=== PATIENT | female | born 1935 | race Caucasian/White ===

== ENCOUNTER 2020-10-04 18:19 | Inpatient (IN) ==
--- NOTE | 2020-10-04 18:51 | Emergency Department Note ---
Impression & Plan Acute pyelonephritis, Flank Pain, Acute UTI (urinary tract infection), T12 compression fracture, Fracture of left pelvis ED Provider Note INFORMANT: Patient ED PROVIDER(S): Gonzalez Bolanos MD CHIEF COMPLAINT: Flank pain PLAN: Disposition: Admitted Condition: Good Outpatient prescription management: none Referral: None MEDICAL DECISION MAKING: Patient presented because of urinary symptoms and flank pain. She was concerned about a kidney infection. She does have CVA tenderness. She did not have any fever. She did have some tenderness in the pelvis. She had been able to ambula te after the fall but has noted the increasing weakness causing her more difficulty. A urinalysis was concerning for infection. Her CBC revealed a leukocytosis as well. Her chemistry panel was unremarkable. The patient was treated with IV Rocephin. She received fentanyl prehospital which helped with her pain. The patient had a Dilaudid order written. CT imaging also revealed a compression fracture at T12 and L4. The patient's son noted the L4 was there previously. She also has a fracture of the left pelvis. Further management in the hospital is going to be necessary. [facility] The patient will be admitted for further management. Triage Nursing notes reviewed and agree them. Vital Signs: reviewed and remarkable for no significant abnormalities Differential diagnosis: Renal colic, UTI, appendicitis, diverticulitis, mesenteric ischemia, aortic pathology, infections, inflammatory bowel disease, PUD, biliary pathology, as well as other pathologies. Diagnostics interpreted by me: ECG: none Cardiac Monitoring: Cardiac monitoring ordered by me: The patient was placed on continuous cardiac monitoring and observed. It revealed a normal sinus rhythm at 74 beats per minute without ectopy or evidence of dysrhythmia. Imaging studies: CT scans of the abdomen and pelvis revealed findings noted above. I refer you to the EMR for further details. HPI: The patient is a 84 year old female who presents to the Emergency Room with complaints of right flank abdominal pain. This started over the last few days and is worsening. The patient also notes the following associated symptoms, dysuria, weakness, inability to walk. The patient has been given Zofran and fentanyl by EMS successfully for relieving factors. Current pain is rated as 4/10. The patient has a history of UTI and is concerned for the same. Incidentally she did fall a week ago but denies any injury. She was able to get up and walk around. She was bearing weight. It seems since the urinary symptoms started that she became more weak and has not been able to walk. Pt denies LOC, headache, fevers, chills, diaphoresis, visual changes, neck pain, chest pain, breathing difficulties, nausea, vomiting, midline or left-sided back pain, melena, hematochezia, numbness, lymphadenopathy, rash, or other complaints. ROS: See above HPI for pertinent positives & negatives. A total of 10 systems reviewed and were otherwise negative. PAST MEDICAL HISTORY:See Below , UTI PAST SURGICAL HISTORY:See Below, pacemaker FAMILY HISTORY:See Below SOCIAL HISTORY:See Below, retired HOME MEDICATIONS:See Below ALLERGIES:See Below VITALS:See Below PHYSICAL EXAMINATION: GENERAL: Awake, alert, well-appearing, in no distress HENT: Normocephalic, atraumatic. Oropharynx unremarkable. EYES: Normal conjunctiva. Sclera non-icteric. NECK: Inspection normal. Non-tender. Supple. No nuchal rigidity. FROM. No masses. RESPIRATORY: Clear to auscultation. No wheezes. No rales. Normal respiratory effort. CARDIAC: Normal rate. Normal rhythm. No murmurs. No rubs. Extremities warm and well perfused. Pulses equal. No JVD. GI: Soft, non-distended. No tenderness to palpation. No rebound or guarding. No masses. RECTAL: Deferred. MUSCULOSKELETAL: Atraumatic. Chest examination reveals no tenderness. The back is symmetrical on inspection without obvious abnormality. There is no CVA tenderness to palpation. No joint edema. LOWER EXTREMITIES: Calves are equal size bilaterally and non-tender. No edema. No discoloration. NEURO: Normal sensorium. No sensory or motor deficits noted. SKIN: No rash or jaundice noted. Gonzalez Bolanos MD Past Med/Surg History Social History Smoking Status: Former smoker Feels Safe at Home: Yes Allergies Allergies Allergy/AdvReac Type Severity Reaction Status Date / Time clindamycin [From Cleocin] Allergy Unknown Unverified 10/04/20 20:31 doxycycline Allergy Unknown Unverified 10/04/20 20:30 meperidine [From Demerol] Allergy Unknown Unverified 10/04/20 20:29 morphine Allergy Unknown Unverified 10/04/20 20:30 Home Meds Home Medications Medication Instructions Recorded Confirmed aspirin [Aspir-81] 81 mg PO DAILY 10/04/20 10/04/20 atorvastatin 20 mg PO HS 10/04/20 10/04/20 carvedilol 12.5 mg PO HS 10/04/20 10/04/20 cholecalciferol (vitamin D3) 25 mcg PO QAM 10/04/20 10/04/20 hydrocodone-acetaminophen [Ione] 1 tab PO Q6H PRN 10/04/20 10/04/20 levothyroxine 88 mcg PO DAILY 10/04/20 10/04/20 pioglitazone 30 mg PO QAM 10/04/20 10/04/20 prednisone 0 mg PO .DAILY/UD 10/04/20 10/04/20 spironolactone 25 mg PO QAM 10/04/20 10/04/20 Results & Data (ED) Vital Signs Vital Signs - 24 hr 10/04/20 18:44 10/04/20 22:00 Temperature 36.6 C Temperature Source Oral Pulse Rate 60 Pulse Rate [Right Finger] 60 74 Pulse Rhythm Regular Pulse Rhythm [Right Finger] Regular Pulse Strength Normal Pulse Strength [Right Finger] Normal Respiratory Rate 16 18 Respiratory Effort / Characteristics Non-Labored Spontaneous Non-Labored Respiratory Depth Normal Blood Pressure [Right Arm] 140/60 129/54 L Blood Pressure Mean [Right Arm] 86 79 Pulse Oximetry 90 92 Oxygen Delivery Method Room Air Room Air Sepsis Recent Fever Within 48 Hours No Sepsis New/Unexplained Change in Mental Status No Sepsis Action Taken by Nursing No Action Required Laboratory Data Result diagrams: 10/04/20 18:25 10/04/20 18:25 Lab Results 10/04/20 10/04/20 10/04/20 Range/Units 18:25 18:25 18:55 WBC 15.06 H (4.8-10.8) K/uL RBC 4.23 L (4.7-6.1) M/uL Hgb 12.5 L (14.0-18.0) g/dL Hct 36.6 L (42-52) % MCV 86.5 (80-100) fL MCH 29.6 (25-34) pg MCHC 34.2 (32-36) g/dL RDW Std Deviation 51.2 H (36.4-46.3) fL RDW Coeff of Joie 16.1 H (11.5-14.5) % Plt Count 279 (130-400) K/uL MPV 9.1 (7.4-10.4) fL Immature Gran % (Auto) 0.5 % Neut % (Auto) 93.2 % Lymph % (Auto) 4.4 % [place] % (Auto) 1.9 % Eos % (Auto) 0.0 % Baso % (Auto) 0.0 % Neut # (Auto) 14.02 H (1.4-6.5) K/uL Lymph # (Auto) 0.67 L (1.2-3.4) K/uL [place] # (Auto) 0.29 (0.11-0.59) K/uL Eos # (Auto) 0.00 (0-0.5) K/uL Baso # (Auto) 0.00 (0-0.2) K/uL Immature Gran # (Auto) 0.08 H (0.00-0.02) K/uL Sodium 133 L (136-145) mmol/L Potassium 4.5 (3.5-5.1) mmol/L Chloride 101 (98-107) mmol/L Carbon Dioxide 29 (21-32) mmol/L Anion Gap 3.0 (3-11) BUN 27 H (7-18) mg/dl Creatinine 0.80 (0.6-1.4) mg/dl Est Cr Clr Drug Dosing Not Reportable Est GFR ( Amer) 94.4 ml/min Est GFR (Non-Af Amer) 81.5 ml/min BUN/Creatinine Ratio 33.3 H (10-20) Glucose 209 H (70-99) mg/dl Calcium 8.5 (8.5-10.1) mg/dl Total Bilirubin 1.3 H (0.2-1) mg/dl AST 17 (15-37) U/L ALT 13 (12-78) U/L Alkaline Phosphatase 126 H (45-117) U/L Total Protein 6.6 (6.4-8.2) gm/dl Albumin 2.9 L (3.4-5.0) gm/dl Globulin 3.7 (2.5-4.0) gm/dl Albumin/Globulin Ratio 0.8 L (0.9-2) Lipase 184 (73-393) U/L Urine Color Dark Yellow Urine Appearance Cloudy A (Clear) Urine pH 5.5 (4.5-7.5) Ur Specific [place] 1.026 (1.000-1.030) Urine Protein Negative (Negative) Urine Glucose (UA) 1+ H (Negative) Urine Ketones Trace H (Negative) Urine Blood 3+ H (Negative) Urine Nitrite Negative (Negative) Urine Bilirubin 1+ H (Negative) Urine Urobilinogen Positive H (Negative) Ur Leukocyte Esterase 2+ H (Negative) Urine WBC (Auto) >30 H (0-5) /hpf Urine RBC (Auto) 10-30 H (0-4) /hpf U Hyaline Cast (Auto) 0 (0-5) /lpf U Epithel Cells (Auto) 20-30 H (0-5) /lpf Urine Bacteria (Auto) 4+ H (Negative) COVID-19 Eval Order SARS-CoV-2 (PCR) (Negative) 10/04/20 10/04/20 Range/Units 19:38 19:38 WBC (4.8-10.8) K/uL RBC (4.7-6.1) M/uL Hgb (14.0-18.0) g/dL Hct (42-52) % MCV (80-100) fL MCH (25-34) pg MCHC (32-36) g/dL RDW Std Deviation (36.4-46.3) fL RDW Coeff of Joie (11.5-14.5) % Plt Count (130-400) K/uL MPV (7.4-10.4) fL Immature Gran % (Auto) % Neut % (Auto) % Lymph % (Auto) % [place] % (Auto) % Eos % (Auto) % Baso % (Auto) % Neut # (Auto) (1.4-6.5) K/uL Lymph # (Auto) (1.2-3.4) K/uL [place] # (Auto) (0.11-0.59) K/uL Eos # (Auto) (0-0.5) K/uL Baso # (Auto) (0-0.2) K/uL Immature Gran # (Auto) (0.00-0.02) K/uL Sodium (136-145) mmol/L Potassium (3.5-5.1) mmol/L Chloride (98-107) mmol/L Carbon Dioxide (21-32) mmol/L Anion Gap (3-11) BUN (7-18) mg/dl Creatinine (0.6-1.4) mg/dl Est Cr Clr Drug Dosing Est GFR ( Amer) ml/min Est GFR (Non-Af Amer) ml/min BUN/Creatinine Ratio (10-20) Glucose (70-99) mg/dl Calcium (8.5-10.1) mg/dl Total Bilirubin (0.2-1) mg/dl AST (15-37) U/L ALT (12-78) U/L Alkaline Phosphatase (45-117) U/L Total Protein (6.4-8.2) gm/dl Albumin (3.4-5.0) gm/dl Globulin (2.5-4.0) gm/dl Albumin/Globulin Ratio (0.9-2) Lipase (73-393) U/L Urine Color Urine Appearance (Clear) Urine pH (4.5-7.5) Ur Specific [place] (1.000-1.030) Urine Protein (Negative) Urine Glucose (UA) (Negative) Urine Ketones (Negative) Urine Blood (Negative) Urine Nitrite (Negative) Urine Bilirubin (Negative) Urine Urobilinogen (Negative) Ur Leukocyte Esterase (Negative) Urine WBC (Auto) (0-5) /hpf Urine RBC (Auto) (0-4) /hpf U Hyaline Cast (Auto) (0-5) /lpf U Epithel Cells (Auto) (0-5) /lpf Urine Bacteria (Auto) (Negative) COVID-19 Eval Order Covid19 at [facility] SARS-CoV-2 (PCR) NEGATIVE (Negative) Administered Medications Discontinued Medications Ceftriaxone Sodium (Rocephin) 1,000 mg in 50 mls @ 100 mls/hr IV NOW STA Stop: 10/04/20 20:06 Last Infusion: 10/04/20 20:30 Dose: 0 mls/hr Documented by: [id number] Admin: 10/04/20 19:54 Dose: 100 mls/hr Documented by: [id number] Imaging Data Radiologist's Impression: Abdomen/Pelvis CT 10/04/20 18:43 CT SCAN OF THE ABDOMEN AND PELVIS WITHOUT IV CONTRAST CLINICAL HISTORY: Right flank pain. COMPARISON STUDY: No priors. TECHNIQUE: CT scan of the abdomen and pelvis is performed from the lung bases to the proximal femora. Images are reviewed in the axial, sagittal, and coronal planes. IV contrast was not administered for this examination note that the examination is performed in significantly suboptimal fashion without IV contrast. There is also significant motion artifact. A dose lowering technique was utilized adhering to the principles of ALARA. CT DOSE: 236.11 mGy.cm FINDINGS: Lung bases: A cardiac pacemaker is partially visualized in the left chest wall. The heart is enlarged and without pericardial effusion. The coronary arteries are densely calcified. There are small left and trace right pleural effusions with left basilar consolidation. There is a moderate to large hiatal hernia. Liver: The unenhanced liver is normal in size, contour, and attenuation. There is no intrahepatic biliary ductal dilatation. Gallbladder: The gallbladder is not well visualized and may be surgically absent. Spleen: Normal in size and attenuation. Pancreas: The unenhanced pancreas is atrophic and grossly unremarkable. Adrenal glands: Unremarkable. Kidneys: The unenhanced kidneys are atrophic and without hydronephrosis. There are no renal calculi identified. There is no evidence of contour deforming renal mass lesion. Abdominal vasculature: There is advanced atherosclerotic calcification and mild ectasia of the abdominal aorta. Bowel: There is mild to moderate colonic diverticulosis without CT evidence of acute diverticulitis. Moderate fecal retention is seen throughout the colon. There is no bowel obstruction. The appendix is not identified and reported surgically absent. Peritoneum: There is no intraperitoneal free air or abdominal ascites. Lymphadenopathy: None. Pelvic viscera: A vaginal pessary device is in place. The bladder is decompressed around a Jeff catheter and cannot be evaluated. Foci of intraluminal gas are likely related to instrumentation. The uterus is surgically absent. No adnexal lesion is seen. Skeletal structures: The skeletal structures are osteopenic. 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 There are healed right pubic ring fractures. There is chronic posttraumatic deformity of the sacrum with an insufficiency fracture of the right sacral ala. There is an acute appearing fracture of the left sacral ala, best seen on image #224. There is a severe compression deformity of T12 with fragments retropulsed by up to 6 mm. There is a moderate to severe compr ession deformity of L4. There are chronic left-sided rib fractures. No lytic or blastic lesions are seen. Soft tissues: The patient is cachectic. There is mild body wall edema. IMPRESSION: 1. There are no acute infectious or inflammatory findings in the abdomen or pelvis. 2. There is an acute appearing fracture of the left sacral ala. 3. There are moderate to severe compression deformities of T12 and L4. These are age indeterminant but likely chronic. Correlate for point tenderness. 4. Numerous additional chronic fractures as above. 5. There are small left and trace right pleural effusions with left basilar consolidation. This likely represents atelectasis. Correlate clinically for evidence of a superimposed infectious/inflammatory pneumonitis. 6. Cardiomegaly and cardiac pacemaker. 8. Moderate to large hiatal hernia. 9. Colonic diverticulosis without CT evidence of acute diverticulitis. 10. Moderate constipation. 11. 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 12. Additional findings as above. ACT 112: Negative or not required by law. Electronically signed by: Juanjo Mercado M.D. 10/04/2020 7:54 PM Discharge Plan Visit Data Chief Complaint: Flank Pain Stated Complaint: rt FLANK PAIN/KIDNEY INFECTION ED Provider: Gonzalez Bolanos Discharge Problem: Acute pyelonephritis, Flank Pain, Acute UTI (urinary tract infection), T12 compression fracture, Fracture of left pelvis Forms Stand Alone Forms: My [facility] [employer] Prescriptions Prescriptions: No Action atorvastatin 20 mg Tablet 20 mg PO HS RF: 0 carvedilol 12.5 mg Tablet 12.5 mg PO HS RF: 0 levothyroxine 88 mcg Tablet 88 mcg PO DAILY RF: 0 pioglitazone 30 mg Tablet 30 mg PO QAM RF: 0 spironolactone 25 mg Tablet 25 mg PO QAM RF: 0 cholecalciferol (vitamin D3) 25 mcg (1,000 unit) Capsule 25 mcg PO QAM RF: 0 hydrocodone-acetaminophen [Ione] 5-325 mg Tablet 1 tab PO Q6H PRN (Reason: Pain) RF: 0 prednisone 10 mg Tablet 0 mg PO .DAILY/UD RF: 0 aspirin [Aspir-81] 81 mg Tablet,Delayed Release (Dr/Ec) 81 mg PO DAILY RF: 0
[2020-10-04 18:52] LABS: Immature Granulocytes # (auto) 0.08 K/uL (0.00-0.02); Immature Granulocytes % (auto) 0.5 %; Lymphocytes # (auto) 0.67 K/uL (1.2-3.4); Lymphocytes % (auto) 4.4 %; Mean Corpuscular Hemoglobin 29.6 pg (25-34); Mean Corpuscular Hgb Conc 34.2 g/dL (32-36); Mean Corpuscular Volume 86.5 fL (80-100); Mean Platelet Volume 9.1 fL (7.4-10.4); Monocytes # (auto) 0.29 K/uL (0.11-0.59); Monocytes % (auto) 1.9 %; Neutrophils # (auto) 14.02 K/uL (1.4-6.5); Neutrophils % (auto) 93.2 %; Platelet Count 279 K/uL (130-400); RDW Coefficient of Variation 16.1 % (11.5-14.5); RDW Standard Deviation 51.2 fL (36.4-46.3); White Blood Count 15.06 K/uL (4.8-10.8)
[2020-10-04] MEDS ORDERED: HYDROmorphone INJ 0.5 MG/0.5 ML SYR IV PRN (18:58)
[2020-10-04 19:08] LABS: Albumin Level 2.9 gm/dl (3.4-5.0); BUN Creatinine Ratio 33.3 (10-20); Calcium 8.5 mg/dl (8.5-10.1); Potassium 4.5 mmol/L (3.5-5.1)
[2020-10-04 19:10] LABS: Albumin Globulin Ratio 0.8 (0.9-2); Bilirubin,Total 1.3 mg/dl (0.2-1); Globulin 3.7 gm/dl (2.5-4.0); Total Protein 6.6 gm/dl (6.4-8.2)
[2020-10-04 19:28] LABS: Appearance Urine Cloudy (Clear); Bacteria Urine Automated 4+ (Negative); Blood Urine 3+ (Negative); Color Urine Dark Yellow; Epithelial Cell Urine Auto 20-30 /lpf (0-5); Glucose Urine UA 1+ (Negative); Ketones Urine Trace (Negative); Leukocyte Esterase Urine 2+ (Negative); Nitrite Urine Negative (Negative); Protein Urine Negative (Negative); Specific Gravity Urine 1.026 (1.000-1.030); Urobilinogen Urine Positive (Negative); WBC Urine Automated >30 /hpf (0-5); pH Urine 5.5 (4.5-7.5)
[2020-10-04 19:35] LABS: Bilirubin Urine 1+ (Negative)
[2020-10-04] MEDS ORDERED: cefTRIAXone SODIUM 1,000 MG/50 ML BAG IV STA (19:37)
--- NOTE | 2020-10-04 19:55 | CT Scan Report ---
CT SCAN OF THE ABDOMEN AND PELVIS WITHOUT IV CONTRAST CLINICAL HISTORY: Right flank pain. COMPARISON STUDY: No priors. TECHNIQUE: CT scan of the abdomen and pelvis is performed from the lung bases to the proximal femora. Images are reviewed in the axial, sagittal, and coronal planes. IV contrast was not administered for this examination note that the examination is performed in significantly suboptimal fashion without IV contrast. There is also significant motion artifact. A dose lowering technique was utilized adheri ng to the principles of ALARA. CT DOSE: 236.11 mGy.cm FINDINGS: Lung bases: A cardiac pacemaker is partially visualized in the left chest wall. The heart is enlarged and without pericardial effusion. The coronary arteries are densely calcified. There are small left and trace right pleural effusions with left basilar consolidation. There is a moderate to large hiata l hernia. Liver: The unenhanced liver is normal in size, contour, and attenuation. There is no intrahepatic anand iary ductal dilatation. Gallbladder: The gallbladder is not well visualized and may be surgically absent. Spleen: Normal in size and attenuation. Pancreas: The unenhanced pancreas is atrophic and grossly unremarkable. Adrenal glands: Unremarkable. Kidneys: The unenhanced kidneys are atrophic and without hydronephrosis. There are no renal calculi i dentified. There is no evidence of contour deforming renal mass lesion. Abdominal vasculature: There is advanced atherosclerotic calcification and mild ectasia of the abdomi nal aorta. Bowel: There is mild to moderate colonic diverticulosis without CT evidence of acute diverticulitis. Moderate fecal retention is seen throughout the colon. There is no bowel obstruction. The appendix is not identified and reported surgically absent. Peritoneum: There is no intraperitoneal free air or abdominal ascites. Lymphadenopathy: None. Pelvic viscera: A vaginal pessary device is in place. The bladder is decompressed around a Jeff cath eter and cannot be evaluated. Foci of intraluminal gas are likely related to instrumentation. The [place] marylu is surgically absent. No adnexal lesion is seen. Skeletal structures: The skeletal structures are osteopenic. 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 There is chronic posttraumatic deformity of both hips with bilateral intertro chanteric and intramedullary nails in the proximal femora. There are healed right pubic ring fracture s. There is chronic posttraumatic deformity of the sacrum with an insufficiency fracture of the right sacral ala. There is an acute appearing fracture of the left sacral ala, best seen on image #224. Th ere is a severe compression deformity of T12 with fragments retropulsed by up to 6 mm. There is a mod erate to severe compression deformity of L4. There are chronic left-sided rib fractures. No lytic or blastic lesions are seen. Soft tissues: The patient is cachectic. There is mild body wall edema. IMPRESSION: 1. There are no acute infectious or inflammatory findings in the abdomen or pelvis. 2. There is an acute appearing fracture of the left sacral ala. 3. There are moderate to severe compression deformities of T12 and L4. These are age indeterminant bu t likely chronic. Correlate for point tenderness. 4. Numerous additional chronic fractures as above. 5. There are small left and trace right pleural effusions with left basilar consolidation. This likel y represents atelectasis. Correlate clinically for evidence of a superimposed infectious/inflammatory pneumonitis. 6. Cardiomegaly and cardiac pacemaker. 8. Moderate to large hiatal hernia. 9. Colonic diverticulosis without CT evidence of acute diverticulitis. 10. Moderate constipation. 11. 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 12. Additional findings as above. ACT 112: Negative or not required by law. Electronically signed by: Juanjo Mercado M.D. 10/04/2020 7:54 PM
[2020-10-04 19:57] LABS: Cast Urine Automated 0 /lpf (0-5)
[2020-10-04] MEDS ORDERED: POLYETHYLENE (MIRALAX) 17 GM PACK PO PRN (23:46)
[2020-10-04] MEDS ORDERED: ONDANSETRON INJ 2 MG/ML 2 ML VIAL IV PRN (23:46)
[2020-10-04] MEDS ORDERED: ACETAMINOPHEN 325 MG TAB PO PRN (23:46)
[2020-10-05] MEDS ORDERED: GLUCOSE 10 TABS/TUBE PO PRN (00:30)
[2020-10-05] MEDS ORDERED: GLUCAGON FOR INJ 1 MG VIAL IM PRN (00:30)
[2020-10-05] MEDS ORDERED: GLUCOSE 40% GEL 15 GM TUBE PO PRN (00:30)
[2020-10-05] MEDS ORDERED: DEXTROSE 50% 50 ML SYRINGE IV PRN (00:30)
[2020-10-05] MEDS ORDERED: CARBOHYDRATES FOR HYPOGLYCEMIA PO PRN (00:30)
[2020-10-05] MEDS: LEVOTHYROXINE SODIUM 88 MCG TABLET PO SCH (05:28)
[2020-10-05] MEDS: HYDROCODONE/ACETAMOPHEN 5/325MG TAB PO PRN ×2 (05:30→15:02)
[2020-10-05 05:40] LABS: Eosinophils # (auto) 0.02 K/uL (0-0.5); Eosinophils % (auto) 0.1 %; Immature Granulocytes # (auto) 0.14 K/uL (0.00-0.02); Immature Granulocytes % (auto) 0.9 %; Lymphocytes # (auto) 0.48 K/uL (1.2-3.4); Lymphocytes % (auto) 3.2 %; Mean Corpuscular Volume 85.3 fL (80-100); Mean Platelet Volume 8.8 fL (7.4-10.4); Monocytes # (auto) 1.13 K/uL (0.11-0.59); Monocytes % (auto) 7.6 %; Neutrophils # (auto) 13.12 K/uL (1.4-6.5); Neutrophils % (auto) 88.2 %; Platelet Count 262 K/uL (130-400); RDW Coefficient of Variation 16.3 % (11.5-14.5); RDW Standard Deviation 50.5 fL (36.4-46.3); White Blood Count 14.89 K/uL (4.8-10.8)
[2020-10-05 06:08] LABS: BUN Creatinine Ratio 35.2 (10-20); Calcium 8.4 mg/dl (8.5-10.1); Magnesium 2.2 mg/dl (1.8-2.4); Potassium 4.8 mmol/L (3.5-5.1)
[2020-10-05 06:31] LABS: Estimated Average Glucose 137 mg/dl; Hemoglobin A1C 6.4 % (4.5-5.6)
[2020-10-05] MEDS: ASPIRIN 81 MG ECTAB PO SCH (08:50)
[2020-10-05] MEDS: SPIRONOLACTONE 25 MG TAB PO SCH (08:51)
[2020-10-05] MEDS: CHOLECALCIFEROL 1,000 UNITS 25 MCG TAB PO SCH (08:51)
[2020-10-05] MEDS: INSULIN ASPART 100 UNITS/ML 3 ML PEN SC SCH ×4 (08:56→21:27)
--- NOTE | 2020-10-05 09:23 | Hospitalist Progress Note ---
Date of Service October 05, 2020 Assessment & Plan (1) Flank Pain: (2) Acute pyelonephritis: (3) Acute UTI (urinary tract infection): (4) T12 compression fracture: (5) Fracture of left pelvis: Supportive care until Dr Berger returns on Wednesday, Continue Abx Labs Checked ROS-No Headache, No Visual Changes, No Nausea, No Vomiting, No Fever, No Chills, No Neck Pain or Stiffness, No Chest Pain, No Palpitations, No SOB, No CASTELLANOS, No Cough, No Sputum, No Wheezing, No Abdominal Pain, No Diarrhea, No Hematemesis, No Hemoptysis, No Unexpected Weight Loss, No Flank pain, No Melena, No Hematochezia, No Frequency, No Urgency, No Burning, No Hematuria, No Rashes, No Diaphoresis. Appetite is Normal, Sore Back and Hip Physical Exam Gen-AAO x 3, NAD, Afebrile, Thin Head-NCAT, EOMI, PERRLA, Anicteric Sclera, No Posterior Pharyngeal Erythema Neck-Supple, No JVD, No Thyromegaly, No Masses, No LAD, No Bruits Lungs-Clear to Auscultation Bilaterally, No Rales, No Rhonchi, No Wheezing, No Crepitus Chest-No S4, +S1, +S2, No S3, No Murmurs, No Rubs, No Gallops, No Ectopy Abdomen-Soft, Bowel Sounds Present, Non Tender, Non Distended, No Hepatomegaly, No Splenomegaly, No Palpable Masses, No Rebound, No Rigidity, No Guarding Musculoskeletal-Full Range of Motion Bilaterally, No CVAT Extremities-No Cyanosis, No Clubbing, No Edema Nuero-Cranial Nerves II-XII grossly intact, Motor WNL, DTRs WNL, Strength WNL, Non Focal Psych-Normal Mood Admission and Anticipated Discharge Date Admission Date: October 04, 2020 Results & Data Results & Data ([facility]) Vital Signs (Past 12 Hours) Vital Signs Temp Pulse Resp BP BP Pulse Ox 10/05/20 07:44 36.4 C L 60 16 99/62 L 92 10/04/20 23:47 36.5 C 60 16 124/65 92 10/04/20 22:00 74 18 129/54 L 92
--- NOTE | 2020-10-05 11:28 | History and Physical Report ---
DATE OF ADMISSION: 10/04/2020 CHIEF COMPLAINT: Fall, ambulatory dysfunction. HISTORY OF PRESENT ILLNESS: This is an 84-year-old female with past medical history significant for type 2 diabetes, hyperlipidemia, hypothyroidism, CAD, dilated cardiomyopathy, chronic systolic CHF, status post AICD, vitamin D deficiency, B12 deficiency, senile osteoporosis, osteoarthrosis involving shoulder region, iron deficiency anemia, history of hip fracture, who lives with her daughter, ambulates with a walker, comes with a fall and ambulatory dysfunction. Son is in the room helping with the history. The patient had a fall on 09/17/2020 when she was trying to open the door, she fell backward. She was able to case picker herself and when the daughter came in, she was sitting in a chair. At that time, she did not complain of any pain, but on 09/24/2020 was the last time she walked. She complained of back pain and the PCP advised to come to the hospital. The patient in the ER was found to have elevated white count, UTI, and CAT scan is showing chronic healed pelvic fracture and T12 and L4 moderate to severe compression deformities, age indeterminate and acute sacral ala fracture.The patient is currently resting comfortably. Complains of back pain. No cough, no fever, no chills, no chest pain, no shortness of breath. No nausea, no vomiting, no abdominal pain. Son says that they noticed some blood in the stool today in the diaper. Normal bladder movements. Denies any burning micturition. He has no headache, no blurred vision, no earache, no runny nose, no sore throat. Appetite is okay. She is currently hungry. She eats regular food and swallows okay. ALLERGIES: CLINDAMYCIN, DOXYCYCLINE, MEPERIDINE, MORPHINE. PAST MEDICAL HISTORY: As mentioned above. PAST SURGICAL HISTORY: Status post ICD, appendectomy, cholecystectomy, right hip fracture fixation, left hip fracture fixation, sigmoidoscopy, total hysterectomy. MEDICATIONS: Aspirin 81 mg p.o. daily, atorvastatin 20 mg p.o. at bedtime, Coreg 12.5 mg p.o. hs or b.i.d.?, vitamin D 25 mcg p.o. a.m., Reeds 1 tablet p.o. q. 6 hours p.r.n., levothyroxine 88 mcg p.o. daily, pioglitazone 30 mg p.o. a.m., spironolactone 25 mg p.o. a.m. FAMILY HISTORY: Significant for father had MN at age 51, emphysema, was a drivers license examiner; mother had MN, diabetes; brother has diabetes; son has esophageal cancer; brother had neck cancer. SOCIAL HISTORY: Lives with her daughter. Former smoker, quit in 2011, smoked half pack a day for 50 years. No alcohol use, no drug use. REVIEW OF SYSTEMS: As per HPI. Rest of the review of systems negative. PHYSICAL EXAMINATION: GENERAL: The patient is old and frail, not in acute distress. VITAL SIGNS: Temperature 36.6, pulse 74, respiratory rate 18, blood pressure 129/54, oxygen 92% on room air. HEENT: Pupils equal, round, reactive to light. Oral mucosa moist. NECK: No JVD. No neck masses. CARDIOVASCULAR: S1, S2 heard, regular rate and rhythm, no murmur, no gallop. RESPIRATORY SYSTEM: Normal AP diameter. No accessory muscle use. No wheezing, no crackles. ABDOMEN: Soft, bowel sounds present, nontender. No distention. CENTRAL NERVOUS SYSTEM: Alert and oriented. Speech is clear, no facial droop. Moves extremities. EXTREMITIES: No edema, no erythema. LABORATORY DATA: WBC 15, hemoglobin 12.5, hematocrit 36.6, platelets 279. Sodium 133, potassium 4.5, chloride 101, bicarbonate 29, BUN 27, creatinine 0.8, serum glucose 209, calcium 8.5, total bilirubin 1.3, AST 17, ALT 13, alkaline phosphatase 126, lipase 184. Urinalysis positive for +3 blood and leukocyte esterase positive, +4 bacteria. SARS-CoV-2 PCR negative. IMAGING: CT of abdomen and pelvis is showing no acute infectious or inflammatory findings in the abdomen or pelvis, acute appearing fracture of the left sacral ala, [id number] compression deformities of T12 and L4, age indeterminate, [id number] hiatal hernia, colonic diverticulosis, moderate constipation, avascular necrosis of the proximal femur. ASSESSMENT AND PLAN: This is an 84-year-old female who presents with fall and ambulatory dysfunction and found to have urinary tract infection. 1. Fall and ambulatory dysfunction: Fell on 09/17/2020 and not ambulating since 09/24/2020. CAT scan is showing T12 and L4 [id number] compression deformities, age indeterminate and also acute appearing fracture of the left sacral ala. Will continue pain control, PT/OT, ortho consult in a.m. for further recommendation. Monitor in the medical floor. Social service to help with discharge planning. 2. Urinary tract infection, possibly contributing to fall. Started on Rocephin. Follow the cultures. 3. History of chronic systolic congestive heart failure: Ejection fraction of 20%, status post automatic implantable cardioverter defibrillator. Continue her home Coreg, spironolactone. Monitor for any volume overload. 4. History of coronary artery disease, continue beta nila, aspirin, and statin. 5. History of hypothyroidism: Continue Synthroid. 6. History of diabetes: Hold pioglitazone. Placed on insulin sliding scale. Follow the blood sugars. Follow HbA1c levels. 7. History of iron deficiency anemia: Hemoglobin is stable at 12.5. 8. Question of GI bleed: Son says he noticed some blood in the stool today. We will follow the labs and also follow stool for Hemoccult. If any concern, consult GI. 9. HTN on coreq qhs vs bid. Need to conform with pharmacy.Will monitor. 9. Deep venous thrombosis prophylaxis: Sequential compression devices. DISPOSITION: Closely monitor in the medical floor. PT and OT. Social service to help with discharge planning. Level 1 full code as per my discussion with the patient. MTDD
[2020-10-05] MEDS: HYDROmorphone INJ 0.5 MG/0.5 ML SYR IV PRN ×2 (12:43→19:30)
[2020-10-05] MEDS: cefTRIAXone SODIUM 1,000 MG in DEXTROSE 5% 50 ML IV SCH (19:30)
[2020-10-05] MEDS: ATORVASTATIN 20 MG TAB PO SCH (20:17)
[2020-10-05] MEDS: carvediloL 12.5 MG TAB PO SCH (20:17)
[2020-10-06] MEDS: HYDROmorphone INJ 0.5 MG/0.5 ML SYR IV PRN ×2 (04:44→12:12)
[2020-10-06] MEDS: LEVOTHYROXINE SODIUM 88 MCG TABLET PO SCH (04:46)
[2020-10-06 06:23] LABS: Mean Corpuscular Hemoglobin 28.9 pg (25-34); Mean Corpuscular Hgb Conc 33.6 g/dL (32-36); Mean Corpuscular Volume 86.1 fL (80-100); Mean Platelet Volume 8.9 fL (7.4-10.4); Platelet Count 250 K/uL (130-400); RDW Coefficient of Variation 16.5 % (11.5-14.5); RDW Standard Deviation 51.8 fL (36.4-46.3); White Blood Count 12.06 K/uL (4.8-10.8)
[2020-10-06 06:58] LABS: BUN Creatinine Ratio 35.6 (10-20); Calcium 8.8 mg/dl (8.5-10.1); Potassium 4.2 mmol/L (3.5-5.1)
[2020-10-06] MEDS: HYDROCODONE/ACETAMOPHEN 5/325MG TAB PO PRN ×2 (09:03→20:16)
[2020-10-06] MEDS: INSULIN ASPART 100 UNITS/ML 3 ML PEN SC SCH ×4 (09:11→21:24)
[2020-10-06] MEDS: SPIRONOLACTONE 25 MG TAB PO SCH (09:12)
[2020-10-06] MEDS: ASPIRIN 81 MG ECTAB PO SCH (09:12)
[2020-10-06] MEDS: CHOLECALCIFEROL 1,000 UNITS 25 MCG TAB PO SCH (09:12)
--- NOTE | 2020-10-06 09:35 | Hospitalist Progress Note ---
Date of Service October 06, 2020 Assessment & Plan (1) Flank Pain: (2) Acute pyelonephritis: (3) Acute UTI (urinary tract infection): (4) T12 compression fracture: (5) Fracture of left pelvis: Supportive care until Dr Berger returns on Wednesday, Continue Abx Labs Checked ROS-No Headache, No Visual Changes, No Nausea, No Vomiting, No Fever, No Chills, No Neck Pain or Stiffness, No Chest Pain, No Palpitations, No SOB, No CASTELLANOS, No Cough, No Sputum, No Wheezing, No Abdominal Pain, No Diarrhea, No Hematemesis, No Hemoptysis, No Unexpected Weight Loss, No Flank pain, No Melena, No Hematochezia, No Frequency, No Urgency, No Burning, No Hematuria, No Rashes, No Diaphoresis. Appetite is Normal, Sore Back and Hip Physical Exam Gen-AAO x 3, NAD, Afebrile, Thin Head-NCAT, EOMI, PERRLA, Anicteric Sclera, No Posterior Pharyngeal Erythema Neck-Supple, No JVD, No Thyromegaly, No Masses, No LAD, No Bruits Lungs-Clear to Auscultation Bilaterally, No Rales, No Rhonchi, No Wheezing, No Crepitus Chest-No S4, +S1, +S2, No S3, No Murmurs, No Rubs, No Gallops, No Ectopy Abdomen-Soft, Bowel Sounds Present, Non Tender, Non Distended, No Hepatomegaly, No Splenomegaly, No Palpable Masses, No Rebound, No Rigidity, No Guarding Musculoskeletal-Full Range of Motion Bilaterally, No CVAT Extremities-No Cyanosis, No Clubbing, No Edema Nuero-Cranial Nerves II-XII grossly intact, Motor WNL, DTRs WNL, Strength WNL, Non Focal Psych-Normal Mood Admission and Anticipated Discharge Date Admission Date: October 04, 2020 Results & Data Results & Data ([facility]) Vital Signs (Past 12 Hours) Vital Signs Temp Pulse Pulse Resp BP BP Pulse Ox 10/06/20 07:50 36.5 C 65 13 126/70 94 10/05/20 22:12 36.5 C 60 14 105/65 91
[2020-10-06] MEDS: cefTRIAXone SODIUM 1,000 MG in DEXTROSE 5% 50 ML IV SCH (20:05)
[2020-10-06] MEDS: carvediloL 12.5 MG TAB PO SCH (20:14)
[2020-10-06] MEDS: ATORVASTATIN 20 MG TAB PO SCH (20:14)
[2020-10-07] MEDS: LEVOTHYROXINE SODIUM 88 MCG TABLET PO SCH (06:09)
--- NOTE | 2020-10-07 07:30 | Hospitalist Progress Note ---
Date of Service October 07, 2020 Assessment & Plan (1) Flank Pain: (2) Acute pyelonephritis: (3) Acute UTI (urinary tract infection): (4) T12 compression fracture: (5) Fracture of left pelvis: Supportive care until Dr Berger returns on Wednesday, Continue Abx Labs Checked ROS-No Headache, No Visual Changes, No Nausea, No Vomiting, No Fever, No Chills, No Neck Pain or Stiffness, No Chest Pain, No Palpitations, No SOB, No CASTELLANOS, No Cough, No Sputum, No Wheezing, No Abdominal Pain, No Diarrhea, No Hematemesis, No Hemoptysis, No Unexpected Weight Loss, No Flank pain, No Melena, No Hematochezia, No Frequency, No Urgency, No Burning, No Hematuria, No Rashes, No Diaphoresis. Appetite is Normal, Sore Back and Hip Physical Exam Gen-AAO x 3, NAD, Afebrile, Thin Head-NCAT, EOMI, PERRLA, Anicteric Sclera, No Posterior Pharyngeal Erythema Neck-Supple, No JVD, No Thyromegaly, No Masses, No LAD, No Bruits Lungs-Clear to Auscultation Bilaterally, No Rales, No Rhonchi, No Wheezing, No Crepitus Chest-No S4, +S1, +S2, No S3, No Murmurs, No Rubs, No Gallops, No Ectopy Abdomen-Soft, Bowel Sounds Present, Non Tender, Non Distended, No Hepatomegaly, No Splenomegaly, No Palpable Masses, No Rebound, No Rigidity, No Guarding Musculoskeletal-Full Range of Motion Bilaterally, No CVAT Extremities-No Cyanosis, No Clubbing, No Edema Nuero-Cranial Nerves II-XII grossly intact, Motor WNL, DTRs WNL, Strength WNL, Non Focal Psych-Normal Mood Admission and Anticipated Discharge Date Admission Date: October 04, 2020 Results & Data Results & Data ([facility]) Vital Signs (Past 12 Hours) Vital Signs Temp Pulse Pulse Resp BP Pulse Ox 10/06/20 22:59 36.3 C L 60 18 97/60 L 94 10/06/20 20:00 70 115/70
[2020-10-07] MEDS: SPIRONOLACTONE 25 MG TAB PO SCH (08:28)
[2020-10-07] MEDS: ASPIRIN 81 MG ECTAB PO SCH (08:28)
[2020-10-07] MEDS: CHOLECALCIFEROL 1,000 UNITS 25 MCG TAB PO SCH (08:29)
[2020-10-07] MEDS: INSULIN ASPART 100 UNITS/ML 3 ML PEN SC SCH ×4 (08:53→21:10)
[2020-10-07] MEDS: HYDROCODONE/ACETAMOPHEN 5/325MG TAB PO PRN ×2 (08:53→21:25)
[2020-10-07] MEDS: HYDROmorphone INJ 0.5 MG/0.5 ML SYR IV PRN (12:37)
[2020-10-07] MEDS: cefTRIAXone SODIUM 1,000 MG in DEXTROSE 5% 50 ML IV SCH (20:37)
[2020-10-07] MEDS: ATORVASTATIN 20 MG TAB PO SCH (20:42)
[2020-10-07] MEDS: carvediloL 12.5 MG TAB PO SCH (20:42)
[2020-10-08 06:01] LABS: Hematocrit (blood only) 36.5 % (37-47); Hemoglobin 12.3 g/dL (12.0-16.0); Mean Corpuscular Hemoglobin 28.9 pg (25-34); Mean Corpuscular Hgb Conc 33.7 g/dL (32-36); Mean Corpuscular Volume 85.7 fL (80-100); Mean Platelet Volume 8.9 fL (7.4-10.4); Platelet Count 251 K/uL (130-400); RDW Coefficient of Variation 16.3 % (11.5-14.5); RDW Standard Deviation 50.8 fL (36.4-46.3); Red Blood Count 4.26 M/uL (4.2-5.4)
[2020-10-08] MEDS: LEVOTHYROXINE SODIUM 88 MCG TABLET PO SCH (06:22)
[2020-10-08 06:41] LABS: BUN Creatinine Ratio 27.7 (10-20); Calcium 8.5 mg/dl (8.5-10.1); Creatinine Clr Calc Pharmacy 52.2 ml/min; Est GFR (African American) 104.4 ml/min; Est GFR (Non-African American) 90.1 ml/min; Potassium 4.1 mmol/L (3.5-5.1)
[2020-10-08] MEDS: HYDROCODONE/ACETAMOPHEN 5/325MG TAB PO PRN ×2 (07:35→18:49)
[2020-10-08] MEDS: SPIRONOLACTONE 25 MG TAB PO SCH (09:28)
[2020-10-08] MEDS: ASPIRIN 81 MG ECTAB PO SCH (09:28)
[2020-10-08] MEDS: CHOLECALCIFEROL 1,000 UNITS 25 MCG TAB PO SCH (09:28)
[2020-10-08] MEDS: INSULIN ASPART 100 UNITS/ML 3 ML PEN SC SCH ×4 (09:32→21:00)
[2020-10-08] MEDS: HYDROmorphone INJ 0.5 MG/0.5 ML SYR IV PRN (10:37)
--- NOTE | 2020-10-08 10:55 | Hospitalist Progress Note ---
Date of Service October 08, 2020 Assessment & Plan (1) Borderline type 2 diabetes mellitus: (2) Cardiac defibrillator in place: (3) Bradyarrhythmia: (4) Fracture of right hip: (5) Intertrochanteric fracture of right hip: Dr Berger to see today, Continue Abx Labs Checked ROS-No Headache, No Visual Changes, No Nausea, No Vomiting, No Fever, No Chills, No Neck Pain or Stiffness, No Chest Pain, No Palpitations, No SOB, No CASTELLANOS, No Cough, No Sputum, No Wheezing, No Abdominal Pain, No Diarrhea, No Hematemesis, No Hemoptysis, No Unexpected Weight Loss, No Flank pain, No Melena, No Hematochezia, No Frequency, No Urgency, No Burning, No Hematuria, No Rashes, No Diaphoresis. Appetite is Normal, Sore Back and Hip Physical Exam Gen-AAO x 3, NAD, Afebrile, Thin Head-NCAT, EOMI, PERRLA, Anicteric Sclera, No Posterior Pharyngeal Erythema Neck-Supple, No JVD, No Thyromegaly, No Masses, No LAD, No Bruits Lungs-Clear to Auscultation Bilaterally, No Rales, No Rhonchi, No Wheezing, No Crepitus Chest-No S4, +S1, +S2, No S3, No Murmurs, No Rubs, No Gallops, No Ectopy Abdomen-Soft, Bowel Sounds Present, Non Tender, Non Distended, No Hepatomegaly, No Splenomegaly, No Palpable Masses, No Rebound, No Rigidity, No Guarding Musculoskeletal-Full Range of Motion Bilaterally, No CVAT Extremities-No Cyanosis, No Clubbing, No Edema Nuero-Cranial Nerves II-XII grossly intact, Motor WNL, DTRs WNL, Strength WNL, Non Focal Psych-Normal Mood Admission and Anticipated Discharge Date Admission Date: October 04, 2020 Results & Data Results & Data ([facility]) Vital Signs (Past 12 Hours) Vital Signs Temp Pulse Resp BP Pulse Ox 10/08/20 07:07 36.3 C L 61 18 105/62 94
--- NOTE | 2020-10-08 13:50 | CT Scan Report ---
CT OF THE LUMBAR SPINE CLINICAL HISTORY: Back pain. COMPARISON STUDY: CT of the abdomen and pelvis October 04, 2020. TECHNIQUE: Helical axial images of the lumbar spine were obtained. Sagittal and coronal reconstruct ions were viewed. Automated exposure control was utilized for the study. A dose lowering technique was utilized adhering to the principles of ALARA. FINDINGS: Artificial Glass Eye Maker tomograms partially visualizes a left subclavian pacer/AICD and bilateral femoral int ernal fixation hardware. A hiatal hernia is noted. There is elevation of the left hemidiaphragm. Thes e findings are better depicted on abdominal CT of September 26, 2020. For purposes of numbering on this exa m, the L5-S1 disc space is assigned to axial image 298 of 338. There is a severe T12 compression frac ture with 6 mm of retropulsion which results in moderate central canal stenosis. This fracture is age indeterminate. There is a severe L4 compression fracture with 3 mm of retropulsion at the level of t he superior endplate. No additional lumbar spine fractures are noted. There is moderate multilevel fa cet arthrosis and mild multilevel degenerative disc disease within the lumbar spine. A subacute to ch ronic fracture of the right aspect of S1 is noted. Additional sacral fractures are depicted on the CT of the abdomen and pelvis. IMPRESSION: 1. Severe T12 compression fracture with 6 mm of retropulsion which results in moderate narrowing of t he central canal. This fracture is age indeterminate. 2. Age indeterminate severe L4 compression fracture with minimal retropulsion. 3. Several subacute to chronic sacral fractures. ACT 112: Negative or not required by law. Electronically signed by: Favio Bourne M.D. 10/08/2020 1:48 PM
--- NOTE | 2020-10-08 14:43 | Orthopedic Consultation ---
Date of Consultation October 08, 2020 Assessment & Plan (1) T12 compression fracture: I did have the opportunity to review her CAT scan. It demonstrates essentially vertebra Freddy of T12 with well over 50% collapse of the L4 vertebral body. These are age-indeterminate. There is severe multilevel spinal stenosis at multiple levels of lumbar spine. There is evidence of insufficiency fractures of the sacrum. At length discussion with this patient and her daughter. I do not recommend any surgical invention in light of her health history and severe osteoporosis. She would be palliative at best. I have ordered a TLSO brace that she could try when out of bed for transfers and sitting in a chair. Patient understands and agrees with this plan. Present on Admission?: Yes History of Present Illness Reason for Consultation: Back pain with bilateral leg weakness Attending Physician: Cyrus Hinojosa, DO History of Present Illness This is a very pleasant 84-year-old female presents with back pain and bilateral leg weakness. She describes a fall in her home in early September. Since that time when she would begin standing and ambulating her legs would get weak and she would collapse. This was consistent with significant back pain at the time. She denies any loss of bowel bladder control. Denies any clear radicular complaints or neurogenic claudication. She denies any numbness and tingling lower extremities. During her discussion at this time her daughter is in the room. She denies any back pain while in bed. Denies any pain in her legs. Allergies Allergy/AdvReac Type Severity Reaction Status Date / Time clindamycin Allergy Intermediate hives/nause Verified 10/08/20 08:57 a doxycycline Allergy Intermediate hives/nause Verified 10/08/20 08:57 a meperidine AdvReac Intermediate confusion Verified 10/08/20 08:57 morphine AdvReac Intermediate tachycardia Verified 10/08/20 08:57 Home Medications Medication Instructions Recorded Confirmed Type ATORVASTATIN (LIPITOR) 20 mg PO DAILY #0 tab 05/21/14 History CARVEDILOL (COREG) 12.5 mg PO BID #0 tab 05/21/14 History CLOPIDOGREL BISULFATE (PLAVIX) 75 mg PO DAILY #0 tab 05/21/14 History LEVOTHYROXINE SODIUM (SYNTHROID) 88 mcg PO DAILY #0 tab 05/21/14 History LISINOPRIL (PRINIVIL) 5 mg PO DAILY #0 tab 05/21/14 History PIOGLITAZONE HCL (ACTOS) 30 mg PO DAILY #0 tab 05/21/14 History Aspirin 325 mg PO BID #60 05/26/14 Rx Ferrous Gluconate 324 mg PO BIDM #60 tab 05/26/14 Rx Tramadol HCl 50 mg PO Q8H PRN #15 05/26/14 Rx aspirin [Aspir-81] 81 mg PO DAILY 10/04/20 10/04/20 History atorvastatin 20 mg PO HS 10/04/20 10/04/20 History carvedilol 12.5 mg PO HS 10/04/20 10/04/20 History cholecalciferol (vitamin D3) 25 mcg PO QAM 10/04/20 10/04/20 History hydrocodone-acetaminophen [[place]] 1 tab PO Q6H PRN 10/04/20 10/04/20 History levothyroxine 88 mcg PO DAILY 10/04/20 10/04/20 History pioglitazone 30 mg PO QAM 10/04/20 10/04/20 History prednisone 0 mg PO .DAILY/UD 10/04/20 10/04/20 History spironolactone 25 mg PO QAM 10/04/20 10/04/20 History Patient History Social History (System 10/08/20 @ 08:57 by Alma Bills) Smoking Status: Former smoker Hx Alcohol Use: No Hx Substance Use: No Preferred Language: Chilean Communication Ability: Effective Wharf Labourer Required: No Beliefs That Will Affect Care: None Current Living Situation: Family Current Living Situation Comment: Pt lives with daughter Feels Safe at Home: Yes Safety Concerns: Feels Safe At This Time Assistive Devices: None Physical Exam Physical Exam: On physical exam she is alert and oriented. She is full sensation to touch lower extremities with reasonable strength plantar flexion dorsiflexion bilaterally. Results & Data ([facility]) Vital Signs (Past 12 Hours) Vital Signs Temp Pulse Resp BP Pulse Ox 10/08/20 07:07 36.3 C L 61 18 105/62 94
[2020-10-08] MEDS ORDERED: SODIUM CHLORIDE 0.9% 1000ML 1,000 ML IV ONE (17:05)
[2020-10-08] MEDS: cefTRIAXone SODIUM 1,000 MG in DEXTROSE 5% 50 ML IV SCH (21:50)
[2020-10-08] MEDS: carvediloL 12.5 MG TAB PO SCH (21:58)
[2020-10-08] MEDS: ATORVASTATIN 20 MG TAB PO SCH (21:58)
[2020-10-09] MEDS: LEVOTHYROXINE SODIUM 88 MCG TABLET PO SCH (04:30)
[2020-10-09] MEDS: HYDROCODONE/ACETAMOPHEN 5/325MG TAB PO PRN ×2 (04:30→13:56)
[2020-10-09] MEDS: HYDROmorphone INJ 0.5 MG/0.5 ML SYR IV PRN (07:46)
[2020-10-09] MEDS ORDERED: MAGNESIUM HYDROXIDE SUSP 30 ML UDC PO PRN (08:57)
[2020-10-09] MEDS: CHOLECALCIFEROL 1,000 UNITS 25 MCG TAB PO SCH (09:07)
[2020-10-09] MEDS: ASPIRIN 81 MG ECTAB PO SCH (09:07)
[2020-10-09] MEDS: SPIRONOLACTONE 25 MG TAB PO SCH (09:08)
[2020-10-09] MEDS: INSULIN ASPART 100 UNITS/ML 3 ML PEN SC SCH ×4 (09:09→20:57)
[2020-10-09] MEDS: POLYETHYLENE (MIRALAX) 17 GM PACK PO SCH (10:28)
[2020-10-09] MEDS: ATORVASTATIN 20 MG TAB PO SCH (19:31)
[2020-10-09] MEDS: carvediloL 12.5 MG TAB PO SCH (19:31)
--- NOTE | 2020-10-09 19:39 | Hospitalist Progress Note ---
Date of Service October 09, 2020 Assessment & Plan (1) Borderline type 2 diabetes mellitus: (2) Cardiac defibrillator in place: (3) Bradyarrhythmia: (4) Fracture of right hip: (5) Intertrochanteric fracture of right hip: Dr Berger saw the patient and no surgery needed, Brace ordered, SNF on DC, Off Abx, Na low, Push nutrition Labs Checked ROS-No Headache, No Visual Changes, No Nausea, No Vomiting, No Fever, No Chills, No Neck Pain or Stiffness, No Chest Pain, No Palpitations, No SOB, No CASTELLANOS, No Cough, No Sputum, No Wheezing, No Abdominal Pain, No Diarrhea, No Hematemesis, No Hemoptysis, No Unexpected Weight Loss, No Flank pain, No Melena, No Hematochezia, No Frequency, No Urgency, No Burning, No Hematuria, No Rashes, No Diaphoresis. Appetite is Normal, Sore Back and Hip Physical Exam Gen-AAO x 3, NAD, Afebrile, Thin Head-NCAT, EOMI, PERRLA, Anicteric Sclera, No Posterior Pharyngeal Erythema Neck-Supple, No JVD, No Thyromegaly, No Masses, No LAD, No Bruits Lungs-Clear to Auscultation Bilaterally, No Rales, No Rhonchi, No Wheezing, No Crepitus Chest-No S4, +S1, +S2, No S3, No Murmurs, No Rubs, No Gallops, No Ectopy Abdomen-Soft, Bowel Sounds Present, Non Tender, Non Distended, No Hepatomegaly, No Splenomegaly, No Palpable Masses, No Rebound, No Rigidity, No Guarding Musculoskeletal-Full Range of Motion Bilaterally, No CVAT Extremities-No Cyanosis, No Clubbing, No Edema Nuero-Cranial Nerves II-XII grossly intact, Motor WNL, DTRs WNL, Strength WNL, Non Focal Psych-Normal Mood Admission and Anticipated Discharge Date Admission Date: October 04, 2020 Results & Data Results & Data ([facility]) Vital Signs (Past 12 Hours) Vital Signs Temp Pulse Resp BP Pulse Ox 10/09/20 15:51 36.6 C 66 17 123/67 91 10/09/20 08:15 36.8 C 60 16 116/62 95
[2020-10-10] MEDS: HYDROCODONE/ACETAMOPHEN 5/325MG TAB PO PRN ×3 (02:22→17:17)
[2020-10-10] MEDS: HYDROmorphone INJ 0.5 MG/0.5 ML SYR IV PRN ×2 (06:04→10:48)
[2020-10-10] MEDS: LEVOTHYROXINE SODIUM 88 MCG TABLET PO SCH (06:04)
[2020-10-10 06:36] LABS: Hemoglobin 11.7 g/dL (12.0-16.0); Mean Corpuscular Hemoglobin 29.4 pg (25-34); Mean Corpuscular Hgb Conc 33.4 g/dL (32-36); Mean Corpuscular Volume 87.9 fL (80-100); Mean Platelet Volume 8.7 fL (7.4-10.4); Platelet Count 230 K/uL (130-400); RDW Coefficient of Variation 16.5 % (11.5-14.5); RDW Standard Deviation 53.7 fL (36.4-46.3); Red Blood Count 3.98 M/uL (4.2-5.4); White Blood Count 9.54 K/uL (4.8-10.8)
[2020-10-10 07:04] LABS: BUN Creatinine Ratio 18.4 (10-20); Calcium 8.3 mg/dl (8.5-10.1); Creatinine Clr Calc Pharmacy 50.1 ml/min; Est GFR (Non-African American) 88.8 ml/min; Potassium 4.2 mmol/L (3.5-5.1)
--- NOTE | 2020-10-10 08:30 | Pain Management Consultation ---
Date of Consultation October 10, 2020 Assessment & Plan (1) Sacral insufficiency fracture: (2) T12 compression fracture: (3) Compression fracture of L4 vertebra: (4) Ambulatory dysfunction: * Patient with recent fall with what appears to be subacute sacral insufficiency fractures and age-indeterminate severe T12 and L4 compression fractures with ambulatory dysfunction and reported right greater than left lower extremity weakness. Will recommend OT evaluation in an attempt to determine her ambulatory status as the patient desires to ambulate. * TLSO brace per orthopedics will be initiated * Patient indicates that she is tolerating hydrocodone with efficacy. It does not appear that she needs an extended release opiate at this time, but would consider Butrans should the need arise. Would recommend she continue with hydrocodone for as needed breakthrough pain and prior to any anticipated activities. * Consideration of further diagnostic evaluation with lumbar MRI to determine her potential candidacy for interventional treatment would be considered with persisting pain complaint and/or onset of any radicular component to her symptoms. Thank you for allowing us to participate in the care of Mrs. Jackson. History of Present Illness Reason for Consultation: Axial low back pain Requesting Physician: Abbe Alvarado MD Attending Physician: Cyrus Hinojosa DO History of Present Illness Mrs. Jackson is an 84-year-old white female who was admitted due to ambulatory dysfunction and axial low back pain status post a recent fall. The patient has past medical history significant for type 2 diabetes mellitus, CAD, dilated cardiomyopathy, chronic systolic CHF, status post AICD, and history of hip fractures status post ORIF procedures. The patient was reportedly in her home and fell backwards when she was attempting to answer the door on 09/17/2020. She landed onto her buttock per her report. She had minimal pain at that time but developed some progressive difficulties with ambulation due to reported right lower extremity weakness and increased low back pain in the sacral region. Imaging has revealed sacral insufficiency fractures and compression fracture of T12 and L4 vertebral body which are age-indeterminate. Patient has been evaluated by Dr. Berger who deferred any surgical intervention. A TLSO brace has been ordered but not initiated at this time. Patient reports that her pain is 0/10 while supine. Her pain escalates with movement and remains 100% axial in the sacral region. Minimal radiation to the right gluteal area. She denies a radiating component into the lower extremities. Patient indicates that she is tolerating hydrocodone without notable side effects. She feels that it is efficacious at diminishing her pain. She reports difficulty with ambulation due to the right lower extremity weakness which she reports is a new complaint since the time of her fall. The patient denies bowel or bladder incontinence or saddle anesthesias. She denies abdominal pain, nausea or vomiting. Patient has no further constitutional complaints. Plan of care discussed with Dr. Madison Cruz. Allergies Allergy/AdvReac Type Severity Reaction Status Date / Time clindamycin Allergy Intermediate hives/nause Verified 10/08/20 08:57 a doxycycline Allergy Intermediate hives/nause Verified 10/08/20 08:57 a meperidine AdvReac Intermediate confusion Verified 10/08/20 08:57 morphine AdvReac Intermediate tachycardia Verified 10/08/20 08:57 Home Medications Medication Instructions Recorded Confirmed Type ATORVASTATIN (LIPITOR) 20 mg PO DAILY #0 tab 05/21/14 History CARVEDILOL (COREG) 12.5 mg PO BID #0 tab 05/21/14 History CLOPIDOGREL BISULFATE (PLAVIX) 75 mg PO DAILY #0 tab 05/21/14 History LEVOTHYROXINE SODIUM (SYNTHROID) 88 mcg PO DAILY #0 tab 05/21/14 History LISINOPRIL (PRINIVIL) 5 mg PO DAILY #0 tab 05/21/14 History PIOGLITAZONE HCL (ACTOS) 30 mg PO DAILY #0 tab 05/21/14 History Aspirin 325 mg PO BID #60 05/26/14 Rx Ferrous Gluconate 324 mg PO BIDM #60 tab 05/26/14 Rx Tramadol HCl 50 mg PO Q8H PRN #15 05/26/14 Rx aspirin [Aspir-81] 81 mg PO DAILY 10/04/20 10/04/20 History atorvastatin 20 mg PO HS 10/04/20 10/04/20 History carvedilol 12.5 mg PO HS 10/04/20 10/04/20 History cholecalciferol (vitamin D3) 25 mcg PO QAM 10/04/20 10/04/20 History hydrocodone-acetaminophen [Culdesac] 1 tab PO Q6H PRN 10/04/20 10/04/20 History levothyroxine 88 mcg PO DAILY 10/04/20 10/04/20 History pioglitazone 30 mg PO QAM 10/04/20 10/04/20 History prednisone 0 mg PO .DAILY/UD 10/04/20 10/04/20 History spironolactone 25 mg PO QAM 10/04/20 10/04/20 History Patient History Medical History (Updated 10/10/20 @ 08:43 by Charles Villanueva PA-C) Ambulatory dysfunction Compression fracture of L4 vertebra Sacral insufficiency fracture Social History (System 10/08/20 @ 08:57 by Alma Bills) Smoking Status: Former smoker Hx Alcohol Use: No Hx Substance Use: No Preferred Language: German Communication Ability: Effective Topographical Surveyor Required: No Beliefs That Will Affect Care: None Current Living Situation: Family Current Living Situation Comment: Pt lives with daughter Feels Safe at Home: Yes Safety Concerns: Feels Safe At This Time Assistive Devices: Walker Physical Exam Physical Exam: General: Patient sitting quietly in exam room in no acute distress. Speech and thought process appropriate. Mood and affect appropriate. Cognition intact. Patient was alert and oriented to time person and place. Patient is thin and frail in physical appearance. Head: Normocephalic and atraumatic. ENT: No evidence of nasal or oral mucosal lesions. Mucous membranes are moist. Eyes: Pupils equal round reactive to light. Neck: Supple without adenopathy and full range of motion. Chest: Nontender to palpation of the costosternal junction. AICD implanted in the left anterior chest wall. Abdomen: Soft and nondistended. No organomegaly. Bowel sounds active. Back/spine: Patient was able to logroll towards her left side without increased pain complaints with assistance. Patient is nontender over the midline of the thoracolumbar spine to palpation or percussion. Patient is minimally tender over the sacral region to direct outpatient. Minimally tender over the right SI joint to provocative testing. Nontender in the paravertebral, quadratus lumborum or gluteal musculature. Lower extremities: SLR negative. Limited range of motion of the hips bilaterally. Patient nontender to greater trochanter. Sensation intact d istally. No evidence of edema. Well-healed surgical incision over the lateral hips bilaterally. Strength testing 4/5 with hip flexion/extension bilaterally. Dorsi and plantar flexion 4+/5 bilaterally. Neurologic: Cranial nerves grossly intact. Ambulatory function not witnessed. Results (Pain Clinic) Diagnostic Review CT: enhanced and reports reviewed CT Findings: [facility], [id number] CT Scan Report Patient: AIDA JACKSON Date: 10/04/20#: [id number]: [id number] RDAcct ID:[id number]: Date: 5City Zip: [place] [id number]: 84Location: 3WSex: FRoom/Bed: [id number] Phy: Cyrus Hinojosa DODiagnosis: FALLPri Phy: Vitaly Rios MDService Date: 10/04/20Fam Phy:Interpreting Phy: Juanjo Mercado MDAdmit Phy: Hardy Sarabia MD Ordering Phy: Gonzalez Bolanos MD cc: ~ CT SCAN OF THE ABDOMEN AND PELVIS WITHOUT IV CONTRAST CLINICAL HISTORY: Right flank pain. COMPARISON STUDY: No priors. TECHNIQUE: CT scan of the abdomen and pelvis is performed from the lung bases to the proximal femora. Images are reviewed in the axial, sagittal, and coronal planes. IV contrast was not administered for this examination note that the examination is performed in significantly suboptimal fashion without IV contrast. There is also significant motion artifact. A dose lowering technique was utilized adhering to the principles of ALARA. CT DOSE: 236.11 mGy.cm FINDINGS: Lung bases: A cardiac pacemaker is partially visualized in the left chest wall. The heart is enlarged and without pericardial effusion. The coronary arteries are densely calcified. There are small left and trace right pleural effusions with left basilar consolidation. There is a moderate to large hiatal hernia. Liver: The unenhanced liver is normal in size, contour, and attenuation. There is no intrahepatic biliary ductal dilatation. Gallbladder: The gallbladder is not well visualized and may be surgically absent. Spleen: Normal in size and attenuation. Pancreas: The unenhanced pancreas is atrophic and grossly unremarkable. Adrenal glands: Unremarkable. Kidneys: The unenhanced kidneys are atrophic and without hydronephrosis. There are no renal calculi identified. There is no evidence of contour deforming renal mass lesion. Abdominal vasculature: There is advanced atherosclerotic calcification and mild ectasia of the abdominal aorta. Bowel: There is mild to moderate colonic diverticulosis without CT evidence of acute diverticulitis. Moderate fecal retention is seen throughout the colon. There is no bowel obstruction. The appendix is not identified and reported surgically absent. Peritoneum: There is no intraperitoneal free air or abdominal ascites. Lymphadenopathy: None. Pelvic viscera: A vaginal pessary device is in place. The bladder is decompressed around a Jeff catheter and cannot be evaluated. Foci of intraluminal gas are likely related to instrumentation. The uterus is surgically absent. No adnexal lesion is seen. Skeletal structures: The skeletal structures are osteopenic. 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 There are healed right pubic ring fractures. There is chronic posttraumatic deformity of the sacrum with an insufficiency fracture of the right sacral ala. There is an acute appearing fracture of the left sacral ala, best seen on image #224. There is a severe compression deformity of T12 with fragments retropulsed by up to 6 mm. There is a moderate to severe compression deformity of L4. There are chronic left-sided rib fractures. No lytic or blastic lesions are seen. Soft tissues: The patient is cachectic. There is mild body wall edema. IMPRESSION: 1. There are no acute infectious or inflammatory findings in the abdomen or pelvis. 2. There is an acute appearing fracture of the left sacral ala. 3. There are moderate to severe compression deformities of T12 and L4. These are age indeterminant but likely chronic. Correlate for point tenderness. 4. Numerous additional chronic fractures as above. 5. There are small left and trace right pleural effusions with left basilar consolidation. This likely represents atelectasis. Correlate clinically for evidence of a superimposed infectious/inflammatory pneumonitis. 6. Cardiomegaly and cardiac pacemaker. 8. Moderate to large hiatal hernia. 9. Colonic diverticulosis without CT evidence of acute diverticulitis. 10. Moderate constipation. 11. 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 12. Additional findings as above. ACT 112: Negative or not required by law. Electronically signed by: Juanjo Mercado M.D. 10/04/2020 7:54 PM Dictated: 10/04/201942Transcribed: 10/04/201942 [facility], [id number] CT Scan Report Patient: AIDA JACKSON Date: 10/04/20MR#: [id number]: [id number] RDAcct ID:[id number]: [facility]: [facility] Zip: [place], [place] [address]Xtr: 85Location: 3WSex: FRoom/Bed: [address] Phy: Cyrus Hinojosa DODiagnosis: FALLPri Phy: Vitaly Rios MDService Date: 10/08/20Fa Phy:Interpreting Phy: Favio Bourne MDAdmit Phy: Hardy Sarabia MD Ordering Phy: Osito Berger D.O. cc: ~ CT OF THE LUMBAR SPINE CLINICAL HISTORY: Back pain. COMPARISON STUDY: CT of the abdomen and pelvis October 04, 2020. TECHNIQUE: Helical axial images of the lumbar spine were obtained. Sagittal and coronal reconstructions were viewed. Automated exposure control was utilized for the study. A dose lowering technique was utilized adhering to the principles of ALARA. FINDINGS: Shovel Loader Operator tomograms partially visualizes a left subclavian pacer/AICD and bilateral femoral internal fixation hardware. A hiatal hernia is noted. There is elevation of the left hemidiaphragm. These findings are better depicted on abdominal CT of September 26, 2020. For purposes of numbering on this exam, the L5-S1 disc space is assigned to axial image 298 of 338. There is a severe T12 compression fracture with 6 mm of retropulsion which results in moderate central canal stenosis. This fracture is age indeterminate. There is a severe L4 compression fracture with 3 mm of retropulsion at the level of the superior endplate. No additional lumbar spine fractures are noted. There is moderate multilevel facet arthrosis and mild multilevel degenerative disc disease within the lumbar spine. A subacute to chronic fracture of the right aspect of S1 is noted. Additional sacral fractures are depicted on the CT of the abdomen and pelvis. IMPRESSION: 1. Severe T12 compression fracture with 6 mm of retropulsion which results in moderate narrowing of the central canal. This fracture is age indeterminate. 2. Age indeterminate severe L4 compression fracture with minimal retropulsion. 3. Several subacute to chronic sacral fractures. ACT 112: Negative or not required by law. Electronically signed by: Favio Bourne M.D. 10/08/2020 1:48 PM Dictated: 10/08/20 1342Transcribed: 10/08/20 1342
[2020-10-10] MEDS: ASPIRIN 81 MG ECTAB PO SCH (08:39)
[2020-10-10] MEDS: SPIRONOLACTONE 25 MG TAB PO SCH (08:39)
[2020-10-10] MEDS: CHOLECALCIFEROL 1,000 UNITS 25 MCG TAB PO SCH (08:40)
[2020-10-10] MEDS: POLYETHYLENE (MIRALAX) 17 GM PACK PO SCH (08:40)
[2020-10-10] MEDS: INSULIN ASPART 100 UNITS/ML 3 ML PEN SC SCH ×3 (08:45→18:16)
--- NOTE | 2020-10-10 11:31 | Discharge Summary ---
Date of Service October 10, 2020 Admission HPI Per Admitting Provider 84-year-old female with past medical history significant for type 2 diabetes, hyperlipidemia, hypothyroidism, CAD, dilated cardiomyopathy, chronic systolic CHF, status post AICD, vitamin D deficiency, B12 deficiency, senile osteoporosis, osteoarthrosis involving shoulder region, iron deficiency anemia, history of hip fracture, who lives with her daughter, ambulates with a walker, comes with a fall and ambulatory dysfunction. Son is in the room helping with the history. The patient had a fall on 09/17/2020 when she was trying to open the door, she fell backward. 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 At that time, she did not complain of any pain, but on 09/24/2020 was the last time she walked. She complained of back pain and the PCP advised to come to the hospital. The patient in the ER was found to have elevated white count, UTI, and CAT scan is showing chronic healed pelvic fracture and T12 and L4 moderate to severe compression deformities, age indeterminate and acute sacral ala fracture.The patient is currently resting comfortably. Complains of back pain. No cough, no fever, no chills, no chest pain, no shortness of breath. No nausea, no vomiting, no abdominal pain. Son says that they noticed some blood in the stool today in the diaper. Normal bladder movements. Denies any burning micturition. He has no headache, no blurred vision, no earache, no runny nose, no sore throat. Appetite is okay. She is currently hungry. She eats regular food and swallows okay. Admission Exam Per Admitting Provider GENERAL: The patient is old and frail, not in acute distress. VITAL SIGNS: Temperature 36.6, pulse 74, respiratory rate 18, blood pressure 129/54, oxygen 92% on room air. HEENT: Pupils equal, round, reactive to light. Oral mucosa moist. NECK: No JVD. No neck masses. CARDIOVASCULAR: S1, S2 heard, regular rate and rhythm, no murmur, no gallop. RESPIRATORY SYSTEM: Normal AP diameter. No accessory muscle use. No wheezing, no crackles. ABDOMEN: Soft, bowel sounds present, nontender. No distention. CENTRAL NERVOUS SYSTEM: Alert and oriented. Speech is clear, no facial droop. Moves extremities. EXTREMITIES: No edema, no erythema. Principal Diagnosis (1) Borderline type 2 diabetes mellitus: (2) Cardiac defibrillator in place: (3) Bradyarrhythmia: (4) Fracture of right hip: (5) Intertrochanteric fracture of right hip: (6) Moderate to severe protein calorie malnutrition (7) Sacral ala Fracture (8) Pelvic fracture. Discharge Exam See below Discharge Data Allergies Allergy/AdvReac Type Severity Reaction Status Date / Time clindamycin Allergy Intermediate hives/nause Verified 10/08/20 08:57 a doxycycline Allergy Intermediate hives/nause Verified 10/08/20 08:57 a meperidine AdvReac Intermediate confusion Verified 10/08/20 08:57 morphine AdvReac Intermediate tachycardia Verified 10/08/20 08:57 Consultations 10/04/20 20:01 ED Decision to Admit Stat 10/05/20 08:00 Consult Orthopedic Surgery Routine 10/09/20 08:56 Consult Pain Management Routine Ordered Studies 10/04/20 18:43 CT abd pelvis wo con Stat 10/08/20 07:44 CT lumbar spine wo con Routine Current Diagnoses Other specified cardiac arrhythmias (10/04/20) Pathological fracture, other site, initial encounter for fracture (10/04/20) Acute pyelonephritis (10/04/20) Urinary tract infection, site not specified (10/04/20) Unspecified abdominal pain (10/04/20) Difficulty in walking, not elsewhere classified (10/04/20) Prediabetes (10/04/20) Wedge compression fracture of T11-T12 vertebra, initial encounter for closed fracture (10/04/20) Wedge compression fracture of fourth lumbar vertebra, initial encounter for closed fracture (10/04/20) Fracture of unspecified parts of lumbosacral spine and pelvis, initial encounter for closed fracture (10/04/20) Fracture of unspecified part of neck of right femur, initial encounter for closed fracture (10/04/20) Displaced intertrochanteric fracture of right femur, initial encounter for closed fracture (10/04/20) Presence of automatic (implantable) cardiac defibrillator (10/04/20) Allergies clindamycin Allergy (Intermediate, Verified 10/08/20 08:57) hives/nausea doxycycline Allergy (Intermediate, Verified 10/08/20 08:57) hives/nausea meperidine Adverse Reaction (Intermediate, Verified 10/08/20 08:57) confusion morphine Adverse Reaction (Intermediate, Verified 10/08/20 08:57) tachycardia Height/Weight/Isolation Height 5 ft Weight 37.8 kg Chemistry 10/10/20 05:52 Sodium 135 L Potassium 4.2 Chloride 100 Carbon Dioxide 30 Anion Gap 5.0 BUN 9 Creatinine 0.49 L Glucose 78 I certify that this patient is under my care and that I, or a physicians orthotic assistant working with me, had a face to-face encounter that meets the home health [id number] encounter requirements with this patient. The encounter with the patient was in whole, or in part, for the following medical condition, which is the primary reason for home health care (list medical condition): I certify that, based on my findings, the following services are medically necessary home health services: My clinical findings support the need for the above services because: PT Assessment for Endurance / Balance / Strength PT Eval for Safety and Mobility PT Eval for Safety, Gait Training, Assistive Devices PT Gait and Balance Training, Strengthening and Safety Skilled Nsg Assessment Further, I certify that my clinical findings support that this patient is homebound (i.e. absences from home require considerable and taxing effort and are for medical reasons or tenriism services or infrequently or of short duration when for other reasons) because: Assistance of 1 Person for Ambulation/Activities Transportation Assistance/Unable to Leave Home Unassisted Certification for Home Health Services: Based on the above findings, I certify that this patient is confined to the home and needs intermittent chcf care, physical therapy and/or speech therapy or continues to need occupational therapy. The patient is under my care, and I have initiated the establishment of the plan of care. This patient will be followed by a physician who will periodically review the plan of care. Hospital Course (1) Borderline type 2 diabetes mellitus: (2) Cardiac defibrillator in place: (3) Bradyarrhythmia: (4) Fracture of right hip: (5) Intertrochanteric fracture of right hip: Dr Berger saw the patient and no surgery needed, Brace ordered, D/W Daughter and she wants Home c C today Push nutrition Labs Checked ROS-No Headache, No Visual Changes, No Nausea, No Vomiting, No Fever, No Chills, No Neck Pain or Stiffness, No Chest Pain, No Palpitations, No SOB, No CASTELLANOS, No Cough, No Sputum, No Wheezing, No Abdominal Pain, No Diarrhea, No Hematemesis, No Hemoptysis, No Unexpected Weight Loss, No Flank pain, No Melena, No Hematochezia, No Frequency, No Urgency, No Burning, No Hematuria, No Rashes, No Diaphoresis. Appetite is Normal, Sore Back and Hip Physical Exam Gen-AAO x 3, NAD, Afebrile, Thin Head-NCAT, EOMI, PERRLA, Anicteric Sclera, No Posterior Pharyngeal Erythema Neck-Supple, No JVD, No Thyromegaly, No Masses, No LAD, No Bruits Lungs-Clear to Auscultation Bilaterally, No Rales, No Rhonchi, No Wheezing, No Crepitus Chest-No S4, +S1, +S2, No S3, No Murmurs, No Rubs, No Gallops, No Ectopy Abdomen-Soft, Bowel Sounds Present, Non Tender, Non Distended, No Hepatomegaly, No Splenomegaly, No Palpable Masses, No Rebound, No Rigidity, No Guarding Musculoskeletal-Full Range of Motion Bilaterally, No CVAT Extremities-No Cyanosis, No Clubbing, No Edema Nuero-Cranial Nerves II-XII grossly intact, Motor WNL, DTRs WNL, Strength WNL, Non Focal Psych-Normal Mood Total Time Total Time Spent Total Time Spent (In Minutes): 45 mins Discharge Plan Discharge Items Patient Disposition: Home - Home Health Services Reason For Visit: FALL Discharge Diagnosis: (1) Borderline type 2 diabetes mellitus: (2) Cardiac defibrillator in place: (3) Bradyarrhythmia: (4) Fracture of right hip: (5) Intertrochanteric fracture of right hip: (6) Moderate to severe protein calorie malnutrition (7) Sacral ala Fracture (8) Pelvic fracture. Condition on Discharge: Fair Health Concerns: Declining condition sec to malnutrition Activity: Per Instructions section Activity Comment: As tolerated Lifting: None Bathing: No limitations Exercise/Sports: None Driving/Machine Use: none Weightbearing: Full weightbearing Non-emergency contact: Primary Care Provider and Specialist Call non-emergency contact if: you have any medication questions and your symptoms worsen Follow-up/Referrals: Vitaly Rios MD [Primary Care Provider] - (Date & Time 10/15/2020 2:20 PM Provider Camila Maddox PA-C Department Family Medicine [facility] ) Diet: Carb Consistent or DM2 Addtl Attending Provider Instructions: None Pending Studies at Discharge: No Stand-Alone Forms: My [facility], Opioid Pain Management, Smoking Cessation Medications and DC Order Prescriptions: New polyethylene glycol 3350 [Miralax] 17 gram Powder In Packet 17 g PO DAILY PRN (Reason: constipation) Qty: 30 RF: 0 hydrocodone-acetaminophen 5-325 mg Tablet 1 tab PO Q6H PRN (Reason: pain) Qty: 60 RF: 0 Continued ATORVASTATIN (LIPITOR) 20 MG tablet 20 mg PO DAILY Qty: 0 RF: 0 CARVEDILOL (COREG) 12.5 MG tablet 12.5 mg PO BID Qty: 0 RF: 0 CLOPIDOGREL BISULFATE (PLAVIX) 75 MG tablet 75 mg PO DAILY Qty: 0 RF: 0 LEVOTHYROXINE SODIUM (SYNTHROID) 88 MCG tablet 88 mcg PO DAILY Qty: 0 RF: 0 LISINOPRIL (PRINIVIL) 5 MG tablet 5 mg PO DAILY Qty: 0 RF: 0 PIOGLITAZONE HCL (ACTOS) 30 MG tablet 30 mg PO DAILY Qty: 0 RF: 0 Aspirin 325 MG ENTERIC COATED TAB 325 mg PO BID Qty: 60 RF: 0 Ferrous Gluconate 324 MG tablet 324 mg PO BIDM Qty: 60 RF: 0 Tramadol HCl 50 MG tablet 50 mg PO Q8H PRN (Reason: Pain) Qty: 15 RF: 0 atorvastatin 20 mg Tablet 20 mg PO HS RF: 0 carvedilol 12.5 mg Tablet 12.5 mg PO HS RF: 0 levothyroxine 88 mcg Tablet 88 mcg PO DAILY RF: 0 pioglitazone 30 mg Tablet 30 mg PO QAM RF: 0 spironolactone 25 mg Tablet 25 mg PO QAM RF: 0 cholecalciferol (vitamin D3) 25 mcg (1,000 unit) Capsule 25 mcg PO QAM RF: 0 aspirin [Aspir-81] 81 mg Tablet,Delayed Release (Dr/Ec) 81 mg PO DAILY RF: 0 Discontinued hydrocodone-acetaminophen [[place]] 5-325 mg Tablet 1 tab PO Q6H PRN (Reason: Pain) RF: 0 No Action prednisone 10 mg Tablet 0 mg PO .DAILY/UD RF: 0 Discharge Orders: Discharge Order (Routine); Ordered 10/10/20 Ordered By: Cyrus Carlson/Other Patient Handouts: High Blood Sugar (Hyperglycemia), Managing Type 2 Diabetes, A1C Admission Data Admit Date/Time: 10/04/20 22:19 Attending Provider: Cyrus Hinojosa Admit Provider: Hardy Sarabia Primary Care Provider: Vitaly Rios Other Providers: Hardy Sarabia ; [facility] ; Cyrus Hinojosa ; Madison Cruz
[2020-10-10 18:03] LABS: Creatinine Clr Calc Pharmacy 30.7 ml/min; Est GFR (African American) 77.9 ml/min; Est GFR (Non-African American) 67.2 ml/min
[2020-10-10 18:04] LABS: Hematocrit (blood only) 36.6 % (37-47); Hemoglobin 12.5 g/dL (12.0-16.0); Red Blood Count 4.23 M/uL (4.2-5.4)
[2020-10-10 18:05] LABS: Creatinine Clr Calc Pharmacy 37.8 ml/min; Est GFR (African American) 93.8 ml/min
[2020-10-10 18:06] LABS: Hematocrit (blood only) 37.7 % (37-47); Hemoglobin 12.8 g/dL (12.0-16.0); Red Blood Count 4.42 M/uL (4.2-5.4)
[2020-10-10 18:07] LABS: Creatinine Clr Calc Pharmacy 41.6 ml/min; Est GFR (African American) 96.9 ml/min; Est GFR (Non-African American) 83.6 ml/min; Hemoglobin 12.5 g/dL (12.0-16.0); Red Blood Count 4.32 M/uL (4.2-5.4)
[2020-10-10 18:08] LABS: Hematocrit (blood only) 37.2 % (37-47)
== END 2020-10-10 18:19 | disposition home health service (06) | DRG 542 ==
LOC: ED 18:19 → 3W 22:19 → SUATTDRO 22:19 → MERGE 22:19 → 3W 23:11

== ENCOUNTER 2021-05-08 09:01 | Inpatient (IN) ==
--- NOTE | 2021-05-08 09:30 | XRay Report ---
XR chest 1V portable CLINICAL HISTORY: weakness, hypoxia, cough COMPARISON STUDY: Chest radiograph May 21, 2014. FINDINGS: Lung volumes are diminished. Left subclavian pacer/AICD is in place. Cardiomegaly is unchan ged. No pneumothorax or pleural effusion is noted. Left lower lung airspace opacity is noted. Interst itial thickening is greater within the left lung. There are suspected mild right upper lung airspace opacity is well. IMPRESSION: 1. Left lower lung and right upper lung opacities with interstitial thickening, greater within the le ft lung. The findings favor an infectious process although pulmonary edema could appear similar. Radi ographic follow up is recommended. 2. Stable cardiomegaly. ACT 112: Negative or not required by law. Electronically signed by: Favio Bourne M.D. 05/08/2021 9:28 AM
[2021-05-08 09:42] LABS: Basophils # (auto) 0.01 K/uL (0-0.2); Basophils % (auto) 0.1 %; Eosinophils # (auto) 0.12 K/uL (0-0.5); Eosinophils % (auto) 1.5 %; Hematocrit (blood only) 43.2 % (37-47); Hemoglobin 14.6 g/dL (12.0-16.0); Immature Granulocytes # (auto) 0.07 K/uL (0.00-0.02); Immature Granulocytes % (auto) 0.9 %; Lymphocytes % (auto) 9.9 %; Mean Corpuscular Hemoglobin 30.4 pg (25-34); Mean Corpuscular Hgb Conc 33.8 g/dL (32-36); Mean Corpuscular Volume 89.8 fL (80-100); Mean Platelet Volume 9.3 fL (7.4-10.4); Monocytes # (auto) 0.75 K/uL (0.11-0.59); Monocytes % (auto) 9.3 %; Neutrophils % (auto) 78.3 %; Platelet Count 240 K/uL (130-400); RDW Coefficient of Variation 14.5 % (11.5-14.5); RDW Standard Deviation 47.4 fL (36.4-46.3); Red Blood Count 4.81 M/uL (4.2-5.4); White Blood Count 8.05 K/uL (4.8-10.8)
--- NOTE | 2021-05-08 09:44 | Emergency Department Note ---
Impression & Plan 2019 novel coronavirus-infected pneumonia (NCIP), Hypoxia, Weakness ED Provider Note Provider: Bill Negrete MD DATE OF SERVICE: 05/08/2021 CHIEF COMPLAINT: Cough, weakness, decreased appetite HISTORY OF PRESENT ILLNESS: Patient is a 85-year-old female history of type 2 diabetes, hypothyroidism, CAD, cardiomyopathy with CHF, and osteoporosis presented today via ambulance from her home. EMS called initially for an unresponsive person but she is awake and alert upon their arrival. Patient states for 2 to 3 days she is at least had some cough and decreased appetite. She denies any pain. Denies specifically chest pain, headache, or abdominal pain. Denies nausea or vomiting. Reports she has been feeling much more fatigued than normal. Patient endorses a bit of a cough with some yellow sputum. Patient denies use of oxygen normally but states she is a former smoker. Reports sick contact with son at home. She is not vaccinated for Covid or influenza. REVIEW OF SYSTEMS: A total of 10 review of systems was obtained and negative except as stated above in the HPI. PAST MEDICAL HISTORY: As noted above MEDICATIONS: Reviewed home medications does not include oxygen or anticoa gulation SOCIAL HISTORY: Former smoker, lives at home PHYSICAL EXAM: GENERAL: alert and oriented in no acute distress on stretcher quite thin in appearance Head: normocephalic and atraumatic EYES: No injection, discharge or icterus. NECK: Trachea midline. Supple. ENT: Mucous membranes pink and moist. Pharynx without erythema or exudate. LUNGS: Airway patent. No retractions. Breath sounds coarse with mild tachypnea HEART: Regular rate and rhythm. No chest wall tenderness with left chest wall AICD very prominent due to lack of subcutaneous fat. ABDOMEN: Soft and non-tender, without guarding or rebound. SKIN: Acyanotic, warm, dry, without rashes EXTREMITIES: Without swelling, tenderness or deformity NEUROLOGICAL: No focal deficits. No aphasia. No facial droop or slurred speech. EK bpm normal sinus rhythm with PVC or PAC. Some baseline artifact is noted. Some lateral T wave inversions noted. QTc 446. Left axis. CONTINUOUS CARDIAC MONITORING: was ordered and showed a heart rate of 70s to 90sbpm in normal sinus rhythm occasional PVCs Patient's laboratory studies and imaging reviewed. Differential includes Infection, dehydration, metabolic abnormality, hypo/hyperglycemia, electrolyte disturbance, anemia, hypoxia, cardiac sources, intracerebral event, toxicologic, neurologic, as well as other pathologies. IMPRESSION/MEDICAL DECISION MAKING: Patient is at home with several days of cough decreased appetite and weakness on vaccinated for flu and Covid. Patient with some oxygen requirement here upon arrival. Patient denies any pain. No significant leukocytosis or anemia on blood work. Chest x-ray questions left lower lung and right upper lung opacities questioning infectious versus pulmonary edema. Given the positive Covid test that returns likely viral inflammation. She does not grossly appear fluid overloaded on exam. Not a active chest pain and EKG does not show acute ischemic changes nor suspicion for ACS. Troponin was completed however it was not significantly elevated. Lactate and cultures were sent as well as Covid testing. Again some mild oxygen supplementation here. Daughter later arrives and confirms the patient been sick for about 3 days. CRP with some elevation consistent with inflammatory state from positive Covid test. Negative procalcitonin and no significant leukocytosis and lower suspicion for bacterial infection. VBG not abnormal. Troponin detectable but not abnormal. Given a dose of steroids given hypoxic Covid state. Discuss further care at the hospital. The patient states she would not like intubation but be agreeable with high flow oxygen including CPAP/BiPAP. Patient and daughter made aware of the Covid findings with this and discussed things will likely worsen before they get better. Hospitalist team con tacted. DIAGNOSIS: Covid pneumonia, hypoxia, weakness DISPOSITION: Hospitalist will evaluate Patient was agreeable with this plan. Past Med/Surg History Medical History Ambulatory dysfunction Borderline type 2 diabetes mellitus Cardiac defibrillator in place Chronic systolic heart failure CKD (chronic kidney disease) stage 3, GFR 30-59 ml/min Compression fracture of L4 vertebra Dyslipidemia Former tobacco use Hypothyroidism Intertrochanteric fracture of right hip Ischemic cardiomyopathy (05/21/14) Recurrent UTI Sacral insufficiency fracture Surgical History History of appendectomy History of cholecystectomy History of hysterectomy History of implantable cardioverter-defibrillator (ICD) placement Status post-operative repair of closed fracture of right hip Family History Mother Diabetes Myocardial infarction Brother Diabetes Father Myocardial infarction Social History Smoking Status: Unknown if ever smoked Second Hand Exposure: No; Do You Dip or Chew Tobacco: No; Tobacco Cessation Education Requested by Patient: No Hx Alcohol Use: No Hx Substance Use: No Preferred Language: Citizen Of [place] Communication Ability: Effective Lining Stamper Required: No Beliefs That Will Affect Care: None Current Living Situation: Family Current Living Situation Comment: LIVES WITH DAUGHTER WHO IS CAREGIVER Other Information That Helps Us Care for You: No Feels Safe at Home: Yes Safety Concerns: Feels Safe At This Time Assistive Devices: Walker Allergies Allergies Allergy/AdvReac Type Severity Reaction Status Date / Time clindamycin Allergy Intermediate hives/nause Verified 05/08/21 10:17 a doxycycline Allergy Intermediate hives/nause Verified 05/08/21 10:17 a meperidine AdvReac Intermediate confusion Verified 05/08/21 10:17 morphine AdvReac Intermediate tachycardia Verified 05/08/21 10:17 Home Meds Home Medications Medication Instructions Recorded Confirmed aspirin 81 mg tablet,delayed 81 mg PO DAILY 10/04/20 05/08/21 release atorvastatin 20 mg tablet 20 mg PO HS 10/04/20 05/08/21 carvedilol 12.5 mg tablet 12.5 mg PO BID 10/04/20 05/08/21 cholecalciferol (vitamin D3) 25 25 mcg PO QAM 10/04/20 05/08/21 mcg (1,000 unit) capsule levothyroxine 88 mcg tablet 100 mcg PO DAILY 10/04/20 05/08/21 docusate sodium 100 mg capsule 100 mg PO DAILY 05/08/21 05/08/21 (Colace) ferrous sulfate 325 mg (65 mg 325 mg PO QAM 05/08/21 05/08/21 iron) tablet gabapentin 300 mg PO HS 05/08/21 05/08/21 ibuprofen 200 mg tablet 200 mg PO Q6H PRN 05/08/21 05/08/21 spironolactone 25 mg tablet 25 mg PO DAILY 05/08/21 05/08/21 Previous Rx's Medication Instructions Recorded hydrocodone 5 mg-acetaminophen 325 1 tab PO Q6H PRN #60 tab 10/10/20 mg tablet Results & Data (ED) Vital Signs Vital Signs - 24 hr 05/08/21 09:34 05/08/21 09:41 05/08/21 10:57 Pulse Rate 80 Pulse Rate [Apical] 70 Pulse Rhythm Regular Pulse Strength Normal Respiratory Rate 28 H 21 Respiratory Effort / Characteristics Non-Labored Spontaneous Respiratory Depth Normal Respiratory Pattern Regular Blood Pressure 121/73 Blood Pressure [Left Arm] 122/71 Blood Pressure Mean 89 Blood Pressure Mean [Left Arm] 88 Blood Pressure Position Sitting Pulse Oximetry 89 L 89 L 93 Oxygen Delivery Method Room Air Room Air Nasal Cannula Oxygen Flow Rate 1.5 Sepsis Recent Fever Within 48 Hours No Sepsis New/Unexplained Change in Mental Status N/A Sepsis Action Taken by Nursing No Action Required Laboratory Data Result diagrams: 05/08/21 09:30 05/08/21 09:30 Lab Results 05/08/21 05/08/21 05/08/21 Range/Units 09:30 09: 09:30 WBC 8.05 (4.8-10.8) K/uL RBC 4.81 (4.2-5.4) M/uL Hgb 14.6 (12.0-16.0) g/dL Hct 43.2 (37-47) % MCV 89.8 (80-100) fL MCH 30.4 (25-34) pg MCHC 33.8 (32-36) g/dL RDW Std Deviation 47.4 H (36.4-46.3) fL RDW Coeff of Joie 14.5 (11.5-14.5) % Plt Count 240 (130-400) K/uL MPV 9.3 (7.4-10.4) fL Immature Gran % (Auto) 0.9 % Neut % (Auto) 78.3 % Lymph % (Auto) 9.9 % [place] % (Auto) 9.3 % Eos % (Auto) 1.5 % Baso % (Auto) 0.1 % Neut # (Auto) 6.30 (1.4-6.5) K/uL Lymph # (Auto) 0.80 L (1.2-3.4) K/uL [place] # (Auto) 0.75 H (0.11-0.59) K/uL Eos # (Auto) 0.12 (0-0.5) K/uL Baso # (Auto) 0.01 (0-0.2) K/uL Immature Gran # (Auto) 0.07 H (0.00-0.02) K/uL VBG pH (7.36-7.41) VBG pCO2 (38-50) mmHg VBG pO2 mmHg VBG HCO3 mmol/L VBG O2 Saturation % VBG Base Excess mEq/L Barometric Pressure mm/Hg Sodium 136 (136-145) mmol/L Potassium 3.8 (3.5-5.1) mmol/L Chloride 103 (98-107) mmol/L Carbon Dioxide 28 (21-32) mmol/L Anion Gap 5.0 (3-11) BUN 16 (7-18) mg/dl Creatinine 0.70 (0.6-1.2) mg/dl Est Cr Clr Drug Dosing 33.2 ml/min Est GFR ( Amer) 90.9 ml/min Est GFR (Non-Af Amer) 78.5 ml/min BUN/Creatinine Ratio 23.1 H (10-20) Glucose 101 H (70-99) mg/dl Lactate (0.4-2.0) mmol/L Calcium 9.4 (8.5-10.1) mg/dl Total Bilirubin 1.7 H (0.2-1) mg/dl AST 22 (15-37) U/L ALT 18 (12-78) Alkaline Phosphatase 61 D (45-117) U/L Troponin I 0.036 (0-0.045) ng/ml C-Reactive Protein 5.20 H (0-0.29) mg/dl Total Protein 8.0 (6.4-8.2) gm/dl Albumin 3.2 L (3.4-5.0) gm/dl Globulin 4.8 H (2.5-4.0) gm/dl Albumin/Globulin Ratio 0.7 L (0.9-2) Procalcitonin < 0.05 (0-0.5) ng/ml TSH 2.040 (0.300-4.500) uIu/ml SARS-CoV-2 (PCR) (Negative) Influenza Type A (PCR) (Neg) Influenza Type B (PCR) (Neg) RSV (RT-PCR) (Neg) 05/08/21 05/08/21 05/08/21 Range/Units 09:30 09:48 09:48 WBC (4.8-10.8) K/uL RBC (4.2-5.4) M/uL Hgb (12.0-16.0) g/dL Hct (37-47) % MCV (80-100) fL MCH (25-34) pg MCHC (32-36) g/dL RDW Std Deviation (36.4-46.3) fL RDW Coeff of Joie (11.5-14.5) % Plt Count (130-400) K/uL MPV (7.4-10.4) fL Immature Gran % (Auto) % Neut % (Auto) % Lymph % (Auto) % [place] % (Auto) % Eos % (Auto) % Baso % (Auto) % Neut # (Auto) (1.4-6.5) K/uL Lymph # (Auto) (1.2-3.4) K/uL [place] # (Auto) (0.11-0.59) K/uL Eos # (Auto) (0-0.5) K/uL Baso # (Auto) (0-0.2) K/uL Immature Gran # (Auto) (0.00-0.02) K/uL VBG pH 7.41 (7.36-7.41) VBG pCO2 46 (38-50) mmHg VBG pO2 21 mmHg VBG HCO3 29 mmol/L VBG O2 Saturation < 60.0 % VBG Base Excess 3.3 mEq/L Barometric Pressure 729.9 mm/Hg Sodium (136-145) mmol/L Potassium (3.5-5.1) mmol/L Chloride (98-107) mmol/L Carbon Dioxide (21-32) mmol/L Anion Gap (3-11) BUN (7-18) mg/dl Creatinine (0.6-1.2) mg/dl Est Cr Clr Drug Dosing ml/min Est GFR ( Amer) ml/min Est GFR (Non-Af Amer) ml/min BUN/Creatinine Ratio (10-20) Glucose (70-99) mg/dl Lactate 1.1 (0.4-2.0) mmol/L Calcium (8.5-10.1) mg/dl Total Bilirubin (0.2-1) mg/dl AST (15-37) U/L ALT (12-78) Alkaline Phosphatase (45-117) U/L Troponin I (0-0.045) ng/ml C-Reactive Protein (0-0.29) mg/dl Total Protein (6.4-8.2) gm/dl Albumin (3.4-5.0) gm/dl Globulin (2.5-4.0) gm/dl Albumin/Globulin Ratio (0.9-2) Procalcitonin (0-0.5) ng/ml TSH (0.300-4.500) uIu/ml SARS-CoV-2 (PCR) POSITIVE A* (Negative) Influenza Type A (PCR) Negative (Neg) Influenza Type B (PCR) Negative (Neg) RSV (RT-PCR) Negative (Neg) Administered Medications Aspirin (Aspirin 81 Mg Ectab) 81 mg PO DAILY [facility] Stop: 06/07/21 11:44 Last Admin: 05/08/21 12:38 Dose: 81 mg Documented by: [id number] Docusate Sodium (Docusate Sodium 100 Mg Cap) 100 mg PO DAILY [facility] Stop: 06/07/21 11:44 Last Admin: 05/08/21 12:38 Dose: 100 mg Documented by: [id number] Remdesivir 200 mg/ Sodium (Chloride) 250 mls @ 125 mls/hr IV ONE STA; Protocol Stop: 05/08/21 13:49 Last Admin: 05/08/21 12:38 Dose: 125 mls/hr Documented by: [id number] Non-Formulary Medication (Ferrous Sulfate) 325 mg PO QAM [facility] Stop: 06/07/21 11:44 Last Admin: 05/08/21 12:50 Dose: Not Given Documented by: [id number] Spironolactone (Spironolactone 25 Mg Tab) 25 mg PO DAILY [facility] Stop: 06/07/21 11:44 Last Admin: 05/08/21 12:38 Dose: 25 mg Documented by: [id number] Discontinued Medications Dexamethasone Sodium Phosphate (DexamethasonePf 10 Mg/Ml Vial) 6 mg IV NOW ONE Stop: 05/08/21 10:40 Last Admin: 05/08/21 11:17 Dose: 6 mg Documented by: [id number] Imaging Data Radiologist's Impression: Chest X-Ray 05/08/21 09:14 XR chest 1V portable CLINICAL HISTORY: weakness, hypoxia, cough COMPARISON STUDY: Chest radiograph May 21, 2014. FINDINGS: Lung volumes are diminished. Left subclavian pacer/AICD is in place. Cardiomegaly is unchanged. No pneumothorax or pleural effusion is noted. Left lower lung airspace opacity is noted. Interstitial thickening is greater within the left lung. There are suspected mild right upper lung airspace opacity is well. IMPRESSION: 1. Left lower lung and right upper lung opacities with interstitial thickening, greater within the left lung. The findings favor an infectious process although pulmonary edema could appear similar. Radiographic follow up is recommended. 2. Stable cardiomegaly. ACT 112: Negative or not required by law. Electronically signed by: Favio Bourne M.D. 05/08/2021 9:28 AM Discharge Plan Visit Data Chief Complaint: Illness Stated Complaint: COUGH ED Provider: iBll Negrete Discharge Problem: 2019 novel coronavirus-infected pneumonia (NCIP), Hypoxia, Weakness Patient Disposition: Being Evaluated by Hospitalist
[2021-05-08 10:03] LABS: Base Excess VBG 3.3 mEq/L; HCO3 VBG 29 mmol/L; Oxygen Saturation VBG < 60.0 %; PCO2 VBG 46 mmHg (38-50); PO2 VBG 21 mmHg; pH VBG 7.41 (7.36-7.41)
[2021-05-08 10:07] LABS: Albumin Globulin Ratio 0.7 (0.9-2); Albumin Level 3.2 gm/dl (3.4-5.0); BUN Creatinine Ratio 23.1 (10-20); Bilirubin,Total 1.7 mg/dl (0.2-1); Calcium 9.4 mg/dl (8.5-10.1); Creatinine Clr Calc Pharmacy 33.2 ml/min; Est GFR (African American) 90.9 ml/min; Est GFR (Non-African American) 78.5 ml/min; Globulin 4.8 gm/dl (2.5-4.0); Potassium 3.8 mmol/L (3.5-5.1)
[2021-05-08 10:23] LABS: C Reactive Protein 5.2 mg/dl (0-0.29); Thyroid Stimulating Hormone 2.04 uIu/ml (0.300-4.500); Troponin I 0.036 ng/ml (0-0.045)
[2021-05-08 10:26] LABS: Influenza A virus by PCR Negative (Neg); Influenza B virus by PCR Negative (Neg); RSV by PCR Negative (Neg)
[2021-05-08 10:34] LABS: SARS CoV2 RNA(COVID-19) InHosp POSITIVE (Negative)
[2021-05-08] MEDS ORDERED: dexAMETHasone**PF** 10 MG/ML VIAL IV ONE (10:39)
[2021-05-08] MEDS ORDERED: ONDANSETRON INJ 2 MG/ML 2 ML VIAL IV PRN (11:34)
[2021-05-08] MEDS ORDERED: HYDROCODONE/ACETAMOPHEN 5/325MG TAB PO PRN (11:34)
[2021-05-08] MEDS ORDERED: DOCUSATE SODIUM 100 MG CAP PO SCH (11:45)
[2021-05-08] MEDS ORDERED: ASPIRIN 81 MG ECTAB PO SCH (11:45)
[2021-05-08] MEDS ORDERED: NON-FORMULARY MEDICATION (Ferrous Sulfate 325 mg (65 mg iron) tablet) PO SCH (11:45)
[2021-05-08] MEDS ORDERED: SPIRONOLACTONE 25 MG TAB PO SCH (11:45)
[2021-05-08] MEDS ORDERED: REMDESIVIR 200 MG in SODIUM CHLORIDE 0.9% 210 ML IV STA (11:50)
--- NOTE | 2021-05-08 11:50 | History & Physical Report ---
Date of Service May 08, 2021 Assessment & Plan (1) 2019 novel coronavirus-infected pneumonia (NCIP): Plan: Spoke with pt and her daughter about the diagnosis of COVID-19 pneumonia with hypoxia and anticipated clinical course. Discussed the use of both dexametha sone and remdesivir, specifically the use of remdesivir under the EUA. They are agreeable to both treatments and to the use of oxygen. However, they do not want aggressive measures including no intubation, no CPR, and no BiPAP/CPAP. - Admit for additional treatment and monitoring - Continue oxygen therapy - Dexamethasone and remdesivir per protocol - Incentive spirometry, flutter valve (2) Hypoxia: Plan: Due to #1 (3) Borderline type 2 diabetes mellitus: Plan: Will need to monitor glucose on the dexamethasone. Last A1c in December was 5.9 - not currently on diabetic medication outpatient - Accuchecks - Diabetic diet - Pharm consult for glycemic management (4) Ischemic cardiomyopathy: (5) CKD (chronic kidney disease) stage 3, GFR 30-59 ml/min: Plan: - Daily labs - baseline creatinine appears to be 0.7-0.8 as outpatient (6) Hypothyroidism: Plan: - Continue levothyroxine (7) Dyslipidemia: Plan: Pt seen and reviewed with attending physician, Dr. Ji. Plan of care discussed and as outlined above. Code Status: DNR/DNI Kavin Hatch PA-C History of Present Illness Chief Complaint: Weakness, cough Primary Care Provider: Fabby Brantley MD This is an 85 y/o female with a PMH of DM2, CKD3, hypothyroidism, dyslipidemia, chronic systolic HF, anemic, recurrent UTI, ischemic cardiomyopathy s/p ICD placement, prior hip fracture, and prior pacemaker placement who presented to the ED today via EMS with weakness and cough. History obtained from both patient and her daughter at the bedside. Pt apparently started with cough and fatigue. Cough has been intermittently productive of white to yellow sputum but no hemoptysis. Pt has been short of breath with minimal exertion but not at rest. No documented fevers but daughter reports pt felt warm to her this morning. Denies chills or sweats. Has been sleeping more than usual. Appetite is poor but no N/V/D. Has noted foul odor to her urine but no dysuria, hematuria, urinary frequency. Rhinorrhea but ongoing issue. Denies ST or loss of taste. 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 Exposed to a family member with COVID two weeks ago. Pt is not vaccinated for COVID. Allergies Allergy/AdvReac Type Severity Reaction Status Date / Time clindamycin Allergy Intermediate hives/nause Verified 05/08/21 10:17 a doxycycline Allergy Intermediate hives/nause Verified 05/08/21 10:17 a meperidine AdvReac Intermediate confusion Verified 05/08/21 10:17 morphine AdvReac Intermediate tachycardia Verified 05/08/21 10:17 Home Medications Medication Instructions Recorded Confirmed Type aspirin 81 mg tablet,delayed 81 mg PO DAILY 10/04/20 05/08/21 History release atorvastatin 20 mg tablet 20 mg PO HS 10/04/20 05/08/21 History carvedilol 12.5 mg tablet 12.5 mg PO BID 10/04/20 05/08/21 History cholecalciferol (vitamin D3) 25 25 mcg PO QAM 10/04/20 05/08/21 History mcg (1,000 unit) capsule levothyroxine 88 mcg tablet 100 mcg PO DAILY 10/04/20 05/08/21 History hydrocodone 5 mg-acetaminophen 325 1 tab PO Q6H PRN #60 tab 10/10/20 05/08/21 Rx mg tablet docusate sodium 100 mg capsule 100 mg PO DAILY 05/08/21 05/08/21 History (Colace) ferrous sulfate 325 mg (65 mg 325 mg PO QAM 05/08/21 05/08/21 History iron) tablet gabapentin 300 mg PO HS 05/08/21 05/08/21 History ibuprofen 200 mg tablet 200 mg PO Q6H PRN 05/08/21 05/08/21 History spironolactone 25 mg tablet 25 mg PO DAILY 05/08/21 05/08/21 History Past Med/Surg History Medical History Ambulatory dysfunction Borderline type 2 diabetes mellitus Cardiac defibrillator in place Chronic systolic heart failure CKD (chronic kidney disease) stage 3, GFR 30-59 ml/min Compression fracture of L4 vertebra Dyslipidemia Former tobacco use Hypothyroidism Intertrochanteric fracture of right hip Ischemic cardiomyopathy (05/21/14) Recurrent UTI Sacral insufficiency fracture Surgical History History of appendectomy History of cholecystectomy History of hysterectomy History of implantable cardioverter-defibrillator (ICD) placement Status post-operative repair of closed fracture of right hip Family History Mother Diabetes Myocardial infarction Brother Diabetes Father Myocardial infarction Social History Smoking Status: Unknown if ever smoked Second Hand Exposure: No; Do You Dip or Chew Tobacco: No; Tobacco Cessation Education Requested by Patient: No Hx Alcohol Use: No Hx Substance Use: No Preferred Language: [place] Communication Ability: Effective Business Education Instructor Required: No Beliefs That Will Affect Care: None Current Living Situation: Family Current Living Situation Comment: LIVES WITH DAUGHTER WHO IS CAREGIVER Other Information That Helps Us Care for You: No Feels Safe at Home: Yes Safety Concerns: Feels Safe At This Time Assistive Devices: Oxygen - Continuous Review of Systems Review of Systems: All systems reviewed & are unremarkable except as noted in HPI & below Constitutional: as per Subjective / HPI, + fatigue and + anorexia Eyes: no diplopia and no worsening vision Ear, Nose, Mouth, Throat: + nasal discharge; no nasal congestion and no sore throat Respiratory: + cough, + dyspnea on exertion and + sputum production; no hemoptysis Cardiovascular: no chest pain, no palpitations, no lightheadedness, no syncope and no edema Gastrointestinal: no abdominal pain, no nausea, no vomiting, no diarrhea/loose stools and no blood in stools Genitourinary: as per Subjective / HPI Musculoskeletal: no back pain, no neck pain and no joint pain Integumentary: no rash and no yellowing of the skin Neurologic: + generalized weakness; no dizziness and no headache(s) Psychiatric: no depression and no anxiety Physical Exam Constitutional: + cachectic; no acute distress Eyes: PERRL, conjunctivae normal, anicteric sclerae ENMT: external ear and nose normal, oropharynx normal Neck: trachea midline Respiratory: no respiratory distress and no labored breathing Auscultation: + diminished lung sounds (with coarseness throughout); no rhonchi and no wheezes Cardiovascular: Rate/Rhythm: regular rate and regular rhythm Vessels: dorsalis pedis pulses present and radial pulses present Extremities: no calf tenderness and no pedal edema Gastrointestinal (Abdomen): Inspection/Auscultation: normal bowel sounds; abdomen not distended Percussion/Palpation: abdomen soft; abdomen nontender Musculoskeletal: Head/Neck/Chest: normocephalic, head atraumatic and neck supple Skin: thin fragile skin with a few areas of eccymosis on her arms Neurologic: moves all extremities; no focal motor deficits Psychiatric: A+Ox3, euthymic affect Results & Data Results & Data ([facility]) Vital Signs (Past 12 Hours) Vital Signs Pulse Pulse Resp BP BP Pulse Ox 05/08/21 10:57 70 21 122/71 93 05/08/21 09:41 89 L 05/08/21 09:34 80 28 H 121/73 89 L Laboratory Results Laboratory Results - last 24 hr 05/08/21 05/08/21 05/08/21 09:30 09:30 09:30 WBC 8.05 RBC 4.81 Hgb 14.6 Hct 43.2 MCV 89.8 MCH 30.4 MCHC 33.8 RDW Std Deviation 47.4 H RDW Coeff of Joie 14.5 Plt Count 240 MPV 9.3 Immature Gran % (Auto) 0.9 Neut % (Auto) 78.3 Lymph % (Auto) 9.9 [place] % (Auto) 9.3 Eos % (Auto) 1.5 Baso % (Auto) 0.1 Neut # (Auto) 6.30 Lymph # (Auto) 0.80 L [place] # (Auto) 0.75 H Eos # (Auto) 0.12 Baso # (Auto) 0.01 Immature Gran # (Auto) 0.07 H VBG pH VBG pCO2 VBG pO2 VBG HCO3 VBG O2 Saturation VBG Base Excess Barometric Pressure Sodium 136 Potassium 3.8 Chloride 103 Carbon Dioxide 28 Anion Gap 5.0 BUN 16 Creatinine 0.70 Est Cr Clr Drug Dosing 33.2 Est GFR ( Amer) 90.9 Est GFR (Non-Af Amer) 78.5 BUN/Creatinine Ratio 23.1 H Glucose 101 H Lactate Calcium 9.4 Total Bilirubin 1.7 H AST 22 ALT 18 Alkaline Phosphatase 61 D Troponin I 0.036 C-Reactive Protein 5.20 H Total Protein 8.0 Albumin 3.2 L Globulin 4.8 H Albumin/Globulin Ratio 0.7 L Procalcitonin < 0.05 TSH 2.040 SARS-CoV-2 (PCR) Influenza Type A (PCR) Influenza Type B (PCR) RSV (RT-PCR) 05/08/21 05/08/21 05/08/21 09:30 09:48 09:48 WBC RBC Hgb Hct MCV MCH MCHC RDW Std Deviation RDW Coeff of Joie Plt Count MPV Immature Gran % (Auto) Neut % (Auto) Lymph % (Auto) [place] % (Auto) Eos % (Auto) Baso % (Auto) Neut # (Auto) Lymph # (Auto) [place] # (Auto) Eos # (Auto) Baso # (Auto) Immature Gran # (Auto) VBG pH 7.41 VBG pCO2 46 VBG pO2 21 VBG HCO3 29 VBG O2 Saturation < 60.0 VBG Base Excess 3.3 Barometric Pressure 729.9 Sodium Potassium Chloride Carbon Dioxide Anion Gap BUN Creatinine Est Cr Clr Drug Dosing Est GFR ( Amer) Est GFR (Non-Af Amer) BUN/Creatinine Ratio Glucose Lactate 1.1 Calcium Total Bilirubin AST ALT Alkaline Phosphatase Troponin I C-Reactive Protein Total Protein Albumin Globulin Albumin/Globulin Ratio Procalcitonin TSH SARS-CoV-2 (PCR) POSITIVE A* Influenza Type A (PCR) Negative Influenza Type B (PCR) Negative RSV (RT-PCR) Negative Diagnostic Findings Chest X-ray 05/08/21 - IMPRESSION:1. Left lower lung and right upper lung opacities with interstitial thickening, greater within the left lung. The findings favor an infectious process although pulmonary edema could appear similar. Radiographic follow up is recommended. 2. Stable cardiomegaly. Medications Administered Discontinued Medications Dexamethasone Sodium Phosphate (DexamethasonePf 10 Mg/Ml Vial) 6 mg IV NOW ONE Stop: 05/08/21 10:40 Last Admin: 05/08/21 11:17 Dose: 6 mg Documented by: [id number] Code Status & VTE Plan VTE Prophylaxis Plan VTE Prophylaxis will be ordered: Yes Supervising Physician Co-Signing Physician Notes Patient was seen and examined. Agree with Caitlin SIMMS exam assessment. 85 y/o female with a PMH of DM2, CKD3, hypothyroidism, dyslipidemia, chronic systolic HF, anemic, recurrent UTI, ischemic cardiomyopathy s/p ICD placement, prior hip fracture, and prior pacemaker placement presented to the ED with weakness and cough. Cough has been intermittently productive of white to yellow sputum but no hemoptysis. She complained of shortness of breath with minimal exertion. Tested positive for COVID-19 after exposed to a family member with Covid 19 about 2 weeks ago. Patient is unvaccinated. Chest x-ray showed Left lower lung and right upper lung opacities with interstitial thickening, greater within the left lung. Started on IV Decadron and remdesivir. Will monitor LFT while on remdesivir. Continue oxygen supplement and incentive spirometry. With we will continue staff to help patient prone. will continue monitor closely in PCU. MD Garrison
[2021-05-08] MEDS ORDERED: PHARMACY GLYCEMIC MGMT CONSULT PRN (15:23)
[2021-05-08] MEDS ORDERED: GLUCOSE 40% GEL 15 GM TUBE PO PRN (15:23)
[2021-05-08] MEDS ORDERED: CARBOHYDRATES FOR HYPOGLYCEMIA PO PRN (15:23)
[2021-05-08] MEDS ORDERED: DEXTROSE 50% 50 ML SYRINGE IV PRN (15:23)
[2021-05-08] MEDS ORDERED: GLUCAGON FOR INJ 1 MG VIAL SQ PRN (15:23)
[2021-05-08] MEDS ORDERED: ACETAMINOPHEN 325 MG TAB PO PRN (15:23)
[2021-05-08] MEDS ORDERED: GLUCOSE 10 TABS/TUBE PO PRN (15:23)
[2021-05-08] MEDS: ALBUTEROL HFA 8 GM INHALER INH SCH ×3 (17:18→19:56)
[2021-05-08] MEDS: BENZONATATE 100 MG CAPSULE PO SCH ×2 (17:46→20:10)
[2021-05-08] MEDS: INSULIN ASPART PER UNIT SC SCH ×2 (17:47→22:01)
--- NOTE | 2021-05-08 18:22 | Electrocardiogram Report ---
Test Reason : Blood Pressure : / mmHG Vent. Rate : 081 BPM Atrial Rate : 079 BPM P-R Int : 000 ms QRS Dur : 072 ms QT Int : 384 ms P-R-T Axes : 000 -69 074 degrees QTc Int : 446 ms Poor data quality, interpretation may be adversely affected Probably sinus rhythm Left axis deviation Inferior infarct (cited on or before 21-MAY-2014) Anteroseptal infarct (cited on or before 21-MAY-2014) Abnormal ECG Confirmed by Frank Fernandez ([id number]) on 05/08/2021 6:21:47 PM Referred By: Confirmed By:Oneal Fernandez
[2021-05-08] MEDS: ATORVASTATIN 20 MG TAB PO SCH (20:10)
[2021-05-08] MEDS: guaiFENesin 600 MG TABCR PO SCH (20:10)
[2021-05-08] MEDS: GABAPENTIN 300 MG CAP PO SCH (20:10)
[2021-05-08] MEDS: carvediloL 12.5 MG TAB PO SCH (20:10)
[2021-05-09] MEDS: LEVOTHYROXINE SODIUM 100 MCG TABLET PO SCH (06:38)
[2021-05-09] MEDS: ALBUTEROL HFA 8 GM INHALER INH SCH (08:23)
[2021-05-09 08:27] LABS: Hematocrit (blood only) 42.1 % (37-47); Hemoglobin 14.1 g/dL (12.0-16.0); Mean Corpuscular Hemoglobin 30.4 pg (25-34); Mean Corpuscular Hgb Conc 33.5 g/dL (32-36); Mean Corpuscular Volume 90.7 fL (80-100); Mean Platelet Volume 9.3 fL (7.4-10.4); Platelet Count 273 K/uL (130-400); RDW Coefficient of Variation 14.7 % (11.5-14.5); RDW Standard Deviation 48.9 fL (36.4-46.3); Red Blood Count 4.64 M/uL (4.2-5.4); White Blood Count 8.43 K/uL (4.8-10.8)
[2021-05-09] MEDS: dexAMETHasone 6 MG in SYRINGE 0 ML IV SCH (08:28)
[2021-05-09] MEDS: FERROUS SULFATE 325 MG TAB PO SCH (08:30)
[2021-05-09] MEDS: ASPIRIN 81 MG ECTAB PO SCH (08:30)
[2021-05-09] MEDS: SPIRONOLACTONE 25 MG TAB PO SCH (08:30)
[2021-05-09] MEDS: carvediloL 12.5 MG TAB PO SCH ×2 (08:30→20:52)
[2021-05-09] MEDS: guaiFENesin 600 MG TABCR PO SCH ×2 (08:31→20:53)
[2021-05-09] MEDS: BENZONATATE 100 MG CAPSULE PO SCH ×3 (08:31→20:52)
[2021-05-09] MEDS: DOCUSATE SODIUM 100 MG CAP PO SCH (08:31)
[2021-05-09] MEDS: CHOLECALCIFEROL 1,000 UNITS 25 MCG TAB PO SCH (08:31)
[2021-05-09 08:33] LABS: Estimated Average Glucose 146 mg/dl; Hemoglobin A1C 6.7 % (4.5-5.6)
[2021-05-09] MEDS ORDERED: ENOXAPARIN INJ 40 MG/0.4 ML SYR SQ SCH (09:00)
[2021-05-09] MEDS ORDERED: ALBUTEROL HFA 8 GM INHALER INH PRN (09:06)
[2021-05-09] MEDS: INSULIN ASPART PER UNIT SC SCH ×4 (09:07→21:00)
[2021-05-09 09:09] LABS: Albumin Level 2.9 gm/dl (3.4-5.0); BUN Creatinine Ratio 34.1 (10-20); Calcium 9.5 mg/dl (8.5-10.1); Creatinine Clr Calc Pharmacy 27.3 ml/min; Est GFR (African American) 79.8 ml/min; Est GFR (Non-African American) 68.8 ml/min
[2021-05-09 09:14] LABS: Albumin Globulin Ratio 0.6 (0.9-2); Bilirubin,Total 1.5 mg/dl (0.2-1); Globulin 4.7 gm/dl (2.5-4.0); Total Protein 7.6 gm/dl (6.4-8.2)
[2021-05-09] MEDS: SODIUM CHLORIDE 0.9% 10ML FLUSH IV SCH (11:10)
[2021-05-09] MEDS: REMDESIVIR 100 MG in SODIUM CHLORIDE 0.9% 230 ML IV SCH (11:11)
--- NOTE | 2021-05-09 11:55 | Pharmacy Report ---
Pharmacy Glycemic Short Note 2 - Date of Service May 09, 2021 - Glycemic Short BSG Results (Last 24 hours): 05/08/21 05/08/21 05/09/21 16:47 21:11 07:49 Glucose 131 H POC Glucose 144 H 151 H 05/09/21 05/09/21 07:58 11:43 Glucose POC Glucose 127 H 139 H OUTPATIENT ANTIDIABETIC REGIMEN: * N/a * HbA1c = 6.7% (05/09/21) ASSESSMENT: * 85 yo F admitted yesterday secondary to COVID. Pharmacy has been consulted to assist with inpatient glycemic management. Patient does not have a history of diabetes. * Patient is currently ordered a T2DM diet and is tolerating. She is receiving remdesivir and 6 mg of IV dexamethasone for COVID. * Admission serum BSG was 101 mg/dL yesterday. Following 6 mg of IV dexamethasone, dinner BSG was 144 mg/dL followed by 151 mg/dL at bedtime. 1 unit of Novolog was given for HS BSG. * Fasting BSG was 127 mg/dL this AM. Will hold off on NPH dosing for now as steroids do not seem to be effect postprandials yet. Will monitor for 24 more hours to see if steroid-induced postprandial hyperglycemia develops requiring NPH dosing. If not, will likely sign off tomorrow. PLAN FOR INPATIENT GLYCEMIC CONTROL: * Basal insulin * None * Bolus insulin * NovoLog per scale ACHS or Q6hrs while NPO * Goal Range: Low 110 mg/dL - High 140 mg/dL * Correction Factor: 30 mg/dL/unit * Nutritional / Prandial insulin per carb ratio of 1 unit per 10 grams CHO consumed PLAN FOR DISCHARGE: * HbA1c of 6.7% does indicate T2DM. * Recommend continuing lifestyle management as an outpatient.
[2021-05-09 14:13] LABS: Appearance Urine Turbid (Clear); Bacteria Urine Automated 4+ (Negative); Blood Urine 1+ (Negative); Color Urine Dark Yellow; Glucose Urine UA Negative (Negative); Ketones Urine 1+ (Negative); Leukocyte Esterase Urine 2+ (Negative); Nitrite Urine Negative (Negative); Specific Gravity Urine 1.028 (1.000-1.030); Urobilinogen Urine Negative (Negative); WBC Urine Automated >30 /hpf (0-5)
[2021-05-09 14:14] LABS: Bilirubin Urine 1+ (Negative); Protein Urine 3+ (Negative)
[2021-05-09] MEDS: ATORVASTATIN 20 MG TAB PO SCH (20:52)
[2021-05-09] MEDS: GABAPENTIN 300 MG CAP PO SCH (20:53)
--- NOTE | 2021-05-10 01:16 | Hospitalist Progress Note ---
Date of Service May 09, 2021 Assessment & Plan (1) 2019 novel coronavirus-infected pneumonia (NCIP): (2) Hypoxia: Plan: Present on admission with weakness and cough associated with hypoxia Tested positive for COVID-19 Patient did not get vaccinated for COVID-19. Chest x-ray showed left lower lung and right upper lung opacities with interstitial thickening, greater within the left lung. Continue dexamethasone 6 mg IV and remdesivir daily We will monitor liver enzymes while on remdesivir Continue monitor inflammatory marker such as ESR and CRP Continue incentive spirometry and flutter valve Continue oxygen supplement No aggressive measures including no intubation, no CPR, and no BiPAP/CPAP as per daughter (3) Borderline type 2 diabetes mellitus: Plan: Most recent hemoglobin A1c 6.7 on 05/09/2021 Continue monitor blood sugar while on Decadron , Somewhat poor glycemic management (4) Ischemic cardiomyopathy: (5) CKD (chronic kidney disease) stage 3, GFR 30-59 ml/min: Plan: Creatinine stable (6) Hypothyroidism: Plan: - Continue levothyroxine (7) Dyslipidemia: Plan: Code Status: DNR/DNI Admission and Anticipated Discharge Date Admission Date: May 08, 2021 Subjective Patient was seen and examined for follow-up of shortness of breath due to COVID- 19 Lying in bed with no acute distress eating her dinner She said that she feels fine Nurse said that she does not like to keep the oxygen on denies any chest pain, palpitation, dizziness, and shortness of breath. Review of Systems Review of Systems: All systems reviewed & are unremarkable except as noted in Subjective Physical Exam Physical Exam: General- No acute distress, cachectic Head- atraumatic Eyes- PERRL, EOMI, ENT- oropharynx clear Neck- supple, no JVD Lungs- +diminished BS Heart- regular rhythm; no murmur Abdomen- normal bowel sounds, soft, nontender Extremities- no calf tenderness Neuro- alert, oriented, PERRL, EOMI; no facial palsy; no dysarthria Skin- warm & dry. Results & Data Results & Data ([facility]) Vital Signs (Past 12 Hours) Vital Signs Temp Pulse Resp BP Pulse Ox Pulse Ox 05/09/21 22:55 36.8 C 75 17 106/58 L 90 05/09/21 16:26 36.6 C 70 17 125/66 91 05/09/21 16:00 95 05/09/21 14:20 90
[2021-05-10] MEDS: LEVOTHYROXINE SODIUM 100 MCG TABLET PO SCH (06:38)
[2021-05-10 08:13] LABS: Hematocrit (blood only) 42.1 % (37-47); Hemoglobin 14.2 g/dL (12.0-16.0); Mean Corpuscular Hemoglobin 30.2 pg (25-34); Mean Corpuscular Hgb Conc 33.7 g/dL (32-36); Mean Corpuscular Volume 89.6 fL (80-100); Mean Platelet Volume 9.6 fL (7.4-10.4); Platelet Count 285 K/uL (130-400); RDW Coefficient of Variation 14.5 % (11.5-14.5); RDW Standard Deviation 47.9 fL (36.4-46.3); White Blood Count 12.33 K/uL (4.8-10.8)
[2021-05-10] MEDS: dexAMETHasone 6 MG in SYRINGE 0 ML IV SCH (08:55)
[2021-05-10] MEDS: BENZONATATE 100 MG CAPSULE PO SCH ×3 (08:59→20:45)
[2021-05-10] MEDS: ASPIRIN 81 MG ECTAB PO SCH (08:59)
[2021-05-10] MEDS: FERROUS SULFATE 325 MG TAB PO SCH (08:59)
[2021-05-10] MEDS: guaiFENesin 600 MG TABCR PO SCH ×2 (08:59→20:45)
[2021-05-10] MEDS: CHOLECALCIFEROL 1,000 UNITS 25 MCG TAB PO SCH (08:59)
[2021-05-10] MEDS: SPIRONOLACTONE 25 MG TAB PO SCH (08:59)
[2021-05-10] MEDS: carvediloL 12.5 MG TAB PO SCH ×2 (08:59→20:45)
[2021-05-10] MEDS: ENOXAPARIN INJ 30 MG/0.3 ML SYR SQ SCH (09:00)
[2021-05-10] MEDS: DOCUSATE SODIUM 100 MG CAP PO SCH (09:00)
[2021-05-10 09:07] LABS: BUN Creatinine Ratio 46.6 (10-20); Calcium 9.3 mg/dl (8.5-10.1); Creatinine Clr Calc Pharmacy 30.4 ml/min; Est GFR (African American) 90.9 ml/min; Est GFR (Non-African American) 78.5 ml/min; Potassium 3.6 mmol/L (3.5-5.1)
[2021-05-10 09:10] LABS: Albumin Globulin Ratio 0.7 (0.9-2); Bilirubin,Total 1.5 mg/dl (0.2-1); C Reactive Protein 3.39 mg/dl (0-0.29); Globulin 4.5 gm/dl (2.5-4.0); Total Protein 7.5 gm/dl (6.4-8.2)
[2021-05-10] MEDS: INSULIN ASPART PER UNIT SC SCH ×4 (09:46→21:36)
[2021-05-10] MEDS: cefTRIAXone SODIUM 1,000 MG in DEXTROSE 5% 50 ML IV SCH (11:44)
[2021-05-10] MEDS: REMDESIVIR 100 MG in SODIUM CHLORIDE 0.9% 230 ML IV SCH (12:44)
[2021-05-10] MEDS: SODIUM CHLORIDE 0.9% 10ML FLUSH IV SCH (12:45)
[2021-05-10] MEDS: ATORVASTATIN 20 MG TAB PO SCH (20:44)
[2021-05-10] MEDS: GABAPENTIN 300 MG CAP PO SCH (20:45)
--- NOTE | 2021-05-10 22:19 | Hospitalist Progress Note ---
Date of Service May 10, 2021 Assessment & Plan (1) 2019 novel coronavirus-infected pneumonia (NCIP): (2) Hypoxia: Plan: Present on admission with weakness and cough associated with hypoxia Tested positive for COVID-19 Patient did not get vaccinated for COVID-19. Chest x-ray showed left lower lung and right upper lung opacities with interstitial thickening, greater within the left lung. Continue dexamethasone 6 mg IV and remdesivir daily We will monitor liver enzymes while on remdesivir Continue monitor inflammatory marker such as ESR and CRP Continue incentive spirometry and flutter valve Continue oxygen supplement No aggressive measures including no intubation, no CPR, and no BiPAP/CPAP as per daughter Will consider to give lasix 20mg IV x1, but BP is running a little low (3) Borderline type 2 diabetes mellitus: Plan: Most recent hemoglobin A1c 6.7 on 05/09/2021 Continue monitor blood sugar while on Decadron Pharmacy on board for glycemic control management (4) Ischemic cardiomyopathy: (5) CKD (chronic kidney disease) stage 3, GFR 30-59 ml/min: Plan: Creatinine stable (6) Hypothyroidism: Plan: - Continue levothyroxine (7) Dyslipidemia: Plan: Code Status: DNR/DNI Admission and Anticipated Discharge Date Admission Date: May 08, 2021 Subjective Patient was seen and examined for follow-up of shortness of breath due to COVID- 19 Lying in bed with no acute distress eating her dinner She said that she feels fine denies any chest pain, palpitation, dizziness, and shortness of breath. Review of Systems Review of Systems: All systems reviewed & are unremarkable except as noted in Subjective Physical Exam Physical Exam: General- No acute distress, cachectic Head- atraumatic Eyes- PERRL, EOMI, ENT- oropharynx clear Neck- supple, no JVD Lungs- +diminished BS Heart- regular rhythm; no murmur Abdomen- normal bowel sounds, soft, nontender Extremities- no calf tenderness Neuro- alert, oriented, PERRL, EOMI; no facial palsy; no dysarthria Skin- warm & dry. Results & Data Results & Data ([facility]) Vital Signs (Past 12 Hours) Vital Signs Temp Pulse Resp BP Pulse Ox Pulse Ox 05/10/21 16:00 93 05/10/21 15:34 36.4 C L 76 17 116/53 L 91
[2021-05-11 09:00] LABS: BUN Creatinine Ratio 40.2 (10-20); Calcium 9.5 mg/dl (8.5-10.1); Creatinine Clr Calc Pharmacy 28.4 ml/min; Est GFR (African American) 83.7 ml/min; Est GFR (Non-African American) 72.2 ml/min; Potassium 3.7 mmol/L (3.5-5.1)
[2021-05-11 09:13] LABS: Albumin Globulin Ratio 0.7 (0.9-2); Bilirubin,Total 0.9 mg/dl (0.2-1); Globulin 4.3 gm/dl (2.5-4.0); Hematocrit (blood only) 42.2 % (37-47); Hemoglobin 14.3 g/dL (12.0-16.0); Mean Corpuscular Hgb Conc 33.9 g/dL (32-36); Mean Corpuscular Volume 88.7 fL (80-100); Mean Platelet Volume 9.9 fL (7.4-10.4); Platelet Count 255 K/uL (130-400); RDW Coefficient of Variation 14.7 % (11.5-14.5); RDW Standard Deviation 47.3 fL (36.4-46.3); Red Blood Count 4.76 M/uL (4.2-5.4); Total Protein 7.3 gm/dl (6.4-8.2); White Blood Count 8.74 K/uL (4.8-10.8)
[2021-05-11] MEDS: INSULIN ASPART PER UNIT SC SCH ×4 (10:11→22:37)
[2021-05-11] MEDS: CHOLECALCIFEROL 1,000 UNITS 25 MCG TAB PO SCH (10:53)
[2021-05-11] MEDS: ASPIRIN 81 MG ECTAB PO SCH (10:53)
[2021-05-11] MEDS: carvediloL 12.5 MG TAB PO SCH ×2 (10:53→22:08)
[2021-05-11] MEDS: LEVOTHYROXINE SODIUM 100 MCG TABLET PO SCH (10:53)
[2021-05-11] MEDS: BENZONATATE 100 MG CAPSULE PO SCH ×3 (10:53→22:09)
[2021-05-11] MEDS: SODIUM CHLORIDE 0.9% 10ML FLUSH IV SCH (10:54)
[2021-05-11] MEDS: ENOXAPARIN INJ 30 MG/0.3 ML SYR SQ SCH (10:54)
[2021-05-11] MEDS: FERROUS SULFATE 325 MG TAB PO SCH (10:54)
[2021-05-11] MEDS: dexAMETHasone 6 MG in SYRINGE 0 ML IV SCH (10:54)
[2021-05-11] MEDS: guaiFENesin 600 MG TABCR PO SCH ×2 (10:54→22:08)
[2021-05-11] MEDS: DOCUSATE SODIUM 100 MG CAP PO SCH (10:54)
[2021-05-11] MEDS: SPIRONOLACTONE 25 MG TAB PO SCH (10:54)
[2021-05-11] MEDS: cefTRIAXone SODIUM 1,000 MG in DEXTROSE 5% 50 ML IV SCH (11:24)
[2021-05-11] MEDS: REMDESIVIR 100 MG in SODIUM CHLORIDE 0.9% 230 ML IV SCH (13:32)
--- NOTE | 2021-05-11 14:51 | Pharmacy Report ---
Pharmacy Glycemic Short Note 2 - Date of Service May 11, 2021 - Glycemic Short BSG Results (Last 24 hours): 05/10/21 05/10/21 05/11/21 16:50 19:58 07:14 Glucose 97 POC Glucose 129 H 161 H 05/11/21 05/11/21 08:05 11:51 Glucose POC Glucose 95 142 H OUTPATIENT ANTIDIABETIC REGIMEN: * N/a * HbA1c = 6.7% (05/09/21) ASSESSMENT: 05/11/21: * Gabriela received 2 units of novolog yesterday with excellent glycemic control (131, 105, 129, 161 mg/dL) * She remains on dexamethasone 6 mg IV q24 hours. Based on nursing documentation, she is consuming no carbohydrates with meals. This is likely why glycemic control has been so good even on high dose IV steroids. Background: * 85 yo F admitted yesterday secondary to COVID. Pharmacy has been consulted to assist with inpatient glycemic management. Patient does not have a history of diabetes. * Patient is currently ordered a T2DM diet and is tolerating. She is receiving remdesivir and 6 mg of IV dexamethasone for COVID. * Admission serum BSG was 101 mg/dL yesterday. Following 6 mg of IV dexamethasone, dinner BSG was 144 mg/dL followed by 151 mg/dL at bedtime. 1 unit of Novolog was given for HS BSG. * Fasting BSG was 127 mg/dL this AM. Will hold off on NPH dosing for now as steroids do not seem to be effect postprandials yet. Will monitor for 24 more hours to see if steroid-induced postprandial hyperglycemia develops requiring NPH dosing. If not, will likely sign off tomorrow. PLAN FOR INPATIENT GLYCEMIC CONTROL: * Basal insulin * None * Bolus insulin * NovoLog per scale ACHS or Q6hrs while NPO * Goal Range: Low 110 mg/dL - High 140 mg/dL * Correction Factor: 30 mg/dL/unit * Nutritional / Prandial insulin per carb ratio of 1 unit per 8 grams CHO consumed PLAN FOR DISCHARGE: * HbA1c of 6.7% does indicate T2DM. * Recommend continuing lifestyle management as an outpatient.
--- NOTE | 2021-05-11 19:00 | Hospitalist Progress Note ---
Date of Service May 11, 2021 Assessment & Plan (1) 2019 novel coronavirus-infected pneumonia (NCIP): (2) Hypoxia: Plan: Present on admission with weakness and cough associated with hypoxia Tested positive for COVID-19 Patient did not get vaccinated for COVID-19. Chest x-ray showed left lower lung and right upper lung opacities with interstitial thickening, greater within the left lung. Continue dexamethasone 6 mg IV and remdesivir daily We will monitor liver enzymes while on remdesivir Continue monitor inflammatory marker such as ESR and CRP Continue incentive spirometry and flutter valve Continue oxygen supplement No aggressive measures including no intubation, no CPR, and no BiPAP/CPAP as per daughter Will consider to give lasix 20mg IV x1 (3) Borderline type 2 diabetes mellitus: Plan: Most recent hemoglobin A1c 6.7 on 05/09/2021 Continue monitor blood sugar while on Decadron Pharmacy on board for glycemic control management (4) Ischemic cardiomyopathy: (5) CKD (chronic kidney disease) stage 3, GFR 30-59 ml/min: Plan: Creatinine stable (6) Hypothyroidism: Plan: - Continue levothyroxine (7) Dyslipidemia: Plan: Code Status: DNR/DNI Admission and Anticipated Discharge Date Admission Date: May 08, 2021 Subjective Patient was seen and examined for follow-up of shortness of breath due to COVID- 19 Lying in bed with no acute distress eating her dinner She said that she feels fine denies any chest pain, palpitation, dizziness, and shortness of breath. Review of Systems Review of Systems: All systems reviewed & are unremarkable except as noted in Subjective Physical Exam Physical Exam: General- No acute distress, cachectic Head- atraumatic Eyes- PERRL, EOMI, ENT- oropharynx clear Neck- supple, no JVD Lungs- +diminished BS Heart- regular rhythm; no murmur Abdomen- normal bowel sounds, soft, nontender Extremities- no calf tenderness Neuro- alert, oriented, PERRL, EOMI; no facial palsy; no dysarthria Skin- warm & dry. Results & Data Results & Data ([facility]) Vital Signs (Past 12 Hours) Vital Signs Temp Pulse Resp BP Pulse Ox Pulse Ox 05/11/21 16:57 36.4 C L 108/65 4 L 05/11/21 16:00 89 L 05/11/21 08:00 36.8 C 78 16 115/56 L 90 90
[2021-05-11] MEDS: ATORVASTATIN 20 MG TAB PO SCH (22:08)
[2021-05-11] MEDS: GABAPENTIN 300 MG CAP PO SCH (22:08)
[2021-05-12] MEDS ORDERED: FUROSEMIDE INJ 20 MG/2 ML VIAL IV ONE (00:47)
[2021-05-12] MEDS: LEVOTHYROXINE SODIUM 100 MCG TABLET PO SCH (05:38)
[2021-05-12 07:23] LABS: Albumin Level 2.8 gm/dl (3.4-5.0); BUN Creatinine Ratio 30.4 (10-20); Calcium 9.4 mg/dl (8.5-10.1); Creatinine Clr Calc Pharmacy 24.5 ml/min; Est GFR (African American) 69.9 ml/min; Est GFR (Non-African American) 60.3 ml/min; Potassium 4.1 mmol/L (3.5-5.1)
[2021-05-12 07:25] LABS: Albumin Globulin Ratio 0.6 (0.9-2); Bilirubin,Total 0.8 mg/dl (0.2-1); C Reactive Protein 7.37 mg/dl (0-0.29); Globulin 4.7 gm/dl (2.5-4.0); Total Protein 7.5 gm/dl (6.4-8.2)
[2021-05-12] MEDS: ASPIRIN 81 MG ECTAB PO SCH (08:34)
[2021-05-12] MEDS: carvediloL 12.5 MG TAB PO SCH ×2 (08:35→20:01)
[2021-05-12] MEDS: BENZONATATE 100 MG CAPSULE PO SCH ×3 (08:35→21:41)
[2021-05-12] MEDS: CHOLECALCIFEROL 1,000 UNITS 25 MCG TAB PO SCH (08:36)
[2021-05-12] MEDS: DOCUSATE SODIUM 100 MG CAP PO SCH (08:36)
[2021-05-12] MEDS: dexAMETHasone 6 MG in SYRINGE 0 ML IV SCH (08:36)
[2021-05-12] MEDS: ENOXAPARIN INJ 30 MG/0.3 ML SYR SQ SCH (08:37)
[2021-05-12] MEDS: FERROUS SULFATE 325 MG TAB PO SCH (08:37)
[2021-05-12] MEDS: SPIRONOLACTONE 25 MG TAB PO SCH (08:38)
[2021-05-12] MEDS: guaiFENesin 600 MG TABCR PO SCH ×2 (08:38→20:01)
[2021-05-12] MEDS: cefTRIAXone SODIUM 1,000 MG in DEXTROSE 5% 50 ML IV SCH (08:46)
[2021-05-12] MEDS: INSULIN ASPART PER UNIT SC SCH ×4 (08:54→21:41)
[2021-05-12] MEDS: REMDESIVIR 100 MG in SODIUM CHLORIDE 0.9% 230 ML IV SCH (11:52)
[2021-05-12] MEDS: SODIUM CHLORIDE 0.9% 10ML FLUSH IV SCH (11:52)
--- NOTE | 2021-05-12 15:11 | Hospitalist Progress Note ---
Date of Service May 12, 2021 Assessment & Plan (1) 2019 novel coronavirus-infected pneumonia (NCIP): (2) Hypoxia: Plan: Present on admission with weakness and cough associated with hypoxia Tested positive for COVID-19 Patient did not get vaccinated for COVID-19. Chest x-ray showed left lower lung and right upper lung opacities with interstitial thickening, greater within the left lung. Continue dexamethasone 6 mg IV and remdesivir daily We will monitor liver enzymes while on remdesivir-remdesivir course is done on 05/12/2021 Continue monitor inflammatory marker such as ESR and CRP Continue incentive spirometry and flutter valve Continue oxygen supplement No aggressive measures including no intubation, no CPR, and no BiPAP/CPAP as per daughter Received 1 dose of furosemide of 20 mg yesterday Clinically much better today and saturating normally on room air Advised to ambulate more in the room with assistance and if possible to a stable O2 saturation test tomorrow before discharge (3) Borderline type 2 diabetes mellitus: Plan: Most recent hemoglobin A1c 6.7 on 05/09/2021 Continue monitor blood sugar while on Decadron Pharmacy on board for glycemic control management Continue with nonpharmacologic management of diabetes (4) Ischemic cardiomyopathy: Plan: No acute issue (5) CKD (chronic kidney disease) stage 3, GFR 30-59 ml/min: Plan: Creatinine stable (6) Hypothyroidism: Plan: - Continue levothyroxine (7) Dyslipidemia: Plan: Code Status: DNR/DNI Admission and Anticipated Discharge Date Admission Date: May 08, 2021 Subjective 05/12/2021 The patient was seen and examined in telemetry unit and in the Covid room She has been feeling much better but remains generally weak and lethargic She has been saturating on room air at times and requires up to 2 L another time Review of Systems Review of Systems: All systems reviewed and are unremarkable except as noted below Respiratory: No shortness of breath at rest Neurologic: Generally weak Physical Exam Physical Exam: Lying in bed comfortably Constitutional: + ill appearing and + thin Eyes: PERRL, conjunctivae normal, anicteric sclerae ENMT: external ear and nose normal, oropharynx normal Neck: trachea midline, no thyromegaly Respiratory: no respiratory distress Auscultation: + diminished lung sounds and + crackles (Minimal crackles at the bases) Cardiovascular: Rate/Rhythm: regular rate and regular rhythm; not tachycardic Heart Sounds: normal S1 and normal S2; no murmur Extremities: no edema Gastrointestinal (Abdomen): Inspection/Auscultation: abdomen not distended Percussion/Palpation: abdomen soft; abdomen nontender Musculoskeletal: No acute arthritis in any joint Neurologic: Alert, awake and oriented x3. Generally very weak and lethargic Lymphatic: no cervical or axillary lymphadenopathy Results & Data Results & Data ([facility]) Vital Signs (Past 12 Hours) Vital Signs Temp Pulse Resp BP Pulse Ox Pulse Ox 05/12/21 12:18 36.4 C L 76 20 105/60 94 05/12/21 11:25 92 05/12/21 07:51 36.4 C L 73 18 93/53 L 94 05/12/21 05:39 90 Laboratory Results BMP 05/12/21 06:31 Sodium 136 Potassium 4.1 Chloride 102 Carbon Dioxide 28 BUN 26 H Creatinine 0.87 Glucose 148 H Calcium 9.4 Liver Function 05/12/21 Range/Units 06:31 Total Bilirubin 0.8 (0.2-1) mg/dl AST 18 (15-37) U/L ALT 14 (12-78) Alkaline Phosphatase 60 (45-117) U/L Albumin 2.8 L (3.4-5.0) gm/dl Medications Administered Current Inpatient Medications Acetaminophen (Acetaminophen 325 Mg Tab) 650 mg PO Q4H PRN PRN Reason: Moderate Pain Stop: 06/07/21 15:22 Hydrocodone Bitart/Acetaminophen (Hydrocodone/Acetamophen 5/325mg Tab) 1 tab PO Q6H PRN PRN Reason: pain Stop: 05/22/21 11:33 Albuterol (Albuterol Hfa 8 Gm Inhaler) 2 puffs INH QIDR PRN PRN Reason: Sleep Stop: 06/07/21 15:44 Aspirin (Aspirin 81 Mg Ectab) 81 mg PO DAILY SUN Stop: 06/08/21 08:59 Last Admin: 05/12/21 08:34 Dose: 81 mg Documented by: Atorvastatin Calcium (Atorvastatin 20 Mg Tab) 20 mg PO HS SUN Stop: 06/07/21 20:59 Last Admin: 05/11/21 22:08 Dose: 20 mg Documented by: Benzonatate (Benzonatate 100 Mg Capsule) 100 mg PO TID SUN Stop: 06/07/21 15:59 Last Admin: 05/12/21 12:48 Dose: 100 mg Documented by: Carvedilol (Carvedilol 12.5 Mg Tab) 12.5 mg PO BID SUN Stop: 06/07/21 20:59 Last Admin: 05/12/21 08:35 Dose: Not Given Documented by: Dextrose (Dextrose 50% 50 Ml Syringe) 25 - 50 ml IV UD PRN; Protocol PRN Reason: Hypoglycemia Protocol Stop: 06/07/21 15:22 Docusate Sodium (Docusate Sodium 100 Mg Cap) 100 mg PO DAILY SUN Stop: 06/08/21 08:59 Last Admin: 05/12/21 08:36 Dose: 100 mg Documented by: Enoxaparin Sodium (Enoxaparin Inj 30 Mg/0.3 Ml Syr) 30 mg SQ QAM SUN Stop: 06/09/21 08:59 Last Admin: 05/12/21 08:37 Dose: 30 mg Documented by: Ferrous Sulfate (Ferrous Sulfate 325 Mg Tab) 325 mg PO DAILY SUN Stop: 06/08/21 08:59 Last Admin: 05/12/21 08:37 Dose: 325 mg Documented by: Gabapentin (Gabapentin 300 Mg Cap) 300 mg PO HS SUN Stop: 06/07/21 20:59 Last Admin: 05/11/21 22:08 Dose: 300 mg Documented by: Glucagon (Glucagon For Inj 1 Mg Vial) 1 mg SQ UD PRN; Protocol PRN Reason: Hypoglycemia Protocol Stop: 06/07/21 15:22 Glucose (Glucose 10 Tabs/Tube) 4 - 8 tabs PO UD PRN; Protocol PRN Reason: Hypoglycemia Protocol Stop: 06/07/21 15:22 Glucose (Glucose 40% Gel 15 Gm Tube) 15 - 30 gm PO UD PRN; Protocol PRN Reason: Hypoglycemia Protocol Stop: 06/07/21 15:22 Guaifenesin (Guaifenesin 600 Mg Tabcr) 1,200 mg PO Q12 SUN Stop: 06/07/21 20:59 Last Admin: 05/12/21 08:38 Dose: 1,200 mg Documented by: Dexamethasone 6 mg/ Syringe 1.5 mls @ 1 mls/min IV DAILY SUN Stop: 05/19/21 08:59 Last Admin: 05/12/21 08:36 Dose: 1 mls/min Documented by: Ceftriaxone Sodium 1,000 mg/ (Dextrose) 50 mls @ 100 mls/hr IV Q24H [facility]; Protocol Stop: 05/20/21 08:29 Last Infusion: 05/12/21 09:51 Dose: Infused Documented by: Insulin Aspart (Insulin Aspart Per Unit) 0 units SC ACHS [facility]; Protocol Stop: 06/07/21 16:29 Last Admin: 05/12/21 12:48 Dose: 2 units Documented by: Levothyroxine Sodium (Levothyroxine Sodium 100 Mcg Tablet) 100 mcg PO DAILYBB [facility] Stop: 06/08/21 06:29 Last Admin: 05/12/21 05:38 Dose: 100 mcg Documented by: Miscellaneous (Carbohydrates For Hypoglycemia ) 15 - 30 gm PO UD PRN PRN Reason: Hypoglycemia Protocol Stop: 06/07/21 15:22 Miscellaneous Information (Pharmacy Glycemic Mgmt Consult) 1 ea N/A UD PRN; Protocol PRN Reason: Consult Stop: 06/07/21 15:22 Ondansetron HCl (Ondansetron Inj 2 Mg/Ml 2 Ml Vial) 4 mg IV Q4H PRN PRN Reason: Nausea And Vomiting Stop: 06/07/21 11:33 Spironolactone (Spironolactone 25 Mg Tab) 25 mg PO DAILY [facility] Stop: 06/08/21 08:59 Last Admin: 05/12/21 08:38 Dose: 25 mg Documented by: Vitamin D (Cholecalciferol 1,000 Units 25 Mcg Tab) 1,000 units PO QAM [facility] Stop: 06/08/21 08:59 Last Admin: 05/12/21 08:36 Dose: 1,000 units Documented by:
[2021-05-12] MEDS: ATORVASTATIN 20 MG TAB PO SCH (20:01)
[2021-05-12] MEDS: GABAPENTIN 300 MG CAP PO SCH (21:41)
[2021-05-13] MEDS: LEVOTHYROXINE SODIUM 100 MCG TABLET PO SCH (05:34)
[2021-05-13 08:11] LABS: Creatinine Clr Calc Pharmacy 27.3 ml/min; Est GFR (African American) 79.8 ml/min; Est GFR (Non-African American) 68.8 ml/min
[2021-05-13] MEDS: INSULIN ASPART PER UNIT SC SCH ×4 (08:30→20:48)
[2021-05-13] MEDS: FERROUS SULFATE 325 MG TAB PO SCH (08:32)
[2021-05-13] MEDS: dexAMETHasone 6 MG in SYRINGE 0 ML IV SCH (08:32)
[2021-05-13] MEDS: CHOLECALCIFEROL 1,000 UNITS 25 MCG TAB PO SCH (08:32)
[2021-05-13] MEDS: DOCUSATE SODIUM 100 MG CAP PO SCH (08:32)
[2021-05-13] MEDS: guaiFENesin 600 MG TABCR PO SCH ×2 (08:33→20:38)
[2021-05-13] MEDS: carvediloL 12.5 MG TAB PO SCH ×2 (08:33→20:38)
[2021-05-13] MEDS: SPIRONOLACTONE 25 MG TAB PO SCH (08:33)
[2021-05-13] MEDS: ASPIRIN 81 MG ECTAB PO SCH (08:33)
[2021-05-13] MEDS: ENOXAPARIN INJ 30 MG/0.3 ML SYR SQ SCH (08:34)
[2021-05-13] MEDS: BENZONATATE 100 MG CAPSULE PO SCH ×3 (08:38→20:48)
[2021-05-13] MEDS: cefTRIAXone SODIUM 1,000 MG in DEXTROSE 5% 50 ML IV SCH (10:29)
--- NOTE | 2021-05-13 14:17 | Hospitalist Progress Note ---
Date of Service May 13, 2021 Assessment & Plan (1) 2019 novel coronavirus-infected pneumonia (NCIP): (2) Hypoxia: Plan: Present on admission with weakness and cough associated with hypoxia Tested positive for COVID-19 Patient did not get vaccinated for COVID-19. Chest x-ray showed left lower lung and right upper lung opacities with interstitial thickening, greater within the left lung. Continue dexamethasone 6 mg IV and remdesivir daily We will monitor liver enzymes while on remdesivir-remdesivir course is done on 05/12/2021 Continue monitor inflammatory marker such as ESR and CRP Continue incentive spirometry and flutter valve Continue oxygen supplement No aggressive measures including no intubation, no CPR, and no BiPAP/CPAP as per daughter Received 1 dose of furosemide of 20 mg yesterday Clinically much better today and saturating normally on room air Advised to ambulate more in the room with assistance and if possible to a stable O2 saturation test tomorrow before discharge She could not finish the 2 steps O2 saturation test PT and OT have been requested-she may need placement (3) Borderline type 2 diabetes mellitus: Plan: Most recent hemoglobin A1c 6.7 on 05/09/2021 Continue monitor blood sugar while on Decadron Pharmacy on board for glycemic control management Continue with nonpharmacologic management of diabetes (4) Ischemic cardiomyopathy: Plan: No acute issue No signs and/or symptoms of fluid overload (5) CKD (chronic kidney disease) stage 3, GFR 30-59 ml/min: Plan: Creatinine stable (6) Hypothyroidism: Plan: - Continue levothyroxine (7) Dyslipidemia: Plan: Code Status: DNR/DNI Admission and Anticipated Discharge Date Admission Date: May 08, 2021 Subjective 05/12/2021 The patient was seen and examined in telemetry unit and in the Covid room She has been feeling much better but remains generally weak and lethargic She has been saturating on room air at times and requires up to 2 L another time 05/13/2021 The patient was seen and examined in telemetry unit and in the Covid room She has been feeling much better and denies any respiratory symptoms at rest She requires about 2 L oxygen to maintain saturation Remains generally weak and lethargic and could not finish the 2 step O2 saturation test today Review of Systems Review of Systems: All systems reviewed and are unremarkable except as noted below Respiratory: Mild shortness of breath at rest Physical Exam Physical Exam: Lying in bed comfortably Constitutional: + thin; not ill appearing Eyes: PERRL, conjunctivae normal, anicteric sclerae ENMT: external ear and nose normal, oropharynx normal Neck: trachea midline, no thyromegaly Respiratory: no respiratory distress Auscultation: + diminished lung sounds and + crackles (Minimal crackles at the bases) Cardiovascular: Rate/Rhythm: regular rate and regular rhythm; not tachycardic Heart Sounds: normal S1 and normal S2; no murmur Extremities: no edema Gastrointestinal (Abdomen): Inspection/Auscultation: abdomen not distended Percussion/Palpation: abdomen soft; abdomen nontender Musculoskeletal: No acute arthritis in any joint Neurologic: Alert, awake and oriented x3. Generally weak and lethargic Lymphatic: no cervical or axillary lymphadenopathy Results & Data Results & Data ([facility]) Vital Signs (Past 12 Hours) Vital Signs Temp Pulse Resp BP Pulse Ox 05/13/21 06:52 36.4 C L 60 17 113/66 95 Laboratory Results [facility] 05/13/21 07:12 Creatinine 0.78 Medications Administered Current Inpatient Medications Acetaminophen (Acetaminophen 325 Mg Tab) 650 mg PO Q4H PRN PRN Reason: Moderate Pain Stop: 06/07/21 15:22 Hydrocodone Bitart/Acetaminophen (Hydrocodone/Acetamophen 5/325mg Tab) 1 tab PO Q6H PRN PRN Reason: pain Stop: 05/22/21 11:33 Albuterol (Albuterol Hfa 8 Gm Inhaler) 2 puffs INH QIDR PRN PRN Reason: Sleep Stop: 06/07/21 15:44 Aspirin (Aspirin 81 Mg Ectab) 81 mg PO DAILY SUN Stop: 06/08/21 08:59 Last Admin: 05/13/21 08:33 Dose: 81 mg Documented by: Atorvastatin Calcium (Atorvastatin 20 Mg Tab) 20 mg PO HS SUN Stop: 06/07/21 20:59 Last Admin: 05/12/21 20:01 Dose: 20 mg Documented by: Benzonatate (Benzonatate 100 Mg Capsule) 100 mg PO TID SUN Stop: 06/07/21 15:59 Last Admin: 05/13/21 12:23 Dose: 100 mg Documented by: Carvedilol (Carvedilol 12.5 Mg Tab) 12.5 mg PO BID SUN Stop: 06/07/21 20:59 Last Admin: 05/13/21 08:33 Dose: 12.5 mg Documented by: Dextrose (Dextrose 50% 50 Ml Syringe) 25 - 50 ml IV UD PRN; Protocol PRN Reason: Hypoglycemia Protocol Stop: 06/07/21 15:22 Docusate Sodium (Docusate Sodium 100 Mg Cap) 100 mg PO DAILY SUN Stop: 06/08/21 08:59 Last Admin: 05/13/21 08:32 Dose: 100 mg Documented by: Enoxaparin Sodium (Enoxaparin Inj 30 Mg/0.3 Ml Syr) 30 mg SQ QAM SUN Stop: 06/09/21 08:59 Last Admin: 05/13/21 08:34 Dose: 30 mg Documented by: Ferrous Sulfate (Ferrous Sulfate 325 Mg Tab) 325 mg PO DAILY SUN Stop: 06/08/21 08:59 Last Admin: 05/13/21 08:32 Dose: 325 mg Documented by: Gabapentin (Gabapentin 300 Mg Cap) 300 mg PO HS SUN Stop: 06/07/21 20:59 Last Admin: 05/12/21 21:41 Dose: 300 mg Documented by: Glucagon (Glucagon For Inj 1 Mg Vial) 1 mg SQ UD PRN; Protocol PRN Reason: Hypoglycemia Protocol Stop: 06/07/21 15:22 Glucose (Glucose 10 Tabs/Tube) 4 - 8 tabs PO UD PRN; Protocol PRN Reason: Hypoglycemia Protocol Stop: 06/07/21 15:22 Glucose (Glucose 40% Gel 15 Gm Tube) 15 - 30 gm PO UD PRN; Protocol PRN Reason: Hypoglycemia Protocol Stop: 06/07/21 15:22 Guaifenesin (Guaifenesin 600 Mg Tabcr) 1,200 mg PO Q12 SUN Stop: 06/07/21 20:59 Last Admin: 05/13/21 08:33 Dose: 1,200 mg Documented by: Dexamethasone 6 mg/ Syringe 1.5 mls @ 1 mls/min IV DAILY SUN Stop: 05/19/21 08:59 Last Admin: 05/13/21 08:32 Dose: 1 mls/min Documented by: Ceftriaxone Sodium 1,000 mg/ (Dextrose) 50 mls @ 100 mls/hr IV Q24H [facility]; Protocol Stop: 05/20/21 08:29 Last Infusion: 05/13/21 10:59 Dose: Infused Documented by: Insulin Aspart (Insulin Aspart Per Unit) 0 units SC ACHS [facility]; Protocol Stop: 06/07/21 16:29 Last Admin: 05/13/21 12:34 Dose: 3 units Documented by: Levothyroxine Sodium (Levothyroxine Sodium 100 Mcg Tablet) 100 mcg PO DAILYBB [facility] Stop: 06/08/21 06:29 Last Admin: 05/13/21 05:34 Dose: 100 mcg Documented by: Miscellaneous (Carbohydrates For Hypoglycemia ) 15 - 30 gm PO UD PRN PRN Reason: Hypoglycemia Protocol Stop: 06/07/21 15:22 Miscellaneous Information (Pharmacy Glycemic Mgmt Consult) 1 ea N/A UD PRN; Protocol PRN Reason: Consult Stop: 06/07/21 15:22 Ondansetron HCl (Ondansetron Inj 2 Mg/Ml 2 Ml Vial) 4 mg IV Q4H PRN PRN Reason: Nausea And Vomiting Stop: 06/07/21 11:33 Spironolactone (Spironolactone 25 Mg Tab) 25 mg PO DAILY [facility] Stop: 06/08/21 08:59 Last Admin: 05/13/21 08:33 Dose: 25 mg Documented by: Vitamin D (Cholecalciferol 1,000 Units 25 Mcg Tab) 1,000 units [place] Stop: 06/08/21 08:59 Last Admin: 05/13/21 08:32 Dose: 1,000 units Documented by:
[2021-05-13] MEDS: GABAPENTIN 300 MG CAP PO SCH (20:38)
[2021-05-13] MEDS: ATORVASTATIN 20 MG TAB PO SCH (20:38)
[2021-05-14] MEDS: LEVOTHYROXINE SODIUM 100 MCG TABLET PO SCH (05:57)
[2021-05-14] MEDS ORDERED: NovoLIN-N (NPH) PER UNIT CHARGE SQ ONE (08:15)
[2021-05-14] MEDS: carvediloL 12.5 MG TAB PO SCH (08:42)
[2021-05-14] MEDS: BENZONATATE 100 MG CAPSULE PO SCH ×2 (08:42→12:56)
[2021-05-14] MEDS: INSULIN ASPART PER UNIT SC SCH ×2 (08:42→12:56)
[2021-05-14] MEDS: dexAMETHasone 6 MG in SYRINGE 0 ML IV SCH (08:42)
[2021-05-14] MEDS: SPIRONOLACTONE 25 MG TAB PO SCH (08:43)
[2021-05-14] MEDS: ENOXAPARIN INJ 30 MG/0.3 ML SYR SQ SCH (08:43)
[2021-05-14] MEDS: DOCUSATE SODIUM 100 MG CAP PO SCH (08:43)
[2021-05-14] MEDS: ASPIRIN 81 MG ECTAB PO SCH (08:43)
[2021-05-14] MEDS: CHOLECALCIFEROL 1,000 UNITS 25 MCG TAB PO SCH (08:43)
[2021-05-14] MEDS: FERROUS SULFATE 325 MG TAB PO SCH (08:43)
[2021-05-14] MEDS: guaiFENesin 600 MG TABCR PO SCH (08:43)
[2021-05-14] MEDS: cefTRIAXone SODIUM 1,000 MG in DEXTROSE 5% 50 ML IV SCH (09:42)
--- NOTE | 2021-05-14 11:33 | Pharmacy Report ---
Pharmacy Glycemic Short Note 2 - Date of Service May 14, 2021 - Glycemic Short BSG Results (Last 24 hours): 05/13/21 05/13/21 05/13/21 16:49 16:49 20:11 POC Glucose 323 H* 307 H* 257 H 05/14/21 07:43 POC Glucose 115 H OUTPATIENT ANTIDIABETIC REGIMEN: * N/a * HbA1c = 6.7% (05/09/21) ASSESSMENT: 05/14/21: * Gabriela has required increased insulin needs over the past 48+ hours * She has developed post prandial BSG elevations - possibly due to increase oral intake with continued use of dexamethasone IV (day 7) * She required 13 units of correctional insulin yesterday in addition to carb coverage. Will add a conservative dose of NPH to cover steroid induced hyperglycemia - may need to loosen carb coverage with NPH on board 05/11/21: * Gabriela received 2 units of novolog yesterday with excellent glycemic control (131, 105, 129, 161 mg/dL) * She remains on dexamethasone 6 mg IV q24 hours. Based on nursing documentation, she is consuming no carbohydrates with meals. This is likely why glycemic control has been so good even on high dose IV steroids. Background: * 85 yo F admitted yesterday secondary to COVID. Pharmacy has been consulted to assist with inpatient glycemic management. Patient does not have a history of diabetes. * Patient is currently ordered a T2DM diet and is tolerating. She is receiving remdesivir and 6 mg of IV dexamethasone for COVID. * Admission serum BSG was 101 mg/dL yesterday. Following 6 mg of IV dexamethasone, dinner BSG was 144 mg/dL followed by 151 mg/dL at bedtime. 1 unit of Novolog was given for HS BSG. * Fasting BSG was 127 mg/dL this AM. Will hold off on NPH dosing for now as steroids do not seem to be effect postprandials yet. Will monitor for 24 more hours to see if steroid-induced postprandial hyperglycemia develops requiring NPH dosing. If not, will likely sign off tomorrow. PLAN FOR INPATIENT GLYCEMIC CONTROL: * Basal insulin - add NPH * NPH 10 units SQ this morning * Bolus insulin * NovoLog per scale ACHS or Q6hrs while NPO * Goal Range: Low 110 mg/dL - High 140 mg/dL * Correction Factor: 30 mg/dL/unit * Nutritional / Prandial insulin per carb ratio of 1 unit per 6 grams CHO consumed PLAN FOR DISCHARGE: * HbA1c of 6.7% does indicate T2DM. * Recommend continuing lifestyle management as an outpatient.
--- NOTE | 2021-05-14 14:10 | Hospitalist Progress Note ---
Date of Service May 14, 2021 Assessment & Plan (1) 2019 novel coronavirus-infected pneumonia (NCIP): Plan: Spoke with pt and her daughter about the diagnosis of COVID-19 pneumonia with hypoxia and anticipated clinical course. Discussed the use of both dexamethaso ne and remdesivir, specifically the use of remdesivir under the EUA. They are agreeable to both treatments and to the use of oxygen. However, they do not want aggressive measures including no intubation, no CPR, and no BiPAP/CPAP. - Admit for additional treatment and monitoring - Continue oxygen therapy - Dexamethasone and remdesivir per protocol - Incentive spirometry, flutter valve -Clinically much better -Finish the course of remdesivir and continue with dexamethasone -She has been saturating normally on room air -2 step O2 saturation test completed and she does not require any oxygen -She was recommended to go to short-term rehab facility but the daughter declined and the patient will be going home this afternoon (2) Hypoxia: Plan: Due to #1 (3) Borderline type 2 diabetes mellitus: Plan: Will need to monitor glucose on the dexamethasone. Last A1c in December was 5.9 - not currently on diabetic medication outpatient - Accuchecks - Diabetic diet - Pharm consult for glycemic management (4) Ischemic cardiomyopathy: Plan: No acute symptom (5) CKD (chronic kidney disease) stage 3, GFR 30-59 ml/min: Plan: - Daily labs - baseline creatinine appears to be 0.7-0.8 as outpatient (6) Hypothyroidism: Plan: - Continue levothyroxine (7) Dyslipidemia: Plan: Pt seen and reviewed with attending physician, Dr. Ji. Plan of care discussed and as outlined above. Code Status: DNR/DNI She will be discharged home this afternoon Admission and Anticipated Discharge Date Admission Date: May 08, 2021 Subjective 05/12/2021 The patient was seen and examined in telemetry unit and in the Covid room She has been feeling much better but remains generally weak and lethargic She has been saturating on room air at times and requires up to 2 L another time 05/13/2021 The patient was seen and examined in telemetry unit and in the Covid room She has been feeling much better and denies any respiratory symptoms at rest She requires about 2 L oxygen to maintain saturation Remains generally weak and lethargic and could not finish the 2 step O2 saturation test today 05/14/2021 The patient was seen and examined in telemetry unit and in the Covid room She has been feeling much better and she has been saturating with room air She wants to go home and denies any significant symptoms Review of Systems Review of Systems: All systems reviewed and are unremarkable except as noted Respiratory: No respiratory distress at rest Neurologic: Generally very weak Physical Exam Physical Exam: Lying in bed comfortably Constitutional: + thin; not ill appearing Eyes: PERRL, conjunctivae normal, anicteric sclerae ENMT: external ear and nose normal, oropharynx normal Neck: trachea midline, no thyromegaly Respiratory: no respiratory distress Auscultation: + diminished lung sounds and + crackles (Minimal crackles at the bases) Cardiovascular: Rate/Rhythm: regular rate and regular rhythm; not tachycardic Heart Sounds: normal S1 and normal S2; no murmur Extremities: no edema Gastrointestinal (Abdomen): Inspection/Auscultation: abdomen not distended Percussion/Palpation: abdomen soft; abdomen nontender Musculoskeletal: No acute arthritis in any joint Neurologic: Alert, awake and oriented x3. She is generally weak but no focal neuro deficit Lymphatic: no cervical or axillary lymphadenopathy Results & Data Results & Data ([facility]) Vital Signs (Past 12 Hours) Vital Signs Temp Pulse Pulse Pulse Pulse Resp Resp 05/14/21 13:48 05/14/21 13:26 72 62 63 18 05/14/21 11:29 36.6 C 68 18 05/14/21 07:44 36.5 C 61 18 05/14/21 07:24 Resp Resp BP Pulse Ox Pulse Ox Pulse Ox Pulse Ox 05/14/21 13:48 92 05/14/21 13:26 18 16 91 93 05/14/21 11:29 124/76 91 05/14/21 07:44 107/56 L 91 05/14/21 07:24 92 Pulse Ox 05/14/21 13:48 05/14/21 13:26 93 05/14/21 11:29 05/14/21 07:44 05/14/21 07:24 Medications Administered Current Inpatient Medications Acetaminophen (Acetaminophen 325 Mg Tab) 650 mg PO Q4H PRN PRN Reason: Moderate Pain Stop: 06/07/21 15:22 Hydrocodone Bitart/Acetaminophen (Hydrocodone/Acetamophen 5/325mg Tab) 1 tab PO Q6H PRN PRN Reason: pain Stop: 05/22/21 11:33 Albuterol (Albuterol Hfa 8 Gm Inhaler) 2 puffs INH QIDR PRN PRN Reason: Sleep Stop: 06/07/21 15:44 Aspirin (Aspirin 81 Mg Ectab) 81 mg PO DAILY SUN Stop: 06/08/21 08:59 Last Admin: 05/14/21 08:43 Dose: 81 mg Documented by: Atorvastatin Calcium (Atorvastatin 20 Mg Tab) 20 mg PO HS SUN Stop: 06/07/21 20:59 Last Admin: 05/13/21 20:38 Dose: 20 mg Documented by: Benzonatate (Benzonatate 100 Mg Capsule) 100 mg PO TID SUN Stop: 06/07/21 15:59 Last Admin: 05/14/21 12:56 Dose: 100 mg Documented by: Carvedilol (Carvedilol 12.5 Mg Tab) 12.5 mg PO BID SUN Stop: 06/07/21 20:59 Last Admin: 05/14/21 08:42 Dose: 12.5 mg Documented by: Dextrose (Dextrose 50% 50 Ml Syringe) 25 - 50 ml IV UD PRN; Protocol PRN Reason: Hypoglycemia Protocol Stop: 06/07/21 15:22 Docusate Sodium (Docusate Sodium 100 Mg Cap) 100 mg PO DAILY SUN Stop: 06/08/21 08:59 Last Admin: 05/14/21 08:43 Dose: 100 mg Documented by: Enoxaparin Sodium (Enoxaparin Inj 30 Mg/0.3 Ml Syr) 30 mg SQ QAM SUN Stop: 06/09/21 08:59 Last Admin: 05/14/21 08:43 Dose: 30 mg Documented by: Ferrous Sulfate (Ferrous Sulfate 325 Mg Tab) 325 mg PO DAILY SUN Stop: 06/08/21 08:59 Last Admin: 05/14/21 08:43 Dose: 325 mg Documented by: Gabapentin (Gabapentin 300 Mg Cap) 300 mg PO HS [facility] Stop: 06/07/21 20:59 Last Admin: 05/13/21 20:38 Dose: 300 mg Documented by: Glucagon (Glucagon For Inj 1 Mg Vial) 1 mg SQ UD PRN; Protocol PRN Reason: Hypoglycemia Protocol Stop: 06/07/21 15:22 Glucose (Glucose 10 Tabs/Tube) 4 - 8 tabs PO UD PRN; Protocol PRN Reason: Hypoglycemia Protocol Stop: 06/07/21 15:22 Glucose (Glucose 40% Gel 15 Gm Tube) 15 - 30 gm PO UD PRN; Protocol PRN Reason: Hypoglycemia Protocol Stop: 06/07/21 15:22 Guaifenesin (Guaifenesin 600 Mg Tabcr) 1,200 mg PO Q12 [facility] Stop: 06/07/21 20:59 Last Admin: 05/14/21 08:43 Dose: 1,200 mg Documented by: Dexamethasone 6 mg/ Syringe 1.5 mls @ 1 mls/min IV DAILY [facility] Stop: 05/19/21 08:59 Last Admin: 05/14/21 08:42 Dose: 1 mls/min Documented by: Ceftriaxone Sodium 1,000 mg/ (Dextrose) 50 mls @ 100 mls/hr IV Q24H [facility]; Protocol Stop: 05/20/21 08:29 Last Infusion: 05/14/21 10:15 Dose: Infused Documented by: Insulin Aspart (Insulin Aspart Per Unit) 0 units SC ACHS [facility]; Protocol Stop: 06/07/21 16:29 Last Admin: 05/14/21 12:56 Dose: 5 units Documented by: Levothyroxine Sodium (Levothyroxine Sodium 100 Mcg Tablet) 100 mcg PO DAILYBB [facility] Stop: 06/08/21 06:29 Last Admin: 05/14/21 05:57 Dose: 100 mcg Documented by: Miscellaneous (Carbohydrates For Hypoglycemia ) 15 - 30 gm PO UD PRN PRN Reason: Hypoglycemia Protocol Stop: 06/07/21 15:22 Miscellaneous Information (Pharmacy Glycemic Mgmt Consult) 1 ea N/A UD PRN; Protocol PRN Reason: Consult Stop: 06/07/21 15:22 Ondansetron HCl (Ondansetron Inj 2 Mg/Ml 2 Ml Vial) 4 mg IV Q4H PRN PRN Reason: Nausea And Vomiting Stop: 06/07/21 11:33 Spironolactone (Spironolactone 25 Mg Tab) 25 mg PO DAILY [facility] Stop: 06/08/21 08:59 Last Admin: 05/14/21 08:43 Dose: 25 mg Documented by: Vitamin D (Cholecalciferol 1,000 Units 25 Mcg Tab) 1,000 units PO QAM [facility] Stop: 06/08/21 08:59 Last Admin: 05/14/21 08:43 Dose: 1,000 units Documented by:
[2021-05-14 15:55] VITALS: BP 108/62; PULSE 69; TEMP 97.7
[2021-05-14 16:00] VITALS: O2SAT 93
--- NOTE | 2021-05-15 07:53 | Discharge Summary ---
Date of Service May 15, 2021 Admission HPI Per Admitting Provider This is an 85 y/o female with a PMH of DM2, CKD3, hypothyroidism, dyslipidemia, chronic systolic HF, anemic, recurrent UTI, ischemic cardiomyopathy s/p ICD placement, prior hip fracture, and prior pacemaker placement who presented to the ED today via EMS with weakness and cough. History obtained from both patient and her daughter at the bedside. Pt apparently started with cough and fatigue. Cough has been intermittently productive of white to yellow sputum but no hemoptysis. Pt has been short of breath with minimal exertion but not at rest. No documented fevers but daughter reports pt felt warm to her this morning. Denies chills or sweats. Has been sleeping more than usual. Appetite is poor but no N/V/D. Has noted foul odor to her urine but no dysuria, hematuria, urinary frequency. Rhinorrhea but ongoing issue. Denies ST or loss of taste. 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 Exposed to a family member with COVID two weeks ago. Pt is not vaccinated for COVID. Admission Exam Per Admitting Provider Constitutional: + cachectic; no acute distress Eyes: PERRL, conjunctivae normal, anicteric sclerae ENMT: external ear and nose normal, oropharynx normal Neck: trachea midline Respiratory: no respiratory distress and no labored breathing Auscultation: + diminished lung sounds (with coarseness throughout); no rhonchi and no wheezes Cardiovascular: Rate/Rhythm: regular rate and regular rhythm Vessels: dorsalis pedis pulses present and radial pulses present Extremities: no calf tenderness and no pedal edema Gastrointestinal (Abdomen): Inspection/Auscultation: normal bowel sounds; abdomen not distended Percussion/Palpation: abdomen soft; abdomen nontender Musculoskeletal: Head/Neck/Chest: normocephalic, head atraumatic and neck supple Skin: thin fragile skin with a few areas of eccymosis on her arms Neurologic: moves all extremities; no focal motor deficits Psychiatric: A+Ox3, euthymic affect Principal Diagnosis Pneumonia due to COVID-19 virus, ischemic cardiomyopathy, chronic kidney disease, borderline diabetes mellitus, hypothyroidism,UTI Discharge Exam Lying in bed comfortably Constitutional + thin; not ill appearing Eyes PERRL, conjunctivae normal, anicteric sclerae ENMT external ear and nose normal, oropharynx normal Neck trachea midline, no thyromegaly Respiratory no respiratory distress Auscultation: + diminished lung sounds and + crackles (Minimal crackles at the bases) Cardiovascular Rate/Rhythm: regular rate and regular rhythm; not tachycardic Heart Sounds: normal S1 and normal S2; no murmur Extremities: no edema Gastrointestinal (Abdomen) Inspection/Auscultation: abdomen not distended Percussion/Palpation: abdomen soft; abdomen nontender Lymphatic no cervical or axillary lymphadenopathy Discharge Data Allergies Allergy/AdvReac Type Severity Reaction Status Date / Time clindamycin Allergy Intermediate hives/nause Verified 05/08/21 10:17 a doxycycline Allergy Intermediate hives/nause Verified 05/08/21 10:17 a meperidine AdvReac Intermediate confusion Verified 05/08/21 10:17 morphine AdvReac Intermediate tachycardia Verified 05/08/21 10:17 Consultations 05/08/21 11:10 ED Decision to Admit Stat Hospital Course (1) 2018 novel coronavirus-infected pneumonia (NCIP): Spoke with pt and her daughter about the diagnosis of COVID-19 pneumonia with hypoxia and anticipated clinical course. Discussed the use of both dexamethasone and remdesivir, specifically the use of remdesivir under the EUA. They are agreeable to both treatments and to the use of oxygen. However, they do not want aggressive measures including no intubation, no CPR, and no BiPAP/CPAP. - Admit for additional treatment and monitoring - Continue oxygen therapy - Dexamethasone and remdesivir per protocol - Incentive spirometry, flutter valve -Clinically much better -Finish the course of remdesivir and continue with dexamethasone -She has been saturating normally on room air -2 step O2 saturation test completed and she does not require any oxygen -She was recommended to go to short-term rehab facility but the daughter declined and the patient will be going home this afternoon (2) Hypoxia: Due to #1 (3) Borderline type 2 diabetes mellitus: Will need to monitor glucose on the dexamethasone. Last A1c in December was 5.9 - not currently on diabetic medication outpatient - Accuchecks - Diabetic diet - Pharm consult for glycemic management (4) Ischemic cardiomyopathy: No acute symptom (5) CKD (chronic kidney disease) stage 3, GFR 30-59 ml/min: - Daily labs - baseline creatinine appears to be 0.7-0.8 as outpatient (6) Hypothyroidism: - Continue levothyroxine (7) Dyslipidemia: Pt seen and reviewed with attending physician, Dr. Ji. Plan of care discussed and as outlined above. Code Status: DNR/DNI She will be discharged home this afternoon Total Time Total Time Spent Total Time Spent (In Minutes): 40 minutes Discharge Plan Discharge Items Patient Disposition: Home - Home Health Services Reason For Visit: COVID-19 PNA Discharge Diagnosis: Pneumonia due to COVID-19 virus, ischemic cardiomyopathy, chronic kidney disease, borderline diabetes mellitus, hypothyroidism,UTI Condition on Discharge: Fair Activity: Resume your previous activity Non-emergency contact: Primary Care Provider Call non-emergency contact if: you have any medication questions and your symptoms worsen Follow-up/Referrals: Agustin Jackson DO [[employer]] - (Date & Time 05/22/2021 9:30 AM Provider Agustin Jackson DO Department Cardiology [facility] ) Fabby Brantley MD [Primary Care Provider] - (Date & Time 05/21/2021 11:20 AM Provider Fabby Brantley MD Department Family Medicine [facility] ) Diet: Heart Healthy Addtl Attending Provider Instructions: Please take precautions to avoid fall Please maintain home isolation for COVID-19 until 19 May as per guidelines below: Please keep appointments with your healthcare providers; Finish the course of steroid Home Isolation COVID-19 Instructions The following information about Home Isolation is from the CDC Website: https://www.cdc.gov/coronavirus/2019-ncov/hcp/rqzjtpvh-wspyrkv-pucfyn.html Stay home except to get medical care People who are mildly ill with COVID-19 are able to isolate at home during their illness. You should restrict activities outside your home, except for getting medical care. Do not go to work, school, or public areas. Avoid using public transportation, ride-sharing, or taxis. Separate yourself from other people and animals in your home People: As much as possible, you should stay in a specific room and away from other people in your home. Also, you should use a separate bathroom, if available. Animals: You should restrict contact with pets and other animals while you are sick with COVID-19, just like you would around other people. Although there have not been reports of pets or other animals becoming sick with COVID-19, it is still recommended that people sick with COVID-19 limit contact with animals until more information is known about the virus. When possible, have another member of your household care for your animals while you are sick. If you are sick with COVID-19, avoid contact with your pet, including petting, snuggling, being kissed or licked, and sharing food. If you must care for your pet or be around animals while you are sick, wash your hands before and after you interact with pets and wear a face mask. Call ahead before visiting your doctor If you have a medical appointment, call the healthcare provider and tell them that you have or may have COVID-19. This will help the healthcare providers office take steps to keep other people from getting infected or exposed. Wear a face mask You should wear a face mask when you are around other people (e.g., sharing a room or vehicle) or pets and before you enter a healthcare providers office. If you are not able to wear a face mask (for example, because it causes trouble breathing), then people who live with you should not stay in the same room with you, or they should wear a face mask if they enter your room. Cover your coughs and sneezes Cover your mouth and nose with a tissue when you cough or sneeze. Throw used tissues in a lined trash can. Immediately wash your hands with soap and water for at least 20 seconds or, if soap and water are not available, clean your hands with an alcohol-based hand furnace repair mechanic that contains at least 60% alcohol. Clean your hands often Wash your hands often with soap and water for at least 20 seconds, especially after blowing your nose, coughing, or sneezing; going to the bathroom; and before eating or preparing food. If soap and water are not readily available, use an alcohol-based hand furnace repair mechanic with at least 60% alcohol, covering all surfaces of your hands and rubbing them together until they feel dry. Soap and water are the best option if hands are visibly dirty. Avoid touching your eyes, nose, and mouth with unwashed hands. Avoid sharing personal household items You should not share dishes, drinking glasses, cups, eating utensils, towels, or bedding with other people or pets in your home. After using these items, they should be washed thoroughly with soap and water. Clean all high-touch surfaces everyday High touch surfaces include counters, tabletops, doorknobs, bathroom fixtures, toilets, phones, keyboards, tablets, and bedside tables. Also, clean any surfaces that may have blood, stool, or body fluids on them. Use a household cleaning spray or wipe, according to the label instructions. Labels contain instructions for safe and effective use of the cleaning product including precautions you should take when applying the product, such as wearing gloves and making sure you have good ventilation during use of the product. Monitor your symptoms Seek prompt medical attention if your illness is worsening (e.g., difficulty breathing).Beforeseeking care, call your healthcare provider and tell them that you have, or are being evaluated for, COVID-19. Put on a face mask before you enter the facility. These steps will help the healthcare providers office to keep other people in the office or waiting room from getting infected or exposed. Ask your healthcare provider to call the local or state health department. Persons who are placed under active monitoring or facilitated self- monitoring should follow instructions provided by their local health department or occupational health professionals, as appropriate. When working with your local health department check their available hours. If you have a medical emergency and need to call 911, notify the dispatch personnel that you have, or are being evaluated for COVID-19. If possible, put on a face mask before emergency medical services arrive. Discontinuing home isolation Patients with confirmed COVID-19 should remain under home isolation precautions until the risk of secondary transmission to others is thought to be low. The decision to discontinue home isolation precautions should be made on a [id number] basis, in consultation with healthcare providers and state and local health departments. Pending Studies at Discharge: No Stand-Alone Forms: My [employer], Smoking Cessation Medications and DC Order Prescriptions: New guaifenesin [Mucinex] 600 mg Tablet Extended Release 12hr 600 mg PO Q12 Qty: 30 RF: 0 cephalexin 500 mg capsule 500 mg PO BID 7 Days Qty: 14 RF: 0 dexamethasone 6 mg tablet 6 mg PO DAILY Qty: 4 RF: 0 Continued atorvastatin 20 mg Tablet 20 mg PO HS RF: 0 carvedilol 12.5 mg Tablet 12.5 mg PO BID RF: 0 levothyroxine 88 mcg Tablet 100 mcg PO DAILY RF: 0 cholecalciferol (vitamin D3) 25 mcg (1,000 unit) Capsule 25 mcg PO QAM RF: 0 aspirin 81 mg Tablet,Delayed Release (Dr/Ec) 81 mg PO DAILY RF: 0 hydrocodone-acetaminophen 5-325 mg Tablet 1 tab PO Q6H PRN (Reason: pain) Qty: 60 RF: 0 ferrous sulfate 325 mg (65 mg iron) tablet 325 mg PO QAM RF: 0 docusate sodium [Colace] 100 mg Capsule 100 mg PO DAILY RF: 0 spironolactone 25 mg tablet 25 mg PO DAILY RF: 0 gabapentin 300 mg 300 mg PO HS RF: 0 Discontinued ibuprofen 200 mg Tablet 200 mg PO Q6H PRN (Reason: Pain) RF: 0 Discharge Orders: Discharge Order (Routine); Ordered 05/14/21 Ordered By: eBtty Carlson/Other Patient Handouts: Type 2 Diabetes Admission Data Admit Date/Time: 05/08/21 11:20 Attending Provider: Betty Mari Admit Provider: Venkat Ji Primary Care Provider: Fabby Brantley Other Providers: Venkat Ji ; Mac Gonzalez [facility]
== END 2021-05-14 17:50 | disposition home health service (06) | DRG 177 ==
LOC: ED 09:01 → SUATTDRO 11:20 → EDINP 11:20 → 2S 14:32

== ENCOUNTER 2022-10-14 18:52 | Inpatient (IN) ==
--- NOTE | 2022-10-14 19:30 | Emergency Department Note ---
Impression & Plan Fracture of lateral condyle of femur, Acute knee pain ED Provider Note NAME: AIDA JACKSON AGE: 86 SEX: F : 1935 ARRIVES VIA: Walk-In INFORMANT: Patient, ED PROVIDER(S): Josh Negron MD CHIEF COMPLAINT: Leg pain MEDICAL DECISION MAKING: Patient presents due to concern for leg pain. Patient did have p.o. [place] given, Tylenol, lidocaine patch and ice. The patient did have x-rays completed of the hip pelvis as well as the knee. Was concerned about the possibility of a lateral condyle fracture. The patient was unable to be ambulatory. Patient's baseline ambulation status is fairly poor but she does do some walking and cannot do this. CT of the knee was ordered. Does show the patient does have lateral condyle fracture. I did speak with the on-call orthopedist Dr. Garner stated that it does not seem that can be fixed she can be nonweightbearing placed in a knee immobilizer and follow-up in 1 to 2 weeks for follow-up and repeat x-rays. Given the patient's nonweightbearing status and inability to go home at this time blood work was obtained and I did speak the on-call hospitalist service Dr. Sarabia. Patient's blood work with a normal white count mild anemia hemoglobin 11.5 with a normal platelet count. Kidney function is unremarkable with prerenal azotemia mild hyponatremia 134 hypocalcemia at 8.4 negative COVID. The patient was admitted to the medicine service. Definitive Fracture Care note: Dx: Right lateral condyle femur fracture Plan: Immobilization, rest, ice, elevation, analgesia, orthopedic follow up in 3-5 days. Prior /Outside records reviewed: none Differential diagnosis: Fracture, subluxation, dislocation, contusion, ligamentous injury, neurovascular, compartment syndrome, rhabdomyolysis, as well as other pathologies. Diagnostics, as interpreted by me: ECG: none Cardiac monitoring: An order was placed for continuous cardiac monitoring. The monitor shows a rate of 77 with sinus rhythm rhythm. Patient was placed on pulse oximetry Medical decision rules: none Imaging studies: See below I informally reviewed the patient's hip and pelvis x-rays which did not show any obvious fracture dislocation with exception of possible lateral condyle. I informally reviewed the patient's knee x-ray which showed possible fracture of the right lateral condyle. HPI: Patient presents due to concern for leg pain. The patient had some discomfort several days ago but seem to worsen just in the last 24 hours. The patient's son was present at the bedside states that she was sitting out doors last evening around the fire and had blankets on her and she seemed to worsening discomfort and mobility. No reported falls trauma or overuse. The patient does use a wheelchair but will ambulate 10 to 15 feet or so for small tasks. The patient was unable to do any walking today. Patient did take an oxycodone Tylenol and did have improvement in symptoms. Patient does have chronic cough former smoker. PAST MEDICAL HISTORY: See Below PAST SURGICAL HISTORY: See Below SOCIAL HISTORY: See Below HOME MEDICATIONS: See Below ALLERGIES: See Below VITALS: See Below PHYSICAL EXAMINATION: GENERAL: NAD, non-toxic. EYE EXAM: Normal conjunctiva. PERRL, no anisocoria and EOM's grossly intact w/o pain. NECK: Supple, no nuchal rigidity, no adenopathy, non-tender. No signs of meningismus. FROM of the neck with good chin to chest and neck extension. No stridor. LUNGS: Scant wheezes noted. No tachypnea. Normal chest wall mechanics. HEART: NSR, no MRG. ABDOMEN: Abdomen soft, non-tender, no masses, no rebound or guarding. BACK: No CVA TTP. SKIN: No rashes and no bruising. UPPER EXTREMITIES: Upper extremities are grossly normal. LOWER EXTREMITIES: Pain and associated effusion to the right knee with more pain over the lateral aspect. No overlying redness or crepitus. No pain distally no calf pain. Patient has no pain over the right hip. Decreased range of motion at the right knee. No pain in the left lower extremity. NEURO EXAM: A&O x3, cranial nerves II-XII grossly intact, normal speech, moves all 4 extremities. Past Med/Surg History Medical History Ambulatory dysfunction Borderline type 2 diabetes mellitus CAD (coronary artery disease) [facility] in 2014 s/p LAD stent Cardiac defibrillator in place Chronic pain Chronic systolic heart failure CKD (chronic kidney disease) stage 3, GFR 30-59 ml/min Compression fracture of L4 vertebra Dyslipidemia Former tobacco use Hypothyroidism Intertrochanteric fracture of right hip Ischemic cardiomyopathy (05/21/14) Recurrent UTI Sacral insufficiency fracture Surgical History History of appendectomy History of cholecystectomy History of hysterectomy History of implantable cardioverter-defibrillator (ICD) placement Status post-operative repair of closed fracture of right hip Family History Mother Diabetes Myocardial infarction Brother Diabetes Father Myocardial infarction Social History Smoking Status: Former smoker Second Hand Exposure: No; Do You Dip or Chew Tobacco: No; Hx Alcohol Use: No Hx Substance Use: No Preferred Language: Hungarian Communication Ability: Effective Jockey Agent Required: No Beliefs That Will Affect Care: None Current Living Situation: Alone Current Living Situation Comment: LIVES WITH DAUGHTER WHO IS CAREGIVER Other Information That Helps Us Care for You: No Feels Safe at Home: Yes Safety Concerns: Feels Safe At This Time Assistive Devices: Cane, Walker and Wheelchair Allergies Allergies Allergy/AdvReac Type Severity Reaction Status Date / Time clindamycin Allergy Intermediate hives/nause Verified 10/14/22 21:34 a doxycycline Allergy Intermediate hives/nause Verified 10/14/22 21:34 a meperidine AdvReac Intermediate confusion Verified 10/14/22 21:34 morphine AdvReac Intermediate tachycardia Verified 10/14/22 21:34 Home Meds Home Medications Medication Instructions Recorded Confirmed aspirin 81 mg tablet,delayed 81 mg PO DAILY 10/04/20 10/14/22 release atorvastatin 20 mg tablet 20 mg PO HS 10/04/20 10/14/22 carvedilol 12.5 mg tablet 12.5 mg PO BID 10/04/20 10/14/22 cholecalciferol (vitamin D3) 25 25 mcg PO QAM 10/04/20 10/14/22 mcg (1,000 unit) capsule ferrous sulfate 325 mg (65 mg 325 mg PO QAM 05/08/21 10/14/22 iron) tablet spironolactone 25 mg tablet 25 mg PO DAILY 05/08/21 10/14/22 gabapentin 300 mg capsule 300 mg PO BID 10/14/22 10/14/22 guaifenesin 600 mg tablet, 600 mg PO Q12 PRN Congestion 10/14/22 10/14/22 extended release 12 hr (Mucinex) hydrocodone 5 mg-acetaminophen 325 1 tab PO DAILY PRN pain,severe 10/14/22 10/14/22 mg tablet levothyroxine 125 mcg tablet 125 mcg PO DAILYBB 10/14/22 10/14/22 Results & Data (ED) Vital Signs Vital Signs - 24 hr 10/14/22 19:01 10/14/22 18:53 10/14/22 19:43 Temperature 36.8 C Temperature Source Temporal Artery Scan Pulse Rate 79 Pulse Rate from SpO2 Sensor Respiratory Rate 18 16 Respiratory Depth Normal Blood Pressure 100/55 L 134/110 H Blood Pressure Mean 70 116 Pulse Oximetry 94 99 Oxygen Delivery Method Room Air Room Air Sepsis Recent Fever Within 48 Hours No Sepsis New/Unexplained Change in Mental Status No Sepsis Action Taken by Nursing No Action Required 10/14/22 19:43 10/14/22 19:50 10/14/22 20:00 Temperature Temperature Source Pulse Rate 87 76 Pulse Rate from SpO2 Sensor 84 72 Respiratory Rate 14 8 L Respiratory Depth Blood Pressure 117/74 Blood Pressure Mean 97 Pulse Oximetry 94 95 Oxygen Delivery Method Sepsis Recent Fever Within 48 Hours Sepsis New/Unexplained Change in Mental Status Sepsis Action Taken by Nursing 10/14/22 20:00 10/14/22 20:10 10/14/22 20:20 Temperature Temperature Source Pulse Rate 83 84 84 Pulse Rate from SpO2 Sensor 80 81 76 Respiratory Rate 19 19 17 Respiratory Depth Blood Pressure Blood Pressure Mean Pulse Oximetry 99 96 96 Oxygen Delivery Method Sepsis Recent Fever Within 48 Hours Sepsis New/Unexplained Change in Mental Status Sepsis Action Taken by Nursing 10/14/22 20:30 10/14/22 20:31 10/14/22 20:31 Temperature Temperature Source Pulse Rate 87 79 Pulse Rate from SpO2 Sensor 84 79 Respiratory Rate 16 16 Respiratory Depth Blood Pressure 132/68 Blood Pressure Mean 91 Pulse Oximetry 99 98 Oxygen Delivery Method Sepsis Recent Fever Within 48 Hours Sepsis New/Unexplained Change in Mental Status Sepsis Action Taken by Nursing 10/14/22 20:40 10/14/22 20:50 10/14/22 21:00 Temperature Temperature Source Pulse Rate 86 76 Pulse Rate from SpO2 Sensor 84 76 Respiratory Rate 24 12 Respiratory Depth Blood Pressure 128/73 Blood Pressure Mean 93 Pulse Oximetry 94 97 Oxygen Delivery Method Sepsis Recent Fever Within 48 Hours Sepsis New/Unexplained Change in Mental Status Sepsis Action Taken by Nursing 10/14/22 21:00 10/14/22 21:16 10/14/22 21:20 Temperature Temperature Source Pulse Rate 79 68 Pulse Rate from SpO2 Sensor 76 68 Respiratory Rate 14 18 15 Respiratory Depth Blood Pressure Blood Pressure Mean Pulse Oximetry 97 97 Oxygen Delivery Method Sepsis Recent Fever Within 48 Hours Sepsis New/Unexplained Change in Mental Status Sepsis Action Taken by Nursing 10/14/22 21:30 10/14/22 21:30 10/14/22 21:40 Temperature Temperature Source Pulse Rate 71 80 Pulse Rate from SpO2 Sensor 72 75 Respiratory Rate 18 19 Respiratory Depth Blood Pressure 123/65 Blood Pressure Mean 88 Pulse Oximetry 95 97 Oxygen Delivery Method Sepsis Recent Fever Within 48 Hours Sepsis New/Unexplained Change in Mental Status Sepsis Action Taken by Nursing 10/14/22 21:50 10/14/22 22:05 10/14/22 22:10 Temperature Temperature Source Pulse Rate 72 74 67 Pulse Rate from SpO2 Sensor 70 67 Respiratory Rate 22 16 Respiratory Depth Blood Pressure Blood Pressure Mean Pulse Oximetry 85 L 96 Oxygen Delivery Method Sepsis Recent Fever Within 48 Hours Sepsis New/Unexplained Change in Mental Status Sepsis Action Taken by Nursing 10/14/22 22:20 10/14/22 22:30 10/14/22 22:30 Temperature Temperature Source Pulse Rate 71 76 Pulse Rate from SpO2 Sensor 62 73 Respiratory Rate 8 L 13 Respiratory Depth Blood Pressure 117/61 Blood Pressure Mean 70 Pulse Oximetry 95 95 Oxygen Delivery Method Sepsis Recent Fever Within 48 Hours Sepsis New/Unexplained Change in Mental Status Sepsis Action Taken by Nursing 10/14/22 22:40 10/14/22 22:50 10/14/22 23:00 Temperature Temperature Source Pulse Rate 81 79 72 Pulse Rate from SpO2 Sensor 81 75 72 Respiratory Rate 8 L 16 13 Respiratory Depth Blood Pressure Blood Pressure Mean Pulse Oximetry 93 90 98 Oxygen Delivery Method Sepsis Recent Fever Within 48 Hours Sepsis New/Unexplained Change in Mental Status Sepsis Action Taken by Nursing 10/14/22 23:01 10/14/22 23:01 10/14/22 23:10 Temperature Temperature Source Pulse Rate 67 75 Pulse Rate from SpO2 Sensor 69 73 Respiratory Rate 15 17 Respiratory Depth Blood Pressure 122/63 Blood Pressure Mean 72 Pulse Oximetry 92 93 Oxygen Delivery Method Sepsis Recent Fever Within 48 Hours Sepsis New/Unexplained Change in Mental Status Sepsis Action Taken by Nursing 10/14/22 23:20 10/14/22 23:30 10/14/22 23:31 Temperature Temperature Source Pulse Rate 77 81 Pulse Rate from SpO2 Sensor 72 74 Respiratory Rate 17 18 Respiratory Depth Blood Pressure 89/61 L Blood Pressure Mean 69 Pulse Oximetry 95 96 Oxygen Delivery Method Sepsis Recent Fever Within 48 Hours Sepsis New/Unexplained Change in Mental Status Sepsis Action Taken by Nursing 10/14/22 23:31 10/14/22 23:40 10/14/22 23:50 Temperature Temperature Source Pulse Rate 82 78 70 Pulse Rate from SpO2 Sensor 77 72 73 Respiratory Rate 20 20 16 Respiratory Depth Blood Pressure Blood Pressure Mean Pulse Oximetry 95 86 L 88 L Oxygen Delivery Method Sepsis Recent Fever Within 48 Hours Sepsis New/Unexplained Change in Mental Status Sepsis Action Taken by Nursing 10/15/22 00:00 10/15/22 00:00 10/15/22 00:10 Temperature Temperature Source Pulse Rate 73 67 Pulse Rate from SpO2 Sensor 70 69 Respiratory Rate 13 16 Respiratory Depth Blood Pressure 117/89 Blood Pressure Mean 100 Pulse Oximetry 96 95 Oxygen Delivery Method Sepsis Recent Fever Within 48 Hours Sepsis New/Unexplained Change in Mental Status Sepsis Action Taken by Nursing 10/15/22 01:10 Temperature Temperature Source Pulse Rate 77 Pulse Rate from SpO2 Sensor Respiratory Rate 22 Respiratory Depth Blood Pressure Blood Pressure Mean Pulse Oximetry 96 Oxygen Delivery Method Room Air Sepsis Recent Fever Within 48 Hours Sepsis New/Unexplained Change in Mental Status Sepsis Action Taken by [place] Medications Current Medication List: was personally reviewed by me Laboratory Data Attestation: I reviewed the patient's lab results. 10/14/22 23:00 10/14/22 23:00 Lab Results 10/14/22 10/14/22 10/14/22 Range/Units 23:00 23:00 23:16 WBC 9.77 (4.8-10.8) K/ul RBC 3.40 L (4.20-5.40) M/uL Hgb 11.5 L (12.0-16.0) g/dl Hct 34.7 L (37.0-47.0) % MCV 102.1 H (80.0-100.0) fL MCH 33.8 (25.0-34.0) pg MCHC 33.1 (32.0-36.0) g/dL RDW Std Deviation 53.1 H (36.4-46.3) fL RDW Coeff of Joie 14.1 (11.5-14.5) % Plt Count 202 (130-400) K/uL MPV 9.3 L (9.4-12.4) fL Immature Gran % (Auto) 1.0 % Neut % (Auto) 83.2 % Lymph % (Auto) 7.1 % [place] % (Auto) 8.3 % Eos % (Auto) 0.1 % Baso % (Auto) 0.3 % Neut # (Auto) 8.13 H (1.40-6.50) K/uL Lymph # (Auto) 0.69 L (1.2-3.4) K/uL [place] # (Auto) 0.81 H (0.11-0.59) K/uL Eos # (Auto) 0.01 (0-0.50) K/uL Baso # (Auto) 0.03 (0-0.2) K/uL Immature Gran # (Auto) 0.10 (0.01-0.20) K/uL Sodium 134 L (136-145) mmol/L Potassium 4.7 (3.5-5.1) mmol/L Chloride 101 (98-107) mmol/L Carbon Dioxide 30 (21-32) mmol/L Anion Gap 3 (3-11) BUN 17 (6-23) mg/dl Creatinine 0.65 (0.6-1.2) mg/dl Est Cr Clr Drug Dosing 38.5 ml/min Est GFR ( Amer) 92.5 ml/min Est GFR (Non-Af Amer) 79.8 ml/min BUN/Creatinine Ratio 26.2 H (10-20) Glucose 141 H (70-99(Fasting)) mg/dl Calcium 8.4 L (8.6-10.3) mg/dl SARS-CoV-2, RNA, NAAT NEGATIVE (NEGATIVE) Administered Medications Acetaminophen (Acetaminophen 325 Mg Tab) 650 mg PO Q4H PRN PRN Reason: pain/fever Stop: 11/14/22 02:42 Last Admin: 10/15/22 13:21 Dose: 650 mg Documented By: CS Aspirin (Aspirin 81 Mg Ectab) 81 mg PO DAILY [facility] Stop: 11/14/22 08:59 Last Admin: 10/15/22 08:54 Dose: 81 mg Documented By: CS Carvedilol (Carvedilol 12.5 Mg Tab) 12.5 mg PO BID [facility] Stop: 11/14/22 08:59 Last Admin: 10/15/22 08:54 Dose: 12.5 mg Documented By: MARCIA Ferrous Sulfate (Ferrous Sulfate 325 Mg Tab) 325 mg PO QAM [facility] Stop: 11/14/22 08:59 Last Admin: 10/15/22 08:53 Dose: 325 mg Documented By: MARCIA Gabapentin (Gabapentin 300 Mg Cap) 300 mg PO BID [facility] Stop: 11/14/22 08:59 Last Admin: 10/15/22 08:54 Dose: 300 mg Documented By: MARCIA Heparin Sodium (Porcine) (Heparin Sod 5,000 Unit/0.5 Ml Vial) 5,000 units SQ Q8 [facility] Stop: 11/14/22 05:59 Last Admin: 10/15/22 14:46 Dose: 5,000 units Documented By: Admin: 10/15/22 06:01 Dose: 5,000 units Documented By: ZIGGY Levothyroxine Sodium (Levothyroxine Sodium 125 Mcg Tablet) 125 mcg PO DAILYBB [facility] Stop: 11/14/22 06:29 Last Admin: 10/15/22 06:01 Dose: 125 mcg Documented By: ZIGGY Miscellaneous (Remove Lidoderm Patch) 1 each N/A DAILY@2100 [facility] Stop: 11/13/22 20:59 Last Admin: 10/14/22 22:32 Dose: 1 each Documented By: JENNIFFER Spironolactone (Spironolactone 25 Mg Tab) 25 mg PO DAILY [facility] Stop: 11/14/22 08:59 Last Admin: 10/15/22 08:53 Dose: 25 mg Documented By: MARCIA Vitamin D (Cholecalciferol 1,000 Units 25 Mcg Tab) 1,000 units PO QAM [facility] Stop: 11/14/22 08:59 Last Admin: 10/15/22 08:56 Dose: 1,000 units Documented By: MARCIA Discontinued Medications Acetaminophen (Acetaminophen 500 Mg Tab) 500 mg PO NOW STA Stop: 10/14/22 19:47 Last Admin: 10/14/22 20:16 Dose: 500 mg Documented By: JENNIFFER Hydrocodone Bitart/Acetaminophen (Hydrocodone/Acetamophen 5/325mg Tab) 0.5 tab PO NOW STA Stop: 10/14/22 19:47 Last Admin: 10/14/22 20:15 Dose: 0.5 tab Documented By: JENNIFFER Magnesium Sulfate/Dextrose (Magnesium Sulfate / D5w) 1 gm in 100 mls @ 50 mls/hr IV ONE ONE Stop: 10/15/22 13:38 Last Infusion: 10/15/22 14:44 Dose: 0 mls/hr Documented By: Admin: 10/15/22 12:41 Dose: 50 mls/hr Documented By: MARCIA Lidocaine (Lidocaine 5% 1 Patch) 1 patch TD NOW STA Stop: 10/14/22 19:47 Last Admin: 10/14/22 20:16 Dose: 1 patch Documented By: JENNIFFER Morphine Sulfate (Morphine Sulfate 2 Mg/Ml Carp) 2 mg IV NOW STA Stop: 10/15/22 01:25 Last Admin: 10/15/22 01:51 Dose: 2 mg Documented By: [facility] Imaging Data Radiologist's Impression: Femur X-Ray 10/14/22 19:05 SINGLE VIEW PELVIS; 3 VIEWS RIGHT FEMUR CLINICAL HISTORY: Fall. Right hip pain. FINDINGS: An AP view of the pelvis with AP, frog-leg, and lateral views of the right femur are obtained. Comparison is made to study dated 08/27/2014. The skeletal structures are osteopenic. There is chronic posttraumatic deformity of the proximal femora. Intertrochanteric and intramedullary nails are present within both femurs. The orthopedic hardware appears intact. No acute fracture seen involving the hips or bony pelvis. There is acute fracture of the distal right femoral metaphysis. Lipohemarthrosis is noted at the knee joint. The proximal right femur appears intact. [id number] arthritic change and joint space narrowing is seen in the hips. There is degenerative sclerosis of the sacroiliac joints. Lumbosacral spondylosis is partially imaged. The overlying soft tissues are within normal limits. Phleboliths are seen in the pelvis. There is atherosclerotic calcification of the femoral arteries. IMPRESSION: 1. There is no radiographic evidence of acute fracture involving the hips or bony pelvis. 2. Acute fracture of the distal right femoral metaphysis with associated lipohemarthrosis. 3. The proximal right femur appears intact. 4. Chronic posttraumatic deformity and postsurgical change is noted in both proximal femora. Electronically signed by: Juanjo Mercado M.D. 10/14/2022 10:58 PM Pelvis X-Ray 10/14/22 19:05 SINGLE VIEW PELVIS; 3 VIEWS RIGHT FEMUR CLINICAL HISTORY: Fall. Right hip pain. FINDINGS: An AP view of the pelvis with AP, frog-leg, and lateral views of the right femur are obtained. Comparison is made to study dated 08/27/2014. The skeletal structures are osteopenic. There is chronic posttraumatic deformity of the proximal femora. Intertrochanteric and intramedullary nails are present within both femurs. The orthopedic hardware appears intact. No acute fracture seen involving the hips or bony pelvis. There is acute fracture of the distal right femoral metaphysis. Lipohemarthrosis is noted at the knee joint. The proximal right femur appears intact. Bgyp-du-aaxaxbvs arthritic change and joint space narrowing is seen in the hips. There is degenerative sclerosis of the sacroiliac joints. Lumbosacral spondylosis is partially imaged. The overlying soft tissues are within normal limits. Phleboliths are seen in the pelvis. There is atherosclerotic calcification of the femoral arteries. IMPRESSION: 1. There is no radiographic evidence of acute fracture involving the hips or bony pelvis. 2. Acute fracture of the distal right femoral metaphysis with associated lipohemarthrosis. 3. The proximal right femur appears intact. 4. Chronic posttraumatic deformity and postsurgical change is noted in both proximal femora. Electronically signed by: Juanjo Mercado M.D. 10/14/2022 10:[address] 10/14/22 21:42 Exam(s): CT RIGHT KNEE Without Contrast EXAM: CT Right Lower Extremity Without Intravenous Contrast, Knee CLINICAL HISTORY: Reason for exam: pain, unable to ambulate, effusionlateral condyle?. TECHNIQUE: Axial computed tomography images of the right knee without intravenous contrast. CTDI is 15.57 mGy and DLP is 396.08 mGy-cm. Automated exposure control was utilized for the study. A dose lowering technique was utilized adhering to the principles of ALARA. COMPARISON: No relevant prior studies available. FINDINGS: Bones/joints: Lipohemarthrosis secondary to a nondisplaced vertical lateral femoral condyle fracture extending to the intercondylar notch. Partially visualized intramedullary anabelle within the distal femur with stabilizing transverse screw without evidence of hardware complications. Severe osteopenia. No dislocation. Soft tissues: Unremarkable. IMPRESSION: Lipohemarthrosis secondary to a nondisplaced vertical lateral femoral condyle fracture extending to the intercondylar notch. Electronically signed by: Joesph Oliver M.D. 10/14/22 22:22 PM Discharge Plan Visit Data Chief Complaint: Leg Injury/Pain Stated Complaint: PAIN IN R LEG, CANT STAND ON IT ED Provider: Josh Negron Discharge Problem: Fracture of lateral condyle of femur, Acute knee pain Patient Disposition: Admitted As Inpatient Discharge Instructions Interventions: ED Discharge Assessment Last Done: 10/15/22 02:05 Fracture of lateral condyle of femur Qualifiers: Encounter type: initial encounter Fracture type: closed Fracture alignment: nondisplaced Laterality: right Qualified Code(s): S72.424A - Nondisplaced fracture of lateral condyle of right femur, initial encounter for closed fracture Acute knee pain Qualifiers: Laterality: right Qualified Code(s): M25.561 - Pain in right knee
[2022-10-14] MEDS ORDERED: HYDROCODONE/ACETAMOPHEN 5/325MG TAB PO STA (19:46)
[2022-10-14] MEDS ORDERED: LIDOCAINE 5% 1 PATCH TD STA (19:46)
[2022-10-14] MEDS ORDERED: ACETAMINOPHEN 500 MG TAB PO STA (19:46)
--- NOTE | 2022-10-14 22:23 | CT Scan Report ---
Exam(s): CT RIGHT KNEE Without Contrast EXAM: CT Right Lower Extremity Without Intravenous Contrast, Knee CLINICAL HISTORY: Reason for exam: pain, unable to ambulate, effusionlateral condyle?. TECHNIQUE: Axial computed tomography images of the right knee without intravenous contrast. CTDI is 15.57 mGy and DLP is 396.08 mGy-cm. Automated exposure control was utilized for the study. A dose lowering technique was utilized adhering to the principles of ALARA. COMPARISON: No relevant prior studies available. FINDINGS: Bones/joints: Lipohemarthrosis secondary to a nondisplaced vertical lateral femoral condyle fracture extending to the intercondylar notch. Partially visualized intramedullary anabelle within the distal femur with stabilizing transverse screw without evidence of hardware complications. Severe osteopenia. No dislocation. Soft tissues: Unremarkable. IMPRESSION: Lipohemarthrosis secondary to a nondisplaced vertical lateral femoral condyle fracture extending to the intercondylar notch. Electronically signed by: Joesph Oliver M.D. 10/14/22 22:22 PM
--- NOTE | 2022-10-14 23:01 | XRay Report ---
SINGLE VIEW PELVIS; 3 VIEWS RIGHT FEMUR CLINICAL HISTORY: Fall. Right hip pain. FINDINGS: An AP view of the pelvis with AP, frog-leg, and lateral views of the right femur are obtain ed. Comparison is made to study dated 08/27/2014. The skeletal structures are osteopenic. There is chr onic posttraumatic deformity of the proximal femora. Intertrochanteric and intramedullary nails are p resent within both femurs. The orthopedic hardware appears intact. No acute fracture seen involving t he hips or bony pelvis. There is acute fracture of the distal right femoral metaphysis. Lipohemarthro sis is noted at the knee joint. The proximal right femur appears intact. Urhg-xo-palgsdfc arthritic c hange and joint space narrowing is seen in the hips. There is degenerative sclerosis of the sacroilia c joints. Lumbosacral spondylosis is partially imaged. The overlying soft tissues are within normal l imits. Phleboliths are seen in the pelvis. There is atherosclerotic calcification of the femoral abril susy. IMPRESSION: 1. There is no radiographic evidence of acute fracture involving the hips or bony pelvis. 2. Acute fracture of the distal right femoral metaphysis with associated lipohemarthrosis. 3. The proximal right femur appears intact. 4. Chronic posttraumatic deformity and postsurgical change is noted in both proximal femora. Electronically signed by: Juanjo Mercado M.D. 10/14/2022 10:58 PM
[2022-10-14 23:28] LABS: Basophils # (auto) 0.03 K/uL (0-0.2); Basophils % (auto) 0.3 %; Eosinophils # (auto) 0.01 K/uL (0-0.50); Eosinophils % (auto) 0.1 %; Hematocrit (blood only) 34.7 % (37.0-47.0); Hemoglobin 11.5 g/dl (12.0-16.0); Lymphocytes # (auto) 0.69 K/uL (1.2-3.4); Lymphocytes % (auto) 7.1 %; Mean Corpuscular Hemoglobin 33.8 pg (25.0-34.0); Mean Corpuscular Hgb Conc 33.1 g/dL (32.0-36.0); Mean Corpuscular Volume 102.1 fL (80.0-100.0); Mean Platelet Volume 9.3 fL (9.4-12.4); Monocytes # (auto) 0.81 K/uL (0.11-0.59); Monocytes % (auto) 8.3 %; Neutrophils # (auto) 8.13 K/uL (1.40-6.50); Neutrophils % (auto) 83.2 %; Platelet Count 202 K/uL (130-400); RDW Coefficient of Variation 14.1 % (11.5-14.5); RDW Standard Deviation 53.1 fL (36.4-46.3); White Blood Count 9.77 K/ul (4.8-10.8)
--- NOTE | 2022-10-14 23:29 | XRay Report ---
RIGHT KNEE 3 VIEWS CLINICAL HISTORY: Right knee injury. FINDINGS: AP, crosstable lateral, and sunrise portable views of the right knee are obtained. No prior studies are available for comparison at the time of dictation. The skeletal structures are osteopeni c. There is a mildly angulated fracture seen involving the lateral aspect of the distal femoral metap hysis. Overlying soft tissue edema is noted. There is associated lipohemarthrosis. No additional acut e fracture is seen. An intramedullary nail is present in the femoral shaft. There is mild degenerativ e joint space narrowing in the knee. Advanced atherosclerotic calcification is noted in the femoral a nd popliteal arteries. IMPRESSION: Distal femoral metaphyseal fracture with associated lipohemarthrosis. Electronically signed by: Juanjo Mercado M.D. 10/14/2022 11:27 PM
[2022-10-14 23:32] LABS: BUN Creatinine Ratio 26.2 (10-20); Calcium 8.4 mg/dl (8.6-10.3); Creatinine Clr Calc Pharmacy 38.5 ml/min; Est GFR (African American) 92.5 ml/min; Est GFR (Non-African American) 79.8 ml/min; Potassium 4.7 mmol/L (3.5-5.1)
[2022-10-15] MEDS ORDERED: MoRPHine SULFATE 2 MG/ML CARP IV STA (01:24)
--- NOTE | 2022-10-15 02:32 | History and Physical Report ---
DATE OF ADMISSION: 10/14/2022. CHIEF COMPLAINT: Right distal femur fracture. HISTORY OF PRESENT ILLNESS: An 86-year-old female with past medical history significant for hyperlipidemia, hypothyroidism, prediabetes, CAD, ischemic dilated cardiomyopathy, status post AICD, chronic systolic CHF, B12 deficiency, vitamin D deficiency, severe protein calorie malnutrition, vesicovaginal fistula, osteoporosis, osteoarthrosis, chronic back pain, iron deficiency anemia, history of hip fracture, history of recurrent UTIs, who comes because of pain in the right leg and found to have distal right femur fracture. The patient lives alone. She says she ambulates with a walker. Seems to be a poor historian, but able to answer simple questions. She says the family lives close by, but she lives alone. She states that she still drives the car and does her own food. She says she did not fall, but she was having pain in the right leg. Denies any chest pain, no shortness of breath, no cough, no fever. Says appetite is okay, eating and drinking okay. No abdominal pain. Normal bowel and bladder movements. Denies any headache. No blurred visions, no sore throat, no cough. Currently, resting comfortably and hemodynamically stable. Tried to call the family, but not able to reach them. As per the ER, the patient was sitting outdoors last evening in the fire and blankets on her, seemed to have worsening discomfort and mobility. As per the son, per ER reported no falls or trauma or overuse. The patient does seem to be using wheelchair, but can ambulate 10-15 feet for small tasks and she was unable to be walking today, seems the reason she was brought in here. ALLERGIES: CLINDAMYCIN, DOXYCYCLINE, MEPERIDINE, MORPHINE. PAST MEDICAL HISTORY: As mentioned above. PAST SURGICAL HISTORY: Pacemaker defibrillation placement, appendectomy, cholecystectomy, left hip replacement surgery, right hip fracture repair, sigmoidoscopy, total hysterectomy. MEDICATIONS: The patient is on aspirin 81 mg p.o. daily, atorvastatin 20 mg p.o. at bedtime, Coreg 12.5 mg p.o. b.i.d., vitamin D 25 mcg p.o. a.m., ferrous sulfate 325 mg p.o. a.m., gabapentin 300 mg p.o. b.i.d., Mucinex 600 mg p.o. b.i.d. p.r.n., hydrocodone/acetaminophen 1 tablet p.o. daily p.r.n., levothyroxine 125 mcg p.o. daily, spironolactone 25 mg p.o. daily. FAMILY HISTORY: Significant for brother had neck cancer and colon cancer; son has esophageal cancer; brother has diabetes; mother has diabetes, heart disorder; father has emphysema, [place]. SOCIAL HISTORY: Currently , lives alone. Quit smoking in 2011, smoked half pack a day for 50 years. No alcohol use. No drug use. REVIEW OF SYSTEMS: As per HPI. Rest of the review of systems is negative. PHYSICAL EXAMINATION: GENERAL: The patient is old and frail, oriented to name and place, not in acute distress. VITAL SIGNS: Temperature 36.8, pulse 77, respiratory rate 22, blood pressure 117/89, oxygen 96% on room air. HEENT: Pupils equal, round and reactive to light. Oral mucosa moist. NECK: No neck masses. CARDIOVASCULAR: S1 and S2 heard. Regular rate and rhythm. No murmur, no gallop. RESPIRATORY SYSTEM: Normal AP diameter. No accessory muscle use. No wheezing, no crackles. ABDOMEN: Soft, bowel sounds present, nontender, no distention. CENTRAL NERVOUS SYSTEM: Alert and oriented to name and place. No facial droop. Speech is okay. Obeys simple commands. EXTREMITIES: Right lower extremity is on immobilizer. No obvious edema or erythema seen. LABORATORY DATA: WBC 9.7, hemoglobin 11.5, hematocrit 34.7, platelets 202. Sodium 134, potassium 4.7, chloride 101, bicarbonate 30, BUN 17, creatinine 0.6, serum glucose 141, calcium 8.4. SARS-CoV-2 rapid test negative. IMAGING DATA: Right knee CT, Lipohemarthrosis secondary to a nondisplaced vertical lateral femoral condyle fracture extending to the intercondylar notch. Knee x-ray, right side distal femoral metaphyseal fracture with associated lipohemarthrosis. Pelvis x-ray, no radiographic evidence of acute fracture involving the hips or bony pelvis, acute fracture of the distal right femoral metaphysis with associated lipohemarthrosis. The proximal right femur appears intact. Chronic posttraumatic deformity and postsurgical changes noted in both the proximal femora. Right Femur x-ray: 1. There is no radiographic evidence of acute fracture involving the hips or bony pelvis. 2. Acute fracture of the distal right femoral metaphysis with associated lipohemarthrosis. 3. The proximal right femur appears intact. 4. Chronic posttraumatic deformity and postsurgical change is noted in both proximal femora. ASSESSMENT AND PLAN: This is an 86-year-old female who presents with some difficulty in ambulation and found to have right distal femoral fracture. 1. Ambulatory dysfunction, right distal femoral fracture: No fall as per the patient, Status post immobilizer in the ER. Consult orthopedics. PT, OT. The patient lives alone. Says the family lives close by. Seems at baseline ambulatory status that is not that great, mostly wheelchair, seems walks 10-15 steps with walker. Could not reach family. Monitor in the hospital. 2. History of chronic systolic congestive heart failure: EF 20% to 25% as per the echo done in May 2020. Continue her Coreg and spironolactone. Monitor for any volume overload. 3. History of coronary artery disease: On aspirin, statin, and beta nila. 4. Hypothyroidism: On Synthroid. 5. Status post automatic implantable cardioverter-defibrillator. 6. Prediabetes: Follow the blood sugars. 7. History of chronic kidney disease stage III: Currently creatinine of 0.6, will follow the labs. 8. Hyperlipidemia: On statin. 9. Deep venous thrombosis prophylaxis: Heparin subcutaneously. DISPOSITION: Closely monitor in the medical floor. Social service to help with discharge planning. The patient may need placement. CODE STATUS: Full code for now, but the patient is a poor historian. We may need to confirm the code status once we are able to reach the family in the morning. Job ID: [id number] [facility]
[2022-10-15] MEDS ORDERED: POLYETHYLENE (MIRALAX) 17 GM PACK PO PRN (02:43)
[2022-10-15] MEDS ORDERED: oxyCODONE HCL IR 5 MG TAB (IMMEDIATE RELEASE) PO PRN (02:43)
[2022-10-15] MEDS ORDERED: guaiFENesin 600 MG TABCR PO PRN (02:43)
[2022-10-15] MEDS: LEVOTHYROXINE SODIUM 125 MCG TABLET PO SCH (06:01)
[2022-10-15] MEDS: HEPARIN SOD 5,000 UNIT/0.5 ML VIAL SQ SCH ×3 (06:01→20:44)
[2022-10-15 08:10] LABS: Basophils # (auto) 0.05 K/uL (0-0.2); Basophils % (auto) 0.6 %; Eosinophils # (auto) 0.01 K/uL (0-0.50); Eosinophils % (auto) 0.1 %; Hematocrit (blood only) 37.1 % (37.0-47.0); Hemoglobin 12.6 g/dl (12.0-16.0); Immature Granulocytes # (auto) 0.13 K/uL (0.01-0.20); Immature Granulocytes % (auto) 1.5 %; Lymphocytes # (auto) 0.79 K/uL (1.2-3.4); Lymphocytes % (auto) 9.3 %; Mean Corpuscular Hemoglobin 33.2 pg (25.0-34.0); Mean Corpuscular Volume 97.9 fL (80.0-100.0); Mean Platelet Volume 8.9 fL (9.4-12.4); Monocytes # (auto) 0.92 K/uL (0.11-0.59); Monocytes % (auto) 10.8 %; Neutrophils # (auto) 6.62 K/uL (1.40-6.50); Neutrophils % (auto) 77.7 %; Platelet Count 218 K/uL (130-400); RDW Coefficient of Variation 13.7 % (11.5-14.5); RDW Standard Deviation 49.6 fL (36.4-46.3); Red Blood Count 3.79 M/uL (4.20-5.40); White Blood Count 8.52 K/ul (4.8-10.8)
--- NOTE | 2022-10-15 08:22 | Communication Note ---
Date of Service: October 15, 2022 Patient was seen and H and P was done on 10/15/22.Thanks
[2022-10-15] MEDS: FERROUS SULFATE 325 MG TAB PO SCH (08:53)
[2022-10-15] MEDS: SPIRONOLACTONE 25 MG TAB PO SCH (08:53)
[2022-10-15] MEDS: carvediloL 12.5 MG TAB PO SCH ×2 (08:54→20:44)
[2022-10-15] MEDS: ASPIRIN 81 MG ECTAB PO SCH (08:54)
[2022-10-15] MEDS: GABAPENTIN 300 MG CAP PO SCH ×2 (08:54→20:44)
[2022-10-15] MEDS: CHOLECALCIFEROL 1,000 UNITS 25 MCG TAB PO SCH (08:56)
[2022-10-15 09:08] LABS: Calcium 8.6 mg/dl (8.6-10.3); Magnesium 1.6 mg/dl (1.7-2.4); Potassium 4.7 mmol/L (3.5-5.1)
[2022-10-15 09:14] LABS: Creatinine Clr Calc Pharmacy 40.6 ml/min; Est GFR (African American) 97.2 ml/min; Est GFR (Non-African American) 83.8 ml/min
[2022-10-15] MEDS: MAGNESIUM SULFATE / D5W 1 GM/100 ML BAG IV ONE ×2 (11:57→12:41)
[2022-10-15] MEDS ORDERED: ACETAMINOPHEN 325 MG TAB PO PRN (12:07)
[2022-10-15] MEDS: ACETAMINOPHEN 325 MG TAB PO PRN ×2 (13:21→18:43)
--- NOTE | 2022-10-15 15:19 | Hospitalist Progress Note ---
Date of Service October 15, 2022 Assessment & Plan (1) Fall: (2) Fracture of lateral condyle of femur: Plan: Patient presented from home after having her right leg jammed by her wheelchair. She was being pushed in the wheelchair and she had stuck out her right leg and her right foot got stuck on the ground. CT shows lipohemarthrosis secondary to a nondisplaced vertical lateral femoral condyle fracture extending to the intercondylar notch. Currently in immobilizer Awaiting Ortho input PT/OT when appropriate (3) Chronic systolic heart failure: Plan: No signs of fluid overload and/or CHF (4) Cardiac defibrillator in place: Plan: Denies any cardiac symptoms (5) CAD (coronary artery disease): (6) Ischemic cardiomyopathy: Plan: Remote history of [place] in 2015 s/p LAD stent EF 20 to 25% Appears euvolemic, continue home spironolactone Continue ASA, statin, beta-nila (7) Chronic pain: Plan: Typically managed with hydrocodone and gabapentin Son states that patient develops confusion with current dose of hydrocodone. Recommend reducing to half tablet daily as needed at discharge. (8) Hypothyroidism: Plan: Continue levothyroxine DVT PROPHYLAXIS SQ heparin Patient seen in collaboration with Dr. Mari. Admission and Anticipated Discharge Date Admission Date: October 15, 2022 Supervising Physician Co-Signing Physician Notes Attending addendum The patient was seen and examined in medical floor She has had a fall that that resulted with a fracture of the right lower end of the femur Denies any pain at rest and does not want to take much of narcotic pain medications Denies any other symptoms specially no chest pain, palpitation and no shortness of breath, no abdominal pain nausea and or vomiting, no cough and no phlegm and no shortness of breath On examination Lean and thin without any acute distress Hemodynamically stable with blood pressure on the lower side at 104/59 Chest-decreased breath sounds Heart S1-S2, 2/6 ESM Abdomen-benign Extremities-no significant edema but right lower extremity is colder than the left Has immobile brace on the right right knee Her admission labs, imaging studies reviewed Status post fall with right lower femoral fracture awaiting Ortho evaluation Remains free of any pain at rest and will decrease the dose of narcotic pain medications on discharge Agree with assessment and plan as outlined above by Prema Mari - Subjective Follow-up for right femoral condyle fracture. Patient seen and examined. Son at bedside, able to provide history. States that patient lives at home with his sister. Last evening, patient was being pushed in her wheelchair when she put out her right leg. Right foot got caught on the ground while wheelchair was moving and jammed her right knee. Patient remains in immobilizer. Reports pain is well controlled. Denies chest pain and shortness of breath. No abdominal pain or nausea. Physical Exam Constitutional: + thin and + frail appearing; no acute distress Respiratory: normal respiratory effort, lungs clear to auscultation Cardiovascular: Rate/Rhythm: regular rate and regular rhythm Vessels: normal peripheral pulses Extremities: + edema (+2-3 pitting edema RLE, +1-2 pitting edema LLE ) Gastrointestinal (Abdomen): Percussion/Palpation: abdomen soft; abdomen nontender Musculoskeletal: RLE in immobilizer Skin: no rashes, warm and dry Neurologic: no focal motor deficits Psychiatric: A+Ox3, euthymic affect Results & Data Results & Data Vital Signs (Past 12 Hours) Vital Signs Temp Pulse Resp BP Pulse Ox O2 Del Method 10/15/22 07:56 Room Air 10/15/22 07:15 36.4 C L 79 18 130/67 95 Room Air Laboratory Results Short CBC 10/14/22 10/15/22 Range/Units 23:00 07:55 WBC 9.77 8.52 (4.8-10.8) K/ul Hgb 11.5 L 12.6 (12.0-16.0) g/dl Hct 34.7 L 37.1 (37.0-47.0) % Plt Count 202 218 (130-400) K/uL BMP 10/14/22 10/15/22 23:00 07:55 Sodium 134 L 134 L Potassium 4.7 4.7 Chloride 101 101 Carbon Dioxide 30 30 BUN 17 14 Creatinine 0.65 0.56 L Glucose 141 H 105 H Calcium 8.4 L 8.6 Medications Administered Current Inpatient Medications Acetaminophen (Acetaminophen 325 Mg Tab) 650 mg PO Q4H PRN PRN Reason: pain/fever Stop: 11/14/22 02:42 Last Admin: 10/15/22 13:21 Dose: 650 mg Aspirin (Aspirin 81 Mg Ectab) 81 mg PO DAILY SUN Stop: 11/14/22 08:59 Last Admin: 10/15/22 08:54 Dose: 81 mg Atorvastatin Calcium (Atorvastatin 20 Mg Tab) 20 mg PO HS [facility] Stop: 11/14/22 20:59 Carvedilol (Carvedilol 12.5 Mg Tab) 12.5 mg PO BID SUN Stop: 11/14/22 08:59 Last Admin: 10/15/22 08:54 Dose: 12.5 mg Ferrous Sulfate (Ferrous Sulfate 325 Mg Tab) 325 mg PO QAM SUN Stop: 11/14/22 08:59 Last Admin: 10/15/22 08:53 Dose: 325 mg Gabapentin (Gabapentin 300 Mg Cap) 300 mg PO BID SUN Stop: 11/14/22 08:59 Last Admin: 10/15/22 08:54 Dose: 300 mg Guaifenesin (Guaifenesin 600 Mg Tabcr) 600 mg PO Q12 PRN PRN Reason: Congestion Stop: 11/14/22 02:42 Heparin Sodium (Porcine) (Heparin Sod 5,000 Unit/0.5 Ml Vial) 5,000 units SQ Q8 SUN Stop: 11/14/22 05:59 Last Admin: 10/15/22 14:46 Dose: 5,000 units Levothyroxine Sodium (Levothyroxine Sodium 125 Mcg Tablet) 125 mcg PO DAILYBB [facility] Stop: 11/14/22 06:29 Last Admin: 10/15/22 06:01 Dose: 125 mcg Miscellaneous (Remove Lidoderm Patch) 1 each N/A DAILY@2100 [facility] Stop: 11/13/22 20:59 Last Admin: 10/14/22 22:32 Dose: 1 each Oxycodone HCl (Oxycodone Hcl Ir 5 Mg Tab (Immediate Release)) 5 mg PO Q6H PRN PRN Reason: Pain Stop: 10/29/22 02:42 Polyethylene Glycol (Polyethylene (Miralax) 17 Gm Pack) 17 gm PO DAILY PRN PRN Reason: Constipation Stop: 11/14/22 02:42 Spironolactone (Spironolactone 25 Mg Tab) 25 mg PO DAILY [facility] Stop: 11/14/22 08:59 Last Admin: 10/15/22 08:53 Dose: 25 mg Vitamin D (Cholecalciferol 1,000 Units 25 Mcg Tab) 1,000 units PO QAM [facility] Stop: 11/14/22 08:59 Last Admin: 10/15/22 08:56 Dose: 1,000 units (2) Fracture of lateral condyle of femur Encounter type: initial encounter Fracture alignment: nondisplaced Fracture type: closed Laterality: right Qualified Code(s): S72.424A - Nondisplaced fracture of lateral condyle of right femur, initial encounter for closed fracture
--- NOTE | 2022-10-15 16:12 | Orthopedic Consultation ---
Date of Consultation October 15, 2022 Assessment & Plan (1) Fracture of lateral condyle of femur: x-rays reviewed by myself and Dr. Null. Patient with minimally displaced lateral condylar fracture of the distal femur with also a central nondisplaced fracture of the distal femur into the joint line. This is a nonsurgical type of fracture. Plus, with her comorbidities, this puts her at high risk for surgical problems. Plans will be to consult orthotics to see if they can fit her with a type of [place] brace locked in extension. She will need to be nonweightbearing on the right lower extremity. we can try doing PT/OT with her to see how well she is ambulating however after speaking with her daughter, she may need to be bed to chair for some time. Her daughter has been taking care of her at home and would like to have her return home to continue her care. She would like to have home health come to the house to possibly work with her mom as far as physical ice to the right knee for the next 24/48 hours off and on. continue pain management. Plan to follow-up with Dr. Null in 2 weeks. History of Present Illness Reason for Consultation: Right distal femur fracture Attending Physician: Betty Mari MD History of Present Illness An 86-year-old female with past medical history significant for hype rlipidemia, hypothyroidism, prediabetes, CAD, ischemic dilated cardiomyopathy, status post AICD, chronic systolic CHF, B12 deficiency, vitamin D deficiency, severe protein calorie malnutrition, vesicovaginal fistula, osteoporosis, osteoarthrosis, chronic back pain, iron deficiency anemia, history of hip fracture, history of recurrent UTIs, who comes because of pain in the right leg. The patient's daughter is with her right now and gives her history. Patient in August ended up having some compression fractures of the thoracic and lumbar spine. Reading through the consult these were age-indeterminate but patient was starting to have increased low back pain. Had some insufficiency fractures of the sacrum. None of this was operable per Dr. Berger. Since that time she has gone from ambulation down to bed to chair treatment. Patient's daughter states that they were trying to get her into one of their RVs. The door was narrow and they were trying to get her wheelchair in to the door. the patient apparently had her right leg outstretched in a extended position. Her foot apparently was jammed into either the doorway or of the couch of the RV and she started having pain in the right knee. She continued to have the pain in the right knee with some swelling and she was brought to the emergency room. Staff and x-rays were taken. It was found that she had a distal femur fracture that was minimally displaced. Patient was having some ambulation dysfunction and [facility] we have been asked to see her for her distal femur fracture. Allergies Allergy/AdvReac Type Severity Reaction Status Date / Time clindamycin Allergy Intermediate hives/nause Verified 10/14/22 21:34 a doxycycline Allergy Intermediate hives/nause Verified 10/14/22 21:34 a meperidine AdvReac Intermediate confusion Verified 10/14/22 21:34 morphine AdvReac Intermediate tachycardia Verified 10/14/22 21:34 Home Medications Medication Instructions Recorded Confirmed Type aspirin 81 mg tablet,delayed 81 mg PO DAILY 10/04/20 10/14/22 History release atorvastatin 20 mg tablet 20 mg PO HS 10/04/20 10/14/22 History carvedilol 12.5 mg tablet 12.5 mg PO BID 10/04/20 10/14/22 History cholecalciferol (vitamin D3) 25 25 mcg PO QAM 10/04/20 10/14/22 History mcg (1,000 unit) capsule ferrous sulfate 325 mg (65 mg 325 mg PO QAM 05/08/21 10/14/22 History iron) tablet spironolactone 25 mg tablet 25 mg PO DAILY 05/08/21 10/14/22 History gabapentin 300 mg capsule 300 mg PO BID 10/14/22 10/14/22 History guaifenesin 600 mg tablet, 600 mg PO Q12 PRN Congestion 10/14/22 10/14/22 History extended release 12 hr (Mucinex) hydrocodone 5 mg-acetaminophen 325 1 tab PO DAILY PRN pain,severe 10/14/22 10/14/22 History mg tablet levothyroxine 125 mcg tablet 125 mcg PO DAILYBB 10/14/22 10/14/22 History Patient History Medical History Ambulatory dysfunction Borderline type 2 diabetes mellitus CAD (coronary artery disease) [place] in 2015 s/p LAD stent Cardiac defibrillator in place Chronic pain Chronic systolic heart failure CKD (chronic kidney disease) stage 3, GFR 30-59 ml/min Compression fracture of L4 vertebra Dyslipidemia Former tobacco use Hypothyroidism Intertrochanteric fracture of right hip Ischemic cardiomyopathy (05/21/14) Recurrent UTI Sacral insufficiency fracture Surgical History History of appendectomy History of cholecystectomy History of hysterectomy History of implantable cardioverter-defibrillator (ICD) placement Status post-operative repair of closed fracture of right hip Family History Mother Diabetes Myocardial infarction Brother Diabetes Father Myocardial infarction Social History Smoking Status: Former smoker Second Hand Exposure: No; Do You Dip or Chew Tobacco: No; Hx Alcohol Use: No Hx Substance Use: No Preferred Language: Citizen Of [place] Communication Ability: Effective Drain Cleaner Required: No Beliefs That Will Affect Care: None Current Living Situation: Alone Current Living Situation Comment: LIVES WITH DAUGHTER WHO IS CAREGIVER Other Information That Helps Us Care for You: No Feels Safe at Home: Yes Safety Concerns: Feels Safe At This Time Assistive Devices: Cane, Walker and Wheelchair Physical Exam Physical Exam: Patient is an 86-year-old cachectic white female who is currently lying in bed asleep. She is easily arousable. Her daughter is present with her and says that she will definitely wake up. Patient does answer questions appropriately. She is oriented to person and place. No acute distress. On examination of her right lower extremity, she has an immobilizer on. This is removed. She has an Chidi bandage wrapped around the knee and she has has some noticeable swelling of the right knee at this time, she is tender on palpation. any attempts to do minimal range of motion causes her discomfort. She is able to move her ankle and toes in dorsiflexion and plantarflexion. She has some noted swelling of the dorsum of her foot and has some dependent rubor noted. Difficult to palpate her dorsalis pedis but there are sharma from where nursing states that they have used a Doppler and got strong pulses. Sensation appears to be intact. calves are soft nontender. The immobilizer that she had was a bit oversized and I trimmed it down. It was replaced and seem to fit her a little bit better. no other complaints of injuries to the upper extremities at this time. Or to the left lower extremity. Results & Data Vital Signs (Past 12 Hours) Vital Signs Temp Pulse Resp BP Pulse Ox O2 Del Method 10/15/22 15:43 36.7 C 77 16 104/59 L 97 Room Air 10/15/22 07:56 Room Air 10/15/22 07:15 36.4 C L 79 18 130/67 95 Room Air Laboratory Results Laboratory Results WBC 8.52 K/ul (4.8-10.8) 10/15/22 07:55 RBC 3.79 M/uL (4.20-5.40) L 10/15/22 07:55 Hgb 12.6 g/dl (12.0-16.0) 10/15/22 07:55 Hct 37.1 % (37.0-47.0) 10/15/22 07:55 MCV 97.9 fL (80.0-100.0) 10/15/22 07:55 MCH 33.2 pg (25.0-34.0) 10/15/22 07:55 MCHC 34.0 g/dL (32.0-36.0) 10/15/22 07:55 RDW Std Deviation 49.6 fL (36.4-46.3) H 10/15/22 07:55 RDW Coeff of Joie 13.7 % (11.5-14.5) 10/15/22 07:55 Plt Count 218 K/uL (130-400) 10/15/22 07:55 MPV 8.9 fL (9.4-12.4) L 10/15/22 07:55 Immature Gran % (Auto) 1.5 % 10/15/22 07:55 Neut % (Auto) 77.7 % 10/15/22 07:55 Lymph % (Auto) 9.3 % 10/15/22 07:55 Wolfe % (Auto) 10.8 % 10/15/22 07:55 Eos % (Auto) 0.1 % 10/15/22 07:55 Baso % (Auto) 0.6 % 10/15/22 07:55 Neut # (Auto) 6.62 K/uL (1.40-6.50) H 10/15/22 07:55 Lymph # (Auto) 0.79 K/uL (1.2-3.4) L 10/15/22 07:55 Wolfe # (Auto) 0.92 K/uL (0.11-0.59) H 10/15/22 07:55 Eos # (Auto) 0.01 K/uL (0-0.50) 10/15/22 07:55 Baso # (Auto) 0.05 K/uL (0-0.2) 10/15/22 07:55 Immature Gran # (Auto) 0.13 K/uL (0.01-0.20) 10/15/22 07:55 Sodium 134 mmol/L (136-145) L 10/15/22 07:55 Potassium 4.7 mmol/L (3.5-5.1) 10/15/22 07:55 Chloride 101 mmol/L (98-107) 10/15/22 07:55 Carbon Dioxide 30 mmol/L (21-32) 10/15/22 07:55 Anion Gap 3 (3-11) 10/15/22 07:55 BUN 14 mg/dl (6-23) 10/15/22 07:55 Creatinine 0.56 mg/dl (0.6-1.2) L 10/15/22 07:55 Est Cr Clr Drug Dosing 40.6 ml/min 10/15/22 07:55 Est GFR ( Amer) 97.2 ml/min 10/15/22 07:55 Est GFR (Non-Af Amer) 83.8 ml/min 10/15/22 07:55 BUN/Creatinine Ratio 25.0 (10-20) H 10/15/22 07:55 Glucose 105 mg/dl (70-99(Fasting)) H 10/15/22 07:55 Calcium 8.6 mg/dl (8.6-10.3) 10/15/22 07:55 Magnesium 1.6 mg/dl (1.7-2.4) L 10/15/22 07:55 SARS-CoV-2, RNA, NAAT NEGATIVE (NEGATIVE) 10/14/22 23:16 Impressions Femur X-Ray 10/14/22 19:05 SINGLE VIEW PELVIS; 3 VIEWS RIGHT FEMUR CLINICAL HISTORY: Fall. Right hip pain. FINDINGS: An AP view of the pelvis with AP, frog-leg, and lateral views of the right femur are obtained. Comparison is made to study dated 08/27/2014. The skeletal structures are osteopenic. There is chronic posttraumatic deformity of the proximal femora. Intertrochanteric and intramedullary nails are present within both femurs. The orthopedic hardware appears intact. No acute fracture seen involving the hips or bony pelvis. There is acute fracture of the distal right femoral metaphysis. Lipohemarthrosis is noted at the knee joint. The proximal right femur appears intact. Kdtl-fl-ibdhlyim arthritic change and joint space narrowing is seen in the hips. There is degenerative sclerosis of the sacroiliac joints. Lumbosacral spondylosis is partially imaged. The overlying soft tissues are within normal limits. Phleboliths are seen in the pelvis. There is atherosclerotic calcification of the femoral arteries. IMPRESSION: 1. There is no radiographic evidence of acute fracture involving the hips or bony pelvis. 2. Acute fracture of the distal right femoral metaphysis with associated lipohemarthrosis. 3. The proximal right femur appears intact. 4. Chronic posttraumatic deformity and postsurgical change is noted in both proximal femora. Electronically signed by: Juanjo Mercado M.D. 10/14/2022 10:58 PM Pelvis X-Ray 10/14/22 19:05 SINGLE VIEW PELVIS; 3 VIEWS RIGHT FEMUR CLINICAL HISTORY: Fall. Right hip pain. FINDINGS: An AP view of the pelvis with AP, frog-leg, and lateral views of the right femur are obtained. Comparison is made to study dated 08/27/2014. The skeletal structures are osteopenic. There is chronic posttraumatic deformity of the proximal femora. Intertrochanteric and intramedullary nails are present within both femurs. The orthopedic hardware appears intact. No acute fracture seen involving the hips or bony pelvis. There is acute fracture of the distal right femoral metaphysis. Lipohemarthrosis is noted at the knee joint. The proximal right femur appears intact. Ozki-cp-vczpcrrf arthritic change and joint space narrowing is seen in the hips. There is degenerative sclerosis of the sacroiliac joints. Lumbosacral spondylosis is partially imaged. The overlying soft tissues are within normal limits. Phleboliths are seen in the pelvis. There is atherosclerotic calcification of the femoral arteries. IMPRESSION: 1. There is no radiographic evidence of acute fracture involving the hips or bony pelvis. 2. Acute fracture of the distal right femoral metaphysis with associated lipohemarthrosis. 3. The proximal right femur appears intact. 4. Chronic posttraumatic deformity and postsurgical change is noted in both proximal femora. Electronically signed by: Juanjo Mercado M.D. 10/14/2022 10:58 PM Knee X-Ray 10/14/22 19:51 RIGHT KNEE 3 VIEWS CLINICAL HISTORY: Right knee injury. FINDINGS: AP, crosstable lateral, and sunrise portable views of the right knee are obtained. No prior studies are available for comparison at the time of dictation. The skeletal structures are osteopenic. There is a mildly angulated fracture seen involving the lateral aspect of the distal femoral metaphysis. Overlying soft tissue edema is noted. There is associated lipohemarthrosis. No additional acute fracture is seen. An intramedullary nail is present in the femoral shaft. There is mild degenerative joint space narrowing in the knee. Advanced atherosclerotic calcification is noted in the femoral and popliteal arteries. IMPRESSION: Distal femoral metaphyseal fracture with associated lipohemarthrosis. Electronically signed by: Juanjo Mercado M.D. 10/14/2022 11:[address] 10/14/22 21:42 Exam(s): CT RIGHT KNEE Without Contrast EXAM: CT Right Lower Extremity Without Intravenous Contrast, Knee CLINICAL HISTORY: Reason for exam: pain, unable to ambulate, effusionlateral condyle?. TECHNIQUE: Axial computed tomography images of the right knee without intravenous contrast. CTDI is 15.57 mGy and DLP is 396.08 mGy-cm. Automated exposure control was utilized for the study. A dose lowering technique was utilized adhering to the principles of ALARA. COMPARISON: No relevant prior studies available. FINDINGS: Bones/joints: Lipohemarthrosis secondary to a nondisplaced vertical lateral femoral condyle fracture extending to the intercondylar notch. Partially visualized intramedullary anabelle within the distal femur with stabilizing transverse screw without evidence of hardware complications. Severe osteopenia. No dislocation. Soft tissues: Unremarkable. IMPRESSION: Lipohemarthrosis secondary to a nondisplaced vertical lateral femoral condyle fracture extending to the intercondylar notch. Electronically signed by: Joesph Oliver M.D. 10/14/22 22:22 PM (1) Fracture of lateral condyle of femur Encounter type: initial encounter Fracture alignment: nondisplaced Fracture type: closed Laterality: right Qualified Code(s): S72.424A - Nondisplaced fracture of lateral condyle of right femur, initial encounter for closed fracture
[2022-10-15] MEDS: ATORVASTATIN 20 MG TAB PO SCH (20:44)
[2022-10-16] MEDS: ACETAMINOPHEN 325 MG TAB PO PRN ×2 (05:53→10:16)
[2022-10-16] MEDS: LEVOTHYROXINE SODIUM 125 MCG TABLET PO SCH (05:53)
[2022-10-16] MEDS: HEPARIN SOD 5,000 UNIT/0.5 ML VIAL SQ SCH ×3 (05:54→21:30)
[2022-10-16] MEDS: carvediloL 12.5 MG TAB PO SCH ×2 (08:21→21:28)
[2022-10-16] MEDS: SPIRONOLACTONE 25 MG TAB PO SCH (08:21)
[2022-10-16] MEDS: ASPIRIN 81 MG ECTAB PO SCH (08:21)
[2022-10-16] MEDS: FERROUS SULFATE 325 MG TAB PO SCH (08:21)
[2022-10-16] MEDS: CHOLECALCIFEROL 1,000 UNITS 25 MCG TAB PO SCH (08:22)
[2022-10-16] MEDS: GABAPENTIN 300 MG CAP PO SCH ×2 (08:22→21:30)
--- NOTE | 2022-10-16 14:17 | Hospitalist Progress Note ---
Date of Service October 16, 2022 Assessment & Plan (1) Fall: (2) Fracture of lateral condyle of femur: Plan: Patient presented from home after having her right leg jammed by her wheelchair. She was being pushed in the wheelchair and she had stuck out her right leg and her right foot got stuck on the ground. CT shows lipohemarthrosis secondary to a nondisplaced vertical lateral femoral condyle fracture extending to the intercondylar notch. Nonsurgical management as per Ortho Will need to be nonweightbearing with [place] brace locked in extension. Patient likely will be chair bound due to inability to use walker secondary to instability. Patient will require a wheelchair with cushion and leg security systems installer. Scheduled Tylenol for pain, continue home hydrocodone for breakthrough pain. Will reduce to half tablet due to confusion per family. (3) Chronic systolic heart failure: (4) Cardiac defibrillator in place: (5) CAD (coronary artery disease): (6) Ischemic cardiomyopathy: Plan: Appears stable, no reports of chest pain Remote history of CT in 2014 s/p LAD stent EF 20 to 25% Appears euvolemic, continue home spironolactone Continue ASA, statin, beta-nila (7) Chronic pain: Plan: Typically managed with hydrocodone and gabapentin Son states that patient develops confusion with current dose of hydrocodone. Recommend reducing to half tablet daily as needed (8) Hypothyroidism: Plan: Continue levothyroxine DVT PROPHYLAXIS SQ Heparin Patient seen in collaboration with Dr. Mari. Admission and Anticipated Discharge Date Admission Date: October 15, 2022 Supervising Physician Co-Signing Physician Notes Attending addendum The patient was seen and examined in medical floor She has been complaining of some pain in the left hip Denies any other significant symptoms Was seen by Ortho and advised for conservative management Will have a knee brace for immobilization Will need small dose of narcotics as needed to control pain She wants to go home and the family members wants her home as well On examination No apparent distress at rest Remains hemodynamically stable Her labs, medications and imaging studies reviewed Status post fall with right lower end of the femur fracture-appreciate Ortho evaluation and recommendation for conservative management Will need small dose of narcotic analgesics to control pain Agree with assessment and plan as outlined above by Prema Mari Subjective Follow-up for right femoral condyle fracture. Patient seen and examined. Reports pain is well controlled, offers no complaints. Denies chest pain and shortness of breath. No abdominal pain or nausea. Physical Exam Constitutional: + frail appearing; no acute distress Respiratory: normal respiratory effort, lungs clear to auscultation Cardiovascular: Rate/Rhythm: regular rate and regular rhythm Vessels: normal peripheral pulses Extremities: + edema (+3 pitting edema right foot/leg, +1-2 edema LLE) Gastrointestinal (Abdomen): Percussion/Palpation: abdomen soft; abdomen nontender Musculoskeletal: RLE in immobilizer, edema present with diminished pedal pulses, sensation intact Skin: no rashes, warm and dry Neurologic: no focal motor deficits Psychiatric: A+Ox3, euthymic affect Results & Data Results & Data Vital Signs (Past 12 Hours) Vital Signs Temp Pulse Resp BP Pulse Ox O2 Del Method 10/16/22 07:43 36.4 C L 73 16 104/66 97 Room Air (2) Fracture of lateral condyle of femur Encounter type: initial encounter Fracture alignment: nondisplaced Fracture type: closed Laterality: right Qualified Code(s): S72.424A - Nondisplaced fracture of lateral condyle of right femur, initial encounter for closed fracture
[2022-10-16] MEDS ORDERED: HYDROCODONE/ACETAMOPHEN 5/325MG TAB PO PRN (14:28)
[2022-10-16] MEDS: ACETAMINOPHEN 500 MG TAB PO SCH ×2 (15:06→21:29)
[2022-10-16] MEDS: ATORVASTATIN 20 MG TAB PO SCH (21:29)
[2022-10-17] MEDS ORDERED: HYDROmorphone INJ 0.5 MG/0.5 ML SYR IV STA (00:22)
[2022-10-17] MEDS: ACETAMINOPHEN 500 MG TAB PO SCH ×2 (05:38→13:53)
[2022-10-17] MEDS: LEVOTHYROXINE SODIUM 125 MCG TABLET PO SCH (05:39)
[2022-10-17] MEDS: HEPARIN SOD 5,000 UNIT/0.5 ML VIAL SQ SCH (05:39)
[2022-10-17] MEDS: carvediloL 12.5 MG TAB PO SCH (08:42)
[2022-10-17] MEDS: GABAPENTIN 300 MG CAP PO SCH (08:42)
[2022-10-17] MEDS: SPIRONOLACTONE 25 MG TAB PO SCH (08:43)
[2022-10-17] MEDS: ASPIRIN 81 MG ECTAB PO SCH (08:43)
[2022-10-17] MEDS: CHOLECALCIFEROL 1,000 UNITS 25 MCG TAB PO SCH (08:43)
[2022-10-17] MEDS: FERROUS SULFATE 325 MG TAB PO SCH (08:43)
--- NOTE | 2022-10-17 10:52 | Hospitalist Progress Note ---
Date of Service October 17, 2022 Assessment & Plan (1) Fall: (2) Fracture of lateral condyle of femur: Plan: Likely secondary to age-related osteoporosis w current pathological fracture, right femur Patient presented from home after having her right leg jammed by her wheelchair. She was being pushed in the wheelchair and she had stuck out her right leg and her right foot got stuck on the ground. CT shows lipohemarthrosis secondary to a nondisplaced vertical lateral femoral condyle fracture extending to the intercondylar notch. Nonsurgical management as per Ortho Will need to be nonweightbearing with [place] brace locked in extension. Patient likely will be chair bound due to inability to use walker secondary to instability. Patient will require a wheelchair with cushion and leg head teacher. Scheduled Tylenol for pain, continue home hydrocodone for breakthrough pain. Will reduce to half tablet due to confusion per family. Strongly advised to take precaution to avoid falls Will have home PT and OT evaluation as before (3) Chronic systolic heart failure: Plan: No signs and or symptoms of fluid overload (4) Cardiac defibrillator in place: (5) CAD (coronary artery disease): (6) Ischemic cardiomyopathy: Plan: Appears stable, no reports of chest pain Remote history of [place] in 2014 s/p LAD stent EF 20 to 25% Appears euvolemic, continue home spironolactone Continue ASA, statin, beta-nila No cardiac symptoms (7) Chronic pain: Plan: Typically managed with hydrocodone and gabapentin Son states that patient develops confusion with current dose of hydrocodone. Recommend reducing to half tablet daily as needed She is willing to try nonnarcotic pain medications and will avoid taking any narcotics if possible (8) Hypothyroidism: Plan: Continue levothyroxine DVT PROPHYLAXIS SQ Heparin Patient seen in collaboration with Dr. Mari. Admission and Anticipated Discharge Date Admission Date: October 15, 2022 Subjective Follow-up for right femoral condyle fracture. Patient seen and examined. Reports pain is well controlled, offers no complaints. Denies chest pain and shortness of breath. No abdominal pain or nausea. 10/27/2022 The patient was seen and examined in medical floor She has been stable and wants to go home Denies any pain at rest and denies any other significant symptoms She will be discharged home this afternoon Review of Systems Review of Systems: All systems reviewed and are unremarkable except as noted below Musculoskeletal: Left knee is in brace Physical Exam Physical Exam: Lying in bed comfortably Constitutional: + frail appearing; no acute distress Eyes: PERRL, conjunctivae normal, anicteric sclerae ENMT: external ear and nose normal, oropharynx normal Neck: trachea midline, no thyromegaly Respiratory: normal respiratory effort, lungs clear to auscultation Has significant kyphosis with minimal crackles at the bases Cardiovascular: Rate/Rhythm: regular rate and regular rhythm Vessels: normal peripheral pulses Extremities: + edema (+2 pitting edema right foot/leg, +1-2 edema LLE) Gastrointestinal (Abdomen): Percussion/Palpation: abdomen soft; abdomen nontender Skin: no rashes, warm and dry Neurologic: no focal motor deficits Psychiatric: A+Ox3, euthymic affect Results & Data Results & Data Vital Signs (Past 12 Hours) Vital Signs Temp Pulse Resp BP O2 Del Method 10/17/22 07:35 36.4 C L 77 18 108/71 Room Air Medications Administered Current Inpatient Medications Acetaminophen (Acetaminophen 325 Mg Tab) 650 mg PO Q4H PRN PRN Reason: pain/fever Stop: 11/14/22 02:42 Last Admin: 10/16/22 10:16 Dose: 650 mg Acetaminophen (Acetaminophen 500 Mg Tab) 500 mg PO Q8 [facility] Stop: 11/15/22 14:29 Last Admin: 10/17/22 05:38 Dose: 500 mg Hydrocodone Bitart/Acetaminophen (Hydrocodone/Acetamophen 5/325mg Tab) 0.5 tab PO DAILY PRN PRN Reason: pain,severe Stop: 10/30/22 14:27 Last Admin: 10/16/22 23:12 Dose: 0.5 tab Aspirin (Aspirin 81 Mg Ectab) 81 mg PO DAILY [facility] Stop: 11/14/22 08:59 Last Admin: 10/17/22 08:43 Dose: 81 mg Atorvastatin Calcium (Atorvastatin 20 Mg Tab) 20 mg PO HS [facility] Stop: 11/14/22 20:59 Last Admin: 10/16/22 21:29 Dose: 20 mg Carvedilol (Carvedilol 12.5 Mg Tab) 12.5 mg PO BID [facility] Stop: 11/14/22 08:59 Last Admin: 10/17/22 08:42 Dose: 12.5 mg Ferrous Sulfate (Ferrous Sulfate 325 Mg Tab) 325 mg PO QAM [facility] Stop: 11/14/22 08:59 Last Admin: 10/17/22 08:43 Dose: 325 mg Gabapentin (Gabapentin 300 Mg Cap) 300 mg PO BID [facility] Stop: 11/14/22 08:59 Last Admin: 10/17/22 08:42 Dose: 300 mg Guaifenesin (Guaifenesin 600 Mg Tabcr) 600 mg PO Q12 PRN PRN Reason: Congestion Stop: 11/14/22 02:42 Heparin Sodium (Porcine) (Heparin Sod 5,000 Unit/0.5 Ml Vial) 5,000 units SQ Q8 [facility] Stop: 11/14/22 05:59 Last Admin: 10/17/22 05:39 Dose: 5,000 units Levothyroxine Sodium (Levothyroxine Sodium 125 Mcg Tablet) 125 mcg PO DAILYBB [facility] Stop: 11/14/22 06:29 Last Admin: 10/17/22 05:39 Dose: 125 mcg Miscellaneous (Remove Lidoderm Patch) 1 each N/A DAILY@2100 [facility] Stop: 11/13/22 20:59 Last Admin: 10/16/22 21:56 Dose: 1 each Polyethylene Glycol (Polyethylene (Miralax) 17 Gm Pack) 17 gm PO DAILY PRN PRN Reason: Constipation Stop: 11/14/22 02:42 Spironolactone (Spironolactone 25 Mg Tab) 25 mg PO DAILY [facility] Stop: 11/14/22 08:59 Last Admin: 10/17/22 08:43 Dose: 25 mg Vitamin D (Cholecalciferol 1,000 Units 25 Mcg Tab) 1,000 units PO QAM [facility] Stop: 11/14/22 08:59 Last Admin: 10/17/22 08:43 Dose: 1,000 units (2) Fracture of lateral condyle of femur Encounter type: initial encounter Fracture alignment: nondisplaced Fracture type: closed Laterality: right Qualified Code(s): S72.424A - Nondisplaced fracture of lateral condyle of right femur, initial encounter for closed fracture
--- NOTE | 2022-10-19 12:25 | Discharge Summary ---
Date of Service October 17, 2022 Admission HPI Per Admitting Provider DICTATED BY: Hardy Sarabia MD DATE OF ADMISSION: 10/14/2022. CHIEF COMPLAINT: Right distal femur fracture. HISTORY OF PRESENT ILLNESS: An 86-year-old female with past medical history s ignificant for hyperlipidemia, hypothyroidism, prediabetes, CAD, ischemic dilated cardiomyopathy, status post AICD, chronic systolic CHF, B12 deficiency, vitamin D deficiency, severe protein calorie malnutrition, vesicovaginal fistula, osteoporosis, osteoarthrosis, chronic back pain, iron deficiency anemia, history of hip fracture, history of recurrent UTIs, who comes because of pain in the right leg and found to have distal right femur fracture. The patient lives alone. She says she ambulates with a walker. Seems to be a poor historian, but able to answer simple questions. She says the family lives close by, but she lives alone. She states that she still drives the car and does her own food. She says she did not fall, but she was having pain in the right leg. Denies any chest pain, no shortness of breath, no cough, no fever. Says appetite is okay, eating and drinking okay. No abdominal pain. Normal bowel and bladder movements. Denies any headache. No blurred visions, no sore throat, no cough. Currently, resting comfortably and hemodynamically stable. Tried to call the family, but not able to reach them. As per the ER, the patient was sitting outdoors last evening in the fire and blankets on her, seemed to have worsening discomfort and mobility. As per the son, per ER reported no falls or trauma or overuse. The patient does seem to be using wheelchair, but can ambulate 10-15 feet for small tasks and she was unable to be walking today, seems the reason she was brought in here. Admission Exam Per Admitting Provider GENERAL: The patient is old and frail, oriented to name and place, not in acute distress. VITAL SIGNS: Temperature 36.8, pulse 77, respiratory rate 22, blood pressure 117/89, oxygen 96% on room air. HEENT: Pupils equal, round and reactive to light. Oral mucosa moist. NECK: No neck masses. CARDIOVASCULAR: S1 and S2 heard. Regular rate and rhythm. No murmur, no gallop. RESPIRATORY SYSTEM: Normal AP diameter. No accessory muscle use. No wheezing, no crackles. ABDOMEN: Soft, bowel sounds present, nontender, no distention. CENTRAL NERVOUS SYSTEM: Alert and oriented to name and place. No facial droop. Speech is okay. Obeys simple commands. EXTREMITIES: Right lower extremity is on immobilizer. No obvious edema or erythema seen. Principal Diagnosis Status post fall with fracture of lateral condyle of right femur, ischemic cardiomyopathy, chronic compensated systolic heart failure, chronic pain Discharge Exam Lying in bed comfortably Constitutional + frail appearing; no acute distress Eyes PERRL, conjunctivae normal, anicteric sclerae ENMT external ear and nose normal, oropharynx normal Neck trachea midline, no thyromegaly Respiratory normal respiratory effort, lungs clear to auscultation Cardiovascular Rate/Rhythm: regular rate and regular rhythm Vessels: normal peripheral pulses Extremities: + edema (+2 pitting edema right foot/leg, +1-2 edema LLE) Gastrointestinal (Abdomen) Percussion/Palpation: abdomen soft; abdomen nontender Skin no rashes, warm and dry Neurologic no focal motor deficits Psychiatric A+Ox3, euthymic affect Discharge Data Allergies Allergy/AdvReac Type Severity Reaction Status Date / Time clindamycin Allergy Intermediate hives/nause Verified 10/14/22 21:34 a doxycycline Allergy Intermediate hives/nause Verified 10/14/22 21:34 a meperidine AdvReac Intermediate confusion Verified 10/14/22 21:34 morphine AdvReac Intermediate tachycardia Verified 10/14/22 21:34 Consultations 10/14/22 22:41 ED Decision to Admit Stat 10/15/22 09:53 Consult Orthopedic Surgery Routine Ordered Studies 10/14/22 21:42 CT knee RT wo con Stat Hospital Course (1) Fall: (2) Fracture of lateral condyle of femur: Likely secondary to age-related osteoporosis w current pathological fracture, right femur Patient presented from home after having her right leg jammed by her wheelchair. She was being pushed in the wheelchair and she had stuck out her right leg and her right foot got stuck on the ground. CT shows lipohemarthrosis secondary to a nondisplaced vertical lateral femoral condyle fracture extending to the intercondylar notch. Nonsurgical management as per Ortho Will need to be nonweightbearing with Anderson brace locked in extension. Patient likely will be chair bound due to inability to use walker secondary to instability. Patient will require a wheelchair with cushion and leg dietetic assistant. Scheduled Tylenol for pain, continue home hydrocodone for breakthrough pain. Will reduce to half tablet due to confusion per family. Strongly advised to take precaution to avoid falls Will have home PT and OT evaluation as before (3) Chronic systolic heart failure: No signs and or symptoms of fluid overload (4) Cardiac defibrillator in place: (5) CAD (coronary artery disease): (6) Ischemic cardiomyopathy: Appears stable, no reports of chest pain Remote history of OR in 2014 s/p LAD stent EF 20 to 25% Appears euvolemic, continue home spironolactone Continue ASA, statin, beta-nila No cardiac symptoms (7) Chronic pain: Typically managed with hydrocodone and gabapentin Son states that patient develops confusion with current dose of hydrocodone. Recommend reducing to half tablet daily as needed She is willing to try nonnarcotic pain medications and will avoid taking any narcotics if possible (8) Hypothyroidism: Continue levothyroxine DVT PROPHYLAXIS SQ Heparin Patient seen in collaboration with Dr. Mari. Total Time Total Time Spent Total Time Spent (In Minutes): 40 minutes Discharge Plan Discharge Items Patient Disposition: Home - Home Health Services Reason For Visit: LEG PAIN Discharge Diagnosis: Status post fall with fracture of lateral condyle of right femur, ischemic cardiomyopathy, chronic compensated systolic heart failure, chronic pain Condition on Discharge: Fair Activity: As commented below Non-emergency contact: Primary Care Provider Call non-emergency contact if: you have any medication questions and your symptoms worsen Follow-up/Referrals: Fabby Brantley MD [Primary Care Provider] - 10/21/22 11:20 am (Date & Time 10/21/2022 11:20 AM Provider Fabby Brantley MD Department [facility] ) Diet: Heart Healthy Diet Texture: Easy to Chew Addtl Attending Provider Instructions: Please take precautions to avoid fall Take your medications as advised and take less of narcotic pain medication to avoid confusion, constipation, weakness and dependence Please keep appointments with your healthcare providers Will need to see the orthopedic surgeon Dr. Owens in about 2 weeks Devon Rat Farmer Provider Instructions: Will need to be nonweightbearing with Leeann brace locked in extension. Patient likely will be chair bound due to inability to use walker secondary to instability. Patient will require a wheelchair with cushion and leg dietetic assistant. Pending Studies at Discharge: No Stand-Alone Forms: My [facility], Smoking Cessation Medications and DC Order Prescriptions: Continued levothyroxine 125 mcg tablet 125 mcg PO DAILYBB gabapentin 300 mg capsule 300 mg PO BID guaifenesin [Mucinex] 600 mg tablet extended release 12hr 600 mg PO Q12 PRN (Reason: Congestion) atorvastatin 20 mg Tablet 20 mg PO HS carvedilol 12.5 mg Tablet 12.5 mg PO BID cholecalciferol (vitamin D3) 25 mcg (1,000 unit) Capsule 25 mcg PO QAM aspirin 81 mg Tablet,Delayed Release (Dr/Ec) 81 mg PO DAILY ferrous sulfate 325 mg (65 mg iron) tablet 325 mg PO QAM spironolactone 25 mg tablet 25 mg PO DAILY Changed hydrocodone-acetaminophen 5-325 mg tablet 0.5 tab PO DAILY PRN (Reason: pain,severe) Qty: 1 0RF Discharge Orders: Discharge Order (Routine); Ordered 10/17/22 Ordered By: Betty Mari Admission Data Admit Date/Time: 10/15/22 01:16 Attending Provider: Betty Mari Admit Provider: Hardy Sarabia Primary Care Provider: Fabby Brantley Other Providers: Hardy Sarabia ; Osito Berger ; Giovanni Cueva ; Josey Rivera Thomas J ; Antonieta Hook ; Raghu Iyer ; Frank Ontiveros ; Noman Gates Andrew J. ; Frank Carey ; Agustin Metzger ; Walter Null ; Krish Pizarro ; Reagan Cohn ; Antonieta Mccauley ; Dejuan Hernandez ; Charles Shepard ; Lisa Cassidy ; Gonzalez Urias ; Demetris Lebron ; Prema Aguero ; Drake Paulino ; Cathryn Chawla ; Milla Underwood ; Mac Gonzalez [facility] Other Interventions: Discharge Summary Assessment (RN) Last Done: 10/17/22 13:08
--- NOTE | 2022-10-20 07:36 | Coding Query ---
The correct diagnosis is documented in discharge summary. CODING QUERY Physician's Response(s): Thank you Alisson Canseco Principal Diagnosis: "that condition established after study, to be chiefly responsible for occasioning the admission of the patient to the hospital for care." Co-Existing Principal Diagnosis: "when two or more diagnoses equally meet the criteria for principal diagnosis as determined by the circumstances of admission, diagnostic work up, and/or therapy provided, and the Alphabetic Index, Tabular List, or another coding guideline does not provide sequencing direction, any one of the diagnoses may be sequenced first." "When the physician has documented what appears to be a current diagnosis in the body of the record, but has not included the diagnosis in the final diagnostic statement, the physician should be asked whether the diagnosis should be added." (Source Coding [facility] 2 QTR90. p3-4) AMALIA
== END 2022-10-17 14:19 | disposition home health service (06) | DRG 543 ==
LOC: ED 18:52 → 3W 10-15 01:16

== ENCOUNTER 2022-10-29 10:46 | Inpatient (IN) ==
[2022-10-29] MEDS ORDERED: cefTRIAXone SODIUM 2,000 MG/70 ML BAG IV STA (11:12)
[2022-10-29] MEDS ORDERED: SODIUM CHLORIDE 0.9% 500 ML IV SCH (11:15)
--- NOTE | 2022-10-29 11:37 | XRay Report ---
SINGLE VIEW CHEST CLINICAL HISTORY: Generalized weakness. FINDINGS: An AP, portable, upright chest radiograph is compared to study dated 05/08/2021. The examin ation is degraded by portable technique and patient rotation. A 2-lead cardiac AICD is unchanged in p osition and largely obscures the left lung base. The heart is enlarged noting atherosclerotic calcifi cation of the thoracic aorta. The pulmonary vasculature is noncongested. A hiatal hernia is noted. Ch ronic interstitial thickening is similar to previous. Consolidation is suspected at the left lung bas e. The right lung appears clear. No large pleural effusion is seen on the right. This cannot be asses sed on the left. No pneumothorax is seen. The skeletal structures are osteopenic. The bony thorax is grossly intact. Advanced arthritic change is noted in the right shoulder. IMPRESSION: 1. Cardiomegaly and the ICD without radiographic evidence of congestive failure. 2. Suspect consolidation at the left lung base. This is not well assessed due to rotation and overlyi ng AICD. A repeat PA and lateral examination is recommended for further assessment. 3. The right lung appears clear. 4. Hiatal hernia. ACT 112: Negative or not required by law. Electronically signed by: Juanjo Mercado M.D. 10/29/2022 11:36 AM
--- NOTE | 2022-10-29 11:55 | Emergency Department Note ---
Impression & Plan Acute UTI, Weakness, Acute hyponatremia ED Provider Note Provider: Bill Negrete MD DATE OF SERVICE: 10/29/2022 CHIEF COMPLAINT: Weakness HISTORY OF PRESENT ILLNESS: Patient is a 86-year-old female history of CAD, CKD, known femoral fracture, CHF presenting here today via ambulance from home. Admitted here recently. Bedbound at home. More weakness at home and not as alert according to patient and daughter. Denies significant pain at this time. No trauma reported. Brace in place on right lower leg. States she does not eat or drink very much but that is not abnormal for her. Denies any again belly pain. Reportedly had outpatient blood work and a urine culture concerning for U TI as well as low sodium. Had not started antibiotics yet as they just picked them up at the pharmacy. PAST MEDICAL HISTORY: As noted above MEDICATIONS: Reviewed home medication list SOCIAL HISTORY: Resides at home with family PHYSICAL EXAM: GENERAL: alert a bit kyphotic sitting in bed. Head: normocephalic and atraumatic EYES: No injection, discharge or icterus. NECK: Trachea midline. Supple. ENT: Mucous membranes pink and moist. LUNGS: Airway patent. No retractions. Breath sounds clear HEART: Regular rate and rhythm. Left-sided AICD noted. ABDOMEN: Soft and non-tender, without guarding or rebound. SKIN: Acyanotic, warm, dry EXTREMITIES: No significant swelling of the left lower extremity. The right lower extremity has an Chidi wrap and a metal exterior immobilizer in place with some pink and reddish discoloration to the dorsum of the right foot with some purple discoloration on the pad of the left foot. 1+ edema here. NEUROLOGICAL: No focal deficits moving all extremities. No aphasia. No facial droop or slurred speech. EK bpm likely a sinus rhythm with some baseline artifact with significant left axis noted. Occasional sinus arrhythmia. No clear acute ST segment elevation or depression with a QTc of approximately 413. CONTINUOUS CARDIAC MONITORING: was ordered and showed a heart rate of 60s-70s bpm in what appears to be in normal sinus rhythm Patient's laboratory studies and imaging reviewed. Differential includes Infection, dehydration, metabolic abnormality, hypo/hyperglycemia, electrolyte disturbance, anemia, hypoxia, cardiac sources, intracerebral event, toxicologic, neurologic, as well as other pathologies. IMPRESSION/MEDICAL DECISION MAKING: Patient with weakness and lethargy with positive outpatient UA. His history of fistulization and UTIs. Given a dose ceftriaxone based on urine culture report available in the [employer] [facility] system which was reviewed. Low sodium as an outpatient as well. Started on some slight normal saline replacement at this point. Not having focal deficits and low suspicion for stroke. Does not appear septic at this time. Chest x-ray does question if there could be a possible left lung base finding but poor positioning. Blood work indicative of significant leukocytosis of 18 but no anemia. Sodium slightly worse today at 125. Stable renal function however. Troponin slightly elevated at 27 but minimal and unsure if this is a baseline. Negative COVID testing. Ceftriaxone given to cover both UTI and any possible pneumonia component but satting well on room air when oxygen turned off. Denies respiratory symptoms. Discussed with her and her daughter the need to stay for further care and evaluation. Blood pressure has been slightly low but given her history of CHF and small thin build, cautiously given a 500 mL fluid bolus. Lactate again not elevated. Hospitalist team contacted. There is some mild discoloration to the left right lower foot but without significant pain but doubt acute ischemic injury with a somewhat lower suspicion for DVT. He is currently in a brace with a distal femur fracture and will defer further evaluation to the inpatient and orthopedic teams given the need for further care given her weakness, UTI, and acute hyponatremia. DIAGNOSIS: Acute UTI, acute hyponatremia, weakness DISPOSITION: Hospitalist will evaluate Patient was agreeable with this plan. Past Med/Surg History Medical History Ambulatory dysfunction Borderline type 2 diabetes mellitus CAD (coronary artery disease) NH in 2014 s/p LAD stent Cardiac defibrillator in place Chronic pain Chronic systolic heart failure CKD (chronic kidney disease) stage 3, GFR 30-59 ml/min Compression fracture of L4 vertebra Dyslipidemia Former tobacco use Hypothyroidism Intertrochanteric fracture of right hip Ischemic cardiomyopathy (05/21/14) Recurrent UTI Sacral insufficiency fracture Surgical History History of appendectomy History of cholecystectomy History of hysterectomy History of implantable cardioverter-defibrillator (ICD) placement Status post-operative repair of closed fracture of right hip Family History Mother Diabetes Myocardial infarction Brother Diabetes Father Myocardial infarction Social History Smoking Status: Current some day smoker Tobacco Type: Cigarettes Second Hand Exposure: No; Do You Dip or Chew Tobacco: No; Hx Alcohol Use: No Hx Substance Use: No Preferred Language: Lebanese Communication Ability: Effective Push Connector Assembler Required: No Beliefs That Will Affect Care: None Current Living Situation: Alone Current Living Situation Comment: LIVES WITH DAUGHTER WHO IS CAREGIVER Feels Safe at Home: Yes Assistive Devices: Cane, Walker and Wheelchair Allergies Allergies Allergy/AdvReac Type Severity Reaction Status Date / Time clindamycin Allergy Intermediate hives/nause Verified 10/14/22 21:34 a doxycycline Allergy Intermediate hives/nause Verified 10/14/22 21:34 a meperidine AdvReac Intermediate confusion Verified 10/14/22 21:34 morphine AdvReac Intermediate tachycardia Verified 10/14/22 21:34 Home Meds Home Medications Medication Instructions Recorded Confirmed aspirin 81 mg tablet,delayed 81 mg PO DAILY 10/04/20 10/29/22 release atorvastatin 20 mg tablet 20 mg PO HS 10/04/20 10/29/22 carvedilol 12.5 mg tablet 12.5 mg PO BID 10/04/20 10/29/22 cholecalciferol (vitamin D3) 25 25 mcg PO QAM 10/04/20 10/29/22 mcg (1,000 unit) capsule ferrous sulfate 325 mg (65 mg 325 mg PO QAM 05/08/21 10/29/22 iron) tablet spironolactone 25 mg tablet 25 mg PO DAILY 05/08/21 10/29/22 gabapentin 300 mg capsule 300 mg PO BID 10/14/22 10/29/22 guaifenesin 600 mg tablet, 0 mg PO Q12 PRN Congestion 10/14/22 10/29/22 extended release 12 hr (Mucinex) levothyroxine 125 mcg tablet 125 mcg PO DAILYBB 10/14/22 10/29/22 cephalexin 500 mg capsule 500 mg PO BID 10/29/22 10/29/22 hydrocodone 5 mg-acetaminophen 325 0.5 tab PO BID PRN pain,severe 10/29/22 10/29/22 mg tablet Results & Data (ED) Vital Signs Vital Signs - 24 hr 10/29/22 11:25 10/29/22 11:10 10/29/22 11:39 Temperature 36.4 C L Temperature Source Oral Pulse Rate 65 65 64 Pulse Rate [Apical] Respiratory Rate 16 16 Blood Pressure 86/45 L Blood Pressure [Right Arm] Blood Pressure Mean 58 Blood Pressure Mean [Right Arm] Blood Pressure Position Semi-fowlers Blood Pressure Position [Right Arm] Pulse Oximetry 98 99 Oxygen Delivery Method Nasal Cannula Nasal Cannula Oxygen Flow Rate 1 1 Sepsis Recent Fever Within 48 Hours No Sepsis New/Unexplained Change in Mental Status N/A Sepsis Action Taken by Nursing No Action Required 10/29/22 12:44 10/29/22 15:01 Temperature Temperature Source Pulse Rate Pulse Rate [Apical] 64 69 Respiratory Rate 19 21 Blood Pressure Blood Pressure [Right Arm] 86/39 L 102/57 L Blood Pressure Mean Blood Pressure Mean [Right Arm] 54 72 Blood Pressure Position Blood Pressure Position [Right Arm] Semi-fowlers Pulse Oximetry 100 98 Oxygen Delivery Method Room Air Room Air Oxygen Flow Rate Sepsis Recent Fever Within 48 Hours Sepsis New/Unexplained Change in Mental Status Sepsis Action Taken by Nursing Laboratory Data 10/29/22 11:20 10/29/22 11:20 Lab Results 10/29/22 10/29/22 10/29/22 Range/Units 11:03 11:20 11:20 WBC 18.53 H (4.8-10.8) K/ul RBC 3.64 L (4.20-5.40) M/uL Hgb 12.1 (12.0-16.0) g/dl Hct 35.2 L (37.0-47.0) % MCV 96.7 (80.0-100.0) fL MCH 33.2 (25.0-34.0) pg MCHC 34.4 (32.0-36.0) g/dL RDW Std Deviation 48.4 H (36.4-46.3) fL RDW Coeff of Joie 13.7 (11.5-14.5) % Plt Count 274 (130-400) K/uL MPV 9.3 L (9.4-12.4) fL Immature Gran % (Auto) 1.0 % Neut % (Auto) 90.4 % Lymph % (Auto) 3.4 % [place] % (Auto) 4.9 % Eos % (Auto) 0.1 % Baso % (Auto) 0.2 % Neut # (Auto) 16.76 H (1.40-6.50) K/uL Lymph # (Auto) 0.63 L (1.2-3.4) K/uL [place] # (Auto) 0.91 H (0.11-0.59) K/uL Eos # (Auto) 0.01 (0-0.50) K/uL Baso # (Auto) 0.03 (0-0.2) K/uL Immature Gran # (Auto) 0.19 (0.01-0.20) K/uL Echinocytes 2+ PT 10.0 (9.0-12.0) Seconds INR 0.9 (0.9-1.1) Sodium (136-145) mmol/L Potassium (3.5-5.1) mmol/L Chloride (98-107) mmol/L Carbon Dioxide (21-32) mmol/L Anion Gap (3-11) BUN (6-23) mg/dl Creatinine (0.6-1.2) mg/dl Est Cr Clr Drug Dosing ml/min Est GFR ( Amer) ml/min Est GFR (Non-Af Amer) ml/min BUN/Creatinine Ratio (10-20) Glucose (70-99(Fasting)) mg/dl Osmolality 269 L (280-300) mOsm/kg Lactate (0.4-2.0) mmol/L Calcium (8.6-10.3) mg/dl Magnesium (1.7-2.4) mg/dl Total Bilirubin (0.2-1.0) mg/dl AST (13-39) U/L ALT (7-52) U/L Alkaline Phosphatase (34-104) U/L Troponin I High Sens (0-14) pg/ml Total Protein (6.0-8.3) gm/dl Albumin (3.4-5.0) gm/dl Globulin (2.5-4.0) gm/dl Albumin/Globulin Ratio (0.9-2) TSH (0.300-4.500) uIu/ml Free T4 (0.61-1.60) ng/dl SARS-CoV-2, RNA, NAAT (NEGATIVE) 10/29/22 10/29/22 10/29/22 Range/Units 11:20 11:20 11:20 WBC (4.8-10.8) K/ul RBC (4.20-5.40) M/uL Hgb (12.0-16.0) g/dl Hct (37.0-47.0) % MCV (80.0-100.0) fL MCH (25.0-34.0) pg MCHC (32.0-36.0) g/dL RDW Std Deviation (36.4-46.3) fL RDW Coeff of Joie (11.5-14.5) % Plt Count (130-400) K/uL MPV (9.4-12.4) fL Immature Gran % (Auto) % Neut % (Auto) % Lymph % (Auto) % [place] % (Auto) % Eos % (Auto) % Baso % (Auto) % Neut # (Auto) (1.40-6.50) K/uL Lymph # (Auto) (1.2-3.4) K/uL [place] # (Auto) (0.11-0.59) K/uL Eos # (Auto) (0-0.50) K/uL Baso # (Auto) (0-0.2) K/uL Immature Gran # (Auto) (0.01-0.20) K/uL Echinocytes PT (9.0-12.0) Seconds INR (0.9-1.1) Sodium 125 L (136-145) mmol/L Potassium 4.5 (3.5-5.1) mmol/L Chloride 93 L (98-107) mmol/L Carbon Dioxide 23 (21-32) mmol/L Anion Gap 9 (3-11) BUN 18 (6-23) mg/dl Creatinine 0.60 (0.6-1.2) mg/dl Est Cr Clr Drug Dosing 39.9 ml/min Est GFR ( Amer) 95.0 ml/min Est GFR (Non-Af Amer) 82.0 ml/min BUN/Creatinine Ratio 30.0 H (10-20) Glucose 84 (70-99(Fasting)) mg/dl Osmolality (280-300) mOsm/kg Lactate 1.5 (0.4-2.0) mmol/L Calcium 8.6 (8.6-10.3) mg/dl Magnesium 1.7 (1.7-2.4) mg/dl Total Bilirubin 1.7 H (0.2-1.0) mg/dl AST 45 H (13-39) U/L ALT 13 (7-52) U/L Alkaline Phosphatase 96 (34-104) U/L Troponin I High Sens 27.6 H (0-14) pg/ml Total Protein 5.6 L (6.0-8.3) gm/dl Albumin 2.5 L (3.4-5.0) gm/dl Globulin 3.1 (2.5-4.0) gm/dl Albumin/Globulin Ratio 0.8 L (0.9-2) TSH 9.312 H (0.300-4.500) uIu/ml Free T4 1.29 (0.61-1.60) ng/dl SARS-CoV-2, RNA, NAAT (NEGATIVE) 10/29/22 10/29/22 Range/Units 11:20 14:27 WBC (4.8-10.8) K/ul RBC (4.20-5.40) M/uL Hgb (12.0-16.0) g/dl Hct (37.0-47.0) % MCV (80.0-100.0) fL MCH (25.0-34.0) pg MCHC (32.0-36.0) g/dL RDW Std Deviation (36.4-46.3) fL RDW Coeff of Joie (11.5-14.5) % Plt Count (130-400) K/uL MPV (9.4-12.4) fL Immature Gran % (Auto) % Neut % (Auto) % Lymph % (Auto) % [place] % (Auto) % Eos % (Auto) % Baso % (Auto) % Neut # (Auto) (1.40-6.50) K/uL Lymph # (Auto) (1.2-3.4) K/uL [place] # (Auto) (0.11-0.59) K/uL Eos # (Auto) (0-0.50) K/uL Baso # (Auto) (0-0.2) K/uL Immature Gran # (Auto) (0.01-0.20) K/uL Echinocytes PT (9.0-12.0) Seconds INR (0.9-1.1) Sodium 126 L (136-145) mmol/L Potassium 4.4 (3.5-5.1) mmol/L Chloride 95 L (98-107) mmol/L Carbon Dioxide 18 L (21-32) mmol/L Anion Gap 13 H (3-11) BUN 17 (6-23) mg/dl Creatinine 0.54 L (0.6-1.2) mg/dl Est Cr Clr Drug Dosing 44.4 ml/min Est GFR ( Amer) 98.3 ml/min Est GFR (Non-Af Amer) 84.8 ml/min BUN/Creatinine Ratio 31.5 H (10-20) Glucose 83 (70-99(Fasting)) mg/dl Osmolality (280-300) mOsm/kg Lactate (0.4-2.0) mmol/L Calcium 8.5 L (8.6-10.3) mg/dl Magnesium (1.7-2.4) mg/dl Total Bilirubin (0.2-1.0) mg/dl AST (13-39) U/L ALT (7-52) U/L Alkaline Phosphatase (34-104) U/L Troponin I High Sens 28.4 H (0-14) pg/ml Total Protein (6.0-8.3) gm/dl Albumin (3.4-5.0) gm/dl Globulin (2.5-4.0) gm/dl Albumin/Globulin Ratio (0.9-2) TSH (0.300-4.500) uIu/ml Free T4 (0.61-1.60) ng/dl SARS-CoV-2, RNA, NAAT NEGATIVE (NEGATIVE) Administered Medications Sodium Chloride (Nss) 500 mls @ 80 mls/hr IV .[id number] SUN Stop: 11/28/22 11:14 Last Admin: 10/29/22 11:27 Dose: 80 mls/hr Documented By: WAYNE Discontinued Medications Ceftriaxone Sodium (Rocephin) 2,000 mg in 70 mls @ 140 mls/hr IV NOW STA Stop: 10/29/22 11:41 Last Infusion: 10/29/22 12:03 Dose: 0 mls/hr Documented By: Admin: 10/29/22 11:28 Dose: 140 mls/hr Documented By: WAYNE Sodium Chloride (Nss 1000ml) 500 mls @ 999 mls/hr IV .Q31M ONE Stop: 10/29/22 12:52 Last Infusion: 10/29/22 13:20 Dose: 0 mls/hr Documented By: Admin: 10/29/22 12:43 Dose: 999 mls/hr Documented By: Imaging Data Radiologist's Impression: Chest X-Ray 10/29/22 11:03 SINGLE VIEW CHEST CLINICAL HISTORY: Generalized weakness. FINDINGS: An AP, portable, upright chest radiograph is compared to study dated 05/08/2021. The examination is degraded by portable technique and patient rotation. A 2-lead cardiac AICD is unchanged in position and largely obscures the left lung base. The heart is enlarged noting atherosclerotic calcification of the thoracic aorta. The pulmonary vasculature is noncongested. A hiatal hernia is noted. Chronic interstitial thickening is similar to previous. Consolidation is suspected at the left lung base. The right lung appears clear. No large pleural effusion is seen on the right. This cannot be assessed on the left. No pneumothorax is seen. The skeletal structures are osteopenic. The bony thorax is grossly intact. Advanced arthritic change is noted in the right shoulder. IMPRESSION: 1. Cardiomegaly and the ICD without radiographic evidence of congestive failure. 2. Suspect consolidation at the left lung base. This is not well assessed due to rotation and overlying AICD. A repeat PA and lateral examination is recommended for further assessment. 3. The right lung appears clear. 4. Hiatal hernia. ACT 112: Negative or not required by law. Electronically signed by: Juanjo Mercado M.D. 10/29/2022 11:36 AM Discharge Plan Visit Data Chief Complaint: Lethargic ED Provider: Bill Negrete Discharge Problem: Acute UTI, Weakness, Acute hyponatremia Patient Disposition: Being Evaluated by Hospitalist Forms Stand Alone Forms: My [facility] Prescriptions Prescriptions: No Action levothyroxine 125 mcg tablet 125 mcg PO DAILYBB gabapentin 300 mg capsule 300 mg PO BID guaifenesin [Mucinex] 600 mg tablet extended release 12hr 0 mg PO Q12 PRN (Reason: Congestion) Rx Instructions: last filled in [facility] per [facility] pharmacist atorvastatin 20 mg Tablet 20 mg PO HS carvedilol 12.5 mg Tablet 12.5 mg PO BID cholecalciferol (vitamin D3) 25 mcg (1,000 unit) Capsule 25 mcg PO QAM aspirin 81 mg Tablet,Delayed Release (Dr/Ec) 81 mg PO DAILY Rx Instructions: [facility] pharmacist unable to verify ferrous sulfate 325 mg (65 mg iron) tablet 325 mg PO QAM spironolactone 25 mg tablet 25 mg PO DAILY cephalexin 500 mg capsule 500 mg PO BID hydrocodone-acetaminophen 5-325 mg tablet 0.5 tab PO BID PRN (Reason: pain,severe) Referrals Referrals: Fabby Brantley MD [Primary Care Provider] -
[2022-10-29 12:02] LABS: Albumin Globulin Ratio 0.8 (0.9-2); Albumin Level 2.5 gm/dl (3.4-5.0); Bilirubin,Total 1.7 mg/dl (0.2-1.0); Calcium 8.6 mg/dl (8.6-10.3); Creatinine Clr Calc Pharmacy 39.9 ml/min; Globulin 3.1 gm/dl (2.5-4.0); Magnesium 1.7 mg/dl (1.7-2.4); Potassium 4.5 mmol/L (3.5-5.1); Total Protein 5.6 gm/dl (6.0-8.3)
[2022-10-29 12:08] LABS: Troponin I High Sensitivity 27.6 pg/ml (0-14)
[2022-10-29 12:10] LABS: Hematocrit (blood only) 35.2 % (37.0-47.0); Hemoglobin 12.1 g/dl (12.0-16.0); Mean Corpuscular Hemoglobin 33.2 pg (25.0-34.0); Mean Corpuscular Hgb Conc 34.4 g/dL (32.0-36.0); Mean Corpuscular Volume 96.7 fL (80.0-100.0); Mean Platelet Volume 9.3 fL (9.4-12.4); Platelet Count 274 K/uL (130-400); RDW Coefficient of Variation 13.7 % (11.5-14.5); RDW Standard Deviation 48.4 fL (36.4-46.3); Red Blood Count 3.64 M/uL (4.20-5.40); White Blood Count 18.53 K/ul (4.8-10.8)
[2022-10-29 12:11] LABS: Basophils # (auto) 0.03 K/uL (0-0.2); Basophils % (auto) 0.2 %; Echinocytes 2+; Eosinophils # (auto) 0.01 K/uL (0-0.50); Eosinophils % (auto) 0.1 %; Immature Granulocytes # (auto) 0.19 K/uL (0.01-0.20); Lymphocytes # (auto) 0.63 K/uL (1.2-3.4); Lymphocytes % (auto) 3.4 %; Monocytes # (auto) 0.91 K/uL (0.11-0.59); Monocytes % (auto) 4.9 %; Neutrophils # (auto) 16.76 K/uL (1.40-6.50); Neutrophils % (auto) 90.4 %
[2022-10-29 12:13] LABS: INR 0.9 (0.9-1.1)
[2022-10-29 12:16] LABS: Thyroid Stimulating Hormone 9.312 uIu/ml (0.300-4.500)
[2022-10-29] MEDS ORDERED: SODIUM CHLORIDE 0.9% 1000ML 500 ML IV ONE ×2 (12:22→23:21)
[2022-10-29 12:52] LABS: T4 Free Thyroxine 1.29 ng/dl (0.61-1.60)
--- NOTE | 2022-10-29 13:41 | History & Physical Report ---
Date of Service October 29, 2022 Assessment & Plan (1) Acute hyponatremia: (2) Metabolic encephalopathy: (3) Fracture of lateral condyle of femur: (4) CAD (coronary artery disease): (5) Chronic systolic heart failure: (6) CKD (chronic kidney disease) stage 3, GFR 30-59 ml/min: (7) Weakness: Plan This is an 86-year-old female who has significant past medical history of CAD status post stent, ischemic cardiomyopathy, HFrEF status post ICD, prediabetes, HLD, hypothyroidism, osteoporosis, recurrent UTI, vesicular vaginal fistula, chronic back pain who presents to ED secondary to weakness. Generalized weakness Acute metabolic encephalopathy Acute hyponatremia Admit to telemetry Serum Osmo 269, awaiting urine sodium and osm studies Consult nephrology Patient received 500 mL IV fluid in ED, repeat sodium up to 126 Continue gentle hydration at 50 cc/h Hold hydrocodone and gabapentin for now Schedule Tylenol pt appears dry on exam except for RLE in setting of fracture/immobility SIRS Patient meets criteria secondary to hypotension and leukocytosis in setting of altered mental status She received 2 g IV Rocephin in ED Possible source UTI Chest x-ray also concerning for possible left lower lobe consolidation although poor quality film Patient without respiratory symptoms Empirically cover with vancomycin and cefepime for now Urine culture is pending as outpatient, blood culture pending here Fracture of lateral condyle of femur right likely secondary to age-related osteoporosis Right foot discoloration Right lower extremity edema Patient currently nonweightbearing Repeat x-ray looks stable; consult Ortho for eval Keep nonweightbearing and Valencia brace in place Obtain venous and arterial Dopplers as difficult to obtain pulse to right lower extremity Daughter states discoloring is new as of this morning and discussed case with patient's PCP who saw patient yesterday and stated right foot was warm and of normal color PT had CTA aorta/femoral 08/2020 revealing : Severe short-segment stenosis in the proximal right external iliac artery due to calcified atherosclerotic disease.Moderate right common femoral artery stenosis due to calcified atherosclerotic disease.Multifocal atherosclerotic disease throughout both popliteal arteries causing moderate to severe areas of stenosis, left greater than right. Seen by vascular in [place] on ASA, Statin Known PAD On ASA and statin We will await ultrasound studies Discussed with daughter at bedside, patient is DNR and DNI and does not want patient transferred if in the event arterial emergency is diagnosed Ischemic cardiomyopathy Chronic HFrEF AICD in place elevated troponin EF 20 to 25% Remote history of UT in 2015 status post LAD stent Continue ASA, statin Hold carvedilol and spironolactone for now in setting of hypotension cycle troponins, no ischemic change on ecg, unlikely acs Elevated LFTS no abd pain bili 1.7, ast 45 repeat in a.m Malnutrition pt emaciated, weight 38kg consult system specialist Hypothyroidism Continue levothyroxine DVT prophylaxis: Subcu heparin DNR/DNI discussed with daughter at bedside who wishes for patient not to be transferred and in event of emergency would prefer comfort care route PCP: [facility] Dispo: med tele, pt lives with daughter, declined rehab last admission Pt was seen and examined in collaboration with Dr. Abarca, please see addendum History of Present Illness Chief Complaint: Weakness. Primary Care Provider: Fabby Brantley MD This is an 86-year-old female who has significant past medical history of CAD status post stent, ischemic cardiomyopathy, HFrEF status post ICD, prediabetes, HLD, hypothyroidism, osteoporosis, recurrent UTI, vesicular vaginal fistula, chronic back pain who presents to ED secondary to weakness. Of significance patient recently hospitalized 10/15 to 10/17 secondary to a fall with complicated left lateral condyle fracture of femur. Orthopedics was consulted and felt nonsurgical management was necessary. Weightbearing status is nonweightbearing with a Valencia brace locked in extension. Also during hospital stay her hydrocodone was reduced due to confusion. She was seen and evaluated by PCP yesterday for hospital follow-up. She was started on Keflex for possible UTI. Family at that appointment also wanted air mattress and wedge cushion due to patient being nonambulatory.Urine culture was sent as outpatient yesterday.She also had lab work done yesterday which revealed sodium of 126 and a TSH of 10.8. History unobtainable from patient due to underlying cognition. Daughter is at bedside. States increased weakness over the last 2 days. Was told to come to ED from PCP due to low sodium and worsening confusion. Patient lives at home with daughter. Has remained nonweightbearing with the brace in place. She has been taking her hydrocodone last dose last evening as well as her gabapentin. Daughter notes change in confusion over the last 2 days. She denies any respiratory symptoms that she witnessed from the patient, vomiting or diarrhea. Upon exam patient was noted to have discoloration to her right foot which radha casas states is new. Overall appetite has been poor but daughter states she has been forcing fluids with eight 8 ounce glasses daily. Allergies Allergy/AdvReac Type Severity Reaction Status Date / Time clindamycin Allergy Intermediate hives/nause Verified 10/14/22 21:34 a doxycycline Allergy Intermediate hives/nause Verified 10/14/22 21:34 a meperidine AdvReac Intermediate confusion Verified 10/14/22 21:34 morphine AdvReac Intermediate tachycardia Verified 10/14/22 21:34 Home Medications Medication Instructions Recorded Confirmed Type aspirin 81 mg tablet,delayed 81 mg PO DAILY 10/04/20 10/29/22 History release atorvastatin 20 mg tablet 20 mg PO HS 10/04/20 10/29/22 History carvedilol 12.5 mg tablet 12.5 mg PO BID 10/04/20 10/29/22 History cholecalciferol (vitamin D3) 25 25 mcg PO QAM 10/04/20 10/29/22 History mcg (1,000 unit) capsule ferrous sulfate 325 mg (65 mg 325 mg PO QAM 05/08/21 10/29/22 History iron) tablet spironolactone 25 mg tablet 25 mg PO DAILY 05/08/21 10/29/22 History gabapentin 300 mg capsule 300 mg PO BID 10/14/22 10/29/22 History guaifenesin 600 mg tablet, 0 mg PO Q12 PRN Congestion 10/14/22 10/29/22 History extended release 12 hr (Mucinex) levothyroxine 125 mcg tablet 125 mcg PO DAILYBB 10/14/22 10/29/22 History cephalexin 500 mg capsule 500 mg PO BID 10/29/22 10/29/22 History hydrocodone 5 mg-acetaminophen 325 0.5 tab PO BID PRN pain,severe 10/29/22 10/29/22 History mg tablet Past Med/Surg History Medical History Ambulatory dysfunction Borderline type 2 diabetes mellitus CAD (coronary artery disease) UT in 2014 s/p LAD stent Cardiac defibrillator in place Chronic pain Chronic systolic heart failure CKD (chronic kidney disease) stage 3, GFR 30-59 ml/min Compression fracture of L4 vertebra Dyslipidemia Former tobacco use Hypothyroidism Intertrochanteric fracture of right hip Ischemic cardiomyopathy (05/21/14) Recurrent UTI Sacral insufficiency fracture Surgical History History of appendectomy History of cholecystectomy History of hysterectomy History of implantable cardioverter-defibrillator (ICD) placement Status post-operative repair of closed fracture of right hip Family History Mother Diabetes Myocardial infarction Brother Diabetes Father Myocardial infarction Social History Smoking Status: Current some day smoker Tobacco Type: Cigarettes Second Hand Exposure: No; Do You Dip or Chew Tobacco: No; Hx Alcohol Use: No Hx Substance Use: No Preferred Language: Maori Communication Ability: Effective Broadcast Supervisor Required: No Beliefs That Will Affect Care: None Current Living Situation: Alone Current Living Situation Comment: LIVES WITH DAUGHTER WHO IS CAREGIVER Feels Safe at Home: Yes Assistive Devices: Cane, Walker and Wheelchair Review of Systems Review of Systems: All systems reviewed & are unremarkable except as noted in HPI & below Physical Exam Physical Exam: Constitutional: Cachectic, emaciated, female, lying in bed, alert, drowsy and confused, vitals as above, NAD,, Bilateral temporal wasting, barrel chested Head: Normocephalic, Atraumatic Eyes: PERRL, conjunctivae normal, anicteric sclerae ENMT: external ear and nose normal, oropharynx normal, dry membranes Neck: trachea midline, no thyromegaly normal visual inspection Respiratory: lungs clear to auscultation, diminished at bases due to poor insp effort, no wheeze, rales, rhonchi. Normal insp/exp effort, no accessory muscle use Cardiovascular: RRR, no murmur, no edema Vessels: no JVD or carotid bruit Chest: normal inspection of chest Abdomen: normal bowel sounds, soft, nontender, no hepatosplenomegaly Musculoskeletal: +R foot with dorsal erythema and volar discoloration and cold,unable to find pedal pulse Skin: no rashes, warm and dry normal turgor Neurologic: PERRL, EOMI, accommodation nl, no face palsy, no dysarthria CN's II-XI intact bilaterally and moves all extremities Psychiatric: A+Ox1, euthymic affect Lymphatic: no cervical or axillary lymphadenopathy : deferred Results & Data Results & Data Vital Signs (Past 12 Hours) Vital Signs Temp Pulse Pulse Resp BP BP Pulse Ox 10/29/22 12:44 64 19 86/39 L 100 10/29/22 11:39 64 10/29/22 11:10 36.4 C L 65 16 86/45 L 99 10/29/22 11:25 65 16 98 O2 Del Method O2 Flow Rate 10/29/22 12:44 Room Air 10/29/22 11:39 10/29/22 11:10 Nasal Cannula 1 10/29/22 11:25 Nasal Cannula 1 Laboratory Results Short CBC 10/29/22 Range/Units 11:20 WBC 18.53 H (4.8-10.8) K/ul Hgb 12.1 (12.0-16.0) g/dl Hct 35.2 L (37.0-47.0) % Plt Count 274 (130-400) K/uL BMP 10/29/22 10/29/22 11:20 14:27 Sodium 125 L 126 L Potassium 4.5 4.4 Chloride 93 L 95 L Carbon Dioxide 23 18 L BUN 18 17 Creatinine 0.60 0.54 L Glucose 84 83 Calcium 8.6 8.5 L Liver Function 10/29/22 Range/Units 11:20 Total Bilirubin 1.7 H (0.2-1.0) mg/dl AST 45 H (13-39) U/L ALT 13 (7-52) U/L Alkaline Phosphatase 96 (34-104) U/L Albumin 2.5 L (3.4-5.0) gm/dl Diagnostic Findings Chest X-Ray 10/29/22 11:03 SINGLE VIEW CHEST CLINICAL HISTORY: Generalized weakness. FINDINGS: An AP, portable, upright chest radiograph is compared to study dated 05/08/2021. The examination is degraded by portable technique and patient rotation. A 2-lead cardiac AICD is unchanged in position and largely obscures the left lung base. The heart is enlarged noting atherosclerotic calcification of the thoracic aorta. The pulmonary vasculature is noncongested. A hiatal hernia is noted. Chronic interstitial thickening is similar to previous. Consolidation is suspected at the left lung base. The right lung appears clear. No large pleural effusion is seen on the right. This cannot be assessed on the left. No pneumothorax is seen. The skeletal structures are osteopenic. The bony thorax is grossly intact. Advanced arthritic change is noted in the right shoulder. IMPRESSION: 1. Cardiomegaly and the ICD without radiographic evidence of congestive failure. 2. Suspect consolidation at the left lung base. This is not well assessed due to rotation and overlying AICD. A repeat PA and lateral examination is recommended for further assessment. 3. The right lung appears clear. 4. Hiatal hernia. ACT 112: Negative or not required by law. Electronically signed by: Juanjo Mercado M.D. 10/29/2022 11:36 AM Medications Administered Medication List Sodium Chloride (Nss) 500 mls @ 80 mls/hr IV .Q6H15M SUN Stop: 11/28/22 11:14 Last Admin: 10/29/22 11:27 Dose: 80 mls/hr Documented By: WAYNE Discontinued Medications Ceftriaxone Sodium (Rocephin) 2,000 mg in 70 mls @ 140 mls/hr IV NOW STA Stop: 10/29/22 11:41 Last Infusion: 10/29/22 12:03 Dose: 0 mls/hr Documented By: Admin: 10/29/22 11:28 Dose: 140 mls/hr Documented By: WAYNE Sodium Chloride (Nss 1000ml) 500 mls @ 999 mls/hr IV .Q31M ONE Stop: 10/29/22 12:52 Last Admin: 10/29/22 12:43 Dose: 999 mls/hr Documented By: AB ECG Rate (beats per minute): 66 Rhythm: normal sinus COVID-19 Results Results COVID-19 Adm Lab Results: RBC 3.64 M/uL (4.20-5.40) L 10/29/22 WBC 18.53 K/ul (4.8-10.8) H 10/29/22 Hgb 12.1 g/dl (12.0-16.0) 10/29/22 Hct 35.2 % (37.0-47.0) L 10/29/22 Plt Count 274 K/uL (130-400) 10/29/22 Neutrophils (%) (Auto) 90.4 % 10/29/22 Lymphocytes (%) (Auto) 3.4 % 10/29/22 Monocytes # (Auto) 0.91 K/uL (0.11-0.59) H 10/29/22 Eosinophils # (Auto) 0.01 K/uL (0-0.50) 10/29/22 Immature Granulocyte % (Auto) 1.0 % 10/29/22 Neutrophils # (Auto) 16.76 K/uL (1.40-6.50) H 10/29/22 Lymphocytes # (Auto) 0.63 K/uL (1.2-3.4) L 10/29/22 Monocytes # (Auto) 0.91 K/uL (0.11-0.59) H 10/29/22 Eosinophils # (Auto) 0.01 K/uL (0-0.50) 10/29/22 Basophils # (Auto) 0.03 K/uL (0-0.2) 10/29/22 Immature Granulocyte # (Auto) 0.19 K/uL (0.01-0.20) 3 Echinocytes 2+ 10/29/22 Na 126 mmol/L (136-145) L 10/29/22 K 4.4 mmol/L (3.5-5.1) 10/29/22 Cl 95 mmol/L (98-107) L 10/29/22 CO2 18 mmol/L (21-32) L 10/29/22 Anion Gap 13 (3-11) H 10/29/22 BUN 17 mg/dl (6-23) 10/29/22 Creatinine 0.54 mg/dl (0.6-1.2) L 10/29/22 BUN/Creatinine Ratio 31.5 (10-20) H 10/29/22 Glucose Level 83 mg/dl (70-99(Fasting)) 10/29/22 Ca 8.5 mg/dl (8.6-10.3) L 10/29/22 Total Bilirubin 1.7 mg/dl (0.2-1.0) H 10/29/22 AST/SGOT 45 U/L (13-39) H 10/29/22 ALT/SGPT 13 U/L (7-52) 10/29/22 Alkaline Phosphatase 96 U/L (34-104) 10/29/22 Total Protein 5.6 gm/dl (6.0-8.3) L 10/29/22 Albumin 2.5 gm/dl (3.4-5.0) L 10/29/22 Globulin 3.1 gm/dl (2.5-4.0) 10/29/22 Albumin/Globulin Ratio 0.8 (0.9-2) L 10/29/22 INR 0.9 (0.9-1.1) 10/29/22 SARS-CoV-2, RNA, NAAT NEGATIVE (NEGATIVE) 10/29/22 Chest X-Ray 10/29/22 Code Status & VTE Plan Code Status DNR/DNI Supervising Physician Co-Signing Physician Notes Ms. Ricardo is an 86-year-old female with PMHX including but not limited to CAD status post stent, ischemic cardiomyopathy, HFrEF status post ICD, prediabetes, HLD, hypothyroidism, osteoporosis, recurrent UTI, vesicular vaginal fistula, and chronic back pain. She presents with generalized weakness, confusion, and failure to thrive. She is found to have SIRS suspected of infectious etiology (UTI vs PNA vs both), and hyponatremia. This occurs int the setting of recent fall c/b right femur fx a few weeks prior. Also found to have new rash involving the right foot which is cool and without palpable pulse. Pt seen and examined at bedside with daughter present. At the time of my exam the patient is pain free. She denies malaise, fatigue, weakness, dizziness, lightheadedness, f/c/n/v, cough, CP, sob, abdominal pain, diarrhea, and dysuria. That having been said ROS is of questionable reliability at best d/t mental status. Per daughter at bedside about 2 and a half weeks ago she noticed her mother going down hill. This is described as worsening generalized weakness, particularly in the legs with legs giving out at times. This was associated with decreased appetite and increasing confusion. Confusion acutely worsened over the past 3 days, around the same time her daughter noticed her urine became malodorous. Other than pain in the leg (fractured) Ms. Ricardo has not been comp laining of anything. Other than the changes noted above her daughter has not observed anything out of the ordinary. There has not been any vomiting or diarrhea. I discussed with her daughter that mental status may clear up some with treatment of suspected UTI, but may not return to baseline. Some of her confusion could be d/t pain and new mobility limitations contributing to delirium. It may also be due to suspected infection, and possibly worsened by low Na. Her daughter seems to understand. # SIRS: suspected infectious etiology; UTI, PNA or both SIRS criteria wbc > 12, RR > 21 Vancomycin and Cefepime for now to cover for potential HCAP and UTI f/u cultures continue supportive care # PAD: known disease, last CT a year or two ago with moderate dz right foot is cool without a palpable pulse pt is pain free which is not consistent with critical limb ischemia US suggests high grade arterial stenosis will discuss with daughter who had expressed she does not want any invasive p rocedures, will discuss US findings and offer CTA # severe protein malnutrition: unclear timeline suspected d/t multiple chronic illnesses will supplement with ensures and liberalize diet to maximize intake # hyponatremia: likely at least in part d/t poor intake, may be a component of pain mediated SIADH appears dry on exam, hypovolemic hyponatremia potentially contributing to weakness and malaise replete with gentle NS, goal of correction not greater than 6 mmol/L/day # FTT in adult: per daughter sounds as though pt has been declining since prior to recent fall c/b femur fx. Decline accelerated at that time continue to encourage oral intake, supplement diet with ensure # Chronic HFrEF: EF 20-25%. S/p AICD appears dry on exam continue with gentle IVF in s/o SIRS (suspected sepsis) and hyponatremia fluid balance will be challenging to say the least # CAD: hx of UT, stent no complaints at this time. Continue ASA and statin therapy Hold carvedilol and spironolactone for now in setting of hypotension serial troponin, no ischemic change on ecg # acquired hypothyroidism: continue levothyroxine PE: Gen: frail elderly appearing female. Cachectic, emaciated, NAD. Head: Normocephalic, Atraumatic Eyes: conjunctivae normal, anicteric sclerae Nose: normal. nares patent Mouth: dry Neck: trachea midline, normal visual inspection Pulm: CTA b/l, diminished at bases due to poor insp effort. Normal respiratory effort, no accessory muscle use. barrel chest Cardiovascular: RRR, S1 S2 Abdomen: + bs, soft, NT, ND, no guarding Musculoskeletal: +R foot with dorsal erythema and volar discoloration and cold, no palpable pulse. Unable to find pulse with bedside doppler. Diffuse muscle wasting. Skin: +R foot with dorsal erythema and volar discoloration. Right jones with abrasion, small abrasion and bruise on the knee. Otherwise visible skin is warm, dry, and without rash. Neurologic: Alert, oriented x 1. Moves all extremities (requires assistance with RLE d/t pain from fx) Psychiatric: Normal mood and affectc Rest per attested note above (3) Fracture of lateral condyle of femur Encounter type: initial encounter Fracture alignment: nondisplaced Fracture type: closed Laterality: right Qualified Code(s): S72.424A - Nondisplaced fracture of lateral condyle of right femur, initial encounter for closed fracture
--- NOTE | 2022-10-29 14:13 | Electrocardiogram Report ---
Test Reason : Blood Pressure : / mmHG Vent. Rate : 066 BPM Atrial Rate : 066 BPM P-R Int : 156 ms QRS Dur : 062 ms QT Int : 394 ms P-R-T Axes : 084 -72 067 degrees QTc Int : 413 ms Poor data quality, interpretation may be adversely affected Probable Sinus rhythm Left axis deviation Low voltage QRS Inferior infarct (cited on or before 21-MAY-2014) Anterolateral infarct (cited on or before 21-MAY-2014) Abnormal ECG When compared with ECG of 08-MAY-2021 09:12, ST less elevated in Lateral leads Confirmed by Jr Hall ([id number]) on 10/29/2022 2:13:22 PM Referred By: Confirmed By:Jr Hall
[2022-10-29 15:09] LABS: Troponin I High Sensitivity 28.4 pg/ml (0-14)
[2022-10-29 15:20] LABS: Calcium 8.5 mg/dl (8.6-10.3); Potassium 4.4 mmol/L (3.5-5.1)
[2022-10-29 15:26] LABS: BUN Creatinine Ratio 31.5 (10-20); Creatinine Clr Calc Pharmacy 44.4 ml/min; Est GFR (African American) 98.3 ml/min; Est GFR (Non-African American) 84.8 ml/min
--- NOTE | 2022-10-29 15:40 | XRay Report ---
XR femur RT 2V routine CLINICAL HISTORY: nonweightbearing,recent fx TECHNIQUE: 2 radiographic views of the right femur were obtained. Comparison: Comparison is made to right knee radiograph 10/24/2022 FINDINGS: Redemonstration of distal femoral metaphyseal fracture. There is minimal surrounding soft tissue swel ling. Medullary anabelle is seen in the femur. Degenerative changes are seen in the hip and knee joints. IMPRESSION: Redemonstration of distal metaphyseal fracture. No acute abnormalities. ACT 112: Negative or not required by law. Electronically signed by: Dean Aleman M.D. 10/29/2022 3:39 PM
--- NOTE | 2022-10-29 16:30 | Ultrasound Report ---
US venous doppler LE RT HISTORY: 86 years-old Female edema acute pain and swelling of the right lower leg COMPARISON: Femur radiographs of same day TECHNIQUE: Multiple real-time sonographic images of the right lower extremity deep venous structures were obtained assessing grayscale appearance, color and spectral flow. FINDINGS: Lymph exam secondary to positioning. The popliteal vein is not visualized. Compression cannot be tole rated. Normal flow, without phasicity and augmentation. IMPRESSION: No sonographic evidence of deep venous thrombosis. ACT 112: Negative or not required by law. The above report was generated using voice recognition software. It may contain grammatical, syntax o r spelling errors. Electronically signed by: Drake Grant M.D. 10/29/2022 4:28 PM
--- NOTE | 2022-10-29 16:30 | Ultrasound Report ---
US arterial duplex LE RT HISTORY: 86 years-old Female foot discoloration acute pain and swelling of the right lower leg COMPARISON: Femur radiographs of same day TECHNIQUE: Multiple real-time sonographic images of the right lower extremity arterial structures wer e obtained assessing grayscale appearance, color and spectral flow FINDINGS: Atherosclerosis. Limited exam secondary to positioning. Nonvisualization of the profunda femoris. Pop liteal artery not visualized. Predominantly monophasic waveforms at the left lower extremity. Blunted waveforms in the posterior tibial, peroneal and anterior tibial arteries. No definite flow identifie d within the dorsalis pedis artery. The peak systolic velocities of the lower leg are also diminished measuring up to 18 cm/s within the common femoral artery and 5 cm/s within the posterior tibial abril ry. IMPRESSION: 1. Limited exam secondary to positioning. 2. No definite flow identified within the dorsalis pedis artery suggestive of high-grade stenosis rosemary paola age-indeterminate occlusion. 3. Atherosclerosis with monophasic waveforms throughout. ACT 112: Negative or not required by law. The above report was generated using voice recognition software. It may contain grammatical, syntax o r spelling errors. Electronically signed by: Drake Grant M.D. 10/29/2022 4:28 PM
[2022-10-29] MEDS ORDERED: ONDANSETRON INJ 2 MG/ML 2 ML VIAL IV PRN (16:56)
[2022-10-29] MEDS ORDERED: VANCOMYCIN CONSULT ACTIVE PRN (16:56)
[2022-10-29] MEDS ORDERED: MAGNESIUM HYDROXIDE SUSP 30 ML UDC PO PRN (16:56)
[2022-10-29] MEDS ORDERED: ALUMINUM/MAGNESIUM SUSP 30 ML UDC PO PRN (16:56)
[2022-10-29] MEDS: SODIUM CHLORIDE 0.9% 1000ML 1,000 ML IV SCH (18:04)
[2022-10-29] MEDS: ACETAMINOPHEN 500 MG TAB PO SCH ×2 (18:04→20:11)
[2022-10-29] MEDS: CEFEPIME 2,000 MG in SYRINGE 0 ML IV SCH (18:05)
[2022-10-29] MEDS ORDERED: VANCOMYCIN HCL 750 MG in SODIUM CHLORIDE 0.9% 250 ML IV ONE (18:30)
[2022-10-29 20:03] LABS: BUN Creatinine Ratio 32.8 (10-20); Calcium 7.8 mg/dl (8.6-10.3); Creatinine Clr Calc Pharmacy 38.6 ml/min; Est GFR (African American) 96.1 ml/min; Est GFR (Non-African American) 82.9 ml/min
[2022-10-29 20:10] LABS: Troponin I High Sensitivity 25.2 pg/ml (0-14)
[2022-10-29] MEDS: HEPARIN SOD 5,000 UNIT/0.5 ML VIAL SQ SCH (20:12)
--- NOTE | 2022-10-29 22:00 | Orthopedic Consultation ---
Date of Consultation October 29, 2022 Assessment & Plan (1) Fracture of lateral condyle of femur: Minimally displaced right distal femoral metaphyseal fracture -Pain control -Nonweightbearing right lower extremity in hinged knee brace locked in full extension -PT/OT -Med management -DVT prophylaxis per primary team -Stable from Ortho standpoint would recommend continuing nonweightbearing in her brace and she may follow-up as an outpatient. History of Present Illness Reason for Consultation: Right femoral metaphyseal fracture Attending Physician: Madison Abarca MD History of Present Illness 86-year-old female presenting to [facility] for failure to thrive. Patient was seen several weeks ago whenever she was admitted to the hospital for a minimally displaced right distal femur metaphyseal fracture. She was placed in a lace up brace locked in full stanchion and has been nonweightbearing. No active complaints regarding her knee. Does note some irritation to brace along one of the straps. Orthopedics was asked to evaluate. Allergies Allergy/AdvReac Type Severity Reaction Status Date / Time clindamycin Allergy Intermediate hives/nause Verified 10/14/22 21:34 a doxycycline Allergy Intermediate hives/nause Verified 10/14/22 21:34 a meperidine AdvReac Intermediate confusion Verified 10/14/22 21:34 morphine AdvReac Intermediate tachycardia Verified 10/14/22 21:34 Home Medications Medication Instructions Recorded Confirmed Type aspirin 81 mg tablet,delayed 81 mg PO DAILY 10/04/20 10/29/22 History release atorvastatin 20 mg tablet 20 mg PO HS 10/04/20 10/29/22 History carvedilol 12.5 mg tablet 12.5 mg PO BID 10/04/20 10/29/22 History cholecalciferol (vitamin D3) 25 25 mcg PO QAM 10/04/20 10/29/22 History mcg (1,000 unit) capsule ferrous sulfate 325 mg (65 mg 325 mg PO QAM 05/08/21 10/29/22 History iron) tablet spironolactone 25 mg tablet 25 mg PO DAILY 05/08/21 10/29/22 History gabapentin 300 mg capsule 300 mg PO BID 10/14/22 10/29/22 History guaifenesin 600 mg tablet, 0 mg PO Q12 PRN Congestion 10/14/22 10/29/22 History extended release 12 hr (Mucinex) levothyroxine 125 mcg tablet 125 mcg PO DAILYBB 10/14/22 10/29/22 History cephalexin 500 mg capsule 500 mg PO BID 10/29/22 10/29/22 History hydrocodone 5 mg-acetaminophen 325 0.5 tab PO BID PRN pain,severe 10/29/22 10/29/22 History mg tablet Patient History Medical History Ambulatory dysfunction Borderline type 2 diabetes mellitus CAD (coronary artery disease) [place] in 2015 s/p LAD stent Cardiac defibrillator in place Chronic pain Chronic systolic heart failure CKD (chronic kidney disease) stage 3, GFR 30-59 ml/min Compression fracture of L4 vertebra Dyslipidemia Former tobacco use Hypothyroidism Intertrochanteric fracture of right hip Ischemic cardiomyopathy (05/21/14) Recurrent UTI Sacral insufficiency fracture Surgical History History of appendectomy History of cholecystectomy History of hysterectomy History of implantable cardioverter-defibrillator (ICD) placement Status post-operative repair of closed fracture of right hip Family History Mother Diabetes Myocardial infarction Brother Diabetes Father Myocardial infarction Social History Smoking Status: Never smoker Tobacco Type: Cigarettes Second Hand Exposure: No; Do You Dip or Chew Tobacco: No; Hx Alcohol Use: No Hx Substance Use: No Preferred Language: Haitian Communication Ability: Effective Health And Physical Education Teacher Required: No Beliefs That Will Affect Care: None Current Living Situation: Family Current Living Situation Comment: LIVES WITH DAUGHTER WHO IS CAREGIVER Other Information That Helps Us Care for You: No Feels Safe at Home: Yes Safety Concerns: Feels Safe At This Time Assistive Devices: Brace/Splint/Immobilizer, Denture - Upper, Denture - Lower and Glasses Assistive Devices Comment: Rt leg brace Physical Exam Constitutional: Oriented to self, exam limited secondary to patient participation Musculoskeletal: Right lower extremity -In hinged knee brace locked in full extension. Skin is intact there is some mild abrasions over the strap closest to the inferior aspect of the knee -Soft and compressible -Wiggles toes -Sensation grossly intact light touch saphenous/superficial peroneal nerve/deep/tibial and sural nerve distributions -Foot warm, capillary refill of the toes Results & Data Vital Signs (Past 12 Hours) Vital Signs Temp Pulse Pulse Pulse Resp BP BP 10/29/22 21:41 10/29/22 19:00 36.3 C L 73 18 102/64 10/29/22 16:25 10/29/22 16:25 36.4 C L 65 18 10/29/22 16:56 36.4 C L 65 18 10/29/22 15:48 10/29/22 15:01 69 21 10/29/22 12:44 64 19 10/29/22 11:39 64 10/29/22 11:10 36.4 C L 65 16 86/45 L 10/29/22 11:25 65 16 BP Pulse Ox O2 Del Method O2 Flow Rate 10/29/22 21:41 Room Air 10/29/22 19:00 96 Room Air 10/29/22 16:25 Room Air 10/29/22 16:25 120/63 97 Room Air 10/29/22 16:56 120/63 97 Room Air 10/29/22 15:48 Room Air 10/29/22 15:01 102/57 L 98 Room Air 10/29/22 12:44 86/39 L 100 Room Air 10/29/22 11:39 10/29/22 11:10 99 Nasal Cannula 1 10/29/22 11:25 98 Nasal Cannula 1 (1) Fracture of lateral condyle of femur Encounter type: initial encounter Fracture alignment: nondisplaced Fracture type: closed Laterality: right Qualified Code(s): S72.424A - Nondisplaced fracture of lateral condyle of right femur, initial encounter for closed fracture
[2022-10-29 22:54] LABS: Potassium 4.6 mmol/L (3.5-5.1)
[2022-10-29] MEDS ORDERED: LACTATED RINGER'S 500 ML IV ONE (23:21)
[2022-10-30] MEDS: VANCOMYCIN HCL 750 MG in SODIUM CHLORIDE 0.9% 250 ML IV SCH ×2 (00:07→17:23)
[2022-10-30 02:21] LABS: Hematocrit (blood only) 36.7 % (37.0-47.0); Hemoglobin 12.8 g/dl (12.0-16.0); Mean Corpuscular Hemoglobin 33.7 pg (25.0-34.0); Mean Corpuscular Hgb Conc 34.9 g/dL (32.0-36.0); Mean Corpuscular Volume 96.6 fL (80.0-100.0); Platelet Count 225 K/uL (130-400); RDW Coefficient of Variation 13.6 % (11.5-14.5); RDW Standard Deviation 48.3 fL (36.4-46.3); White Blood Count 17.09 K/ul (4.8-10.8)
[2022-10-30 02:38] LABS: Basophils # (auto) 0.03 K/uL (0-0.2); Basophils % (auto) 0.2 %; Eosinophils # (auto) 0.02 K/uL (0-0.50); Eosinophils % (auto) 0.1 %; Immature Granulocytes # (auto) 0.19 K/uL (0.01-0.20); Immature Granulocytes % (auto) 1.1 %; Lymphocytes % (auto) 2.3 %; Monocytes # (auto) 0.78 K/uL (0.11-0.59); Monocytes % (auto) 4.6 %; Neutrophils # (auto) 15.67 K/uL (1.40-6.50); Neutrophils % (auto) 91.7 %
[2022-10-30 02:44] LABS: Albumin Globulin Ratio 0.8 (0.9-2); Albumin Level 2.4 gm/dl (3.4-5.0); BUN Creatinine Ratio 35.2 (10-20); Bilirubin,Total 0.9 mg/dl (0.2-1.0); Creatinine Clr Calc Pharmacy 41.5 ml/min; Est GFR (African American) 98.3 ml/min; Est GFR (Non-African American) 84.8 ml/min; Globulin 2.9 gm/dl (2.5-4.0); Magnesium 1.5 mg/dl (1.7-2.4); Potassium 4.2 mmol/L (3.5-5.1); Total Protein 5.3 gm/dl (6.0-8.3)
[2022-10-30] MEDS ORDERED: SODIUM CHLORIDE 0.9% 1000ML 500 ML IV ONE (02:51)
[2022-10-30] MEDS: LEVOTHYROXINE SODIUM 125 MCG TABLET PO SCH (05:59)
[2022-10-30] MEDS: CEFEPIME 2,000 MG in SYRINGE 0 ML IV SCH ×2 (05:59→17:24)
--- NOTE | 2022-10-30 07:42 | Nephrology Consultation ---
Date of Consultation October 30, 2022 Assessment & Plan (1) Hyponatremia: hypovolemic hypotonic hyponatremia most c/w volume depletion in very fragile /frail pt. no consistent outpatient hyponatremia. pt w/ active hypothryoid and presenting sodium 126. improved to 128 w/ hydration and stable there x 2 checks. pt w/ multiple fractures, challenging to control pain, limited moblity. -uncontrolled pain may worsen hyponatremia; recognize other clinical priorities like evaluating best MS may take precedent over pain meds if sedating -continue thyroid medication -for now continue low rate of NS and regular diet > may need to change to bicarb rich fluid -monitor for refeeding syndrome -for now no FR -encourage protein intake -next labs in AM -goal sNa for am is no more than 134 History of Present Illness Reason for Consultation: hyponatremia Requesting Physician: Dr Abarca Attending Physician: Betty Mari MD History of Present Illness 86 y/o F whom I'm asked to see for hyponatremia was admitted yesterday afternoon for evaluation of weakness and 2 days of worsening confusion in the setting of OP sodium 126, TSH 11, concern for UTI. Also noted on intake to have several wounds/ulcers, including large one on her back. PMH includes CAD status post stent, ischemic cardiomyopathy, HFrEF status post ICD, PAD, hypothyroidism, osteoporosis, recurrent UTI, vesicular vaginal fistula, chronic back pain, HL who presents to ED secondary to weakness. Pt hospitalized 10/15-10/17 with complicated left lateral condyle femoral fracture of femur after a fall, for nonsurgical mgt w/ no weight bearing extension brace. pain med dose lowered at d/c d/t ms. sodium 128 this am and on last check mid afternoon. pt on NS at 50 ml/hr after at least 2.4 L IVF. spironolactone continued. pt on cefepime and vanco. pt tells me she's in pain but can't say where exactly; no sob; no n/v; did not have supper; no dysuria/gross hematuria. denies orthopnea. ROS limited to extent by pt MS > she answers in monosyllables w/ psychomotor delay. Allergies Allergy/AdvReac Type Severity Reaction Status Date / Time clindamycin Allergy Intermediate hives/nause Verified 10/14/22 21:34 a doxycycline Allergy Intermediate hives/nause Verified 10/14/22 21:34 a meperidine AdvReac Intermediate confusion Verified 10/14/22 21:34 morphine AdvReac Intermediate tachycardia Verified 10/14/22 21:34 Home Medications Medication Instructions Recorded Confirmed Type aspirin 81 mg tablet,delayed 81 mg PO DAILY 10/04/20 10/29/22 History release atorvastatin 20 mg tablet 20 mg PO HS 10/04/20 10/29/22 History carvedilol 12.5 mg tablet 12.5 mg PO BID 10/04/20 10/29/22 History cholecalciferol (vitamin D3) 25 25 mcg PO QAM 10/04/20 10/29/22 History mcg (1,000 unit) capsule ferrous sulfate 325 mg (65 mg 325 mg PO QAM 05/08/21 10/29/22 History iron) tablet spironolactone 25 mg tablet 25 mg PO DAILY 05/08/21 10/29/22 History gabapentin 300 mg capsule 300 mg PO BID 10/14/22 10/29/22 History guaifenesin 600 mg tablet, 0 mg PO Q12 PRN Congestion 10/14/22 10/29/22 History extended release 12 hr (Mucinex) levothyroxine 125 mcg tablet 125 mcg PO DAILYBB 10/14/22 10/29/22 History cephalexin 500 mg capsule 500 mg PO BID 10/29/22 10/29/22 History hydrocodone 5 mg-acetaminophen 325 0.5 tab PO BID PRN pain,severe 10/29/22 10/29/22 History mg tablet Patient History Medical History Ambulatory dysfunction Borderline type 2 diabetes mellitus CAD (coronary artery disease) [place] in 2015 s/p LAD stent Cardiac defibrillator in place Chronic pain Chronic systolic heart failure Compression fracture of L4 vertebra Dyslipidemia Former tobacco use Hypothyroidism Intertrochanteric fracture of right hip Ischemic cardiomyopathy (05/21/14) Recurrent UTI Sacral insufficiency fracture Vesicovaginal fistula Surgical History History of appendectomy History of cholecystectomy History of hysterectomy History of implantable cardioverter-defibrillator (ICD) placement Status post-operative repair of closed fracture of right hip Family History Mother Diabetes Myocardial infarction Brother Diabetes Father Myocardial infarction Social History Smoking Status: Never smoker Tobacco Type: Cigarettes Second Hand Exposure: No; Do You Dip or Chew Tobacco: No; Hx Alcohol Use: No Hx Substance Use: No Preferred Language: Yoruba Communication Ability: Impaired Siebel Developer Required: No Beliefs That Will Affect Care: None Current Living Situation: Family Current Living Situation Comment: LIVES WITH DAUGHTER WHO IS CAREGIVER Other Information That Helps Us Care for You: No Feels Safe at Home: Yes Safety Concerns: Feels Safe At This Time Assistive Devices: Wheelchair Assistive Devices Comment: Rt leg brace Review of Systems Review of Systems: All systems reviewed & are unremarkable except as noted in HPI & below Physical Exam Constitutional: well developed, + cachectic, + altered mental status (possibly), + physical limitations (generalized weakness, femoral fracture) and + frail appearing Eyes: EOM intact bilaterally ENMT: Ears: no external ear abnormality Nose: no external nose abnormality Mouth: + dry oral mucous membranes Neck: no nuchal rigidity Respiratory: normal respiratory effort Auscultation: + diminished lung sounds Cardiovascular: RRR, no murmur, no edema Gastrointestinal (Abdomen): Inspection/Auscultation: normal bowel sounds Percussion/Palpation: abdomen soft; abdomen nontender Musculoskeletal: Extremities: + limited ROM of extremities (contractures) and + abnormal strength Skin: no rashes, warm and dry Neurologic: russell, fluent though very limited speech, no tremor Psychiatric: Orientation: alert, oriented to person and oriented to place Results & Data Vital Signs (Past 12 Hours) Vital Signs Temp Pulse Pulse Resp BP BP Pulse Ox 10/30/22 07:08 75 10/30/22 04:02 99/51 L 10/30/22 02:58 36.2 C L 67 18 84/51 L 98 10/29/22 23:20 86/46 L 10/30/22 00:26 61 10/29/22 22:00 36.2 C L 64 18 77/43 L 95 10/29/22 21:41 O2 Del Method 10/30/22 07:08 10/30/22 04:02 10/30/22 02:58 Room Air 10/29/22 23:20 10/30/22 00:26 10/29/22 22:00 Room Air 10/29/22 21:41 Room Air Laboratory Results 10/30/22 02:09 10/30/22 02:09 ser osm 259; no urine studies >> urine studies posted through day dark very turbid urine w/ bilirubin, ?infection sOSM 269 uosm 760 Dorian 20 Diagnostic Findings no DVT art doppler RLE 1. Limited exam secondary to positioning. 2. No definite flow identified within the dorsalis pedis artery suggestive of high-grade stenosis versus age-indeterminate occlusion. 3. Atherosclerosis with monophasic waveforms throughout. cxr 1. Cardiomegaly and the ICD without radiographic evidence of congestive failure. 2. Suspect consolidation at the left lung base. This is not well assessed due to rotation and overlying AICD. A repeat PA and lateral examination is recommended for further assessment. 3. The right lung appears clear. 4. Hiatal hernia.
[2022-10-30] MEDS: CHOLECALCIFEROL 1,000 UNITS 25 MCG TAB PO SCH (08:46)
[2022-10-30] MEDS: ACETAMINOPHEN 500 MG TAB PO SCH ×4 (08:46→21:06)
[2022-10-30] MEDS: FERROUS SULFATE 325 MG TAB PO SCH (08:46)
[2022-10-30] MEDS: ASPIRIN 81 MG ECTAB PO SCH (08:46)
[2022-10-30] MEDS: HEPARIN SOD 5,000 UNIT/0.5 ML VIAL SQ SCH ×2 (08:47→21:06)
[2022-10-30] MEDS: SPIRONOLACTONE 25 MG TAB PO SCH (08:47)
--- NOTE | 2022-10-30 10:14 | Pharmacy Report ---
Pharmacy PK ABX Note - Date of Service October 30, 2022 - Assessment and Plan Assessment * Ms Ricardo is an 86 year old F receiving vancomycin/cefepime for empiric therapy. * Pt presented w/ acute hyponatremia, weakness, metabolic encephalopathy. SIRS criteria met. CXR concerning for possible pna. * Pt is also being evaluated by ortho. Plan Vancomycin * Loading dose: 750 mg IV x 1 * Maintenance dose: 750 mg IV every 18 hours * Regimen is predicted to achieve target AUC/MCKAY of 400-600 mg/L.hr * Will order a vanc level in ~24-48 hours if patient remains hospitalized and on vanc therapy. Pharmacy will continue to follow and will adjust dose/frequency as necessary. Thank you. Pharmacy has transitioned to AUC monitoring for vancomycin. AUC/MCKAY is the preferred PK/PD target and is associated with decreased risk of nephrotoxicity compared to traditional trough targets.
[2022-10-30 11:07] LABS: Appearance Urine Turbid (Clear); Bilirubin Urine 1+ (Negative); Blood Urine Trace (Negative); Color Urine Dark Yellow; Epithelial Cell Urine Auto 20-30 /lpf (0-5); Glucose Urine UA Negative (Negative); Ketones Urine 1+ (Negative); Leukocyte Esterase Urine 1+ (Negative); Nitrite Urine Positive (Negative); Protein Urine 1+ (Negative); Specific Gravity Urine 1.038 (1.000-1.030); Urobilinogen Urine Negative (Negative); WBC Urine Automated >30 /hpf (0-5)
[2022-10-30 11:16] LABS: Bacteria Urine Automated 4+ (Negative); Triple Phosphate Crystal Urine Present (None Prsent)
[2022-10-30 11:19] LABS: RBC Urine Automated 0-4 /hpf (0-4)
--- NOTE | 2022-10-30 13:20 | Hospitalist Progress Note ---
Date of Service October 30, 2022 Assessment & Plan (1) Acute hyponatremia: (2) Metabolic encephalopathy: (3) Fracture of lateral condyle of femur: (4) CAD (coronary artery disease): (5) Chronic systolic heart failure: (6) CKD (chronic kidney disease) stage 3, GFR 30-59 ml/min: (7) Weakness: Plan This is an 86-year-old female who has significant past medical history of CAD status post stent, ischemic cardiomyopathy, HFrEF status post ICD, prediabetes, HLD, hypothyroidism, osteoporosis, recurrent UTI, vesicular vaginal fistula, chronic back pain who presents to ED secondary to weakness. Generalized weakness Acute metabolic encephalopathy Acute hyponatremia Admitted to telemetry Serum Osmo 269, random urine sodium-20 and osm-760 Consult nephrology-appreciate input and recommendation Patient received 500 mL IV fluid in ED, repeat sodium up to 126 Continue gentle hydration at 50 cc/h Hold hydrocodone and gabapentin for now Schedule Tylenol pt appears dry on exam except for RLE in setting of fracture/immobility Sodium level went up to 128 as of this morning We will monitor PRP and advised to have extra salt in diet Acute metabolic and cephalopathy seems improved SIRS Patient meets criteria secondary to hypotension and leukocytosis in setting of altered mental status She received 2 g IV Rocephin in ED Possible source UTI-urine culture and blood cultures are pending Chest x-ray also concerning for possible left lower lobe consolidation although poor quality film Patient without respiratory symptoms Empirically cover with vancomycin and cefepime for now Urine culture is pending as outpatient, blood culture pending here We will continue current antibiotic for now until cultures are back Fracture of lateral condyle of femur right likely secondary to age-related osteoporosis Right foot discoloration Right lower extremity edema Patient currently nonweightbearing Repeat x-ray looks stable; consult Ortho for eval Keep nonweightbearing and Leeann brace in place Obtain venous and arterial Dopplers as difficult to obtain pulse to right lower extremity Daughter states discoloring is new as of this morning and discussed case with patient's PCP who saw patient yesterday and stated right foot was warm and of normal color PT had CTA aorta/femoral 08/2020 revealing : Severe short-segment stenosis in the proximal right external iliac artery due to calcified atherosclerotic disease.Moderate right common femoral artery stenosis due to calcified atherosclerotic disease.Multifocal atherosclerotic disease throughout both popliteal arteries causing moderate to severe areas of stenosis, left greater than right. Seen by vascular in [place] on ASA, Statin No DVT on scan and arterial Doppler did not show any significant stenosis Continue with conservative management as advised by the orthopedic surgeon Sacral and back decubiti Wound care has been consulted Known PAD On ASA and statin We will await ultrasound studies Discussed with daughter at bedside, patient is DNR and DNI and does not want patient transferred if in the event arterial emergency is diagnosed Ischemic cardiomyopathy Chronic HFrEF AICD in place elevated troponin EF 20 to 25% Remote history of [place] in 2015 status post LAD stent Continue ASA, statin Hold carvedilol and spironolactone for now in setting of hypotension cycle troponins, no ischemic change on ecg, unlikely acs No cardiac symptoms Elevated LFTS no abd pain bili 1.7, ast 45 repeat in a.m-no issues Malnutrition pt emaciated, weight 38kg consult family physician Hypothyroidism Continue levothyroxine DVT prophylaxis: Subcu heparin DNR/DNI discussed with daughter at bedside who wishes for patient not to be t ransferred and in event of emergency would prefer comfort care route PCP: Fercho Discussed with the daughter in detail. The patient wants to go home as soon as possible Will await cultures results and further observation in the hospital Likely discharge on Wednesday Admission and Anticipated Discharge Date Admission Date: October 29, 2022 Subjective 10/30/2022 The patient was seen and examined in medical telemetry unit She has been complaining of pain in the right leg and she wants to go home Denies any fever and or chills, any abdominal pain nausea and or vomiting She denies any other significant symptoms except weakness and tiredness Review of Systems Review of Systems: All systems reviewed and are unremarkable except as noted below Physical Exam Physical Exam: Lying in bed comfortably Constitutional: + ill appearing and + thin Eyes: PERRL, conjunctivae normal, anicteric sclerae ENMT: external ear and nose normal, oropharynx normal Neck: trachea midline, no thyromegaly Respiratory: no respiratory distress Auscultation: + diminished lung sounds and + crackles (Occasional crackles at the bases) Cardiovascular: Rate/Rhythm: regular rate and regular rhythm; not tachycardic Heart Sounds: normal S1, normal S2 and + murmur Extremities: + edema (Trace edema on the right side) Gastrointestinal (Abdomen): Inspection/Auscultation: normal bowel sounds; abdomen not distended Percussion/Palpation: abdomen soft; abdomen nontender Musculoskeletal: Has right lower extremity pain with movement with history of fracture of the lower end of the femur Skin: Has decubiti ulcer involving the back as mentioned in the wound care note Neurologic: moves all extremities (Except right lower extremity which is in nonweightbearing brace); not confused Lymphatic: no cervical or axillary lymphadenopathy Results & Data Results & Data Vital Signs (Past 12 Hours) Vital Signs Temp Pulse Pulse Resp BP Pulse Ox O2 Del Method 10/30/22 08:14 36.4 C L 64 17 99/65 L 95 Room Air 10/30/22 07:42 Room Air 10/30/22 07:08 75 10/30/22 04:02 99/51 L 10/30/22 02:58 36.2 C L 67 18 84/51 L 98 Room Air Laboratory Results Short CBC 10/30/22 Range/Units 02:09 WBC 17.09 H (4.8-10.8) K/ul Hgb 12.8 (12.0-16.0) g/dl Hct 36.7 L (37.0-47.0) % Plt Count 225 (130-400) K/uL BMP 10/29/22 10/29/22 10/30/22 14:27 19:17 02:09 Sodium 126 L 128 L 128 L Potassium 4.4 4.6 4.2 Chloride 95 L 98 99 Carbon Dioxide 18 L 21 19 L BUN 17 19 19 Creatinine 0.54 L 0.58 L 0.54 L Glucose 83 92 83 Calcium 8.5 L 7.8 L 8.0 L Liver Function 10/30/22 Range/Units 02:09 Total Bilirubin 0.9 D (0.2-1.0) mg/dl AST 45 H (13-39) U/L ALT 12 (7-52) U/L Alkaline Phosphatase 85 (34-104) U/L Albumin 2.4 L (3.4-5.0) gm/dl Urine 10/30/22 Range/Units Unknown Urine Color Dark Yellow Urine Appearance Turbid A (Clear) Urine pH 7.0 (4.5-7.5) Ur Specific Brandon 1.038 H (1.000-1.030) Urine Protein 1+ H (Negative) Urine Glucose (UA) Negative (Negative) Medications Administered Current Inpatient Medications Acetaminophen (Acetaminophen 500 Mg Tab) 500 mg PO QID [facility] Stop: 11/28/22 16:59 Last Admin: 10/30/22 12:23 Dose: 500 mg Al Hydrox/Mg Hydrox/Simethicone (Aluminum/Magnesium Susp 30 Ml Udc) 15 ml PO Q4H PRN PRN Reason: Dyspepsia Stop: 11/28/22 16:55 Aspirin (Aspirin 81 Mg Ectab) 81 mg PO DAILY [facility] Stop: 11/29/22 08:59 Last Admin: 10/30/22 08:46 Dose: 81 mg Ferrous Sulfate (Ferrous Sulfate 325 Mg Tab) 325 mg PO QAM [facility] Stop: 11/29/22 08:59 Last Admin: 10/30/22 08:46 Dose: 325 mg Heparin Sodium (Porcine) (Heparin Sod 5,000 Unit/0.5 Ml Vial) 5,000 units SQ Q12 [facility] Stop: 11/28/22 20:59 Last Admin: 10/30/22 08:47 Dose: 5,000 units Cefepime HCl 2,000 mg/ Syringe 20 mls @ 5 mls/min IV Q12H [facility]; Protocol Stop: 11/08/22 17:59 Last Admin: 10/30/22 05:59 Dose: 5 mls/min Sodium Chloride (Nss 1000ml) 1,000 mls @ 50 mls/hr IV .Q20H [facility] Stop: 11/28/22 16:55 Last Admin: 10/29/22 18:04 Dose: 50 mls/hr Vancomycin HCl 750 mg/ Sodium (Chloride) 265 mls @ 200 mls/hr IV Q18H [facility] Stop: 11/01/22 00:00 Last Infusion: 10/30/22 01:30 Dose: Infused Levothyroxine Sodium (Levothyroxine Sodium 125 Mcg Tablet) 125 mcg PO DAILYBB [facility] Stop: 11/29/22 06:29 Last Admin: 10/30/22 05:59 Dose: 125 mcg Magnesium Hydroxide (Magnesium Hydroxide Susp 30 Ml Udc) 30 ml PO Q12H PRN PRN Reason: Constipation Stop: 11/28/22 16:55 Miscellaneous Information (Vancomycin Consult Active) 1 each N/A UD PRN PRN Reason: Consult Stop: 11/28/22 16:55 Ondansetron HCl (Ondansetron Inj 2 Mg/Ml 2 Ml Vial) 4 mg IV Q6H PRN PRN Reason: Nausea Stop: 11/28/22 16:55 Spironolactone (Spironolactone 25 Mg Tab) 25 mg PO DAILY [facility] Stop: 11/29/22 08:59 Last Admin: 10/30/22 08:47 Dose: 25 mg Vitamin D (Cholecalciferol 1,000 Units 25 Mcg Tab) 1,000 units PO QAM [facility] Stop: 11/29/22 08:59 Last Admin: 10/30/22 08:46 Dose: 1,000 units (3) Fracture of lateral condyle of femur Encounter type: initial encounter Fracture alignment: nondisplaced Fracture type: closed Laterality: right Qualified Code(s): S72.424A - Nondisplaced fracture of lateral condyle of right femur, initial encounter for closed fracture
[2022-10-30 15:35] LABS: BUN Creatinine Ratio 33.9 (10-20); Calcium 7.9 mg/dl (8.6-10.3); Creatinine Clr Calc Pharmacy 40.9 ml/min; Est GFR (African American) 97.2 ml/min; Est GFR (Non-African American) 83.8 ml/min; Potassium 4.1 mmol/L (3.5-5.1)
[2022-10-30] MEDS: SODIUM CHLORIDE 0.9% 1000ML 1,000 ML IV SCH (16:09)
[2022-10-30] MEDS: HYDROCODONE/ACETAMOPHEN 5/325MG TAB PO PRN (16:09)
[2022-10-31] MEDS: HYDROCODONE/ACETAMOPHEN 5/325MG TAB PO PRN ×2 (00:20→11:20)
[2022-10-31] MEDS: CEFEPIME 2,000 MG in SYRINGE 0 ML IV SCH ×2 (06:11→17:21)
[2022-10-31] MEDS: LEVOTHYROXINE SODIUM 125 MCG TABLET PO SCH (06:11)
[2022-10-31 07:10] LABS: Basophils # (auto) 0.03 K/uL (0-0.2); Basophils % (auto) 0.2 %; Eosinophils # (auto) 0.05 K/uL (0-0.50); Eosinophils % (auto) 0.3 %; Hematocrit (blood only) 35.4 % (37.0-47.0); Hemoglobin 12.4 g/dl (12.0-16.0); Immature Granulocytes # (auto) 0.25 K/uL (0.01-0.20); Immature Granulocytes % (auto) 1.6 %; Lymphocytes # (auto) 0.58 K/uL (1.2-3.4); Lymphocytes % (auto) 3.6 %; Mean Corpuscular Hemoglobin 33.7 pg (25.0-34.0); Mean Corpuscular Volume 96.2 fL (80.0-100.0); Monocytes # (auto) 0.97 K/uL (0.11-0.59); Monocytes % (auto) 6.1 %; Neutrophils # (auto) 14.08 K/uL (1.40-6.50); Neutrophils % (auto) 88.2 %; Platelet Count 257 K/uL (130-400); RDW Coefficient of Variation 13.9 % (11.5-14.5); RDW Standard Deviation 48.9 fL (36.4-46.3); Red Blood Count 3.68 M/uL (4.20-5.40); White Blood Count 15.96 K/ul (4.8-10.8)
[2022-10-31 07:29] LABS: Magnesium 1.6 mg/dl (1.7-2.4)
[2022-10-31 07:34] LABS: BUN Creatinine Ratio 32.1 (10-20); Creatinine Clr Calc Pharmacy 41.3 ml/min; Est GFR (African American) 97.2 ml/min; Est GFR (Non-African American) 83.8 ml/min; Phosphorus 2.5 mg/dl (2.5-4.9)
[2022-10-31] MEDS: ASPIRIN 81 MG ECTAB PO SCH (08:39)
[2022-10-31] MEDS: SPIRONOLACTONE 25 MG TAB PO SCH (08:39)
[2022-10-31] MEDS: HEPARIN SOD 5,000 UNIT/0.5 ML VIAL SQ SCH ×2 (08:40→21:17)
[2022-10-31] MEDS: ACETAMINOPHEN 500 MG TAB PO SCH ×4 (08:40→21:17)
[2022-10-31] MEDS: CHOLECALCIFEROL 1,000 UNITS 25 MCG TAB PO SCH (08:40)
[2022-10-31] MEDS: FERROUS SULFATE 325 MG TAB PO SCH (08:40)
[2022-10-31] MEDS: SODIUM CHLORIDE 0.9% 1000ML 1,000 ML IV SCH (08:41)
[2022-10-31] MEDS: VANCOMYCIN HCL 750 MG in SODIUM CHLORIDE 0.9% 250 ML IV SCH (12:09)
--- NOTE | 2022-10-31 12:53 | Hospitalist Progress Note ---
Date of Service October 31, 2022 Assessment & Plan (1) Acute hyponatremia: (2) Metabolic encephalopathy: (3) Fracture of lateral condyle of femur: (4) CAD (coronary artery disease): (5) Chronic systolic heart failure: (6) CKD (chronic kidney disease) stage 3, GFR 30-59 ml/min: (7) Weakness: Plan This is an 86-year-old female who has significant past medical history of CAD status post stent, ischemic cardiomyopathy, HFrEF status post ICD, prediabetes, HLD, hypothyroidism, osteoporosis, recurrent UTI, vesicular vaginal fistula, chronic back pain who presents to ED secondary to weakness. Generalized weakness Acute metabolic encephalopathy Acute hyponatremia Admitted to telemetry Serum Osmo 269, random urine sodium-20 and osm-760 Consult nephrology-appreciate input and recommendation Patient received 500 mL IV fluid in ED, repeat sodium up to 126 Continue gentle hydration at 50 cc/h Hold hydrocodone and gabapentin for now Schedule Tylenol pt appears dry on exam except for RLE in setting of fracture/immobility Sodium level went up to 128 as of this morning We will monitor PRP and advised to have extra salt in diet Acute Metabolic Encephalopathy improved Discussed about palliative care and she accepted to have palliative care consultation SIRS Patient meets criteria secondary to hypotension and leukocytosis in setting of altered mental status She received 2 g IV Rocephin in ED Possible source UTI-urine culture and blood cultures are pending Chest x-ray also concerning for possible left lower lobe consolidation although poor quality film Patient without respiratory symptoms Empirically cover with vancomycin and cefepime for now Urine and blood cultures have been negative We will discontinue vancomycin and continue with cefepime for now Fracture of lateral condyle of femur right likely secondary to age-related osteoporosis Right foot discoloration Right lower extremity edema Patient currently nonweightbearing Repeat x-ray looks stable; consult Ortho for eval Keep nonweightbearing and [place] brace in place Obtain venous and arterial Dopplers as difficult to obtain pulse to right lower extremity Daughter states discoloring is new as of this morning and discussed case with patient's PCP who saw patient yesterday and stated right foot was warm and of normal color PT had CTA aorta/femoral 08/2020 revealing : Severe short-segment stenosis in the proximal right external iliac artery due to calcified atherosclerotic disease.Moderate right common femoral artery stenosis due to calcified atherosclerotic disease.Multifocal atherosclerotic disease throughout both popliteal arteries causing moderate to severe areas of stenosis, left greater than right. Seen by vascular in [place] on ASA, Statin No DVT on scan and arterial Doppler did not show any significant stenosis Continue with conservative management as advised by the orthopedic surgeon Sacral and back decubiti Wound care has been consulted Appreciate wound care input and recommendation The wounds do not look like infected Known PAD On ASA and statin We will await ultrasound studies Discussed with daughter at bedside, patient is DNR and DNI and does not want patient transferred if in the event arterial emergency is diagnosed Ischemic cardiomyopathy Chronic HFrEF AICD in place elevated troponin EF 20 to 25% Remote history of [place] in 2015 status post LAD stent Continue ASA, statin Hold carvedilol and spironolactone for now in setting of hypotension cycle troponins, no ischemic change on ecg, unlikely acs No cardiac symptoms Elevated LFTS no abd pain bili 1.7, ast 45 repeat in a.m-no issues Malnutrition pt emaciated, weight 38kg consult training program manager Hypothyroidism Continue levothyroxine DVT prophylaxis: Subcu heparin DNR/DNI discussed with daughter at bedside who wishes for patient not to be transferred and in event of emergency would prefer comfort care route PCP: Fercho Discussed with the daughter in detail. The patient wants to go home as soon as possible Will await cultures results and further observation in the hospital Likely discharge on Wednesday Admission and Anticipated Discharge Date Admission Date: October 29, 2022 Subjective 10/30/2022 The patient was seen and examined in medical telemetry unit She has been complaining of pain in the right leg and she wants to go home Denies any fever and or chills, any abdominal pain nausea and or vomiting She denies any other significant symptoms except weakness and tiredness 10/31/2022 The patient was seen and examined in medical telemetry unit She remains stable without significant pain No fever and or chills Noted to have blood pressure on the lower side at systolic below 90 without any symptoms Review of Systems Review of Systems: All systems reviewed and are unremarkable except as noted below Physical Exam 2 Physical Exam: Lying in bed comfortably Constitutional: + ill appearing and + thin Eyes: PERRL, conjunctivae normal, anicteric sclerae ENMT: external ear and nose normal, oropharynx normal Neck: trachea midline, no thyromegaly Respiratory: no respiratory distress Auscultation: + diminished lung sounds and + crackles (Occasional crackles at the bases) Cardiovascular: Rate/Rhythm: regular rate and regular rhythm; not tachycardic Heart Sounds: normal S1, normal S2 and + murmur Extremities: + edema (Trace edema on the right side) Gastrointestinal (Abdomen): Inspection/Auscultation: normal bowel sounds; ab domen not distended Percussion/Palpation: abdomen soft; abdomen nontender Skin: Has sacral decubiti and heel ulceration on the right side Neurologic: moves all extremities (Except right lower extremity which is in nonweightbearing brace); not confused Lymphatic: no cervical or axillary lymphadenopathy Results & Data Results & Data Vital Signs (Past 12 Hours) Vital Signs Temp Pulse Resp BP BP Pulse Ox O2 Del Method 10/31/22 11:27 90/50 L 10/31/22 11:17 36.3 C L 82 17 80/45 L 86/48 L 97 Room Air 10/31/22 08:00 36.4 C L 65 17 100/60 95 Room Air 10/31/22 04:00 36.6 C 76 18 98/58 L 94 Room Air Laboratory Results Short CBC 10/31/22 Range/Units 06:34 WBC 15.96 H (4.8-10.8) K/ul Hgb 12.4 (12.0-16.0) g/dl Hct 35.4 L (37.0-47.0) % Plt Count 257 (130-400) K/uL [facility] 10/30/22 10/31/22 14:41 06:34 Sodium 128 L 131 L Potassium 4.1 4.0 Chloride 102 104 Carbon Dioxide 17 L 18 L BUN 19 18 Creatinine 0.56 L 0.56 L Glucose 105 H 63 L Calcium 7.9 L 8.0 L Medications Administered Current Inpatient Medications Acetaminophen (Acetaminophen 500 Mg Tab) 500 mg PO QID [facility] Stop: 11/28/22 16:59 Last Admin: 10/31/22 08:40 Dose: 500 mg Hydrocodone Bitart/Acetaminophen (Hydrocodone/Acetamophen 5/325mg Tab) 1 tab PO Q4H PRN PRN Reason: Pain Stop: 11/13/22 15:39 Last Admin: 10/31/22 11:20 Dose: 1 tab Al Hydrox/Mg Hydrox/Simethicone (Aluminum/Magnesium Susp 30 Ml Udc) 15 ml PO Q4H PRN PRN Reason: Dyspepsia Stop: 11/28/22 16:55 Aspirin (Aspirin 81 Mg Ectab) 81 mg PO DAILY [facility] Stop: 11/29/22 08:59 Last Admin: 10/31/22 08:39 Dose: 81 mg Ferrous Sulfate (Ferrous Sulfate 325 Mg Tab) 325 mg PO QAM [facility] Stop: 11/29/22 08:59 Last Admin: 10/31/22 08:40 Dose: 325 mg Heparin Sodium (Porcine) (Heparin Sod 5,000 Unit/0.5 Ml Vial) 5,000 units SQ Q12 [facility] Stop: 11/28/22 20:59 Last Admin: 10/31/22 08:40 Dose: 5,000 units Cefepime HCl 2,000 mg/ Syringe 20 mls @ 5 mls/min IV Q12H [facility]; Protocol Stop: 11/08/22 17:59 Last Admin: 10/31/22 06:11 Dose: 5 mls/min Sodium Chloride (Nss 1000ml) 1,000 mls @ 125 mls/hr IV .Q8H [facility] Stop: 10/31/22 18:29 Last Admin: 10/31/22 08:41 Dose: 50 mls/hr Vancomycin HCl 750 mg/ Sodium (Chloride) 265 mls @ 200 mls/hr IV Q18H [facility] Stop: 10/31/22 15:00 Last Admin: 10/31/22 12:09 Dose: 200 mls/hr Levothyroxine Sodium (Levothyroxine Sodium 125 Mcg Tablet) 125 mcg PO DAILYBB [facility] Stop: 11/29/22 06:29 Last Admin: 10/31/22 06:11 Dose: 125 mcg Magnesium Hydroxide (Magnesium Hydroxide Susp 30 Ml Udc) 30 ml PO Q12H PRN PRN Reason: Constipation Stop: 11/28/22 16:55 Ondansetron HCl (Ondansetron Inj 2 Mg/Ml 2 Ml Vial) 4 mg IV Q6H PRN PRN Reason: Nausea Stop: 11/28/22 16:55 Spironolactone (Spironolactone 25 Mg Tab) 25 mg PO DAILY [facility] Stop: 11/29/22 08:59 Last Admin: 10/31/22 08:39 Dose: 25 mg Vitamin D (Cholecalciferol 1,000 Units 25 Mcg Tab) 1,000 units PO QAM [facility] Stop: 11/29/22 08:59 Last Admin: 10/31/22 08:40 Dose: 1,000 units (3) Fracture of lateral condyle of femur Encounter type: initial encounter Fracture alignment: nondisplaced Fracture type: closed Laterality: right Qualified Code(s): S72.424A - Nondisplaced fracture of lateral condyle of right femur, initial encounter for closed f racture
[2022-11-01] MEDS: CEFEPIME 2,000 MG in SYRINGE 0 ML IV SCH ×2 (06:12→17:56)
[2022-11-01] MEDS: LEVOTHYROXINE SODIUM 125 MCG TABLET PO SCH (06:13)
[2022-11-01] MEDS: CHOLECALCIFEROL 1,000 UNITS 25 MCG TAB PO SCH (09:07)
[2022-11-01] MEDS: ASPIRIN 81 MG ECTAB PO SCH (09:07)
[2022-11-01] MEDS: FERROUS SULFATE 325 MG TAB PO SCH (09:07)
[2022-11-01] MEDS: ACETAMINOPHEN 500 MG TAB PO SCH ×4 (09:08→22:00)
[2022-11-01] MEDS: SPIRONOLACTONE 25 MG TAB PO SCH (09:08)
[2022-11-01] MEDS: HEPARIN SOD 5,000 UNIT/0.5 ML VIAL SQ SCH ×2 (09:08→22:00)
[2022-11-01] MEDS: HYDROCODONE/ACETAMOPHEN 5/325MG TAB PO PRN (11:25)
--- NOTE | 2022-11-01 12:50 | Hospitalist Progress Note ---
Date of Service November 01, 2022 Assessment & Plan (1) Acute hyponatremia: (2) Metabolic encephalopathy: (3) Fracture of lateral condyle of femur: (4) CAD (coronary artery disease): (5) Chronic systolic heart failure: (6) CKD (chronic kidney disease) stage 3, GFR 30-59 ml/min: (7) Weakness: Plan This is an 86-year-old female who has significant past medical history of CAD status post stent, ischemic cardiomyopathy, HFrEF status post ICD, prediabetes, HLD, hypothyroidism, osteoporosis, recurrent UTI, vesicular vaginal fistula, chronic back pain who presents to ED secondary to weakness. Generalized weakness Acute metabolic encephalopathy Acute hyponatremia Admitted to telemetry Serum Osmo 269, random urine sodium-20 and osm-760 Consult nephrology-appreciate input and recommendation Patient received 500 mL IV fluid in ED, repeat sodium up to 126 Continue gentle hydration at 50 cc/h Hold hydrocodone and gabapentin for now Schedule Tylenol pt appears dry on exam except for RLE in setting of fracture/immobility Sodium level went up to 128 as of this morning We will monitor PRP and advised to have extra salt in diet Acute Metabolic Encephalopathy improved Discussed about palliative care and she accepted to have palliative care consultation Remains stable and wants to go home Palliative care has been consulted digital project manager on board for discharge disposition SIRS Patient meets criteria secondary to hypotension and leukocytosis in setting of altered mental status She received 2 g IV Rocephin in ED Possible source UTI-urine culture and blood cultures are pending Chest x-ray also concerning for possible left lower lobe consolidation although poor quality film Patient without respiratory symptoms Empirically cover with vancomycin and cefepime for now Urine and blood cultures have been negative We will discontinue vancomycin and continue with cefepime for now We will discontinue antibiotic on discharge Fracture of lateral condyle of femur right likely secondary to age-related osteoporosis Right foot discoloration Right lower extremity edema Patient currently nonweightbearing Repeat x-ray looks stable; consult Ortho for eval Keep nonweightbearing and [place] brace in place Obtain venous and arterial Dopplers as difficult to obtain pulse to right lower extremity Daughter states discoloring is new as of this morning and discussed case with patient's PCP who saw patient yesterday and stated right foot was warm and of normal color PT had CTA aorta/femoral 08/2020 revealing : Severe short-segment stenosis in the proximal right external iliac artery due to calcified atherosclerotic disease.Moderate right common femoral artery stenosis due to calcified atherosclerotic disease.Multifocal atherosclerotic disease throughout both popliteal arteries causing moderate to severe areas of stenosis, left greater than right. Seen by vascular in [place] on ASA, Statin No DVT on scan and arterial Doppler did not show any significant stenosis Continue with conservative management as advised by the orthopedic surgeon Sacral and back decubiti Wound care has been consulted Appreciate wound care input and recommendation The wounds do not look like infected Known PAD On ASA and statin We will await ultrasound studies Discussed with daughter at bedside, patient is DNR and DNI and does not want patient transferred if in the event arterial emergency is diagnosed Ischemic cardiomyopathy Chronic HFrEF AICD in place elevated troponin EF 20 to 25% Remote history of [place] in 2015 status post LAD stent Continue ASA, statin Hold carvedilol and spironolactone for now in setting of hypotension cycle troponins, no ischemic change on ecg, unlikely acs No cardiac symptoms Elevated LFTS no abd pain bili 1.7, ast 45 repeat in a.m-no issues Malnutrition pt emaciated, weight 38kg consult sign writer letterer or painter Hypothyroidism Continue levothyroxine DVT prophylaxis: Subcu heparin DNR/DNI discussed with daughter at bedside who wishes for patient not to be transferred and in event of emergency would prefer comfort care route PCP: Fercho Discussed with the daughter in detail. The patient wants to go home as soon as possible Will await cultures results and further observation in the hospital Likely discharge on Wednesday Admission and Anticipated Discharge Date Admission Date: October 29, 2022 Subjective 10/30/2022 The patient was seen and examined in medical telemetry unit She has been complaining of pain in the right leg and she wants to go home Denies any fever and or chills, any abdominal pain nausea and or vomiting She denies any other significant symptoms except weakness and tiredness 10/31/2022 The patient was seen and examined in medical telemetry unit She remains stable without significant pain No fever and or chills Noted to have blood pressure on the lower side at systolic below 90 without any symptoms 11/01/2022 The patient was seen and examined in medical telemetry unit in presence of the family members She denies any significant symptoms Denies any pain at rest, no shortness of breath and no fever and or chills Review of Systems Review of Systems: All systems reviewed and are unremarkable except as noted below Physical Exam Physical Exam: Lying in bed comfortably Constitutional: + ill appearing and + thin Eyes: PERRL, conjunctivae normal, anicteric sclerae ENMT: external ear and nose normal, oropharynx normal Neck: trachea midline, no thyromegaly Respiratory: no respiratory distress Auscultation: + diminished lung sounds and + crackles (Occasional crackles at the bases) Cardiovascular: Rate/Rhythm: regular rate and regular rhythm; not tachycardic Heart Sounds: normal S1, normal S2 and + murmur Extremities: + edema (Trace edema on the right side) Gastrointestinal (Abdomen): Inspection/Auscultation: normal bowel sounds; abdomen not distended Percussion/Palpation: abdomen soft; abdomen nontender Musculoskeletal: Right leg is in brace with knee in extended position Neurologic: moves all extremities (Except right lower extremity which is in nonweightbearing brace); not confused Lymphatic: no cervical or axillary lymphadenopathy Results & Data Results & Data Vital Signs (Past 12 Hours) Vital Signs Temp Pulse Pulse Resp BP Pulse Ox O2 Del Method 11/01/22 11:47 36.2 C L 90 17 106/73 11/01/22 08:15 36.4 C L 81 17 102/65 11/01/22 07:30 Room Air 11/01/22 07:11 70 11/01/22 03:07 36.5 C 61 18 99/57 L 94 Room Air Medications Administered Current Inpatient Medications Acetaminophen (Acetaminophen 500 Mg Tab) 500 mg PO QID [facility] Stop: 11/28/22 16:59 Last Admin: 11/01/22 09:08 Dose: 500 mg Hydrocodone Bitart/Acetaminophen (Hydrocodone/Acetamophen 5/325mg Tab) 1 tab PO Q4H PRN PRN Reason: Pain Stop: 11/13/22 15:39 Last Admin: 11/01/22 11:25 Dose: 1 tab Al Hydrox/Mg Hydrox/Simethicone (Aluminum/Magnesium Susp 30 Ml Udc) 15 ml PO Q4H PRN PRN Reason: Dyspepsia Stop: 11/28/22 16:55 Aspirin (Aspirin 81 Mg Ectab) 81 mg PO DAILY [facility] Stop: 11/29/22 08:59 Last Admin: 11/01/22 09:07 Dose: 81 mg Ferrous Sulfate (Ferrous Sulfate 325 Mg Tab) 325 mg PO QAM [facility] Stop: 11/29/22 08:59 Last Admin: 11/01/22 09:07 Dose: 325 mg Heparin Sodium (Porcine) (Heparin Sod 5,000 Unit/0.5 Ml Vial) 5,000 units SQ Q12 [facility] Stop: 11/28/22 20:59 Last Admin: 11/01/22 09:08 Dose: 5,000 units Cefepime HCl 2,000 mg/ Syringe 20 mls @ 5 mls/min IV Q12H [facility]; Protocol Stop: 11/08/22 17:59 Last Admin: 11/01/22 06:12 Dose: 5 mls/min Levothyroxine Sodium (Levothyroxine Sodium 125 Mcg Tablet) 125 mcg PO DAILYBB [facility] Stop: 11/29/22 06:29 Last Admin: 11/01/22 06:13 Dose: 125 mcg Magnesium Hydroxide (Magnesium Hydroxide Susp 30 Ml Udc) 30 ml PO Q12H PRN PRN Reason: Constipation Stop: 11/28/22 16:55 Ondansetron HCl (Ondansetron Inj 2 Mg/Ml 2 Ml Vial) 4 mg IV Q6H PRN PRN Reason: Nausea Stop: 11/28/22 16:55 Spironolactone (Spironolactone 25 Mg Tab) 25 mg PO DAILY [facility] Stop: 11/29/22 08:59 Last Admin: 11/01/22 09:08 Dose: 25 mg Vitamin D (Cholecalciferol 1,000 Units 25 Mcg Tab) 1,000 units PO QAM [facility] Stop: 11/29/22 08:59 Last Admin: 11/01/22 09:07 Dose: 1,000 units (3) Fracture of lateral condyle of femur Encounter type: initial encounter Fracture alignment: nondisplaced Fracture type: closed Laterality: right Qualified Code(s): S72.424A - Nondisplaced fracture of lateral condyle of right femur, initial encounter for closed fracture
[2022-11-02] MEDS: CEFEPIME 2,000 MG in SYRINGE 0 ML IV SCH ×2 (06:16→17:17)
[2022-11-02] MEDS: LEVOTHYROXINE SODIUM 125 MCG TABLET PO SCH (06:16)
[2022-11-02 06:53] LABS: Basophils # (auto) 0.04 K/uL (0-0.2); Basophils % (auto) 0.3 %; Eosinophils # (auto) 0.48 K/uL (0-0.50); Hematocrit (blood only) 39.1 % (37.0-47.0); Hemoglobin 13.9 g/dl (12.0-16.0); Immature Granulocytes % (auto) 2.5 %; Lymphocytes # (auto) 0.54 K/uL (1.2-3.4); Lymphocytes % (auto) 4.5 %; Mean Corpuscular Hemoglobin 34.1 pg (25.0-34.0); Mean Corpuscular Hgb Conc 35.5 g/dL (32.0-36.0); Mean Corpuscular Volume 95.8 fL (80.0-100.0); Mean Platelet Volume 8.9 fL (9.4-12.4); Monocytes # (auto) 0.73 K/uL (0.11-0.59); Monocytes % (auto) 6.1 %; Neutrophils # (auto) 9.82 K/uL (1.40-6.50); Neutrophils % (auto) 82.6 %; Platelet Count 206 K/uL (130-400); RDW Coefficient of Variation 13.8 % (11.5-14.5); RDW Standard Deviation 48.8 fL (36.4-46.3); Red Blood Count 4.08 M/uL (4.20-5.40); White Blood Count 11.91 K/ul (4.8-10.8)
[2022-11-02 07:11] LABS: BUN Creatinine Ratio 27.6 (10-20); Calcium 8.2 mg/dl (8.6-10.3); Creatinine Clr Calc Pharmacy 39.8 ml/min; Est GFR (African American) 96.1 ml/min; Est GFR (Non-African American) 82.9 ml/min; Magnesium 1.6 mg/dl (1.7-2.4); Phosphorus 1.6 mg/dl (2.5-4.9)
[2022-11-02] MEDS ORDERED: SODIUM PHOSPHATE 3 MMOL/1 ML 5 ML VIAL IV ONE (07:52)
[2022-11-02] MEDS ORDERED: SODIUM PHOSPHATE 24 MMOL in SODIUM CHLORIDE 0.9% 500 ML IV ONE (08:15)
[2022-11-02] MEDS ORDERED: SODIUM PHOSPHATE 15 MMOL in SODIUM CHLORIDE 0.9% 250 ML IV ONE (08:30)
[2022-11-02] MEDS: SPIRONOLACTONE 25 MG TAB PO SCH (08:44)
[2022-11-02] MEDS: ACETAMINOPHEN 500 MG TAB PO SCH ×4 (08:44→20:59)
[2022-11-02] MEDS: FERROUS SULFATE 325 MG TAB PO SCH (08:45)
[2022-11-02] MEDS: ASPIRIN 81 MG ECTAB PO SCH (08:45)
[2022-11-02] MEDS: CHOLECALCIFEROL 1,000 UNITS 25 MCG TAB PO SCH (08:45)
[2022-11-02] MEDS: HEPARIN SOD 5,000 UNIT/0.5 ML VIAL SQ SCH ×2 (08:45→20:59)
--- NOTE | 2022-11-02 08:54 | Palliative Care Consultation ---
Date of Consultation November 02, 2022 Assessment & Plan (1) Palliative care encounter: I met with Quinn Ricardo, her son and JORGE ALBERTO, as well as daughter, Deni, at bedside. Mr. Ricardo tells me that Gabriela has said many times in the past that she would not want to have resuscitation if her heart or breathing stopped. She does confirm this when asked. She has not really talked about other goals for her care. Given her desire to go home, we talked about options to return home with continued followup from home nursing and PT/OT. Her daughter, who has been her primary caregiver feels that she would need help to take care of her at home. Quinn lives nearby and is able to help at times. They do not have resources to hire caregivers. We discussed option of hospice care. They are familiar with hospice. However, Quinn feels that he would want her to return to the hospital if needed. We discussed what his hope was for her outcome. He is hopeful that she could get strong enough to be ambulatory and at least a little more independent. We discussed concern that with her frailty, sacral ulcer, immobility and poor nutritional status, improving her functional status to that point may not be possible. He acknowledges this but would want to try. Given desire for attempt at rehab and caregiver support needed, they are agreeable to SNF for rehab. If she were not able to improve, they would want her to go home with hospice, but want to at least try rehab. They would want her to return to the hospital if needed at this time. Quinn mentioned a feeding tube if she doesn't eat but noted that she would likely pull it out. We discussed concern that she may remove tube as well as literature showing lack of efficacy with artificial feeding in a scenario like this. He does not feel that artificial feeding would be a good idea for her. Notified case management of family plan. Discussed with Dr. Mari. History of Present Illness Reason for Consultation: goals of care Requesting Physician: Dr. Mari Attending Physician: Betty Mari MD History of Present Illness 86 yo lady with history of CAD and ischemic cardiomyopathy s/p ICD, osteoporosis and a vesicovaginal fistula. She had a fall earlier this month and was hospitalized with a complicated left distal femur fracture. She presented this admission with mental status change and was noted to have leukocytosis, elevated lactate as well as hyponatremia. Urine and blood cultures were negative and CXR shows left basilar consolidation. Prior to the last month, her daughter tells me that Mrs. Ricardo was able to ambulate around the house with a walker but required assistance for bathing, dressing and meals. She has been bedbound since the fracture. She does have a sacral ulcer. Her son reports that she has been eating like a bird and her albumin level is 2.4. She is on routine tylenol for pain and tolerates care per RN. She has been saying repeatedly that she wants to go home but remains confused and is seeing people in the room who are not present. Allergies Allergy/AdvReac Type Severity Reaction Status Date / Time clindamycin Allergy Intermediate hives/nause Verified 10/14/22 21:34 a doxycycline Allergy Intermediate hives/nause Verified 10/14/22 21:34 a meperidine AdvReac Intermediate confusion Verified 10/14/22 21:34 morphine AdvReac Intermediate tachycardia Verified 10/14/22 21:34 Home Medications Medication Instructions Recorded Confirmed Type aspirin 81 mg tablet,delayed 81 mg PO DAILY 10/04/20 10/29/22 History release atorvastatin 20 mg tablet 20 mg PO HS 10/04/20 10/29/22 History carvedilol 12.5 mg tablet 12.5 mg PO BID 10/04/20 10/29/22 History cholecalciferol (vitamin D3) 25 25 mcg PO QAM 10/04/20 10/29/22 History mcg (1,000 unit) capsule ferrous sulfate 325 mg (65 mg 325 mg PO QAM 05/08/21 10/29/22 History iron) tablet spironolactone 25 mg tablet 25 mg PO DAILY 05/08/21 10/29/22 History gabapentin 300 mg capsule 300 mg PO BID 10/14/22 10/29/22 History guaifenesin 600 mg tablet, 0 mg PO Q12 PRN Congestion 10/14/22 10/29/22 History extended release 12 hr (Mucinex) levothyroxine 125 mcg tablet 125 mcg PO DAILYBB 10/14/22 10/29/22 History cephalexin 500 mg capsule 500 mg PO BID 10/29/22 10/29/22 History hydrocodone 5 mg-acetaminophen 325 0.5 tab PO BID PRN pain,severe 10/29/22 10/29/22 History mg tablet Patient History Medical History Ambulatory dysfunction Borderline type 2 diabetes mellitus CAD (coronary artery disease) [place] in 2015 s/p LAD stent Cardiac defibrillator in place Chronic pain Chronic systolic heart failure Compression fracture of L4 vertebra Dyslipidemia Former tobacco use Hypothyroidism Intertrochanteric fracture of right hip Ischemic cardiomyopathy (05/21/14) Recurrent UTI Sacral insufficiency fracture Vesicovaginal fistula Surgical History History of appendectomy History of cholecystectomy History of hysterectomy History of implantable cardioverter-defibrillator (ICD) placement Status post-operative repair of closed fracture of right hip Family History Mother Diabetes Myocardial infarction Brother Diabetes Father Myocardial infarction Social History Smoking Status: Never smoker Tobacco Type: Cigarettes Second Hand Exposure: No; Do You Dip or Chew Tobacco: No; Hx Alcohol Use: No Hx Substance Use: No Preferred Language: Kiswahili Communication Ability: Impaired Music Assistant Required: No Beliefs That Will Affect Care: None Current Living Situation: Family Current Living Situation Comment: LIVES WITH DAUGHTER WHO IS CAREGIVER Other Information That Helps Us Care for You: No Feels Safe at Home: Yes Safety Concerns: Feels Safe At This Time Assistive Devices: Wheelchair Assistive Devices Comment: Rt leg brace Review of Systems Review of Systems: ESAS Pain 0/3 Dyspnea 0/3 Drowsiness 0/3 Physical Exam Constitutional: + cachectic and + altered mental status Respiratory: normal respiratory effort; no labored breathing Musculoskeletal: Extremities: + muscle atrophy Neurologic: Speech / Cognition: + abnormal cognition Psychiatric: Orientation: oriented to person; + not oriented to place and + not oriented to time Results & Data Vital Signs (Past 12 Hours) Vital Signs Temp Pulse Pulse Resp BP BP Pulse Ox 11/02/22 07:32 84 18 106/72 98 11/01/22 22:00 82 11/02/22 04:00 97.5 F L 64 18 107/71 96 11/01/22 21:30 11/01/22 23:16 97.5 F L 63 18 102/63 94 O2 Del Method 11/02/22 07:32 Room Air 11/01/22 22:00 11/02/22 04:00 Room Air 11/01/22 21:30 Room Air 11/01/22 23:16 Room Air PG Care Time/CCT Total # of Minutes Spent Total Time Spent: 65 Total Time Spent with Patient: Total time spent is greater than 50% in coordination of care (as documented) at patient's floor/unit and/or counseling patient: [id number] goals of care, hospice, patient and family education and support coordination of care Coding Level of Care Code 26432 INT INP/OBS CARE 2/55MIN Diagnoses Palliative care encounter Z51.5
--- NOTE | 2022-11-02 10:58 | Nephrology Progress Note ---
Date of Service November 02, 2022 Assessment & Plan (1) Hyponatremia: Plan: hypovolemic hypotonic hyponatremia most c/w volume depletion in very fragile /frail pt. no consistent outpatient hyponatremia. pt w/ active hypothryoid and presenting sodium 126. improved to 128 w/ hydration and stable there x 2 checks. pt w/ multiple fractures, challenging to control pain, limited moblity. -uncontrolled pain may worsen hyponatremia; recognize other clinical priorities like evaluating best MS may take precedent over pain meds if sedating -continue thyroid medication -stopped spironolactone -started urea 15 gm bid -monitor for refeeding syndrome > agree w/ repleting mag, phos IV -check mag/ phos daily -for now no FR -encourage protein intake -next labs in AM -goal sNa for am is no more than 134 Admission and Anticipated Discharge Date Admission Date: October 29, 2022 Subjective palliative followign > for snf/rehab; sNa dropped a bit today Physical Exam Constitutional: well developed, + cachectic, + altered mental status (possibly), + physical limitations (generalized weakness, femoral fracture) and + frail appearing Eyes: EOM intact bilaterally ENMT: Ears: no external ear abnormality Nose: no external nose abnormality Mouth: + dry oral mucous membranes Neck: no nuchal rigidity Respiratory: normal respiratory effort Auscultation: + diminished lung sounds Cardiovascular: RRR, no murmur, no edema Gastrointestinal (Abdomen): Inspection/Auscultation: normal bowel sounds Percussion/Palpation: abdomen soft; abdomen nontender Musculoskeletal: Extremities: + limited ROM of extremities (contractures) and + abnormal strength Skin: no rashes, warm and dry Psychiatric: Orientation: alert, oriented to person and oriented to place Results & Data Vital Signs (Past 12 Hours) Vital Signs Temp Pulse Resp BP BP Pulse Ox O2 Del Method 11/02/22 07:32 84 18 106/72 98 Room Air 11/02/22 04:00 36.4 C L 64 18 107/71 96 Room Air 11/01/22 23:16 36.4 C L 63 18 102/63 94 Room Air Laboratory Results 11/02/22 06:31 11/02/22 06:31
[2022-11-02] MEDS: UREA (UREA-NA) 15 GM PACK PO SCH ×2 (12:59→20:58)
--- NOTE | 2022-11-02 15:14 | Hospitalist Progress Note ---
Date of Service November 02, 2022 Assessment & Plan (1) Acute hyponatremia: (2) Metabolic encephalopathy: (3) Fracture of lateral condyle of femur: (4) CAD (coronary artery disease): (5) Chronic systolic heart failure: (6) CKD (chronic kidney disease) stage 3, GFR 30-59 ml/min: (7) Weakness: Plan This is an 86-year-old female who has significant past medical history of CAD status post stent, ischemic cardiomyopathy, HFrEF status post ICD, prediabetes, HLD, hypothyroidism, osteoporosis, recurrent UTI, vesicular vaginal fistula, chronic back pain who presents to ED secondary to weakness. Palliative care encounter Appreciate palliative care input and recommendation The patient and the family members are deciding home with hospice care Discussed with the patient and the family members again She remains critical and will be discharged home with hospice tomorrow Very poor urine output with electrolyte imbalance Likely secondary to dehydration and is complicated by poor intake Will give cautious amount of intravenous fluid and electrolyte supplement as started Monitor PRP and electrolytes Prognosis remains very poor Generalized weakness Acute metabolic encephalopathy Acute hyponatremia Admitted to telemetry Serum Osmo 269, random urine sodium-20 and osm-760 Consult nephrology-appreciate input and recommendation Patient received 500 mL IV fluid in ED, repeat sodium up to 126 Continue gentle hydration at 50 cc/h Hold hydrocodone and gabapentin for now Schedule Tylenol pt appears dry on exam except for RLE in setting of fracture/immobility Sodium level went up to 128 as of this morning We will monitor PRP and advised to have extra salt in diet Acute Metabolic Encephalopathy improved Discussed about palliative care and she accepted to have palliative care consultation Remains stable and wants to go home Palliative care has been consulted biofuels engineering manager on board for discharge disposition Sodium level is down to 128 today due to lack of intake She was strongly advised to eat and drink a little bit more SIRS Patient meets criteria secondary to hypotension and leukocytosis in setting of altered mental status She received 2 g IV Rocephin in ED Possible source UTI-urine culture and blood cultures are pending Chest x-ray also concerning for possible left lower lobe consolidation although poor quality film Patient without respiratory symptoms Empirically cover with vancomycin and cefepime for now Urine and blood cultures have been negative We will discontinue vancomycin and continue with cefepime for now We will discontinue antibiotic on discharge Cultures have been negative and no further source of infection Fracture of lateral condyle of femur right likely secondary to age-related osteoporosis Right foot discoloration Right lower extremity edema Patient currently nonweightbearing Repeat x-ray looks stable; consult Ortho for eval Keep nonweightbearing and Leeann brace in place Obtain venous and arterial Dopplers as difficult to obtain pulse to right lower extremity Daughter states discoloring is new as of this morning and discussed case with patient's PCP who saw patient yesterday and stated right foot was warm and of normal color PT had CTA aorta/femoral 08/2020 revealing : Severe short-segment stenosis in the proximal right external iliac artery due to calcified atherosclerotic disease.Moderate right common femoral artery stenosis due to calcified atherosclerotic disease.Multifocal atherosclerotic disease throughout both popliteal arteries causing moderate to severe areas of stenosis, left greater than right. Seen by vascular in [place] on ASA, Statin No DVT on scan and arterial Doppler did not show any significant stenosis Continue with conservative management as advised by the orthopedic surgeon Sacral and back decubiti Wound care has been consulted Appreciate wound care input and recommendation The wounds do not look like infected Known PAD On ASA and statin We will await ultrasound studies Discussed with daughter at bedside, patient is DNR and DNI and does not want patient transferred if in the event arterial emergency is diagnosed Ischemic cardiomyopathy Chronic HFrEF AICD in place elevated troponin EF 20 to 25% Remote history of [place] in 2015 status post LAD stent Continue ASA, statin Hold carvedilol and spironolactone for now in setting of hypotension cycle troponins, no ischemic change on ecg, unlikely acs No cardiac symptoms Elevated LFTS no abd pain bili 1.7, ast 45 repeat in a.m-no issues Malnutrition pt emaciated, weight 38kg consult inclusion special educator Hypothyroidism Continue levothyroxine DVT prophylaxis: Subcu heparin DNR/DNI discussed with daughter at bedside who wishes for patient not to be transferred and in event of emergency would prefer comfort care route PCP: Fercho Discussed with the daughter in detail. The patient wants to go home as soon as possible Will await cultures results and further observation in the hospital Discussed with the family members Admission and Anticipated Discharge Date Admission Date: October 29, 2022 Subjective 10/30/2022 The patient was seen and examined in medical telemetry unit She has been complaining of pain in the right leg and she wants to go home Denies any fever and or chills, any abdominal pain nausea and or vomiting She denies any other significant symptoms except weakness and tiredness 10/31/2022 The patient was seen and examined in medical telemetry unit She remains stable without significant pain No fever and or chills Noted to have blood pressure on the lower side at systolic below 90 without any symptoms 11/01/2022 The patient was seen and examined in medical telemetry unit in presence of the family members She denies any significant symptoms Denies any pain at rest, no shortness of breath and no fever and or chills 11/02/2022 The patient was seen and examined in medical telemetry unit in presence of the family members She remains critical but stable She was seen by palliative care and wants to go home even today with hospice care at home She denies any significant symptoms except weakness and tiredness Review of Systems Review of Systems: Unobtainable due to cognitive status Physical Exam Physical Exam: Lying in bed comfortably Constitutional: + ill appearing and + thin Eyes: PERRL, conjunctivae normal, anicteric sclerae ENMT: external ear and nose normal, oropharynx normal Neck: trachea midline, no thyromegaly Respiratory: no respiratory distress Auscultation: + diminished lung sounds and + crackles (Occasional crackles at the bases) Cardiovascular: Rate/Rhythm: regular rate and regular rhythm; not tachycardic Heart Sounds: normal S1, normal S2 and + murmur Extremities: + edema (Trace edema on the right side) Gastrointestinal (Abdomen): Inspection/Auscultation: normal bowel sounds; abdomen not distended Percussion/Palpation: abdomen soft; abdomen nontender Musculoskeletal: Severe pain involving the right lower extremity with movement Neurologic: moves all extremities (Except right lower extremity which is in nonweightbearing brace); not confused Lymphatic: no cervical or axillary lymphadenopathy Results & Data Results & Data Vital Signs (Past 12 Hours) Vital Signs Temp Pulse Pulse Resp BP BP Pulse Ox 11/02/22 08:00 83 11/02/22 11:36 36.6 C 81 18 94/55 L 92 11/02/22 07:32 84 18 106/72 98 11/02/22 04:00 36.4 C L 64 18 107/71 96 O2 Del Method 11/02/22 08:00 11/02/22 11:36 Room Air 11/02/22 07:32 Room Air 11/02/22 04:00 Room Air Laboratory Results Short CBC 11/02/22 Range/Units 06:31 WBC 11.91 H (4.8-10.8) K/ul Hgb 13.9 (12.0-16.0) g/dl Hct 39.1 (37.0-47.0) % Plt Count 206 (130-400) K/uL BMP 11/02/22 06:31 Sodium 128 L Potassium 4.0 Chloride 103 Carbon Dioxide 20 L BUN 16 Creatinine 0.58 L Glucose 70 Calcium 8.2 L Medications Administered Current Inpatient Medications Acetaminophen (Acetaminophen 500 Mg Tab) 500 mg PO QID [facility] Stop: 11/28/22 16:59 Last Admin: 11/02/22 13:00 Dose: 500 mg Hydrocodone Bitart/Acetaminophen (Hydrocodone/Acetamophen 5/325mg Tab) 1 tab PO Q4H PRN PRN Reason: Pain Stop: 11/13/22 15:39 Last Admin: 11/01/22 11:25 Dose: 1 tab Al Hydrox/Mg Hydrox/Simethicone (Aluminum/Magnesium Susp 30 Ml Udc) 15 ml PO Q4H PRN PRN Reason: Dyspepsia Stop: 11/28/22 16:55 Aspirin (Aspirin 81 Mg Ectab) 81 mg PO DAILY [facility] Stop: 11/29/22 08:59 Last Admin: 11/02/22 08:45 Dose: 81 mg Ferrous Sulfate (Ferrous Sulfate 325 Mg Tab) 325 mg PO QAM [facility] Stop: 11/29/22 08:59 Last Admin: 11/02/22 08:45 Dose: 325 mg Heparin Sodium (Porcine) (Heparin Sod 5,000 Unit/0.5 Ml Vial) 5,000 units SQ Q12 [facility] Stop: 11/28/22 20:59 Last Admin: 11/02/22 08:45 Dose: 5,000 units Cefepime HCl 2,000 mg/ Syringe 20 mls @ 5 mls/min IV Q12H [facility]; Protocol Stop: 11/08/22 17:59 Last Admin: 11/02/22 06:16 Dose: 5 mls/min Sodium Chloride (Nss 1000ml) 1,000 mls @ 80 mls/hr IV .[id number] [facility] Stop: 12/02/22 14:44 Levothyroxine Sodium (Levothyroxine Sodium 125 Mcg Tablet) 125 mcg PO DAILYBB [facility] Stop: 11/29/22 06:29 Last Admin: 11/02/22 06:16 Dose: 125 mcg Magnesium Hydroxide (Magnesium Hydroxide Susp 30 Ml Udc) 30 ml PO Q12H PRN PRN Reason: Constipation Stop: 11/28/22 16:55 Ondansetron HCl (Ondansetron Inj 2 Mg/Ml 2 Ml Vial) 4 mg IV Q6H PRN PRN Reason: Nausea Stop: 11/28/22 16:55 Urea (Urea (Urea-Na) 15 Gm Pack) 15 gm PO BID [facility] Stop: 12/02/22 11:14 Last Admin: 11/02/22 12:59 Dose: 15 gm Vitamin D (Cholecalciferol 1,000 Units 25 Mcg Tab) 1,000 units PO QAM [facility] Stop: 11/29/22 08:59 Last Admin: 11/02/22 08:45 Dose: 1,000 units (3) Fracture of lateral condyle of femur Encounter type: initial encounter Fracture alignment: nondisplaced Fracture type: closed Laterality: right Qualified Code(s): S72.424A - Nondisplaced fracture of lateral condyle of right femur, initial encounter for closed fracture
[2022-11-02] MEDS: SODIUM CHLORIDE 0.9% 1000ML 1,000 ML IV SCH (15:51)
[2022-11-03] MEDS: CEFEPIME 2,000 MG in SYRINGE 0 ML IV SCH (05:55)
[2022-11-03] MEDS: LEVOTHYROXINE SODIUM 125 MCG TABLET PO SCH (05:58)
[2022-11-03 07:21] LABS: Calcium 8.3 mg/dl (8.6-10.3); Magnesium 1.6 mg/dl (1.7-2.4); Potassium 3.7 mmol/L (3.5-5.1)
[2022-11-03 07:31] LABS: Creatinine Clr Calc Pharmacy 46.2 ml/min; Est GFR (African American) 99.6 ml/min; Est GFR (Non-African American) 85.9 ml/min; Phosphorus 2.6 mg/dl (2.5-4.9)
[2022-11-03] MEDS: HEPARIN SOD 5,000 UNIT/0.5 ML VIAL SQ SCH (09:28)
[2022-11-03] MEDS: CHOLECALCIFEROL 1,000 UNITS 25 MCG TAB PO SCH (09:28)
[2022-11-03] MEDS: ASPIRIN 81 MG ECTAB PO SCH (09:28)
[2022-11-03] MEDS: FERROUS SULFATE 325 MG TAB PO SCH (09:29)
[2022-11-03] MEDS: ACETAMINOPHEN 500 MG TAB PO SCH ×2 (09:29→14:05)
[2022-11-03] MEDS: UREA (UREA-NA) 15 GM PACK PO SCH (09:30)
[2022-11-03] MEDS: SODIUM CHLORIDE 0.9% 1000ML 1,000 ML IV SCH (10:16)
--- NOTE | 2022-11-03 10:59 | Hospitalist Progress Note ---
Date of Service November 03, 2022 Assessment & Plan (1) Acute hyponatremia: (2) Metabolic encephalopathy: (3) Fracture of lateral condyle of femur: (4) CAD (coronary artery disease): (5) Chronic systolic heart failure: (6) CKD (chronic kidney disease) stage 3, GFR 30-59 ml/min: (7) Weakness: Plan This is an 86-year-old female who has significant past medical history of CAD status post stent, ischemic cardiomyopathy, HFrEF status post ICD, prediabetes, HLD, hypothyroidism, osteoporosis, recurrent UTI, vesicular vaginal fistula, chronic back pain who presents to ED secondary to weakness. Palliative care encounter Appreciate palliative care input and recommendation The patient and the family members are deciding home with hospice care Discussed with the patient and the family members again She remains critical and will be discharged home with hospice tomorrow She remains critical but stable and strongly feels that she wants to go home Discussed with the family member and she will be going home with hospice this afternoon Very poor urine output with electrolyte imbalance Likely secondary to dehydration and is complicated by poor intake Will give cautious amount of intravenous fluid and electrolyte supplement as started Monitor PRP and electrolytes Prognosis remains very poor She has been eating and drinking as much she can Generalized weakness Acute metabolic encephalopathy Acute hyponatremia Admitted to telemetry Serum Osmo 269, random urine sodium-20 and osm-760 Consult nephrology-appreciate input and recommendation Patient received 500 mL IV fluid in ED, repeat sodium up to 126 Continue gentle hydration at 50 cc/h Hold hydrocodone and gabapentin for now Schedule Tylenol pt appears dry on exam except for RLE in setting of fracture/immobility Sodium level went up to 128 as of this morning We will monitor PRP and advised to have extra salt in diet Acute Metabolic Encephalopathy improved Discussed about palliative care and she accepted to have palliative care consultation Remains stable and wants to go home Palliative care has been consulted brokerage branch manager on board for discharge disposition Sodium level is down to 128 today due to lack of intake She was strongly advised to eat and drink a little bit more Her sodium is improved a little bit at 130 as of 11/03/2022 SIRS Patient meets criteria secondary to hypotension and leukocytosis in setting of altered mental status She received 2 g IV Rocephin in ED Possible source UTI-urine culture and blood cultures are pending Chest x-ray also concerning for possible left lower lobe consolidation although poor quality film Patient without respiratory symptoms Empirically cover with vancomycin and cefepime for now Urine and blood cultures have been negative We will discontinue vancomycin and continue with cefepime for now We will discontinue antibiotic on discharge Cultures have been negative and no further source of infection Antibiotics will be discontinued Fracture of lateral condyle of femur right likely secondary to age-related osteoporosis Right foot discoloration Right lower extremity edema Patient currently nonweightbearing Repeat x-ray looks stable; consult Ortho for eval Keep nonweightbearing and Leeann brace in place Obtain venous and arterial Dopplers as difficult to obtain pulse to right lower extremity Daughter states discoloring is new as of this morning and discussed case with tod lawson's PCP who saw patient yesterday and stated right foot was warm and of normal color PT had CTA aorta/femoral 08/2020 revealing : Severe short-segment stenosis in the proximal right external iliac artery due to calcified atherosclerotic disease.Moderate right common femoral artery stenosis due to calcified atherosclerotic disease.Multifocal atherosclerotic disease throughout both pop liteal arteries causing moderate to severe areas of stenosis, left greater than right. Seen by vascular in [place] on ASA, Statin No DVT on scan and arterial Doppler did not show any significant stenosis Continue with conservative management as advised by the orthopedic surgeon Sacral and back decubiti Wound care has been consulted Appreciate wound care input and recommendation The wounds do not look like infected Continue with dressing as per the wound care Known PAD On ASA and statin We will await ultrasound studies Discussed with daughter at bedside, patient is DNR and DNI and does not want patient transferred if in the event arterial emergency is diagnosed Ischemic cardiomyopathy Chronic HFrEF AICD in place elevated troponin EF 20 to 25% Remote history of [place] in 2015 status post LAD stent Continue ASA, statin Hold carvedilol and spironolactone for now in setting of hypotension cycle troponins, no ischemic change on ecg, unlikely acs No cardiac symptoms Elevated LFTS no abd pain bili 1.7, ast 45 repeat in a.m-no issues Malnutrition pt emaciated, weight 38kg consult renewable energy consultant Hypothyroidism Continue levothyroxine DVT prophylaxis: Subcu heparin DNR/DNI discussed with daughter at bedside who wishes for patient not to be transferred and in event of emergency would prefer comfort care route PCP: Fercho Discussed with the daughter in detail. The patient wants to go home as soon as possible Will await cultures results and further observation in the hospital Discussed with the family members She remains critical but stable-she will try to eat and drink and take her medications as much and as far as she can Will be discharged home with hospice this afternoon Prognosis remains very poor Admission and Anticipated Discharge Date Admission Date: October 29, 2022 Subjective 10/30/2022 The patient was seen and examined in medical telemetry unit She has been complaining of pain in the right leg and she wants to go home Denies any fever and or chills, any abdominal pain nausea and or vomiting She denies any other significant symptoms except weakness and tiredness 10/31/2022 The patient was seen and examined in medical telemetry unit She remains stable without significant pain No fever and or chills Noted to have blood pressure on the lower side at systolic below 90 without any symptoms 11/01/2022 The patient was seen and examined in medical telemetry unit in presence of the family members She denies any significant symptoms Denies any pain at rest, no shortness of breath and no fever and or chills 11/02/2022 The patient was seen and examined in medical telemetry unit in presence of the family members She remains critical but stable She was seen by palliative care and wants to go home even today with hospice care at home She denies any significant symptoms except weakness and tiredness 11/03/2022 The patient was seen and examined in medical telemetry unit in presence of the family members She has been critical but stable and wants to go home Has been trying to eat and drink as much as she can and trying to take medications as advised She wants to go home this afternoon as planned with hospice care at home Review of Systems Review of Systems: All systems reviewed and are unremarkable except as noted below Physical Exam Physical Exam: Lying in bed some discomfort Constitutional: + ill appearing and + thin Eyes: PERRL, conjunctivae normal, anicteric sclerae ENMT: external ear and nose normal, oropharynx normal Neck: trachea midline, no thyromegaly Respiratory: no respiratory distress Auscultation: + diminished lung sounds and + crackles (Occasional crackles at the bases) Cardiovascular: Rate/Rhythm: regular rate and regular rhythm; not tachycardic Heart Sounds: normal S1, normal S2 and + murmur Extremities: + edema (Trace edema on the right side) Gastrointestinal (Abdomen): Inspection/Auscultation: normal bowel sounds; abdomen not distended Percussion/Palpation: abdomen soft; abdomen nontender Musculoskeletal: Has pain and swelling involving the right lower extremity secondary to recent knee injury and fracture Neurologic: moves all extremities (Except right lower extremity which is in nonweightbearing brace); not confused Lymphatic: no cervical or axillary lymphadenopathy Results & Data Results & Data Vital Signs (Past 12 Hours) Vital Signs Temp Pulse Pulse Resp BP Pulse Ox O2 Del Method 11/03/22 07:55 36.4 C L 88 18 112/63 98 Room Air 11/03/22 07:16 106 H 11/03/22 03:40 108 H 18 112/73 94 Room Air 11/02/22 23:36 60 20 101/56 L 97 Room Air Laboratory Results BMP 11/03/22 06:34 Sodium 130 L Potassium 3.7 Chloride 105 Carbon Dioxide 15 L BUN 52 H D Creatinine 0.52 L Glucose 80 Calcium 8.3 L Medications Administered Current Inpatient Medications Acetaminophen (Acetaminophen 500 Mg Tab) 500 mg PO QID [facility] Stop: 11/28/22 16:59 Last Admin: 11/03/22 09:29 Dose: 500 mg Hydrocodone Bitart/Acetaminophen (Hydrocodone/Acetamophen 5/325mg Tab) 1 tab PO Q4H PRN PRN Reason: Pain Stop: 11/13/22 15:39 Last Admin: 11/01/22 11:25 Dose: 1 tab Al Hydrox/Mg Hydrox/Simethicone (Aluminum/Magnesium Susp 30 Ml Udc) 15 ml PO Q4H PRN PRN Reason: Dyspepsia Stop: 11/28/22 16:55 Aspirin (Aspirin 81 Mg Ectab) 81 mg PO DAILY [facility] Stop: 11/29/22 08:59 Last Admin: 11/03/22 09:28 Dose: 81 mg Ferrous Sulfate (Ferrous Sulfate 325 Mg Tab) 325 mg PO QAM [facility] Stop: 11/29/22 08:59 Last Admin: 11/03/22 09:29 Dose: 325 mg Heparin Sodium (Porcine) (Heparin Sod 5,000 Unit/0.5 Ml Vial) 5,000 units SQ Q12 [facility] Stop: 11/28/22 20:59 Last Admin: 11/03/22 09:28 Dose: 5,000 units Cefepime HCl 2,000 mg/ Syringe 20 mls @ 5 mls/min IV Q12H [facility]; Protocol Stop: 11/08/22 17:59 Last Admin: 11/03/22 05:55 Dose: 5 mls/min Levothyroxine Sodium (Levothyroxine Sodium 125 Mcg Tablet) 125 mcg PO DAILYBB [facility] Stop: 11/29/22 06:29 Last Admin: 11/03/22 05:58 Dose: 125 mcg Magnesium Hydroxide (Magnesium Hydroxide Susp 30 Ml Udc) 30 ml PO Q12H PRN PRN Reason: Constipation Stop: 11/28/22 16:55 Ondansetron HCl (Ondansetron Inj 2 Mg/Ml 2 Ml Vial) 4 mg IV Q6H PRN PRN Reason: Nausea Stop: 11/28/22 16:55 Urea (Urea (Urea-Na) 15 Gm Pack) 15 gm PO BID [facility] Stop: 12/02/22 11:14 Last Admin: 11/03/22 09:30 Dose: 15 gm Vitamin D (Cholecalciferol 1,000 Units 25 Mcg Tab) 1,000 units PO QAM [facility] Stop: 11/29/22 08:59 Last Admin: 11/03/22 09:28 Dose: 1,000 units (3) Fracture of lateral condyle of femur Encounter type: initial encounter Fracture alignment: nondisplaced Fracture type: closed Laterality: right Qualified Code(s): S72.424A - Nondisplaced fracture of lateral condyle of right femur, initial encounter for closed fracture
--- NOTE | 2022-11-03 16:55 | Discharge Summary ---
Date of Service November 03, 2022 Admission HPI Per Admitting Provider This is an 86-year-old female who has significant past medical history of CAD status post stent, ischemic cardiomyopathy, HFrEF status post ICD, prediabetes, HLD, hypothyroidism, osteoporosis, recurrent UTI, vesicular vaginal fistula, chronic back pain who presents to ED secondary to weakness. Of significance patient recently hospitalized 10/15 to 10/17 secondary to a fall with complicated left lateral condyle fracture of femur. Orthopedics was consulted and felt nonsurgical management was necessary. Weightbearing status is nonweightbearing with a [place] brace locked in extension. Also during hospital stay her hydrocodone was reduced due to confusion. She was seen and evaluated by PCP yesterday for hospital follow-up. She was started on Keflex for possible UTI. Family at that appointment also wanted air mattress and wedge cushion due to patient being nonambulatory.Urine culture was sent as outpatient yesterday.She also had lab work done yesterday which revealed sodium of 126 and a TSH of 10.8. History unobtainable from patient due to underlying cognition. Daughter is at bedside. States increased weakness over the last 2 days. Was told to come to ED from PCP due to low sodium and worsening confusion. Patient lives at home with daughter. Has remained nonweightbearing with the brace in place. She has been taking her hydrocodone last dose last evening as well as her gabapentin. Daughter notes change in confusion over the last 2 days. She denies any respiratory symptoms that she witnessed from the patient, vomiting or diarrhea. Upon exam patient was noted to have discoloration to her right foot which daughter states is new. Overall appetite has been poor but daughter states she has been forcing fluids with eight 8 ounce glasses daily. Admission Exam Per Admitting Provider Physical Exam: Constitutional: Cachectic, emaciated, female, lying in bed, alert, drowsy and co nfused, vitals as above, NAD,, Bilateral temporal wasting, barrel chested Head: Normocephalic, Atraumatic Eyes: PERRL, conjunctivae normal, anicteric sclerae ENMT: external ear and nose normal, oropharynx normal, dry membranes Neck: trachea midline, no thyromegaly normal visual inspection Respiratory: lungs clear to auscultation, diminished at bases due to poor insp effort, no wheeze, rales, rhonchi. Normal insp/exp effort, no accessory muscle use Cardiovascular: RRR, no murmur, no edema Vessels: no JVD or carotid bruit Chest: normal inspection of chest Abdomen: normal bowel sounds, soft, nontender, no hepatosplenomegaly Musculoskeletal: +R foot with dorsal erythema and volar discoloration and cold,unable to find pedal pulse Skin: no rashes, warm and dry normal turgor Neurologic: PERRL, EOMI, accommodation nl, no face palsy, no dysarthria CN's II-XI intact bilaterally and moves all extremities Psychiatric: A+Ox1, euthymic affect Lymphatic: no cervical or axillary lymphadenopathy : deferred Principal Diagnosis Acute hyponatremia, acute metabolic encephalopathy, generalized weakness, right lateral condyle of femur fracture, ischemic cardiomyopathy, malnutrition, bedbound Discharge Exam Lying in bed some discomfort Constitutional + ill appearing and + thin Eyes PERRL, conjunctivae normal, anicteric sclerae ENMT external ear and nose normal, oropharynx normal Neck trachea midline, no thyromegaly Respiratory no respiratory distress Auscultation: + diminished lung sounds and + crackles (Occasional crackles at the bases) Cardiovascular Rate/Rhythm: regular rate and regular rhythm; not tachycardic Heart Sounds: normal S1, normal S2 and + murmur Extremities: + edema (Trace edema on the right side) Gastrointestinal (Abdomen) Inspection/Auscultation: normal bowel sounds; abdomen not distended Percussion/Palpation: abdomen soft; abdomen nontender Neurologic moves all extremities (Except right lower extremity which is in nonweightbearing brace); not confused Lymphatic no cervical or axillary lymphadenopathy Discharge Data Allergies Allergy/AdvReac Type Severity Reaction Status Date / Time clindamycin Allergy Intermediate hives/nause Verified 10/14/22 21:34 a doxycycline Allergy Intermediate hives/nause Verified 10/14/22 21:34 a meperidine AdvReac Intermediate confusion Verified 10/14/22 21:34 morphine AdvReac Intermediate tachycardia Verified 10/14/22 21:34 Consultations 10/29/22 12:42 ED Decision to Admit Stat 10/29/22 14:05 Consult Orthopedic Surgery Routine 10/29/22 16:03 Consult Nephrology Routine 11/01/22 11:26 Consult Palliative Care Routine Ordered Studies 10/29/22 14:04 US doppler leg [US arterial duplex LE RT] Stat US venous doppler LE RT Stat Hospital Course (1) Acute hyponatremia: (2) Metabolic encephalopathy: (3) Fracture of lateral condyle of femur: (4) CAD (coronary artery disease): (5) Chronic systolic heart failure: (6) CKD (chronic kidney disease) stage 3, GFR 30-59 ml/min: (7) Weakness: Plan This is an 86-year-old female who has significant past medical history of CAD status post stent, ischemic cardiomyopathy, HFrEF status post ICD, prediabetes, HLD, hypothyroidism, osteoporosis, recurrent UTI, vesicular vaginal fistula, chronic back pain who presents to ED secondary to weakness. Palliative care encounter Appreciate palliative care input and recommendation The patient and the family members are deciding home with hospice care Discussed with the patient and the family members again She remains critical and will be discharged home with hospice tomorrow She remains critical but stable and strongly feels that she wants to go home Discussed with the family member and she will be going home with hospice this afternoon Very poor urine output with electrolyte imbalance Likely secondary to dehydration and is complicated by poor intake Will give cautious amount of intravenous fluid and electrolyte supplement as started Monitor PRP and electrolytes Prognosis remains very poor She has been eating and drinking as much she can Generalized weakness Acute metabolic encephalopathy Acute hyponatremia Admitted to telemetry Serum Osmo 269, random urine sodium-20 and osm-760 Consult nephrology-appreciate input and recommendation Patient received 500 mL IV fluid in ED, repeat sodium up to 126 Continue gentle hydration at 50 cc/h Hold hydrocodone and gabapentin for now Schedule Tylenol pt appears dry on exam except for RLE in setting of fracture/immobility Sodium level went up to 128 as of this morning We will monitor PRP and advised to have extra salt in diet Acute Metabolic Encephalopathy improved Discussed about palliative care and she accepted to have palliative care consultation Remains stable and wants to go home Palliative care has been consulted apartment hotel manager on board for discharge disposition Sodium level is down to 128 today due to lack of intake She was strongly advised to eat and drink a little bit more Her sodium is improved a little bit at 130 as of 11/03/2022 SIRS Patient meets criteria secondary to hypotension and leukocytosis in setting of altered mental status She received 2 g IV Rocephin in ED Possible source UTI-urine culture and blood cultures are pending Chest x-ray also concerning for possible left lower lobe consolidation although poor quality film Patient without respiratory symptoms Empirically cover with vancomycin and cefepime for now Urine and blood cultures have been negative We will discontinue vancomycin and continue with cefepime for now We will discontinue antibiotic on discharge Cultures have been negative and no further source of infection Antibiotics will be discontinued Fracture of lateral condyle of femur right likely secondary to age-related osteoporosis Right foot discoloration Right lower extremity edema Patient currently nonweightbearing Repeat x-ray looks stable; consult Ortho for eval Keep nonweightbearing and Leeann brace in place Obtain venous and arterial Dopplers as difficult to obtain pulse to right lower extremity Daughter states discoloring is new as of this morning and discussed case with patient's PCP who saw patient yesterday and stated right foot was warm and of normal color PT had CTA aorta/femoral 08/2020 revealing : Severe short-segment stenosis in the proximal right external iliac artery due to calcified atherosclerotic disease.Moderate right common femoral artery stenosis due to calcified atherosclerotic disease.Multifocal atherosclerotic disease throughout both popliteal arteries causing moderate to severe areas of stenosis, left greater than right. Seen by vascular in [place] on ASA, Statin No DVT on scan and arterial Doppler did not show any significant stenosis Continue with conservative management as advised by the orthopedic surgeon Sacral and back decubiti Wound care has been consulted Appreciate wound care input and recommendation The wounds do not look like infected Continue with dressing as per the wound care Known PAD On ASA and statin We will await ultrasound studies Discussed with daughter at bedside, patient is DNR and DNI and does not want patient transferred if in the event arterial emergency is diagnosed Ischemic cardiomyopathy Chronic HFrEF AICD in place elevated troponin EF 20 to 25% Remote history of [place] in 2014 status post LAD stent Continue ASA, statin Hold carvedilol and spironolactone for now in setting of hypotension cycle troponins, no ischemic change on ecg, unlikely acs No cardiac symptoms Elevated LFTS no abd pain bili 1.7, ast 45 repeat in a.m-no issues Malnutrition pt emaciated, weight 38kg consult diagnostic technologist Hypothyroidism Continue levothyroxine DVT prophylaxis: Subcu heparin DNR/DNI discussed with daughter at bedside who wishes for patient not to be transferred and in event of emergency would prefer comfort care route PCP: Fercho Discussed with the daughter in detail. The patient wants to go home as soon as possible Will await cultures results and further observation in the hospital Discussed with the family members She remains critical but stable-she will try to eat and drink and take her medications as much and as far as she can Will be discharged home with hospice this afternoon Prognosis remains very poor Total Time Total Time Spent Total Time Spent (In Minutes): 35 minutes Discharge Plan Discharge Items Patient Disposition: Hospice - Home Reason For Visit: HYPONATREMIA, UTI Discharge Diagnosis: Acute hyponatremia, acute metabolic encephalopathy, generalized weakness, right lateral condyle of femur fracture, ischemic cardiomyopathy, malnutrition, bedbound Condition on Discharge: Fair Activity: As commented below Activity Comment: Needs assistance with ADL's Non-emergency contact: Primary Care Provider Call non-emergency contact if: you have any medication questions and your symptoms worsen Follow-up/Referrals: Fabby Brantley MD [Primary Care Provider] - (Appointment with your healthcare providers as per hospice) Diet: Regular Diet Texture: Easy to Chew Diet Comment: As tolerated Addtl Attending Provider Instructions: Please take precautions to avoid falls Try to eat and drink more to maintain nutrition Try to take your medications as advised Pending Studies at Discharge: No Stand-Alone Forms: My [facility] Medications and DC Order Prescriptions: Continued levothyroxine 125 mcg tablet 125 mcg PO DAILYBB gabapentin 300 mg capsule 300 mg PO BID guaifenesin [Mucinex] 600 mg tablet extended release 12hr 0 mg PO Q12 PRN (Reason: Congestion) [facility]: [facility] atorvastatin 20 mg Tablet 20 mg PO HS carvedilol 12.5 mg Tablet 12.5 mg PO BID cholecalciferol (vitamin D3) 25 mcg (1,000 unit) Capsule 25 mcg PO QAM aspirin 81 mg Tablet,Delayed Release (Dr/Ec) 81 mg PO DAILY Rx Instructions: [facility] pharmacist unable to verify ferrous sulfate 325 mg (65 mg iron) tablet 325 mg PO QAM hydrocodone-acetaminophen 5-325 mg tablet 0.5 tab PO BID PRN (Reason: pain,severe) Discontinued spironolactone 25 mg tablet 25 mg PO DAILY cephalexin 500 mg capsule 500 mg PO BID Discharge Orders: Discharge Order (Routine); Ordered 11/03/22 Ordered By: Betty Mari Admission Data Admit Date/Time: 10/29/22 14:18 Attending Provider: Betty Mari Admit Provider: Madison Abarca Primary Care Provider: Fabby Brantley Other Providers: Madeleine Cabello ; Madison Abarca ; Drake Paulino ; Lisa,[facility] ; Salina Self ; Roselia Jenkins ; [facility] Other Interventions: Discharge Summary Assessment (RN) Last Done: 11/03/22 12:52
== END 2022-11-03 16:18 | disposition hospice, home (50) | DRG 640 ==
LOC: ED 10:46 → 2N 14:18 → SUATTDRO 14:18 → 2N 15:48